=== PATIENT | female | born 1935 | race Caucasian/White ===

== ENCOUNTER 2018-10-21 09:13 | Inpatient (IN) ==
[2018-10-21] MEDS ORDERED: IOPAMIDOL 100 ML BOTTLE IV ONE (09:14)
--- NOTE | 2018-10-21 09:28 | Emergency Department Note ---
Weakness HPI - General Chief complaint: Weakness Stated complaint: weakness Time Seen by Provider: 10/21/18 09:21 Source: EMS Mode of arrival: EMS Limitations: no limitations - History of Present Illness HPI Narrative: [facility] and was at breakfast when the staff noticed that she is been having some increased weakness.. She was able to ambulate there is no localizing signs. Patient herself states that she is just having some increased weakness over the past several days. There is no slurring of speech she is alert and oriented x3. She is here with her daughter at this time. Is able to give us history such as her date who her daughter is her name. A FAST exam is negative there are no localized neurologic findings. No facial droop no slurring of speech. Patient denies any chest pain there is no shortness of breathTemperature is 97.4 the pulse is 84 respirations are 18 blood pressure 147 115 and pulse ox is 97% her Accu-Chek is 240 - Related Data Home Medications Medication Instructions Recorded Confirmed RX: Accu-Chek 1 each FS ACHS 04/24/16 08/18/18 melatonin 3 mg tablet 3 mg PO HS 01/29/17 10/21/18 ondansetron 4 mg disintegrating 4 mg PO Q6H PRN 01/29/17 08/18/18 tablet RX: Sennosides/Docusate Sodium 1 tab PO DAILY 04/13/17 10/21/18 [Senna Plus Tablet] Calcium w/vitamin d 600 mg PO DAILY 01/28/18 10/21/18 Insulin Glargine, Human [Lantus] 5 unit SQ DAILY 10/21/18 10/21/18 Insulin Lispro [HumaLOG] 0 unit SQ BID 10/21/18 10/21/18 Nut.tx.glucose Intolerance,Soy 1 unit PO DAILYP PRN 10/21/18 10/21/18 [Glucerna] RX: Hydrocodone/APAP 7.5/325Mg 1 tab PO Q6HP PRN 10/21/18 10/21/18 [[place] 7.5-325Mg] RX: insulin lispro 100 unit/mL 15 units SUBCUT HS 10/21/18 10/21/18 subcutaneous pen RX: traZODone HCL [Trazodone HCl] 25 mg PO HS 10/21/18 10/21/18 Previous Rx's Medication Instructions Recorded RX: Accu-Chek 1 each FS ACHS strip 06/10/16 Advanced Glucose Meter Test Strips See Dose Instructions .ROUTE 01/13/17 .MEDSUPPLY #100 each NS MDD 4 times daily blood-glucose meter See Dose Instructions .ROUTE 01/13/17 .MEDSUPPLY #1 each NS MDD 4 times daily incontinence pants, reusable See Dose Instructions .ROUTE 01/13/17 .MEDSUPPLY #28 each NS MDD 2 pants daily Sure-Fine Pen [place] 31 gauge x See Dose Instructions .ROUTE 02/16/1710/02" .MEDSUPPLY #100 each NS phenazopyridine 200 mg tablet 200 mg PO TID #9 tab 04/14/17 tamsulosin 0.4 mg capsule 0.4 mg PO HS #90 cap 02/08/18 insulin glargine (U-100) 100 24 unit SUB-Q HS #15 ml 03/24/18 unit/mL (3 mL) subcutaneous pen atorvastatin 20 mg tablet 20 mg PO HS #90 tab 05/03/18 doxycycline hyclate 100 mg tablet 100 mg PO QDAY #90 tab 05/03/18 gabapentin 100 mg capsule 100 mg PO TID #270 cap 05/03/18 polyethylene glycol 3350 17 gram 17 g PO DAILY PRN #30 packet NS 05/03/18 oral powder packet donepezil 5 mg disintegrating 5 mg PO HS #90 tab 05/19/18 tablet oxybutynin chloride ER 5 mg 5 mg PO QDAY #30 tab 08/30/18 tablet,extended release 24 hr fentanyl 25 mcg/hr transdermal 1 patch TRANSDERMA Q72H #10 patch 10/12/18 patch MDD 1 patch every 3 days Allergies Allergy/AdvReac Type Severity Reaction Status Date / Time No Known Drug Allergies Allergy Verified 08/18/18 13:03 Review of Systems All systems ED: reviewed and negative except as stated. Constitutional: Denies: fever, chills Eyes: Denies: eye pain ENT ED: Denies: ear pain Cardiovascular: Denies: chest pain Respiratory: Denies: shortness of breath Gastrointestinal: Denies: abdominal pain Genitourinary: Denies: dysuria, urgency, frequency Musculoskeletal: Denies: back pain, joint swelling Integumentary: Denies: rash Neurological: Reports: weakness. Denies: headache, numbness, paresthesias, confusion Psychiatric: Denies: anxiety, depression Endocrine: Denies: fatigue Hematological/Lymphatic: Denies: easy bleeding Allergic/Immunologic: Denies: facial swelling Past Medical History - Past Medical History [facility] Narrative: All Active Problems (Last Reviewed 08/23/18 @ 10:43 by Gee Werner DO) Abdominal pain (Acute) UTI (urinary tract infection) (Acute) Multiple rib fractures involving four or more ribs (Acute) Chest pain, musculoskeletal (Acute) Compression fracture of thoracic vertebra (Acute) Osteoporosis (Acute) Fever, low grade (Acute) Leukocytosis (leucocytosis) (Acute) Dementia (Acute) Near syncope (Acute) Chronic constipation (Chronic) Incontinence in female (Acute) Compression fracture (Acute) Lumbago (Acute) Hyponatremia (Acute) Back pain (Chronic) Dehydration (Acute) Hyponatremia (Acute) Gastritis (Acute) Deep vein thrombosis (Chronic) Abdominal aortic pulsation (Chronic) Fracture of right patella with routine healing (Chronic) Glaucoma (Chronic) Hypo-osmolality and hyponatremia (Chronic) Acidosis (Chronic) Shortness of breath (Chronic) Urinary tract infection (Chronic) Other disorders of lung (Chronic) Hyperglycemia (Chronic) Metabolic encephalopathy (Chronic) Diabetes mellitus type II, controlled, with no complications (Chronic) Past Surgical History (Last Reviewed 08/23/18 @ 10:43 by Gee Werner DO) No pertinent past surgical history (Acute) Family History (Last Reviewed 08/23/18 @ 10:43 by Gee Werner DO) Other No pertinent family history Medical history: Reports: dementia, DM (Type II, insulin using), glaucoma, hyperlipidemia, hypertension, other (UTI's, NO pyelonephritis. Compression fractures, rib fractures (fall) with some chronic pain/fentanyl patch.). Denies: cancer, COPD, CVA, myocardial infarction, thyroid disease, TIA Psychiatric history: Reports: anxiety. Denies: depression Surgical history ED: Reports: hysterectomy, tonsillectomy - Social History smoking status: Never smoker Alcohol use: Reports: None Drug use: Reports: none Physical Exam Limitations: no limitations General appearance: alert Head: atraumatic, normocephalic Eye: Present: normal appearance, PERRL ENT: normal exam, normal oropharynx, mucous membranes moist Neck: Present: normal inspection, full ROM Chest: Present: normal inspection, symmetric chest wall rise. Absent: tenderness Respiratory: Present: normal lung sounds bilaterally. Absent: respiratory distress, rales/crackles, wheezes Cardiovascular: Present: regular rate, normal rhythm. Absent: bradycardia, tachycardia Abdominal: Present: soft. Absent: distention, tenderness Extremities: Present: normal inspection, full ROM. Absent: tenderness Back: Present: normal inspection, full ROM. Absent: tenderness Patient oriented to: Present: person, place, time Speech: Present: fluid speech Cranial nerves: EOM function (II, III, IV, ): Normal, facial sensation (V): Normal, facial palsy (VII): Normal, gag reflex (IX): Normal, spinal accessory function (XI): Normal, tongue deviation (XII): Normal Motor strength - LUE: 5/5 Motor strength - RUE: 5/5 Motor strength - RLE: 5/5 Upper motor neuron exam: Babinski sign: Absent bilaterally Sensory exam upper extremity: Normal: light touch, pin prick Sensory exam lower extremity: Normal: light touch, pin prick Coma Scale Eye Opening: Spontaneous Coma Scale Motor Response: Obeys Commands Coma Scale Verbal Response: Oriented Coma Scale Total: 15 Psychiatric: Present: normal affect, normal mood Skin: Present: warm, cool Course Vital Signs Temperature 97.4 F 10/21/18 09:14 Pulse Rate 84 10/21/18 09:14 Respiratory Rate 18 10/21/18 09:14 Blood Pressure 147/115 10/21/18 09:14 Pulse Oximetry (%) 97 10/21/18 09:14 Temperature 97.4 F 10/21/18 14:40 Pulse Rate 63 10/21/18 14:40 Respiratory Rate 17 10/21/18 14:40 Blood Pressure 134/62 10/21/18 14:40 Pulse Oximetry (%) 95 10/21/18 14:40 Weakness - MDM Narrative Medical decision making narrative: Chest x-ray reveals infiltrate in the left hilar region. Cultures have been drawn patient started on Rocephin and Zithromax. Pressures initially were 110 systolically when she arrived but started dropping it down to the 70s but was resuscitated with fluid pressures back up to the 100s after fluid boluses. Head CT and CTA of the head and neck were also negative. Dr. Mata contacted and patient to be admitted - Lab Data Result diagrams: 10/21/18 09:34 10/21/18 09:34 Lab Results 10/21/18 10/21/18 10/21/18 Range/Units 09:34 09:34 09:34 WBC 6.5 (4.5-11.0) K/mcL RBC 4.63 (4.00-5.20) M/mcL Hgb 13.7 (12.0-15.0) g/dL Hct 42.6 (36.0-48.0) % POC Hct 43.0 (36.0-48.0) % MCV 92.0 (80.0-100.0) fL MCH 29.7 (26.0-34.0) pg MCHC 32.3 (31.0-36.0) g/dL RDW 12.8 (11.5-14.5) % Plt Count 316 (140-440) K/mcL MPV 8.3 (7.4-10.4) fL Gran % 60.2 (38.0-78.0) % Lymph % (Auto) 26.9 (15.5-49.0) % Hart % (Auto) 10.0 (1.0-12.0) % Eos % (Auto) 1.9 (0.0-7.0) % Baso % (Auto) 1.0 (0.0-2.0) % Gran # 3.9 (1.8-8.0) K/mcL Lymph # (Auto) 1.7 (1.5-4.8) K/mcL Hart # (Auto) 0.7 (0.1-0.9) K/mcL Eos # (Auto) 0.1 (0.0-0.7) K/mcL Baso # (Auto) 0.1 (0.0-0.3) K/mcL POC PT (11.9-14.5) sec POC INR (0.9-1.2) VBG Lactic Acid (0.5-2.0) mmol/L POC Sodium 136 (133-145) mmol/L Sodium 135 (133-145) mmol/L POC Potassium 4.1 (3.3-5.1) mmol/L Potassium 4.2 (3.3-5.1) mmol/L POC Chloride 99 (96-108) mmol/L Chloride 95 L (96-108) mmol/L Carbon Dioxide 26 (22-30) mmol/L POC Total CO2 27 (22-30) mmol/L Anion Gap 14.0 (8-16) POC BUN 13 (8-23) mg/dl BUN 12 (8-23) mg/dl Creatinine 0.7 (0.6-1.1) mg/dl POC Creatinine 0.6 (0.6-1.1) mg/dl GFR Calculation 80 Glucose 234 H (70-105) mg/dL POC Glucose 237 H (70-105) mg/dL Calcium 9.4 (8.6-10.4) mg/dl POC WB Ioniz Calcium 1.14 L (1.16-1.32) mmol/L Total Bilirubin 0.5 (0.0-1.0) mg/dL AST 18 (0-37) U/l ALT 11 (0-40) U/l Alkaline Phosphatase 119 H (39-117) U/L Total Creatine Kinase 70 69 (24-170) IU/L CK-MB (CK-2) 1.7 (0-2.9) ng/ml Myoglobin 26 (25-58) ng/ml Troponin T (0-0.03) ng/ml Total Protein 7.9 (5.9-8.4) gm/dL Albumin 4.1 (3.2-5.2) gm/dL Globulin 3.8 H (2.2-3.7) gm/dL Albumin/Globulin Ratio 1.1 (1.0-2.3) Urine Color Urine Appearance Urine pH (5.0-9.0) Ur Specific [place] (1.000-1.035) Urine Protein (NEG) mg/dL Urine Glucose (UA) (NEG) mg/dL Urine Ketones (NEG) mg/dL Urine Occult Blood (<0.03) mg/dL Urine Nitrate (NEG) Urine Bilirubin (NEG) mg/dL Urine Urobilinogen (NEG) mg/dL Ur Leukocyte Esterase (NEG) /uL Urine RBC (0-1) /hpf Urine WBC (0-4) /hpf Ur Squamous Epith Cells (0-4) /hpf Urine Bacteria (0) /hpf Urine Mucus (0) /hpf Ur Culture Indicated? 10/21/18 10/21/18 10/21/18 Range/Units 09:34 09:34 10:16 WBC (4.5-11.0) K/mcL RBC (4.00-5.20) M/mcL Hgb (12.0-15.0) g/dL Hct (36.0-48.0) % POC Hct (36.0-48.0) % MCV (80.0-100.0) fL MCH (26.0-34.0) pg MCHC (31.0-36.0) g/dL RDW (11.5-14.5) % Plt Count (140-440) K/mcL MPV (7.4-10.4) fL Gran % (38.0-78.0) % Lymph % (Auto) (15.5-49.0) % Hart % (Auto) (1.0-12.0) % Eos % (Auto) (0.0-7.0) % Baso % (Auto) (0.0-2.0) % Gran # (1.8-8.0) K/mcL Lymph # (Auto) (1.5-4.8) K/mcL Hart # (Auto) (0.1-0.9) K/mcL Eos # (Auto) (0.0-0.7) K/mcL Baso # (Auto) (0.0-0.3) K/mcL POC PT 11.5 L (11.9-14.5) sec POC INR 1.0 (0.9-1.2) VBG Lactic Acid 1.2 (0.5-2.0) mmol/L POC Sodium (133-145) mmol/L Sodium (133-145) mmol/L POC Potassium (3.3-5.1) mmol/L Potassium (3.3-5.1) mmol/L POC Chloride (96-108) mmol/L Chloride (96-108) mmol/L Carbon Dioxide (22-30) mmol/L POC Total CO2 (22-30) mmol/L Anion Gap (8-16) POC BUN (8-23) mg/dl BUN (8-23) mg/dl Creatinine (0.6-1.1) mg/dl POC Creatinine (0.6-1.1) mg/dl GFR Calculation Glucose (70-105) mg/dL POC Glucose (70-105) mg/dL Calcium (8.6-10.4) mg/dl POC WB Ioniz Calcium (1.16-1.32) mmol/L Total Bilirubin (0.0-1.0) mg/dL AST (0-37) U/l ALT (0-40) U/l Alkaline Phosphatase (39-117) U/L Total Creatine Kinase (24-170) IU/L CK-MB (CK-2) (0-2.9) ng/ml Myoglobin (25-58) ng/ml Troponin T < 0.01 (0-0.03) ng/ml Total Protein (5.9-8.4) gm/dL Albumin (3.2-5.2) gm/dL Globulin (2.2-3.7) gm/dL Albumin/Globulin Ratio (1.0-2.3) Urine Color Urine Appearance Urine pH (5.0-9.0) Ur Specific [place] (1.000-1.035) Urine Protein (NEG) mg/dL Urine Glucose (UA) (NEG) mg/dL Urine Ketones (NEG) mg/dL Urine Occult Blood (<0.03) mg/dL Urine Nitrate (NEG) Urine Bilirubin (NEG) mg/dL Urine Urobilinogen (NEG) mg/dL Ur Leukocyte Esterase (NEG) /uL Urine RBC (0-1) /hpf Urine WBC (0-4) /hpf Ur Squamous Epith Cells (0-4) /hpf Urine Bacteria (0) /hpf Urine Mucus (0) /hpf Ur Culture Indicated? 10/21/18 Range/Units 10:16 WBC (4.5-11.0) K/mcL RBC (4.00-5.20) M/mcL Hgb (12.0-15.0) g/dL Hct (36.0-48.0) % POC Hct (36.0-48.0) % MCV (80.0-100.0) fL MCH (26.0-34.0) pg MCHC (31.0-36.0) g/dL RDW (11.5-14.5) % Plt Count (140-440) K/mcL MPV (7.4-10.4) fL Gran % (38.0-78.0) % Lymph % (Auto) (15.5-49.0) % Hart % (Auto) (1.0-12.0) % Eos % (Auto) (0.0-7.0) % Baso % (Auto) (0.0-2.0) % Gran # (1.8-8.0) K/mcL Lymph # (Auto) (1.5-4.8) K/mcL Hart # (Auto) (0.1-0.9) K/mcL Eos # (Auto) (0.0-0.7) K/mcL Baso # (Auto) (0.0-0.3) K/mcL POC PT (11.9-14.5) sec POC INR (0.9-1.2) VBG Lactic Acid (0.5-2.0) mmol/L POC Sodium (133-145) mmol/L Sodium (133-145) mmol/L POC Potassium (3.3-5.1) mmol/L Potassium (3.3-5.1) mmol/L POC Chloride (96-108) mmol/L Chloride (96-108) mmol/L Carbon Dioxide (22-30) mmol/L POC Total CO2 (22-30) mmol/L Anion Gap (8-16) POC BUN (8-23) mg/dl BUN (8-23) mg/dl Creatinine (0.6-1.1) mg/dl POC Creatinine (0.6-1.1) mg/dl GFR Calculation Glucose (70-105) mg/dL POC Glucose (70-105) mg/dL Calcium (8.6-10.4) mg/dl POC WB Ioniz Calcium (1.16-1.32) mmol/L Total Bilirubin (0.0-1.0) mg/dL AST (0-37) U/l ALT (0-40) U/l Alkaline Phosphatase (39-117) U/L Total Creatine Kinase (24-170) IU/L CK-MB (CK-2) (0-2.9) ng/ml Myoglobin (25-58) ng/ml Troponin T (0-0.03) ng/ml Total Protein (5.9-8.4) gm/dL Albumin (3.2-5.2) gm/dL Globulin (2.2-3.7) gm/dL Albumin/Globulin Ratio (1.0-2.3) Urine Color Yellow Urine Appearance Clear Urine pH 6.0 (5.0-9.0) Ur Specific [place] 1.013 (1.000-1.035) Urine Protein Neg (NEG) mg/dL Urine Glucose (UA) >=500 A (NEG) mg/dL Urine Ketones Neg (NEG) mg/dL Urine Occult Blood Neg (<0.03) mg/dL Urine Nitrate Neg (NEG) Urine Bilirubin Neg (NEG) mg/dL Urine Urobilinogen Neg (NEG) mg/dL Ur Leukocyte Esterase Neg (NEG) /uL Urine RBC < 1 (0-1) /hpf Urine WBC < 1 (0-4) /hpf Ur Squamous Epith Cells 0 (0-4) /hpf Urine Bacteria 0 (0) /hpf Urine Mucus Few (0) /hpf Ur Culture Indicated? No Disposition Pt seen by [employer]/PA only: No Clinical Impression: Pneumonia Disposition: Xfer As Inpt ([facility]) Condition: Fair
--- NOTE | 2018-10-21 09:54 | XRay Report ---
INDICATION: Weakness TECHNIQUE: AP chest x-ray,portable upright COMPARISON: Previous examinations dated 10/09/2017 and 06/09/2016 FINDINGS:Suboptimal evaluation as this study was performed with portable technique and the patient partially upright. There is a left perihilar infiltrate consistent with pneumonia. Routine PA and lateral chest x-rays would be helpful when clinically appropriate. Right lung remains negative. There is cardiomegaly. Pulmonary vascularity is unremarkable. No pulmonary edema or pulmonary congestion. Incidental note is made of nonacute healed right rib fractures. IMPRESSION: 1. Left perihilar infiltrate consistent with pneumonia 2. Cardiomegaly. No pulmonary edema or pulmonary congestion Interpreted and Authenticated by: Gee Collins 10/21/18
--- NOTE | 2018-10-21 09:58 | Cat Scan Report ---
CLINICAL INFORMATION: Weakness COMPARISON: Previous MRI scan dated 01/07/2016 TECHNIQUE: Axial noncontrast-enhanced images through the brain. Sagittal and coronal reformatted images FINDINGS: No acute intracranial hemorrhage. There is no intra-axial hematoma. No subdural or subarachnoid hemorrhage. No focal intra-axial attenuation abnormality. No localized mass effect. There is cerebral atrophy. There is white matter abnormality consistent with small vessel ischemic change in this 83-year-old patient. No focal abnormality. There is cerebellar atrophy. Brainstem is negative. Basilar cisterns are normal. No hyperdense middle cerebral artery sign. No calvarial fracture. No lytic lesion. Temporal bones are negative. Paranasal sinuses are negative. No significant interval change since previous MRI scan. IMPRESSION: 1. Cerebral atrophy. White matter abnormality consistent with small vessel ischemic change 2. No acute intracranial hemorrhage. No acute abnormality 3. No significant interval change since 01/07/2016 The exam was performed using radiation dose optimization techniques including, but not limited to, automated exposure control, adjustment of the mA and/or kV according to patient size and use of iterative reconstruction technique. Interpreted and Authenticated by: Gee Collins 10/21/18
[2018-10-21 10:52] LABS: Basophils # (Auto) 0.1 K/mcL (0.0-0.3); Eosinophils # (Auto) 0.1 K/mcL (0.0-0.7); Eosinophils % (Auto) 1.9 % (0.0-7.0); Granulocytes % (Auto) 60.2 % (38.0-78.0); Lymphocytes # (Auto) 1.7 K/mcL (1.5-4.8); Lymphocytes % (Auto) 26.9 % (15.5-49.0); Mean Corpuscular HGB Conc 32.3 g/dL (31.0-36.0); Monocytes # (Auto) 0.7 K/mcL (0.1-0.9); Platelet Count 316 K/mcL (140-440); RBC 4.63 M/mcL (4.00-5.20); Red Cell Distribution Width 12.8 % (11.5-14.5)
[2018-10-21 11:04] LABS: Appearance,Urine CLEAR; Bacteria,Urine 0 /hpf (0); Bilirubin,Urine NEG (NEG); Color,Urine YELLOW; Glucose,Urine (UA) >=500 mg/dL (NEG); Leukocyte Esterase,Urine NEG /uL (NEG); Mucus,Urine FEW /hpf (0); Protein,Urine NEG (NEG); Specific Gravity,Urine 1.013 (1.000-1.035); Urine Blood NEG mg/dL (<0.03); Urine RBC < 1 /hpf (0-1); Urine Squamous Epithelial Cell 0 /hpf (0-4); Urine WBC < 1 /hpf (0-4); Urobilinogen,Urine NEG (NEG)
[2018-10-21 11:17] LABS: Creatine Kinase 69 IU/L (24-170)
[2018-10-21 11:23] LABS: ALT/SGPT 11 U/l (0-40); Albumin 4.1 gm/dL (3.2-5.2); Albumin/Globulin Ratio 1.1 (1.0-2.3); Alkaline Phosphatase 119 U/L (39-117); Blood Urea Nitrogen 12 mg/dl (8-23); Creatine Kinase 70 IU/L (24-170); Creatine Kinase MB 1.7 ng/ml (0-2.9); Myoglobin 26 ng/ml (25-58)
--- NOTE | 2018-10-21 11:39 | Cat Scan Report ---
CLINICAL INFORMATION: Weakness TECHNIQUE: 80 mL contrast material injected. Scans performed through the neck and head during arterial phase. Routine sagittal and coronal images. MIP and CPR reformatted images. COMPARISON: Noncontrast brain CT scan dated 10/21/2018 FINDINGS: There is calcification in the thoracic aorta. Ascending thoracic aorta is mildly dilated and measures 4.1 cm in cross-sectional diameter. There is no dissection. There is calcified plaque in the aortic arch. Normal origins of the left subclavian artery, left common carotid artery, innominate artery, right common carotid artery, right subclavian artery. Origins of the right vertebral artery and left vertebral There is calcified plaque in the mid left common carotid artery. There is no noncalcified plaque. There is no stenosis. There is calcified plaque in the proximal left internal carotid artery. There is no soft plaque or ulceration. There is no hemodynamically significant stenosis. There is extensive plaque in the proximal right internal carotid artery. There is no soft plaque or ulceration. There is approximately 70% diameter stenosis in the proximal right internal carotid artery. This is hemodynamically significant. Origins of the vertebral arteries are normal. No stenosis. Cervical portions of the vertebral arteries are negative bilaterally. There is no stenosis or occlusion. There is no dissection. There is calcified plaque in the petrous portion of the right internal carotid artery. There is calcified plaque in the cavernous segments of both internal carotid arteries and supraclinoid segments of both internal carotid arteries. There is no stenosis or occlusion. Intracranial vertebral arteries are normal. Basilar artery is normal. M1 segments of the middle cerebral arteries and A1 segments of the anterior cerebral arteries are negative. There is no stenosis. Superior cerebellar arteries and posterior cerebral arteries are negative. There is no intracranial aneurysm. There is no arteriovenous malformation. There are no occluded branches Superior sagittal sinus is opacified and appears normal. Transverse sinuses and sigmoid sinuses are negative. Straight sinus and vein of Oscar are negative. Lung apices are negative. No pneumothorax. No focal mass IMPRESSION: 1. Calcified plaque in the left common carotid artery and proximal left internal carotid artery. No hemodynamically significant stenosis. No evidence for ulceration. 2. Calcified plaque in the proximal right internal carotid artery. Approximately 70% diameter stenosis. No detectable ulceration 3. No intracranial abnormality. No occluded branches. No intracranial aneurysm or arteriovenous malformation. Interpreted and Authenticated by: Gee Collins 10/21/18
[2018-10-21] MEDS ORDERED: cefTRIAXone 1 GM in DEXTROSE 5% IN WATER 50 ML IV ONE (12:18)
[2018-10-21] MEDS ORDERED: AZITHROMYCIN 500 MG in DEXTROSE 5% IN WATER 250 ML IV ONE (12:20)
[2018-10-21] MEDS ORDERED: 0.9 % SODIUM CHLORIDE 1,000 ML IV ONE ×2 (12:48→13:16)
--- NOTE | 2018-10-21 14:56 | Internal Med History&Physical ---
Medical - H&P: HPI Patient information: Note initiated : 10/21/18 at 2:51 pm Service Date, if different from initiated Date: [] Patient: Giuliana Moreno a 83 y/o F admitted on for Weakness. Chief Complaint: [] History of present illness: Ms. Moreno is a 83 year old F with history of dementia, living in an adult family home [place] home, presents to the hospital today accompanied by her daughter who is also the POA for evaluation of altered mental status weakness and lethargy. The patient is drowsy, has some slurring of speech and most of the history has been obtained by speaking to the daughter. The patient was doing fine until breakfast this morning. After eating breakfast she suddenly slumped in a chair and became drowsy. She was sent here for further evaluation in the hospital she was slurring her words, and was confused. This is not her baseline. The patient was therefore evaluated in the emergency room. According to the ER physician there was no focal signs, the patient had a negative head CT and a head CT done which shows 70% right proximal ICA involvement. Chest x-ray was done which showed left perihilar infiltrate suggestive of pneumonia. Labs reviewed unremarkable, UA is negative. The patient during the ER stay then became hypotensive with a blood pressure as low as 70 systolic. Requiring fluid boluses to bring the blood pressure back up. On my evaluation patient remained drowsy however was able to follow commands and open eyes to verbal stimulus, she was able to follow commands. She had generalized weakness all throughout she did have dry mouth and slurring of words. Her blood pressure has picked up again after 2 L saline boluses She is being admitted to the hospital for further management Patient is being admitted to the ICU, patient is full code, plan reviewed with the daughter ROS unobtainable: due to mental status Medical - H&P: [facility] Medical history: Medical History (Last Reviewed 08/23/18 @ 10:43 by Gee Werner DO) Compression fracture (Acute) Lumbago (Acute) Hyponatremia (Acute) Dehydration with hyponatremia (Resolved) Back pain (Chronic) Dehydration (Acute) Hyponatremia (Acute) Gastritis (Acute) Deep vein thrombosis (Chronic) Abdominal aortic pulsation (Chronic) Fracture of right patella with routine healing (Chronic) Glaucoma (Chronic) Hypo-osmolality and hyponatremia (Chronic) Acidosis (Chronic) Shortness of breath (Chronic) Urinary tract infection (Chronic) Other disorders of lung (Chronic) Hyperglycemia (Chronic) Metabolic encephalopathy (Chronic) Diabetes mellitus type II, controlled, with no complications (Chronic) Surgical history: Past Surgical History (Last Reviewed 08/23/18 @ 10:43 by Gee Werner DO) No pertinent past surgical history (Acute) Family history: reviewed and not pertinent Medical - H&P: Meds Home Medications Medication Instructions Recorded Confirmed Type Accu-Chek 1 each FS ACHS 04/24/16 08/18/18 History Accu-Chek 1 each FS ACHS strip 06/10/16 08/18/18 Rx Advanced Glucose Meter Test Strips See Dose Instructions .ROUTE 01/13/17 08/18/18 Rx .MEDSUPPLY #100 each NS MDD 4 times daily blood-glucose meter See Dose Instructions .ROUTE 01/13/17 08/18/18 Rx .MEDSUPPLY #1 each NS MDD 4 times daily incontinence pants, reusable See Dose Instructions .ROUTE 01/13/17 08/18/18 Rx .MEDSUPPLY #28 each NS MDD 2 pants daily melatonin 3 mg tablet 3 mg PO HS 01/29/17 10/21/18 History ondansetron 4 mg disintegrating 4 mg PO Q6H PRN 01/29/17 08/18/18 History tablet Sure-Fine Pen Kelly 31 gauge x See Dose Instructions .ROUTE 02/16/17 08/18/18 Rx 3/16" .MEDSUPPLY #100 each NS Sennosides/Docusate Sodium [Senna 1 tab PO DAILY 04/13/17 10/21/18 History Plus Tablet] phenazopyridine 200 mg tablet 200 mg PO TID #9 tab 04/14/17 08/18/18 Rx Calcium w/vitamin d 600 mg PO DAILY 01/28/18 10/21/18 History tamsulosin 0.4 mg capsule 0.4 mg PO HS #90 cap 02/08/18 10/21/18 Rx insulin glargine (U-100) 100 24 unit SUB-Q HS #15 ml 03/24/18 08/18/18 Rx unit/mL (3 mL) subcutaneous pen atorvastatin 20 mg tablet 20 mg PO HS #90 tab 05/03/18 10/21/18 Rx doxycycline hyclate 100 mg tablet 100 mg PO QDAY #90 tab 05/03/18 10/21/18 Rx gabapentin 100 mg capsule 100 mg PO TID #270 cap 05/03/18 10/21/18 Rx polyethylene glycol 3350 17 gram 17 g PO DAILY PRN #30 packet NS 05/03/18 10/21/18 Rx oral powder packet donepezil 5 mg disintegrating 5 mg PO HS #90 tab 05/19/18 10/21/18 Rx tablet oxybutynin chloride ER 5 mg 5 mg PO QDAY #30 tab 08/30/18 10/21/18 Rx tablet,extended release 24 hr fentanyl 25 mcg/hr transdermal 1 patch TRANSDERMA Q72H #10 patch 10/12/18 10/21/18 Rx patch MDD 1 patch every 3 days Hydrocodone/APAP 7.5/325Mg [Alexis 1 tab PO Q6HP PRN 10/21/18 10/21/18 History 7.5-325Mg] Insulin Glargine, Human [Lantus] 5 unit SQ DAILY 10/21/18 10/21/18 History Insulin Lispro [HumaLOG] 0 unit SQ BID 10/21/18 10/21/18 History Nut.tx.glucose Intolerance,Soy 1 unit PO DAILYP PRN 10/21/18 10/21/18 History [Glucerna] insulin lispro 100 unit/mL 15 units SUBCUT HS 10/21/18 10/21/18 History subcutaneous pen traZODone HCL [Trazodone HCl] 25 mg PO HS 10/21/18 10/21/18 History Allergies Allergy/AdvReac Type Severity Reaction Status Date / Time No Known Drug Allergies Allergy Verified 08/18/18 13:03 Medical - H&P: Exam - Constitutional Vitals: Temp Pulse Resp BP Pulse Ox 97.4 F 63 17 134/62 95 10/21/18 14:40 10/21/18 14:40 10/21/18 14:40 10/21/18 14:40 10/21/18 14:40 Exam: GENERAL: The patient is a well-developed, well-nourished in no apparent distress. Is alert and oriented x2. VITAL SIGNS: Reviewed and as noted elsewhere. HEENT: Head is normocephalic and atraumatic. Extraocular muscles are intact. Pupils are equal, round, and reactive to light. Nares appeared normal. Mouth appears any without lesions. Mucous membranes are dry NECK: Normal to inspection, Supple, No lymphadenopathy or thyromegaly. LUNGS: Air entry equal on both sides, no wheezing, left mid and lower lung rales, HEART: Regular rate and rhythm normal, S1 and S2 heard, no Gallop, S3 or Rub Noted, No Gross murmur heard. ABDOMEN: Soft, nontender, and nondistended. Positive bowel sounds. No hepatosplenomegaly was noted. EXTREMITIES: No cyanosis, clubbing, rash, lesions or edema. NEUROLOGIC: Cranial nerves II through XII are grossly intact. Motor and Sensory System Grossly Intact PSYCHIATRIC: drowsy SKIN: No ulceration or wounds noted, No jaundice, No rash noted. Medical - H&P: Reslt - Labs CBC & Chem 7: 10/21/18 09:34 10/21/18 09:34 Labs: Short CBC 10/21/18 Range/Units 09:34 WBC 6.5 (4.5-11.0) K/mcL Hgb 13.7 (12.0-15.0) g/dL Hct 42.6 (36.0-48.0) % Plt Count 316 (140-440) K/mcL BMP 10/21/18 09:34 Sodium 135 Potassium 4.2 Chloride 95 L Carbon Dioxide 26 BUN 12 Creatinine 0.7 Glucose 234 H Calcium 9.4 Cardiac Enzymes 10/21/18 10/21/18 10/21/18 Range/Units 09:34 09:34 09:34 Total Creatine Kinase 70 69 (24-170) IU/L CK-MB (CK-2) 1.7 (0-2.9) ng/ml Troponin T < 0.01 (0-0.03) ng/ml Liver Function 10/21/18 Range/Units 09:34 Total Bilirubin 0.5 (0.0-1.0) mg/dL AST 18 (0-37) U/l ALT 11 (0-40) U/l Alkaline Phosphatase 119 H (39-117) U/L Albumin 4.1 (3.2-5.2) gm/dL Urine 10/21/18 Range/Units 10:16 Urine Color Yellow Urine Appearance Clear Urine pH 6.0 (5.0-9.0) Ur Specific Anderson 1.013 (1.000-1.035) Urine Protein Neg (NEG) mg/dL Urine Glucose (UA) >=500 A (NEG) mg/dL Medical - H&P: A/P - Narrative A/P Narrative: A/P Infectious Encephalopathy Pneumonia, Health Care associated Hypotension Diabetes Dementia Hyperlipidemia Osteoporosis Plan Admit to PCU statatus, given low bp labs are surprisingly normal send resp panel for influenzae IV vanco and zosyn for now. Urine strep antigen, urine legionella, mycoplama ab to be sent IV fluids to keep map > 65 Oxygen to keep osat > 65, get abg SSI for glucose control DVT hep Diet regular, ST eval Full code. Social History - Social History marital status: - Tobacco smoking status: Never smoker - Alcohol alcohol intake frequency: does not drink
[2018-10-21] MEDS ORDERED: DEXTROSE 31 GM ORAL.SUSP PO PRN (15:11)
[2018-10-21] MEDS ORDERED: DEXTROSE 50% 50 ML VIAL IV PRN (15:11)
[2018-10-21] MEDS ORDERED: POLYETHYLENE GLYCOL 3350 17 GM PACKET PO PRN (15:11)
[2018-10-21] MEDS ORDERED: ONDANSETRON 4 MG/2 ML VIAL IV PRN (15:11)
[2018-10-21] MEDS ORDERED: ACETAMINOPHEN 325 MG TABLET PO PRN (15:11)
[2018-10-21] MEDS ORDERED: NALOXONE HCL 0.4 MG/ML VIAL IV PRN (15:11)
[2018-10-21] MEDS ORDERED: VANCOMYCIN PER PHARMACY IV SCH (15:11)
[2018-10-21] MEDS ORDERED: MELATONIN 3 MG TABLET PO PRN (15:11)
[2018-10-21] MEDS ORDERED: HYDROCODONE/APAP 7.5/325MG TABLET PO PRN (15:11)
[2018-10-21] MEDS: VANCOMYCIN 1,000 MG in 0.9 % SODIUM CHLORIDE 250 ML IV SCH (15:45)
[2018-10-21] MEDS: GABAPENTIN 100 MG CAPSULE PO SCH ×2 (15:51→21:00)
[2018-10-21] MEDS: PIPERACILLIN SODIUM/TAZOBACTAM 3.375 GM in DEXTROSE 5% IN WATER 50 ML IV SCH (17:00)
[2018-10-21] MEDS: INSULIN LISPRO 1 UNIT/0.01 ML UNIT SQ SCH ×2 (17:16→21:01)
[2018-10-21] MEDS ORDERED: FAMOTIDINE/PF 20 MG/2 ML VIAL IV SCH (21:00)
[2018-10-21] MEDS ORDERED: INSULIN GLARGINE, HUMAN 1 UNIT/0.01 ML SQ SCH (21:00)
[2018-10-21] MEDS ORDERED: ATORVASTATIN 20 MG TABLET PO SCH (21:00)
[2018-10-21] MEDS ORDERED: DONEPEZIL 10 MG TABLET PO SCH (21:00)
[2018-10-21] MEDS ORDERED: TAMSULOSIN 0.4 MG CAPSULE PO SCH (21:00)
[2018-10-21] MEDS: 0.9 % SODIUM CHLORIDE 10 ML SYRINGE IV SCH (21:00)
[2018-10-21] MEDS ORDERED: traZODone HCL 50 MG TABLET PO SCH (21:00)
[2018-10-21] MEDS: HEPARIN 5,000 UNIT/ML VIAL SQ SCH (21:01)
[2018-10-22] MEDS: PIPERACILLIN SODIUM/TAZOBACTAM 3.375 GM in DEXTROSE 5% IN WATER 50 ML IV SCH ×5 (00:46→22:47)
[2018-10-22] MEDS: 0.9 % SODIUM CHLORIDE 10 ML SYRINGE IV SCH ×7 (05:39→22:23)
[2018-10-22 06:30] LABS: ALT/SGPT 8 U/l (0-40); Albumin 3.4 gm/dL (3.2-5.2); Albumin/Globulin Ratio 1.2 (1.0-2.3); Alkaline Phosphatase 88 U/L (39-117); Bilirubin,Direct < 0.2 mg/dL (0.0-0.3); Blood Urea Nitrogen 11 mg/dl (8-23); Gamma Glutamyl Transpeptidase 18 U/L (5-36); Uric Acid 1.5 mg/dL (2.5-8.0)
[2018-10-22 06:31] LABS: Basophils # (Auto) 0 K/mcL (0.0-0.3); Basophils % (Auto) 0.4 % (0.0-2.0); Eosinophils # (Auto) 0 K/mcL (0.0-0.7); Eosinophils % (Auto) 0.2 % (0.0-7.0); Granulocytes % (Auto) 77.8 % (38.0-78.0); Lymphocytes # (Auto) 1.4 K/mcL (1.5-4.8); Lymphocytes % (Auto) 13.1 % (15.5-49.0); Mean Cell Volume 91.9 fL (80.0-100.0); Mean Corpuscular HGB Conc 32.7 g/dL (31.0-36.0); Monocytes # (Auto) 0.9 K/mcL (0.1-0.9); Monocytes % (Auto) 8.5 % (1.0-12.0); Platelet Count 288 K/mcL (140-440); RBC 3.87 M/mcL (4.00-5.20); Red Cell Distribution Width 12.9 % (11.5-14.5)
[2018-10-22] MEDS: INSULIN LISPRO 1 UNIT/0.01 ML UNIT SQ SCH ×4 (07:00→22:03)
[2018-10-22] MEDS: GABAPENTIN 100 MG CAPSULE PO SCH ×3 (08:58→22:12)
[2018-10-22] MEDS: HEPARIN 5,000 UNIT/ML VIAL SQ SCH ×2 (08:58→22:20)
[2018-10-22] MEDS ORDERED: SENNOSIDES/DOCUSATE SODIUM 1 TAB TABLET PO SCH (09:00)
[2018-10-22] MEDS ORDERED: AZITHROMYCIN 250 MG in DEXTROSE 5% IN WATER 250 ML IV SCH (09:00)
[2018-10-22] MEDS ORDERED: CALCIUM W/VIT D3 500 MG TABLET PO SCH (09:00)
[2018-10-22] MEDS ORDERED: AZITHROMYCIN 250 MG TABLET PO SCH (09:00)
[2018-10-22] MEDS ORDERED: OXYBUTYNIN CHLORIDE 5 MG TAB.XL.24H PO SCH (09:00)
[2018-10-22] MEDS ORDERED: INSULIN GLARGINE, HUMAN 1 UNIT/0.01 ML SQ SCH ×3 (09:00→21:00)
[2018-10-22] MEDS: VANCOMYCIN 1,000 MG in 0.9 % SODIUM CHLORIDE 250 ML IV SCH (09:07)
--- NOTE | 2018-10-22 10:13 | Internal Med Progress Note ---
Medical - PN: Subj Patient information: Note initiated : 10/22/18 at 10:11 am Service Date, if different from initiated Date: [] Patient: Giuliana Moreno a 83 y/o F admitted on 10/21/18 for Weakness. Chief Complaint: [] Interval history: History of present illness: Ms. Moreno is a 83 year old F with history of dementia, living in an adult family home [place] home, presents to the hospital today accompanied by her daughter who is also the POA for evaluation of altered mental status weakness and lethargy. The patient is drowsy, has some slurring of speech and most of the history has been obtained by speaking to the daughter. The patient was doing fine until breakfast this morning. After eating breakfast she suddenly slumped in a chair and became drowsy. She was sent here for further evaluation in the hospital she was slurring her words, and was confused. This is not her baseline. The patient was therefore evaluated in the emergency room. According to the ER physician there was no focal signs, the patient had a negative head CT and a head CT done which shows 70% right proximal ICA involvement. Chest x-ray was done which showed left perihilar infiltrate suggestive of pneumonia. Labs reviewed unremarkable, UA is negative. The patient during the ER stay then became hypotensive with a blood pressure as low as 70 systolic. Requiring fluid boluses to bring the blood pressure back up. On my evaluation patient remained drowsy however was able to follow commands and open eyes to verbal stimulus, she was able to follow commands. She had generalized weakness all throughout she did have dry mouth and slurring of words. Her blood pressure has picked up again after 2 L saline boluses She is being admitted to the hospital for further management Patient is being admitted to the ICU, patient is full code, plan reviewed with the daughter 10/22 Patient seen examined, no acute issues has no new complaints sitting in chair comfortable glucose level low this AM, cut back on dose of lantus. tolerating po well now. Pertinent ROS: Denies headache, dizziness Denies chest pain, palpitations Denies cough or shortness of breath Denies abdominal pain, nausea or vomiting. - Constitutional Vitals: Vital Signs Temp Pulse Resp BP Pulse Ox 98.7 F 67 18 115/59 94 10/22/18 07:44 10/22/18 07:44 10/22/18 07:44 10/22/18 07:44 10/22/18 07:44 Period Temp Pulse Resp BP Sys/Desouza Pulse Ox Last 24 Hr 97.4 F-98.7 F 58-95 13-29 71-168/37-92 93-100 Intake and Output 10/21/18 10/22/18 10/22/18 21:59 05:59 13:59 Intake Total 2790 510 530 Output Total 1976 425 0 Balance 813 85 530 Weight 126 lb 3 oz Intake & Output: Intake & Output 10/21/18 10/22/18 10/22/18 21:59 05:59 13:59 Intake Total 2790 510 530 Output Total 1976 425 0 Balance 813 85 530 Weight 126 lb 3 oz Intake: IV 2550 50 50 Sodium Chloride 0.9% 1,000 ml @ 2000 Wide Open IV BOLUS ONE Rx#: [id number] Zithromax 500 mg In Dextrose 5% 250 in Water 250 ml @ 250 mls/hr IV ONCE ONE Rx#:[id number] Zosyn 3.375 gm In Dextrose 5% 50 50 50 in Water 50 ml @ 100 mls/hr IV Q6H [facility] Rx#:[id number] Vancomycin 1,000 mg In Sodium 250 Chloride 0.9% 250 ml @ 250 mls/ hr IV Q24H [facility] Rx#:[id number] Oral 240 460 480 Output: Void Amount 1975 425 0 # of times incontinent of urine 2 Other: Meal Nourishment/Supplement Breakfast Percent of Meal Consumed 100% 50% Feeding Ability Assist with Tray Set Up Assist with Tray Set Up Nourishment/Supplement name applesauce Urine Appearance Clear Clear Urine Color Bright Yellow Bright Yellow Urine Odor Normal Normal Stool Size Smear Moderate Stool Color Brown Brown Stool Consistency Formed Soft Formed Exam: Constitutional; Afebrile, cooperative, alert, not in distress. Respiratory system: Air Entry equal on both sides, No crackles or wheezing, no rhonchi. CVS- Rate rhythm regular, S1,S2 heard, no gallop, no rub. Abdomen- Soft nontender abdomen, no organomegaly, no tenderness, no guarding or rigidity, [employer]- AOOx2, moving all extremities, no gross focal deficit noted. Medical - PN: Obj Da - Labs CBC & Chem 7: 10/22/18 04:00 10/22/18 04:00 Labs: Abnormal Lab Results 10/22/18 10/22/18 10/21/18 04:00 04:00 10:16 RBC 3.87 L Hgb 11.6 L Hct 35.6 L Lymph % (Auto) 13.1 L Lymph # (Auto) 1.4 L POC PT Chloride Glucose 41 L POC Glucose Uric Acid 1.5 L POC WB Ioniz Calcium Alkaline Phosphatase Globulin Urine Glucose (UA) >=500 A 10/21/18 10/21/18 10/21/18 10:16 09:34 09:34 RBC Hgb Hct Lymph % (Auto) Lymph # (Auto) POC PT 11.5 L Chloride 95 L Glucose 234 H POC Glucose 237 H Uric Acid POC WB Ioniz Calcium 1.14 L Alkaline Phosphatase 119 H Globulin 3.8 H Urine Glucose (UA) Meds: Medications Acetaminophen (Tylenol) 650 mg PO Q4-6HP PRN PRN Reason: PAIN/FEVER > 101 Hydrocodone Bitart/Acetaminophen ([place] 7.5/325mg) 1 tab PO Q6HP PRN PRN Reason: Pain Atorvastatin Calcium (Lipitor) 20 mg PO [facility] Last Admin: 10/21/18 21:00 Dose: 20 mg Documented by: Azithromycin (Zithromax) 250 mg PO DAILY [facility] Stop: 10/25/18 09:01 Last Admin: 10/22/18 08:58 Dose: 250 mg Documented by: Calcium/Vitamin D (Calcium W/Vit D3) 500 mg PO DAILY [facility] Last Admin: 10/22/18 08:58 Dose: 500 mg Documented by: Dextrose (Dextrose 50%) 0 ml IV UD PRN PRN Reason: Hypoglycemia Last Admin: 10/22/18 06:43 Dose: 25 ml Documented by: Diagnostic Test (Pha) (Accu-Chek) 1 each FS ACHS [facility] Last Admin: 10/22/18 07:00 Dose: 1 each Documented by: Donepezil HCl (Aricept) 5 mg PO [facility] Last Admin: 10/21/18 21:00 Dose: 5 mg Documented by: Famotidine (Pepcid) 20 mg IV HS [facility] Last Admin: 10/21/18 21:00 Dose: 20 mg Documented by: Gabapentin (Neurontin) 100 mg PO TID [facility] Last Admin: 10/22/18 08:58 Dose: 100 mg Documented by: Glucose (Insta-Glucose) 15 gm PO PRN PRN PRN Reason: Hypoglycemia Heparin Sodium (Porcine) (Heparin) 5,000 unit SQ Q12 [facility] Last Admin: 10/22/18 08:58 Dose: 5,000 unit Documented by: Piperacillin Sod/Tazobactam (Sod 3.375 gm/ Dextrose) 50 mls @ 100 mls/hr IV Q6H [facility]; Protocol Last Infusion: 10/22/18 06:27 Dose: Infused Documented by: Vancomycin HCl 1,000 mg/ (Sodium Chloride) 250 mls @ 250 mls/hr IV Q24H [facility] Last Admin: 10/22/18 09:07 Dose: 250 mls/hr Documented by: Insulin Glargine (Lantus) 15 unit SQ HS [facility] Insulin Human Lispro (Humalog) 0 unit SQ ACHS [facility]; Protocol Last Admin: 10/22/18 07:00 Dose: Not Given Documented by: Melatonin (Melatonin 3mg Tablet) 3 mg PO HS PRN PRN Reason: Insomnia Naloxone HCl (Narcan) 0.1 mg IV Q2MIN PRN PRN Reason: Opiate Reversal Ondansetron HCl (Zofran) 4 mg IV Q4-6HP PRN PRN Reason: Nausea And Vomiting Oxybutynin Chloride (Ditropan Xl) 5 mg PO QDAY [facility] Last Admin: 10/22/18 08:58 Dose: 5 mg Documented by: Polyethylene Glycol (Miralax) 17 gm PO DAILYP PRN PRN Reason: constipation Senna/Docusate Sodium (Senna Plus Tablet) 1 tab PO DAILY [facility] Last Admin: 10/22/18 08:58 Dose: 1 tab Documented by: Sodium Chloride (Saline Flush) 10 ml IV Q8 [facility] Last Admin: 10/22/18 09:08 Dose: 10 ml Documented by: Tamsulosin HCl (Flomax) 0.4 mg PO [facility] Last Admin: 10/21/18 21:00 Dose: 0.4 mg Documented by: Trazodone HCl (Desyrel) 25 mg PO [facility] Last Admin: 10/21/18 21:00 Dose: 25 mg Documented by: Vancomycin HCl (Vancomycin Per Pharmacy) 1 order IV UD [facility]; Protocol Medical - PN: A/P - Time Spent With Patient Total time spent is greater than 50% in coordination of care (as documented) at patient's floor/unit and/or counseling patient: - Narrative A/P Narrative: A/P Infectious Encephalopathy -resolved Pneumonia, Health Care associated -Cultures pending, on vanco and zosyn, doing well, Hypotension -resolved Diabetes, ON insulin Hypoglycemia -cut back dose of lantus , according to home med list she is on 5 units AM and 24 qhs, will d/c AM dose and use 15units qhs, see how she responds Dementia -stable, high risk for delirum Hyperlipidemia -resume home meds Osteoporosis -resume home meds DVT hep Diet regular, ST eval Full code. Xfer to med surg status. Medical - PN: Qual - Stroke Symptom Onset Unknown: No - VTE Deep Vein Thrombosis/Pulmonary Embolism Present on Admission: No
--- NOTE | 2018-10-22 12:49 | Internal Med Progress Note ---
Medical - PN: Subj Patient information: Note initiated : 10/22/18 at 12:45 pm Service Date, if different from initiated Date: [] Patient: Giuliana Moreno a 83 y/o F admitted on 10/21/18 for Weakness. Chief Complaint: [] Interval history: Ms. Moreno is a 83 year old F with history of dementia, living in an adult family home [place] home, presents to the hospital today accompanied by her daughter who is also the POA for evaluation of altered mental status weakness and lethargy. The patient is drowsy, has some slurring of speech and most of the history has been obtained by speaking to the daughter. The patient was doing fine until breakfast this morning. After eating breakfast she suddenly slumped in a chair and became drowsy. She was sent here for further evaluation in the hospital she was slurring her words, and was confused. This is not her baseline. The patient was therefore evaluated in the emergency room. According to the ER physician there was no focal signs, the patient had a negative head CT and a head CT done which shows 70% right proximal ICA involvement. Chest x-ray was done which showed left perihilar infiltrate suggestive of pneumonia. Labs reviewed unremarkable, UA is negative. The patient during the ER stay then became hypotensive with a blood pressure as low as 70 systolic. Requiring fluid boluses to bring the blood pressure back up. On my evaluation patient remained drowsy however was able to follow commands and open eyes to verbal stimulus, she was able to follow commands. She had generalized weakness all throughout she did have dry mouth and slurring of words. Her blood pressure has picked up again after 2 L saline boluses She is being admitted to the hospital for further management Patient is being admitted to the ICU, patient is full code, plan reviewed with the daughter 10/22 Patient seen examined, no acute issues has no new complaints sitting in chair comfortable glucose level low this AM, cut back on dose of lantus. tolerating po well now. 10/23 - Constitutional Vitals: Vital Signs Temp Pulse Resp BP Pulse Ox 99.3 F H 67 20 146/70 93 10/22/18 11:40 10/22/18 07:44 10/22/18 11:40 10/22/18 11:40 10/22/18 11:40 Period Temp Pulse Resp BP Sys/Desouza Pulse Ox Last 24 Hr 97.4 F-99.3 F 58-84 13-29 71-163/37-92 93-100 Intake and Output 10/21/18 10/22/18 10/22/18 21:59 05:59 13:59 Intake Total 2790 510 780 Output Total 1976 425 550 Balance 813 85 230 Weight 57.238 kg 57.238 kg Patient Weight 10/23/18 05:59 Weight 57.238 kg Intake & Output: Intake & Output 10/21/18 10/22/18 10/22/18 21:59 05:59 13:59 Intake Total 2790 510 780 Output Total 1976 425 550 Balance 813 85 230 Weight 57.238 kg 57.238 kg Intake: IV 2550 50 300 Sodium Chloride 0.9% 1,000 ml @ 2000 Wide Open IV BOLUS ONE Rx#: [id number] Zithromax 500 mg In Dextrose 5% 250 in Water 250 ml @ 250 mls/hr IV ONCE ONE Rx#:[id number] Zosyn 3.375 gm In Dextrose 5% 50 50 50 in Water 50 ml @ 100 mls/hr IV Q6H [facility] Rx#:[id number] Vancomycin 1,000 mg In Sodium 250 250 Chloride 0.9% 250 ml @ 250 mls/ hr IV Q24H [facility] Rx#:[id number] Oral 240 460 480 Output: Void Amount 1974 425 550 # of times incontinent of urine 2 Other: Meal Nourishment/Supplement Breakfast Percent of Meal Consumed 100% 50% Feeding Ability Assist with Tray Set Up Assist with Tray Set Up Nourishment/Supplement name applesauce Urine Appearance Clear Clear Clear Urine Color Bright Yellow Bright Yellow Bright Yellow Urine Odor Normal Normal Normal Stool Size Smear Moderate Stool Color Brown Brown Stool Consistency Formed Soft Formed Exam: General: Alert, Awake, No acute Distress Eyes/N/T: EOMI Head/Neck: neck supple, CV: RRR, No murmurs, Pulm: Clear b/l, no wheezing/rhonchi/rales Abd: soft, nontender, +BS x4 Ext: no clubbing/cyanosis/edema Neuro: Alert, no focal deficits, moves all extremities, Skin: warm/dry Medical - PN: Obj Da - Labs CBC & Chem 7: 10/22/18 04:00 10/22/18 04:00 Labs: Abnormal Lab Results 0410/22/18 10/21/18 04:00 04:00 10:16 RBC 3.87 L Hgb 11.6 L Hct 35.6 L Lymph % (Auto) 13.1 L Lymph # (Auto) 1.4 L POC PT Chloride Glucose 41 L POC Glucose Uric Acid 1.5 L POC WB Ioniz Calcium Alkaline Phosphatase Globulin Urine Glucose (UA) >=500 A 10/21/18 10/21/18 10/21/18 10:16 09:34 09:34 RBC Hgb Hct Lymph % (Auto) Lymph # (Auto) POC PT 11.5 L Chloride 95 L Glucose 234 H POC Glucose 237 H Uric Acid POC WB Ioniz Calcium 1.14 L Alkaline Phosphatase 119 H Globulin 3.8 H Urine Glucose (UA) Meds: Medications Acetaminophen (Tylenol) 650 mg PO Q4-6HP PRN PRN Reason: PAIN/FEVER > 101 Hydrocodone Bitart/Acetaminophen ([place] 7.5/325mg) 1 tab PO Q6HP PRN PRN Reason: Pain Atorvastatin Calcium (Lipitor) 20 mg PO [facility] Last Admin: 10/21/18 21:00 Dose: 20 mg Documented by: Azithromycin (Zithromax) 250 mg PO DAILY [facility] Stop: 10/25/18 09:01 Last Admin: 10/22/18 08:58 Dose: 250 mg Documented by: Calcium/Vitamin D (Calcium W/Vit D3) 500 mg PO DAILY [facility] Last Admin: 10/22/18 08:58 Dose: 500 mg Documented by: Dextrose (Dextrose 50%) 0 ml IV UD PRN PRN Reason: Hypoglycemia Last Admin: 10/22/18 06:43 Dose: 25 ml Documented by: Diagnostic Test (Pha) (Accu-Chek) 1 each FS ACHS [facility] Last Admin: 10/22/18 11:35 Dose: 1 each Documented by: Donepezil HCl (Aricept) 5 mg PO [facility] Last Admin: 10/21/18 21:00 Dose: 5 mg Documented by: Famotidine (Pepcid) 20 mg IV [facility] Last Admin: 10/21/18 21:00 Dose: 20 mg Documented by: Gabapentin (Neurontin) 100 mg PO TID [facility] Last Admin: 10/22/18 08:58 Dose: 100 mg Documented by: Glucose (Insta-Glucose) 15 gm PO PRN PRN PRN Reason: Hypoglycemia Heparin Sodium (Porcine) (Heparin) 5,000 unit SQ Q12 [facility] Last Admin: 10/22/18 08:58 Dose: 5,000 unit Documented by: Piperacillin Sod/Tazobactam (Sod 3.375 gm/ Dextrose) 50 mls @ 100 mls/hr IV Q6H [facility]; Protocol Last Admin: 10/22/18 11:37 Dose: 100 mls/hr Documented by: Vancomycin HCl 1,000 mg/ (Sodium Chloride) 250 mls @ 250 mls/hr IV Q24H [facility] Last Infusion: 10/22/18 10:15 Dose: Infused Documented by: Insulin Glargine (Lantus) 15 unit SQ HS [facility] Insulin Human Lispro (Humalog) 0 unit SQ ACHS [facility]; Protocol Last Admin: 10/22/18 11:59 Dose: 2 unit Documented by: Melatonin (Melatonin 3mg Tablet) 3 mg PO HS PRN PRN Reason: Insomnia Naloxone HCl (Narcan) 0.1 mg IV Q2MIN PRN PRN Reason: Opiate Reversal Ondansetron HCl (Zofran) 4 mg IV Q4-6HP PRN PRN Reason: Nausea And Vomiting Oxybutynin Chloride (Ditropan Xl) 5 mg PO QDAY [facility] Last Admin: 10/22/18 08:58 Dose: 5 mg Documented by: Polyethylene Glycol (Miralax) 17 gm PO DAILYP PRN PRN Reason: constipation Senna/Docusate Sodium (Senna Plus Tablet) 1 tab PO DAILY [facility] Last Admin: 10/22/18 08:58 Dose: 1 tab Documented by: Sodium Chloride (Saline Flush) 10 ml IV Q8 [facility] Last Admin: 10/22/18 11:37 Dose: 10 ml Documented by: Tamsulosin HCl (Flomax) 0.4 mg PO [facility] Last Admin: 10/21/18 21:00 Dose: 0.4 mg Documented by: Trazodone HCl (Desyrel) 25 mg PO [facility] Last Admin: 10/21/18 21:00 Dose: 25 mg Documented by: Vancomycin HCl (Vancomycin Per Pharmacy) 1 order IV UD [facility]; Protocol Medical - PN: A/P - Time Spent With Patient Total time spent is greater than 50% in coordination of care (as documented) at patient's floor/unit and/or counseling patient: - Narrative A/P Narrative: A: *Encephalopathy, metabolic: *Pneumonia: *Hypotension: Resolved *Diabetes: On insulin -Hypoglycemic on admit *Dementia: High risk for delirium * * P: -Cultures pending, on vanco and zosyn, -cut back dose of lantus , according to home med list she is on 5 units AM and 24 qhs, will d/c AM dose and use 15units qhs, see how she responds -IS - -PT/OT -ppx: Heparin Full code Medical - PN: Qual - Stroke Symptom Onset Unknown: No - VTE Deep Vein Thrombosis/Pulmonary Embolism Present on Admission: No
[2018-10-22] MEDS ORDERED: NALOXONE HCL 0.4 MG/ML VIAL IV PRN (13:39)
[2018-10-22] MEDS ORDERED: MELATONIN 3 MG TABLET PO PRN (13:39)
[2018-10-22] MEDS ORDERED: HYDROCODONE/APAP 7.5/325MG TABLET PO PRN (13:39)
[2018-10-22] MEDS ORDERED: ACETAMINOPHEN 325 MG TABLET PO PRN (13:39)
[2018-10-22] MEDS ORDERED: ONDANSETRON 4 MG/2 ML VIAL IV PRN (13:39)
[2018-10-22] MEDS ORDERED: VANCOMYCIN PER PHARMACY IV SCH (13:39)
[2018-10-22] MEDS ORDERED: POLYETHYLENE GLYCOL 3350 17 GM PACKET PO PRN (13:39)
[2018-10-22] MEDS ORDERED: DEXTROSE 31 GM ORAL.SUSP PO PRN (13:39)
[2018-10-22] MEDS ORDERED: DEXTROSE 50% 50 ML VIAL IV PRN (13:39)
[2018-10-22] MEDS: DONEPEZIL 10 MG TABLET PO SCH (22:12)
[2018-10-22] MEDS: ATORVASTATIN 20 MG TABLET PO SCH (22:15)
[2018-10-22] MEDS: traZODone HCL 50 MG TABLET PO SCH (22:18)
[2018-10-22] MEDS: TAMSULOSIN 0.4 MG CAPSULE PO SCH (22:20)
[2018-10-22] MEDS: FAMOTIDINE/PF 20 MG/2 ML VIAL IV SCH (22:21)
[2018-10-23] MEDS: 0.9 % SODIUM CHLORIDE 10 ML SYRINGE IV SCH ×3 (06:16→23:17)
[2018-10-23] MEDS: PIPERACILLIN SODIUM/TAZOBACTAM 3.375 GM in DEXTROSE 5% IN WATER 50 ML IV SCH ×4 (06:16→23:17)
[2018-10-23 06:52] LABS: Basophils # (Auto) 0 K/mcL (0.0-0.3); Basophils % (Auto) 0.5 % (0.0-2.0); Eosinophils # (Auto) 0.3 K/mcL (0.0-0.7); Granulocytes % (Auto) 48.1 % (38.0-78.0); Lymphocytes # (Auto) 3.1 K/mcL (1.5-4.8); Lymphocytes % (Auto) 37.1 % (15.5-49.0); Mean Cell Volume 91.9 fL (80.0-100.0); Mean Corpuscular HGB Conc 32.1 g/dL (31.0-36.0); Monocytes # (Auto) 0.9 K/mcL (0.1-0.9); Monocytes % (Auto) 10.3 % (1.0-12.0); Platelet Count 303 K/mcL (140-440); RBC 4.35 M/mcL (4.00-5.20); Red Cell Distribution Width 12.9 % (11.5-14.5)
[2018-10-23 07:03] LABS: ALT/SGPT 12 U/l (0-40); Albumin 3.6 gm/dL (3.2-5.2); Albumin/Globulin Ratio 1.1 (1.0-2.3); Alkaline Phosphatase 101 U/L (39-117); Bilirubin,Direct < 0.2 mg/dL (0.0-0.3); Blood Urea Nitrogen 16 mg/dl (8-23); Gamma Glutamyl Transpeptidase 23 U/L (5-36); Uric Acid 1.7 mg/dL (2.5-8.0)
--- NOTE | 2018-10-23 07:16 | Internal Med Progress Note ---
Medical - PN: Subj Patient information: Note initiated : 10/23/18 at 7:10 am Service Date, if different from initiated Date: [] Patient: Giuliana Moreno a 83 y/o F admitted on 10/21/18 for Weakness. Chief Complaint: [] Interval history: Ms. Moreno is a 83 year old F with history of dementia, living in an adult family home [place] home, presents to the hospital today accompanied by her daughter who is also the POA for evaluation of altered mental status weakness and lethargy. The patient is drowsy, has some slurring of speech and most of the history has been obtained by speaking to the daughter. The patient was doing fine until breakfast this morning. After eating breakfast she suddenly slumped in a chair and became drowsy. She was sent here for further evaluation in the hospital she was slurring her words, and was confused. This is not her baseline. The patient was therefore evaluated in the emergency room. According to the ER physician there was no focal signs, the patient had a negative head CT and a head CT done which shows 70% right proximal ICA involvement. Chest x-ray was done which showed left perihilar infiltrate suggestive of pneumonia. Labs reviewed unremarkable, UA is negative. The patient during the ER stay then became hypotensive with a blood pressure as low as 70 systolic. Requiring fluid boluses to bring the blood pressure back up. On my evaluation patient remained drowsy however was able to follow commands and open eyes to verbal stimulus, she was able to follow commands. She had generalized weakness all throughout she did have dry mouth and slurring of words. Her blood pressure has picked up again after 2 L saline boluses She is being admitted to the hospital for further management Patient is being admitted to the ICU, patient is full code, plan reviewed with the daughter 10/22 Patient seen examined, no acute issues has no new complaints sitting in chair comfortable glucose level low this AM, cut back on dose of lantus. tolerating po well now. 10/23 No overnight events. Doing well. Sitting up in chair eating breakfast. Blood glucose still little low this morning, will decrease Lantus further. Denies coughing or shortness of breath Review of Systems: denies headache/fever/chills/nausea/vomiting/chest or abdominal pain/cough/dyspnea/diarrhea. Otherwise see above. - Constitutional Vitals: Vital Signs Temp Pulse Resp BP Pulse Ox 98.2 F 79 18 122/71 95 10/23/18 03:49 10/23/18 03:49 10/23/18 03:49 10/23/18 03:49 10/23/18 03:49 Period Temp Pulse Resp BP Sys/Desouza Pulse Ox Last 24 Hr 98.2 F-99.3 F 67-88 18-24 115-146/59-87 93-97 Intake and Output 10/22/18 10/23/18 10/23/18 21:59 05:59 13:59 Intake Total 480 500 Output Total 750 450 Balance -270 50 Weight 55.565 kg Intake & Output: Intake & Output 10/22/18 10/23/18 10/23/18 21:59 05:59 13:59 Intake Total 480 500 Output Total 750 450 Balance -270 50 Weight 55.565 kg Intake: IV 100 Zosyn 3.375 gm In Dextrose 5% 100 in Water 50 ml @ 100 mls/hr IV Q6H [facility] Rx#:[id number] Oral 480 400 Output: Void Amount 750 450 Other: Meal Dinner Percent of Meal Consumed 100% Feeding Ability Independent Urine Appearance Clear Clear Urine Color Pale Pale Urine Odor Normal Stool Size Large Stool Color Yellow Green Pale Stool Consistency Soft Formed # Voids 1 # Bowel Movements 1 Exam: General: Alert, Awake, No acute Distress Eyes/N/T: EOMI Head/Neck: neck supple, CV: RRR, No murmurs, Pulm: Clear b/l, no wheezing/rhonchi/rales Abd: soft, nontender, +BS x4 Ext: no clubbing/cyanosis/edema Neuro: Alert, no focal deficits, moves all extremities, Skin: warm/dry Medical - PN: Obj Da - Labs CBC & Chem 7: 10/23/18 04:13 10/23/18 04:13 Labs: Abnormal Lab Results 10/23/18 10/22/18 10/22/18 04:13 04:00 04:00 RBC 3.87 L Hgb 11.6 L Hct 35.6 L Lymph % (Auto) 13.1 L Lymph # (Auto) 1.4 L POC PT Chloride Glucose 63 L 41 L POC Glucose Uric Acid 1.7 L 1.5 L POC WB Ioniz Calcium Alkaline Phosphatase Globulin Urine Glucose (UA) 10/21/18 10/21/18 10/21/18 10:16 10:16 09:34 RBC Hgb Hct Lymph % (Auto) Lymph # (Auto) POC PT 11.5 L Chloride Glucose POC Glucose 237 H Uric Acid POC WB Ioniz Calcium 1.14 L Alkaline Phosphatase Globulin Urine Glucose (UA) >=500 A 10/21/18 09:34 RBC Hgb Hct Lymph % (Auto) Lymph # (Auto) POC PT Chloride 95 L Glucose 234 H POC Glucose Uric Acid POC WB Ioniz Calcium Alkaline Phosphatase 119 H Globulin 3.8 H Urine Glucose (UA) Meds: Medications Acetaminophen (Tylenol) 650 mg PO Q4-6HP PRN PRN Reason: PAIN/FEVER > 101 Hydrocodone Bitart/Acetaminophen ([place] 7.5/325mg) 1 tab PO Q6HP PRN PRN Reason: Pain Atorvastatin Calcium (Lipitor) 20 mg PO [facility] Last Admin: 10/22/18 22:15 Dose: 20 mg Documented by: Azithromycin (Zithromax) 250 mg PO DAILY [facility] Stop: 10/25/18 09:01 Calcium/Vitamin D (Calcium W/Vit D3) 500 mg PO DAILY [facility] Dextrose (Dextrose 50%) 0 ml IV UD PRN PRN Reason: Hypoglycemia Diagnostic Test (Pha) (Accu-Chek) 1 each FS ACHS [facility] Last Admin: 10/22/18 22:02 Dose: 1 each Documented by: Donepezil HCl (Aricept) 5 mg PO [facility] Last Admin: 10/22/18 22:12 Dose: 5 mg Documented by: Famotidine (Pepcid) 20 mg IV HS [facility] Last Admin: 10/22/18 22:21 Dose: 20 mg Documented by: Gabapentin (Neurontin) 100 mg PO TID [facility] Last Admin: 10/22/18 22:12 Dose: 100 mg Documented by: Glucose (Insta-Glucose) 15 gm PO PRN PRN PRN Reason: Hypoglycemia Heparin Sodium (Porcine) (Heparin) 5,000 unit SQ Q12 [facility] Last Admin: 10/22/18 22:20 Dose: 5,000 unit Documented by: Piperacillin Sod/Tazobactam (Sod 3.375 gm/ Dextrose) 50 mls @ 100 mls/hr IV Q6H [facility]; Protocol Last Admin: 10/23/18 06:16 Dose: 100 mls/hr Documented by: Vancomycin HCl 1,000 mg/ (Sodium Chloride) 250 mls @ 250 mls/hr IV Q24H [facility] Insulin Glargine (Lantus) 15 unit SQ [facility] Last Admin: 10/22/18 22:21 Dose: 15 units Documented by: Insulin Human Lispro (Humalog) 0 unit SQ [facility]; Protocol Last Admin: 10/22/18 22:03 Dose: Not Given Documented by: Melatonin (Melatonin 3mg Tablet) 3 mg PO HS PRN PRN Reason: Insomnia Naloxone HCl (Narcan) 0.1 mg IV Q2MIN PRN PRN Reason: Opiate Reversal Ondansetron HCl (Zofran) 4 mg IV Q4-6HP PRN PRN Reason: Nausea And Vomiting Oxybutynin Chloride (Ditropan Xl) 5 mg PO QDAY [facility] Polyethylene Glycol (Miralax) 17 gm PO DAILYP PRN PRN Reason: constipation Senna/Docusate Sodium (Senna Plus Tablet) 1 tab PO DAILY [facility] Sodium Chloride (Saline Flush) 10 ml IV Q8 [facility] Last Admin: 10/23/18 06:16 Dose: 10 ml Documented by: Tamsulosin HCl (Flomax) 0.4 mg PO [facility] Last Admin: 10/22/18 22:20 Dose: 0.4 mg Documented by: Trazodone HCl (Desyrel) 25 mg PO [facility] Last Admin: 10/22/18 22:18 Dose: 25 mg Documented by: Vancomycin HCl (Vancomycin Per Pharmacy) 1 order IV UD [facility]; Protocol Medical - PN: A/P - Time Spent With Patient Total time spent is greater than 50% in coordination of care (as documented) at patient's floor/unit and/or counseling patient: - Narrative A/P Narrative: A: *Encephalopathy, metabolic, decreased LOC: IMproved *Pneumonia: myco/strep neg, mrsa screen neg *Hypotension: Resolved *Diabetes: On insulin, Hypoglycemic on admit - *Dementia: High risk for delirium * P: -Cultures pending, on zosyn, -cut back dose of lantus , according to home med list she is on 5 units AM and 24 qhs, will d/c AM dose and use 15units (decrease again) qhs, see how she responds -IS - -PT/OT -ppx: Heparin Full code Medical - PN: Qual - Stroke Symptom Onset Unknown: No - VTE Deep Vein Thrombosis/Pulmonary Embolism Present on Admission: No
[2018-10-23] MEDS: INSULIN LISPRO 1 UNIT/0.01 ML UNIT SQ SCH ×4 (07:23→20:18)
[2018-10-23] MEDS: CALCIUM W/VIT D3 500 MG TABLET PO SCH (08:24)
[2018-10-23] MEDS: SENNOSIDES/DOCUSATE SODIUM 1 TAB TABLET PO SCH (08:24)
[2018-10-23] MEDS: OXYBUTYNIN CHLORIDE 5 MG TAB.XL.24H PO SCH (08:24)
[2018-10-23] MEDS: GABAPENTIN 100 MG CAPSULE PO SCH ×3 (08:24→20:15)
[2018-10-23] MEDS: HEPARIN 5,000 UNIT/ML VIAL SQ SCH ×2 (08:25→20:16)
[2018-10-23] MEDS: AZITHROMYCIN 250 MG TABLET PO SCH (08:25)
[2018-10-23] MEDS ORDERED: VANCOMYCIN 1,000 MG in 0.9 % SODIUM CHLORIDE 250 ML IV SCH (09:00)
--- NOTE | 2018-10-23 09:29 | Discharge Summary ---
Medical - DS: Prov Patient information: Note initiated : 10/23/18 at 9:24 am Service Date, if different from initiated Date: [] Patient: Giuliana Moreno 83 y/o F admitted on 10/21/18 for Weakness. Chief Complaint: [] Date of admission: 10/21/18 14:51 Discharge date: 10/24/18 Primary care physician: Gee Werner Consults: 10/21/18 Consult to Physician [CONS] Stat Comment: Consulting Provider: Taryn Mata Reason For Exam: Physician to Consult Medical - DS: Meds - Discharge Medications Prescriptions: Insulin Glargine, Human [Lantus] 10 units SQ HS #1 unit Levofloxacin [Levaquin] 750 mg PO DAILY #4 tab Active and Home Medications: Home Medications Accu-Chek 1 each FS ACHS 04/24/16 [History Confirmed 10/21/18 Last Taken 10/21 07:00] Advanced Glucose Meter Test Strips See Dose Instructions .ROUTE .MEDSUPPLY #100 each NS MDD 4 times daily 01/13/17 [Rx Confirmed 08/18/18 Last Taken Unknown] blood-glucose meter See Dose Instructions .ROUTE .MEDSUPPLY #1 each NS MDD 4 times daily 01/13/17 [Rx Confirmed 08/18/18 Last Taken Unknown] incontinence pants, reusable See Dose Instructions .ROUTE .MEDSUPPLY #28 each NS MDD 2 pants daily 01/13/17 [Rx Confirmed 08/18/18 Last Taken Unknown] melatonin 3 mg tablet 3 mg PO HS 01/29/17 [History Confirmed 10/21/18 Last Taken 10/20/18 20:00] Sure-Fine Pen Orange 31 gauge x 3/16" See Dose Instructions .ROUTE .MEDSUPPLY #100 each NS 02/16/17 [Rx Confirmed 08/18/18 Last Taken Unknown] Sennosides/Docusate Sodium [Senna Plus Tablet] 1 tab PO DAILY 04/13/17 [History Confirmed 10/21/18 Last Taken 10/20/18 20:00] Calcium w/vitamin d 600 mg PO DAILY 01/28/18 [History Confirmed 10/21/18 Last Taken 10/21/18 08:00] tamsulosin 0.4 mg capsule 0.4 mg PO HS #90 cap 02/08/18 [Rx Confirmed 10/21/18 Last Taken 10/20/18 20:00] atorvastatin 20 mg tablet 20 mg PO HS #90 tab 05/03/18 [Rx Confirmed 10/21/18 Last Taken 10/20/18 20:00] doxycycline hyclate 100 mg tablet 100 mg PO QDAY #90 tab 05/03/18 [Rx Confirmed 10/21/18 Last Taken 10/21/18 08:00] gabapentin 100 mg capsule 100 mg PO TID #270 cap 05/03/18 [Rx Confirmed 10/21/18 Last Taken 10/21/18 06:00] polyethylene glycol 3350 17 gram oral powder packet 17 g PO DAILY PRN #30 packet NS 05/03/18 [Rx Confirmed 10/21/18 Last Taken 10/21/18 08:00] donepezil 5 mg disintegrating tablet 5 mg PO HS #90 tab 05/19/18 [Rx Confirmed 10/21/18 Last Taken 10/20/18 20:00] oxybutynin chloride ER 5 mg tablet,extended release 24 hr 5 mg PO QDAY #30 tab 08/30/18 [Rx Confirmed 10/21/18 Last Taken 10/21/18 08:00] fentanyl 25 mcg/hr transdermal patch 1 patch TRANSDERMA Q72H #10 patch MDD 1 patch every 3 days 10/12/18 [Rx Confirmed 10/21/18 Last Taken 10/20/18] Hydrocodone/APAP 7.5/325Mg [[place] 7.5-325Mg] 1 tab PO Q6HP PRN 10/21/18 [History Confirmed 10/21/18 Last Taken Unknown] Insulin Glargine, Human [Lantus] 5 unit SQ DAILY 10/21/18 [History Confirmed 10/21/18 Last Taken 10/20/18 08:00] Insulin Lispro [HumaLOG] 0 unit SQ BID 10/21/18 [History Confirmed 10/21/18 Last Taken 10/20/18] Nut.tx.glucose Intolerance,Soy [Glucerna] 1 unit PO DAILYP PRN 10/21/18 [History Confirmed 10/21/18 Last Taken 10/20/18 20:00] traZODone HCL [Trazodone HCl] 25 mg PO HS 10/21/18 [History Confirmed 10/21/18 Last Taken 10/20/18 20:00] Insulin Glargine, Human [Lantus] 15 units SQ HS 10/23/18 [History Confirmed 10/23/18 Last Taken Unknown] Home Medications Accu-Chek 1 each FS ACHS 04/24/16 [History Confirmed 10/21/18 Last Taken 10/21/18 07:00] Advanced Glucose Meter Test Strips See Dose Instructions .ROUTE .MEDSUPPLY #100 each NS MDD 4 times daily 01/13/17 [Rx Confirmed 08/18/18 Last Taken Unknown] blood-glucose meter See Dose Instructions .ROUTE .MEDSUPPLY #1 each NS MDD 4 times daily 01/13/17 [Rx Confirmed 08/18/18 Last Taken Unknown] incontinence pants, reusable See Dose Instructions .ROUTE .MEDSUPPLY #28 each NS MDD 2 pants daily 01/13/17 [Rx Confirmed 08/18/18 Last Taken Unknown] melatonin 3 mg tablet 3 mg PO HS 01/29/17 [History Confirmed 10/21/18 Last Taken 10/20/18 20:00] Sure-Fine Pen Orange 31 gauge x /16" See Dose Instructions .ROUTE .MEDSUPPLY #100 each NS 02/16/17 [Rx Confirmed 08/18/18 Last Taken Unknown] Sennosides/Docusate Sodium [Senna Plus Tablet] 1 tab PO DAILY 04/13/17 [History Confirmed 10/21/18 Last Taken 10/20/18 20:00] Calcium w/vitamin d 600 mg PO DAILY 01/28/18 [History Confirmed 10/21/18 Last Taken 10/21/18 08:00] tamsulosin 0.4 mg capsule 0.4 mg PO HS #90 cap 02/08/18 [Rx Confirmed 10/21/18 Last Taken 10/20/18 20:00] atorvastatin 20 mg tablet 20 mg PO HS #90 tab 05/03/18 [Rx Confirmed 10/21/18 Last Taken 10/20/18 20:00] gabapentin 100 mg capsule 100 mg PO TID #270 cap 05/03/18 [Rx Confirmed 10/21/18 Last Taken 10/21/18 06:00] polyethylene glycol 3350 17 gram oral powder packet 17 g PO DAILY PRN #30 packet NS 05/03/18 [Rx Confirmed 10/21/18 Last Taken 10/21/18 08:00] donepezil 5 mg disintegrating tablet 5 mg PO HS #90 tab 05/19/18 [Rx Confirmed 10/21/18 Last Taken 10/20/18 20:00] oxybutynin chloride ER 5 mg tablet,extended release 24 hr 5 mg PO QDAY #30 tab 08/30/18 [Rx Confirmed 10/21/18 Last Taken 10/21/18 08:00] Hydrocodone/APAP 7.5/325Mg [[place] 7.5-325Mg] 1 tab PO Q6HP PRN 10/21/18 [History Confirmed 10/21/18 Last Taken Unknown] Insulin Lispro [Humalog] 0 unit SQ BID 10/21/18 [History Confirmed 10/21/18 Last Taken 10/20/18] Nut.tx.glucose Intolerance,Soy [Glucerna] 1 unit PO DAILYP PRN 10/21/18 [History Confirmed 10/21/18 Last Taken 10/20/18 20:00] traZODone HCL [Trazodone HCl] 25 mg PO HS 10/21/18 [History Confirmed 10/21/18 Last Taken 10/20/18 20:00] Insulin Glargine, Human [Lantus] 10 units SQ HS #1 unit 10/23/18 [Rx Last Taken Unknown] Levofloxacin [Levaquin] 750 mg PO DAILY #4 tab 10/23/18 [Rx Last Taken Unknown] fentaNYL [Fentanyl] 25 mcg TRANSDERMAL Q72 10/23/18 [History Confirmed 10/23/18 Last Taken Unknown] Medical - DS: Hosp Hospital course: Ms. Moreno is a 83 year old F with history of dementia, living in an adult family home [place] home, presents to the hospital today accompanied by her daughter who is also the POA for evaluation of altered mental status weakness and lethargy. The patient is drowsy, has some slurring of speech and most of the history has been obtained by speaking to the daughter. The patient was doing fine until breakfast this morning. After eating breakfast she suddenly slumped in a chair and became drowsy. She was sent here for further evaluation in the hospital she was slurring her words, and was confused. This is not her baseline. The patient was therefore evaluated in the emergency room. According to the ER physician there was no focal signs, the patient had a negative head CT and a head CT done which shows 70% right proximal ICA involvement. Chest x-ray was done which showed left perihilar infiltrate suggestive of pneumonia. Labs reviewed unremarkable, UA is negative. The patient during the ER stay then became hypotensive with a blood pressure as low as 70 systolic. Requiring fluid boluses to bring the blood pressure back up. On my evaluation patient remained drowsy however was able to follow commands and open eyes to verbal stimulus, she was able to follow commands. She had generalized weakness all throughout she did have dry mouth and slurring of words. Her blood pressure has picked up again after 2 L saline boluses She is being admitted to the hospital for further management Patient is being admitted to the ICU, patient is full code, plan reviewed with the daughter 10/22 Patient seen examined, no acute issues has no new complaints sitting in chair comfortable glucose level low this AM, cut back on dose of lantus. tolerating po well now. 10/23 No overnight events. Doing well. Sitting up in chair eating breakfast. Blood glucose still little low this morning, will decrease Lantus further. Denies coughing or shortness of breath 10/24 Feeling well. Slept well. No overnight events. Ready to go home. Denies cough or shortness of breath. Blood glucose better in the morning after decreasing her Lantus yesterday. Discharge diagnosis: AMS likely related to hypoglycemia, pneumonia, hypertension, diabetes, johnny - Time Spent with Patient Total time spent providing and/or coordinating discharge services: Greater than 30 minutes Medical - DS: Exam - Constitutional Vitals: Vital Signs Temp Pulse Resp BP BP BP Pulse Ox 10/23/18 07:20 97.8 F 71 14 130/65 92 10/23/18 03:49 98.2 F 79 18 122/71 95 10/22/18 23:45 98.2 F 88 24 H 135/75 94 10/22/18 20:50 98.3 F 88 20 145/87 93 10/22/18 11:40 99.3 F H 20 146/70 93 10/22/18 10:05 18 144/62 97 Intake and Output 10/22/18 10/23/18 10/23/18 21:59 05:59 13:59 Intake Total 480 500 480 Output Total 750 450 Balance -270 50 480 Intake: IV 100 Zosyn 3.375 gm In Dextrose 5% 100 in Water 50 ml @ 100 mls/hr IV Q6H [facility] Rx#:[id number] Oral 480 400 480 Output: Void Amount 750 450 Other: Meal Dinner Breakfast Percent of Meal Consumed 100% 90% Feeding Ability Independent Independent Urine Appearance Clear Clear Urine Color Pale Pale Urine Odor Normal Stool Size Large Stool Color Yellow Green Pale Stool Consistency Soft Formed # Voids 1 # Bowel Movements 1 Weight 55.565 kg Medical - DS: Data Labs on day of discharge: Labs from last 24 hours 10/23/18 10/23/18 04:13 04:13 WBC 8.5 RBC 4.35 Hgb 12.9 Hct 40.0 MCV 91.9 MCH 29.5 MCHC 32.1 RDW 12.9 Plt Count 303 MPV 8.5 Gran % 48.1 Lymph % (Auto) 37.1 Ness % (Auto) 10.3 Eos % (Auto) 4.0 Baso % (Auto) 0.5 Gran # 4.1 Lymph # (Auto) 3.1 Ness # (Auto) 0.9 Eos # (Auto) 0.3 Baso # (Auto) 0 Sodium 142 Potassium 4.4 Chloride 103 Carbon Dioxide 27 Anion Gap 12.0 BUN 16 Creatinine 0.9 GFR Calculation 59 Glucose 63 L Uric Acid 1.7 L Calcium 9.1 Phosphorus 3.8 Magnesium 2.1 Total Bilirubin 0.3 Direct Bilirubin < 0.2 GGT 23 AST 21 ALT 12 Alkaline Phosphatase 101 Lactate Dehydrogenase 205 Total Protein 6.9 Albumin 3.6 Globulin 3.3 Albumin/Globulin Ratio 1.1 Triglycerides 70 Preliminary micro results at discharge 10/21/18 12:59 Blood Culture - Preliminary Blood 10/21/18 12:47 Blood Culture - Preliminary Blood Medical - DS: A/P - Patient/Caregiver Discharge Instructions Activity: as per physical therapy Diet: Consistent Carbohydrate Prescriptions: Insulin Glargine, Human [Lantus] 10 units SQ HS #1 unit Levofloxacin [Levaquin] 750 mg PO DAILY #4 tab - Follow up Plan Follow up with: Gee Werner DO [Primary Care Provider] - Disposition: Xfer Other Prognosis: Fair Rehab Potential: Fair Overall status at discharge: patient is back to baseline Medical - DS: Qual - VTE Deep Vein Thrombosis/Pulmonary Embolism Present on Admission: No
[2018-10-23] MEDS ORDERED: fentaNYL 12 MCG PATCH TOPICAL SCH (11:45)
[2018-10-23] MEDS: TAMSULOSIN 0.4 MG CAPSULE PO SCH (20:15)
[2018-10-23] MEDS: ATORVASTATIN 20 MG TABLET PO SCH (20:15)
[2018-10-23] MEDS: DONEPEZIL 10 MG TABLET PO SCH (20:16)
[2018-10-23] MEDS: FAMOTIDINE/PF 20 MG/2 ML VIAL IV SCH (20:17)
[2018-10-23] MEDS: traZODone HCL 50 MG TABLET PO SCH (20:19)
[2018-10-23] MEDS ORDERED: INSULIN GLARGINE, HUMAN 1 UNIT/0.01 ML SQ SCH (21:00)
[2018-10-24] MEDS: PIPERACILLIN SODIUM/TAZOBACTAM 3.375 GM in DEXTROSE 5% IN WATER 50 ML IV SCH ×2 (05:53→11:50)
[2018-10-24] MEDS: 0.9 % SODIUM CHLORIDE 10 ML SYRINGE IV SCH ×2 (05:53→14:26)
--- NOTE | 2018-10-24 06:56 | Internal Med Progress Note ---
Medical - PN: Subj Patient information: Note initiated : 10/24/18 at 6:53 am Service Date, if different from initiated Date: [] Patient: Giuliana Moreno a 83 y/o F admitted on 10/21/18 for Weakness. Chief Complaint: [] Interval history: Ms. Moreno is a 83 year old F with history of dementia, living in an adult family home [place] [facility], presents to the hospital today accompanied by her daughter who is also the POA for evaluation of altered mental status weakness and lethargy. The patient is drowsy, has some slurring of speech and most of the history has been obtained by speaking to the daughter. The patient was doing fine until breakfast this morning. After eating breakfast she suddenly slumped in a chair and became drowsy. She was sent here for further evaluation in the hospital she was slurring her words, and was confused. This is not her baseline. The patient was therefore evaluated in the emergency room. According to the ER physician there was no focal signs, the patient had a negative head CT and a head CT done which shows 70% right proximal ICA involvement. Chest x-ray was done which showed left perihilar infiltrate suggestive of pneumonia. Labs reviewed unremarkable, UA is negative. The patient during the ER stay then became hypotensive with a blood pressure as low as 70 systolic. Requiring fluid boluses to bring the blood pressure back up. On my evaluation patient remained drowsy however was able to follow commands and open eyes to verbal stimulus, she was able to follow commands. She had generalized weakness all throughout she did have dry mouth and slurring of words. Her blood pressure has picked up again after 2 L saline boluses She is being admitted to the hospital for further management Patient is being admitted to the ICU, patient is full code, plan reviewed with the daughter 10/22 Patient seen examined, no acute issues has no new complaints sitting in chair comfortable glucose level low this AM, cut back on dose of lantus. tolerating po well now. 10/23 No overnight events. Doing well. Sitting up in chair eating breakfast. Blood glucose still little low this morning, will decrease Lantus further. Denies coughing or shortness of breath 10/24 Feeling well. Slept well. No overnight events. Ready to go home. Denies cough or shortness of breath. Blood glucose better in the morning after decreasing her Lantus yesterday. Review of Systems: denies headache/fever/chills/nausea/vomiting/chest or abdominal pain/cough/dyspnea/diarrhea. Otherwise see above. - Constitutional Vitals: Vital Signs Temp Pulse Resp BP Pulse Ox 98.2 F 94 H 20 110/61 96 10/24/18 04:05 10/24/18 04:05 10/24/18 04:05 10/24/18 04:05 10/24/18 04:05 Period Temp Pulse Resp BP Sys/Desouza Pulse Ox Last 24 Hr 97.6 F-98.6 F 71-97 14-22 107-131/61-77 92-96 Intake and Output 10/23/18 10/24/18 10/24/18 21:59 05:59 13:59 Intake Total 1230 175 50 Output Total 600 250 Balance 630 -75 50 Weight 55.792 kg Intake & Output: Intake & Output 10/23/18 10/24/18 10/24/18 21:59 05:59 13:59 Intake Total 1230 175 50 Output Total 600 250 Balance 630 -75 50 Weight 55.792 kg Intake: IV 50 50 50 Zosyn 3.375 gm In Dextrose 5% 50 50 50 in Water 50 ml @ 100 mls/hr IV Q6H [facility] Rx#:[id number] Oral 1180 125 Output: Void Amount 600 250 Other: Meal 1/2 sandwhich & 2% milk Percent of Meal Consumed 100% Feeding Ability Independent Urine Appearance Clear Clear Urine Color Bright Yellow Bright Yellow Urine Odor Strong Stool Size Small Large Stool Color Brown Brown Stool Consistency Soft Loose # Voids 1 # Bowel Movements 1 # of times incontinent of 1 Bowels Exam: General: Alert, Awake, No acute Distress Eyes/N/T: EOMI Head/Neck: neck supple, CV: RRR, No murmurs, Pulm: Clear b/l, no wheezing/rhonchi/rales Abd: soft, nontender, +BS x4 Ext: no clubbing/cyanosis/edema Neuro: Alert, no focal deficits, moves all extremities, Skin: warm/dry Medical - PN: Obj Da - Labs CBC & Chem 7: 10/23/18 04:13 10/23/18 04:13 Labs: Abnormal Lab Results 10/23/18 10/22/18 10/22/18 04:13 04:00 04:00 RBC 3.87 L Hgb 11.6 L Hct 35.6 L Lymph % (Auto) 13.1 L Lymph # (Auto) 1.4 L POC PT Chloride Glucose 63 L 41 L POC Glucose Uric Acid 1.7 L 1.5 L POC WB Ioniz Calcium Alkaline Phosphatase Globulin Urine Glucose (UA) 10/21/18 10/21/18 10/21/18 10:16 10:16 09:34 RBC Hgb Hct Lymph % (Auto) Lymph # (Auto) POC PT 11.5 L Chloride Glucose POC Glucose 237 H Uric Acid POC WB Ioniz Calcium 1.14 L Alkaline Phosphatase Globulin Urine Glucose (UA) >=500 A 10/21/18 09:34 RBC Hgb Hct Lymph % (Auto) Lymph # (Auto) POC PT Chloride 95 L Glucose 234 H POC Glucose Uric Acid POC WB Ioniz Calcium Alkaline Phosphatase 119 H Globulin 3.8 H Urine Glucose (UA) Meds: Medications Acetaminophen (Tylenol) 650 mg PO Q4-6HP PRN PRN Reason: PAIN/FEVER > 101 Hydrocodone Bitart/Acetaminophen ([place] 7.5/325mg) 1 tab PO Q6HP PRN PRN Reason: Pain Atorvastatin Calcium (Lipitor) 20 mg PO [facility] Last Admin: 10/23/18 20:15 Dose: 20 mg Documented by: Azithromycin (Zithromax) 250 mg PO DAILY [facility] Stop: 10/25/18 09:01 Last Admin: 10/23/18 08:25 Dose: 250 mg Documented by: Calcium/Vitamin D (Calcium W/Vit D3) 500 mg PO DAILY [facility] Last Admin: 10/23/18 08:24 Dose: 500 mg Documented by: Dextrose (Dextrose 50%) 0 ml IV UD PRN PRN Reason: Hypoglycemia Diagnostic Test (Pha) (Accu-Chek) 1 each FS ACHS [facility] Last Admin: 10/24/18 04:35 Dose: 1 each Documented by: Donepezil HCl (Aricept) 5 mg PO [facility] Last Admin: 10/23/18 20:16 Dose: 5 mg Documented by: Famotidine (Pepcid) 20 mg IV HS [facility] Last Admin: 10/23/18 20:17 Dose: 20 mg Documented by: Fentanyl (Duragesic) 12 mcg TOPICAL Q72H [facility] Last Admin: 10/23/18 12:01 Dose: 12 mcg Documented by: Gabapentin (Neurontin) 100 mg PO TID [facility] Last Admin: 10/23/18 20:15 Dose: 100 mg Documented by: Glucose (Insta-Glucose) 15 gm PO PRN PRN PRN Reason: Hypoglycemia Heparin Sodium (Porcine) (Heparin) 5,000 unit SQ Q12 [facility] Last Admin: 10/23/18 20:16 Dose: 5,000 unit Documented by: Piperacillin Sod/Tazobactam (Sod 3.375 gm/ Dextrose) 50 mls @ 100 mls/hr IV Q6H [facility]; Protocol Last Infusion: 10/24/18 06:30 Dose: Infused Documented by: Insulin Glargine (Lantus) 10 unit SQ HS [facility] Last Admin: 10/23/18 20:17 Dose: 10 units Documented by: Insulin Human Lispro (Humalog) 0 unit SQ ACHS [facility]; Protocol Last Admin: 10/23/18 20:18 Dose: Not Given Documented by: Melatonin (Melatonin 3mg Tablet) 3 mg PO HS PRN PRN Reason: Insomnia Naloxone HCl (Narcan) 0.1 mg IV Q2MIN PRN PRN Reason: Opiate Reversal Ondansetron HCl (Zofran) 4 mg IV Q4-6HP PRN PRN Reason: Nausea And Vomiting Oxybutynin Chloride (Ditropan Xl) 5 mg PO QDAY [facility] Last Admin: 10/23/18 08:24 Dose: 5 mg Documented by: Polyethylene Glycol (Miralax) 17 gm PO DAILYP PRN PRN Reason: constipation Senna/Docusate Sodium (Senna Plus Tablet) 1 tab PO DAILY [facility] Last Admin: 10/23/18 08:24 Dose: 1 tab Documented by: Sodium Chloride (Saline Flush) 10 ml IV Q8 [facility] Last Admin: 10/24/18 05:53 Dose: 10 ml Documented by: Tamsulosin HCl (Flomax) 0.4 mg PO [facility] Last Admin: 10/23/18 20:15 Dose: 0.4 mg Documented by: Trazodone HCl (Desyrel) 25 mg PO [facility] Last Admin: 10/23/18 20:19 Dose: 25 mg Documented by: Medical - PN: A/P - Time Spent With Patient Total time spent is greater than 50% in coordination of care (as documented) at patient's floor/unit and/or counseling patient: - Narrative A/P Narrative: A: *Encephalopathy, metabolic, decreased LOC: resolved *Pneumonia: myco/strep neg, mrsa screen neg -BC neg *Hypotension: Resolved *Diabetes: On insulin, Hypoglycemic on admit - *Dementia: High risk for delirium * P: -on zosyn, -according to home med list she is on 5 units AM and 24 qhs, d/c'd AM dose and use 10units qhs -IS - -PT/OT -ppx: Heparin Full code Medical - PN: Qual - Stroke Symptom Onset Unknown: No - VTE Deep Vein Thrombosis/Pulmonary Embolism Present on Admission: No
[2018-10-24] MEDS: INSULIN LISPRO 1 UNIT/0.01 ML UNIT SQ SCH ×2 (08:02→11:49)
[2018-10-24] MEDS: HEPARIN 5,000 UNIT/ML VIAL SQ SCH (08:48)
[2018-10-24] MEDS: SENNOSIDES/DOCUSATE SODIUM 1 TAB TABLET PO SCH (08:49)
[2018-10-24] MEDS: GABAPENTIN 100 MG CAPSULE PO SCH ×2 (08:49→14:26)
[2018-10-24] MEDS: CALCIUM W/VIT D3 500 MG TABLET PO SCH (08:49)
[2018-10-24] MEDS: OXYBUTYNIN CHLORIDE 5 MG TAB.XL.24H PO SCH (08:49)
[2018-10-24] MEDS: AZITHROMYCIN 250 MG TABLET PO SCH (08:49)
[2018-10-24] MEDS ORDERED: PNEUMOCOCCAL 23-VAL P-SAC VAC 0.5 ML SYRINGE IM ONE (11:00)
[2018-10-27 08:38] LABS: Legionella pneumophilia Ag, Ur NOT DETECTED
== END 2018-10-24 15:02 | disposition other institution (70) | DRG 637 ==
LOC: ED 09:13 → ICU 14:45 → MEDSUR 10-22 15:18
PROVIDERS: ADMIT Internal Medicine; ATTEND Internal Medicine

== ENCOUNTER 2021-01-03 18:13 | Inpatient (IN) ==
[2021-01-03] MEDS ORDERED: IOPAMIDOL 100 ML BOTTLE IV ONE (18:14)
[2021-01-03] MEDS ORDERED: HYDROmorphone 0.5 MG/0.5 ML SYRINGE IV PRN (18:42)
[2021-01-03 20:39] LABS: POC Creatinine 0.6 mg/dL (0.6-1.2)
[2021-01-03 20:45] LABS: Basophils # (Auto) 0.08 K/mcL (0.00-0.20); Basophils % (Auto) 1.3 % (0.0-2.0); Eosinophils # (Auto) 0.15 K/mcL (0.00-0.70); Eosinophils % (Auto) 2.4 % (0.0-7.0); Hematocrit 36.8 % (36.0-48.0); Hemoglobin 12.1 g/dL (12.0-15.0); Lymphocytes # (Auto) 2.94 K/mcL (1.50-4.80); Lymphocytes % (Auto) 46.6 % (15.0-49.0); Mean Cell Volume 93.6 fL (80.0-100.0); Mean Corpuscular HGB Conc 32.9 g/dL (31.0-36.0); Mean Platelet Volume 10.8 fL (7.4-10.4); Monocytes # (Auto) 0.67 K/mcL (0.10-0.90); Monocytes % (Auto) 10.6 % (1.0-12.0); Neutrophils % (Auto) 39.1 % (38.0-78.0); Platelet Count 233 K/mcL (140-440); RBC 3.93 M/mcL (4.00-5.20); Red Cell Distribution Width 11.9 % (11.5-14.5); WBC 6.3 K/mcL (4.5-11.0)
[2021-01-03 20:54] LABS: ALT/SGPT 28 U/L (<40); AST/SGOT 28 U/L (<32); Albumin 3.5 gm/dL (3.2-5.2); Albumin/Globulin Ratio 1.2 (1.0-2.3); Alkaline Phosphatase 108 U/L (39-117); Bilirubin,Total 0.2 mg/dL (0.1-1.0); Blood Urea Nitrogen 11 mg/dL (8-23); Calcium 9.1 mg/dL (8.6-10.4); Carbon Dioxide 28 mmol/L (22-30); Chloride 98 mmol/L (96-108); Glomerular Filtration Rate 78; Glucose 373 mg/dL (70-105)
[2021-01-03 21:10] LABS: Prothrombin Time 13.4 sec (11.9-14.5)
[2021-01-03 21:22] LABS: Appearance,Urine CLOUDY (Clear); Bilirubin,Urine NEG (Negative); Color,Urine YELLOW; Glucose,Urine (UA) >=500 mg/dL (Negative); Ketones,Urine NEG (Negative); Leukocyte Esterase,Urine NEG /ug (Negative); Nitrate,Urine NEG (Negative); Protein,Urine NEG (Negative); Specific Gravity,Urine 1.013 (1.000-1.035); Urine Amorphous Crystals FEW /hpf; Urine Blood NEG (Negative); Urine RBC 0 /hpf (0-3); Urine Squamous Epithelial Cell < 1 /hpf (0-4); Urine WBC 0 /hpf (0-4); Urobilinogen,Urine NEG
[2021-01-03] MEDS ORDERED: LACTATED RINGERS 1,000 ML IV ONE (21:58)
--- NOTE | 2021-01-03 22:31 | Emergency Department Note ---
HPI General Chief complaint: Fall Stated complaint: Fall Time Seen by Provider: 01/03/21 18:49 Source: RN notes reviewed Mode of arrival: EMS Limitations: altered mental status History of Present Illness HPI Narrative: Narrative:Patient [facility] the ED [facility] following a mechanical trip and fall when she was trying to ambulate back to her bedroom from the bathroom. She fell onto her left side and is complained of left hip left shoulder pain. No head injury, no LOC, does have some advanced dementia at baseline and is currently at her neurologic baseline per her home health care provider at bedside. Patient does not take any blood thinners. No head pain no neck pain. Denies any thoracic/chest pains, no shortness of breath, abdominal pain or pain in her right side extremities. Denies any numbness tingling. Related Data Home Medications Medication Instructions Recorded Confirmed Accu-Chek 1 each FS ACHS 04/24/16 01/03/21 melatonin 3 mg tablet 3 mg PO HS 01/29/17 01/03/21 Calcium w/vitamin d 600 mg PO DAILY 01/28/18 01/03/21 atorvastatin 20 mg PO DAILY 01/03/21 01/03/21 sennosides-docusate sodium [Senna 1 cap PO QHS 01/03/21 01/03/21 Plus] Previous Rx's Medication Instructions Recorded Advanced Gluc Meter Test Strip #100 each NS 01/13/17 blood-glucose meter #1 each NS 01/13/17 incontinence pants, reusable #28 each NS 01/13/17 Sure-Fine Pen [place] 31 gauge x #100 each NS 11/15/1810/02" donepezil 5 mg tablet 5 mg PO QDAY #90 tab 09/12/19 pen needle, diabetic 31 gauge x #100 each 11/29/1910/02" insulin glargine 100 unit/mL (3 See Rx Instructions SUB-Q QDAY #15 02/13/20 mL) subcutaneous pen ml polyethylene glycol 3350 17 gram 17 g PO DAILY PRN #30 packet NS 06/25/20 oral powder packet trazodone 50 mg tablet 25 mg PO HS #90 tab 07/02/20 semaglutide 0.5 mg SUB-Q QWEEK #1.5 ml 07/30/20 oxybutynin chloride 5 mg 5 mg PO QDAY #90 tab 08/28/20 tablet,extended release 24 hr tamsulosin 0.4 mg capsule 0.4 mg PO HS #90 cap 08/28/20 gabapentin 100 mg capsule 100 mg PO TID #270 cap 12/10/20 fentanyl 25 mcg/hr transdermal 25 mcg TRANSDERMAL Q72 #10 each 12/31/20 patch hydrocodone 7.5 mg-acetaminophen 1 tab PO Q6HP PRN #10 tab 12/31/20 325 mg tablet Allergies Allergy/AdvReac Type Severity Reaction Status Date / Time No Known Drug Allergies Allergy Verified 11/28/20 13:21 Review of Systems ROS ROS Narrative: Narrative:At least 10 systems reviewed and otherwise acutely negative except as in the HPI PFSH Narrative Patient History Narrative: Narrative: Medical/Surgical/Family History All Active Problems (Updated 01/03/21 @ 22:51 by Fuad Sylvester DO) Fall (Acute) Closed fracture of left hip (Acute) Closed left humeral fracture (Acute) Abdominal pain (Acute) UTI (urinary tract infection) (Acute) Multiple rib fractures involving four or more ribs (Acute) Chest pain, musculoskeletal (Acute) Compression fracture of thoracic vertebra (Acute) Osteoporosis (Acute) Fever, low grade (Acute) Leukocytosis (leucocytosis) (Acute) Dementia (Acute) Pneumonia (Acute) HLD (hyperlipidemia) (Chronic) Diabetic peripheral neuropathy (Chronic) Near syncope (Acute) Chronic constipation (Chronic) Incontinence in female (Acute) Compression fracture (Acute) Lumbago (Acute) Hyponatremia (Acute) Back pain (Chronic) Dehydration (Acute) Hyponatremia (Acute) Gastritis (Acute) Deep vein thrombosis (Chronic) Abdominal aortic pulsation (Chronic) Fracture of right patella with routine healing (Chronic) Glaucoma (Chronic) Hypo-osmolality and hyponatremia (Chronic) Acidosis (Chronic) Shortness of breath (Chronic) Urinary tract infection (Chronic) Other disorders of lung (Chronic) Hyperglycemia (Chronic) Metabolic encephalopathy (Chronic) Diabetes mellitus type II, controlled, with no complications (Chronic) Medical History (Updated 01/03/21 @ 22:51 by Fuad Sylvester DO) Abdominal aortic pulsation Acidosis Back pain Compression fracture Deep vein thrombosis Dehydration Dehydration with hyponatremia Diabetes mellitus type II, controlled, with no complications Fracture of right patella with routine healing Gastritis Glaucoma Hyperglycemia Hypo-osmolality and hyponatremia Hyponatremia Hyponatremia Lumbago Metabolic encephalopathy Other disorders of lung Shortness of breath Urinary tract infection Surgical History No pertinent past surgical history Family History Other No pertinent family history Social History Smoking Status: Never smoker Alcohol Intake Frequency: does not drink Exam Narrative Narrative: Narrative: Constitutional: normally developed, no acute distress . Head: Normocephalic, atraumatic, Eyes: No Icterus, ENT: Moist mucus membranes, Neck: Supple,No midline spinal tenderness Cardiac: Normal heart sounds, palpable radial pulses, Pulmonary: Normal respiratory effort. Breath sounds clear, no wheeze, rhonchi, rales, Gastrointestinal: Abdomen soft, non-distended, non-tender,Pelvis stable Musculoskeletal: No gross deformities, well perfused. Left upper extremity shows some swelling and obvious deformity towards her proximal humerus but distally is neurovascularly intact. Left lower extremity appears shortened, but otherwise lower extremity is also neurovascularly intact to light touch. No pain or tenderness at the knee. Right upper extremity unremarkable no midline spinal tenderness Skin: warm, dry Neuro: Alert and orientedx1-2. General Limitations: altered mental status Course Vital Signs Vital signs: Vital Signs Pulse Rate 65 01/03/21 18:15 Respiratory Rate 20 01/03/21 18:15 Blood Pressure 160/92 01/03/21 18:15 Pulse Oximetry (%) 96 01/03/21 18:15 Temperature 36.8 C 01/04/21 01:10 Pulse Rate 104 H 01/04/21 01:10 Respiratory Rate 20 01/04/21 01:10 Blood Pressure 133/79 01/04/21 01:10 Pulse Oximetry (%) 92 01/04/21 01:10 [facility] Narrative Medical decision making narrative: Narrative:. Patient presents following a mechanical trip and fall with left upper extremity and left lower extremity pain and deformity suspicious for fracture. Work-up is initiated including CT and x- ray imaging. Basic laboratory studies. no reported syncopal episode. Patient was given analgesia did have some slight transient hypotension following her analgesia, I did give her a fluid bolus and her blood pressure resolved CBC is unremarkable hemoglobin stable no leukocytosis electrolytes show a known hyperglycemia, patient is diabetic, blood sugar 373 with a normal anion gap normal bicarb. She was given IV fluid X-rays per my interpretation show no obvious traumatic injury on chest x-ray, does appear not significantly changed from prior chest x-ray. Shoulder does appear to show a proximal humerus fracture and hip x-ray does appear to show a proximal femur fracture CTs Show Preliminary CT read shows no acute intracranial abnormality, CT C-spine shows no acute cervical spine abnormality, CT chest abdomen pelvis shows no traumatic intrathoracic intra-abdominal or intrapelvic abnormality, does show a intertrochanteric fracture of left femur, acute fracture of left proximal humerus, multiple compression fractures of thoracolumbar spine likely old Patient is placed in left upper extremity sling 2230: DR Vail consulted; Will take to the OR tomorrow, request n.p.o. starting at 6 AM. hospitalist for admission Have spoken with Dr. Alvarez who accepts admission Will obtain PT/INR and EKG for preoperative studies Patient admitted at this time pain improved, vital stable Lab Data Result diagrams: 01/03/21 19:57 01/03/21 20:21 Labs: Lab Results 01/03/21 01/03/21 01/03/21 Range/Units 19:57 19:58 20:15 WBC 6.3 (4.5-11.0) K/mcL RBC 3.93 L (4.00-5.20) M/mcL Hgb 12.1 (12.0-15.0) g/dL Hct 36.8 (36.0-48.0) % MCV 93.6 (80.0-100.0) fL MCH 30.8 (26.0-34.0) pg MCHC 32.9 (31.0-36.0) g/dL RDW 11.9 (11.5-14.5) % Plt Count 233 (140-440) K/mcL MPV 10.8 H (7.4-10.4) fL Neut % (Auto) 39.1 (38.0-78.0) % Lymph % (Auto) 46.6 (15.0-49.0) % [place] % (Auto) 10.6 (1.0-12.0) % Eos % (Auto) 2.4 (0.0-7.0) % Baso % (Auto) 1.3 (0.0-2.0) % Lymph # (Auto) 2.94 (1.50-4.80) K/mcL [place] # (Auto) 0.67 (0.10-0.90) K/mcL Eos # (Auto) 0.15 (0.00-0.70) K/mcL Baso # (Auto) 0.08 (0.00-0.20) K/mcL Absolute Neutrophils 2.47 (1.80-8.00) K/mcL PT 13.4 (11.9-14.5) sec INR 1.0 (0.9-1.1) Sodium (133-145) mmol/L Potassium (3.3-5.1) mmol/L Chloride (96-108) mmol/L Carbon Dioxide (22-30) mmol/L Anion Gap (8.0-16.0) BUN (8-23) mg/dL Creatinine (0.6-1.1) mg/dL POC Creatinine (0.6-1.2) mg/dL GFR Calculation Glucose (70-105) mg/dL Calcium (8.6-10.4) mg/dL Total Bilirubin (0.1-1.0) mg/dL AST (<32) U/L ALT (<40) U/L Alkaline Phosphatase (39-117) U/L Total Protein (5.9-8.4) gm/dL Albumin (3.2-5.2) gm/dL Globulin (2.2-3.7) gm/dL Albumin/Globulin Ratio (1.0-2.3) Urine Color Yellow Urine Appearance Cloudy A (Clear) Urine pH 7.0 (5.0-9.0) Ur Specific [place] 1.013 (1.000-1.035) Urine Protein Neg (Negative) mg/dL Urine Glucose (UA) >=500 A (Negative) mg/dL Urine Ketones Neg (Negative) mg/dL Urine Occult Blood Neg (Negative) mg/dL Urine Nitrate Neg (Negative) Urine Bilirubin Neg (Negative) mg/dL Urine Urobilinogen Neg mg/dL Ur Leukocyte Esterase Neg (Negative) /ug Urine RBC 0 (0-3) /hpf Urine WBC 0 (0-4) /hpf Ur Squamous Epith Cells < 1 (0-4) /hpf Amorphous Crystals Few A (None) /hpf Urine Bacteria None (0) /hpf 01/03/21 01/04/21 Range/Units 20:21 00:50 WBC (4.5-11.0) K/mcL RBC (4.00-5.20) M/mcL Hgb (12.0-15.0) g/dL Hct (36.0-48.0) % MCV (80.0-100.0) fL MCH (26.0-34.0) pg MCHC (31.0-36.0) g/dL RDW (11.5-14.5) % Plt Count (140-440) K/mcL MPV (7.4-10.4) fL Neut % (Auto) (38.0-78.0) % Lymph % (Auto) (15.0-49.0) % [place] % (Auto) (1.0-12.0) % Eos % (Auto) (0.0-7.0) % Baso % (Auto) (0.0-2.0) % Lymph # (Auto) (1.50-4.80) K/mcL [place] # (Auto) (0.10-0.90) K/mcL Eos # (Auto) (0.00-0.70) K/mcL Baso # (Auto) (0.00-0.20) K/mcL Absolute Neutrophils (1.80-8.00) K/mcL PT 14.6 H (11.9-14.5) sec INR 1.1 (0.9-1.1) Sodium 133 (133-145) mmol/L Potassium 4.3 (3.3-5.1) mmol/L Chloride 98 (96-108) mmol/L Carbon Dioxide 28 (22-30) mmol/L Anion Gap 7.0 L (8.0-16.0) BUN 11 (8-23) mg/dL Creatinine 0.7 (0.6-1.1) mg/dL POC Creatinine 0.6 (0.6-1.2) mg/dL GFR Calculation 78 Glucose 373 H (70-105) mg/dL Calcium 9.1 (8.6-10.4) mg/dL Total Bilirubin 0.2 (0.1-1.0) mg/dL AST 28 (<32) U/L ALT 28 (<40) U/L Alkaline Phosphatase 108 (39-117) U/L Total Protein 6.5 (5.9-8.4) gm/dL Albumin 3.5 (3.2-5.2) gm/dL Globulin 3.0 (2.2-3.7) gm/dL Albumin/Globulin Ratio 1.2 (1.0-2.3) Urine Color Urine Appearance (Clear) Urine pH (5.0-9.0) Ur Specific [place] (1.000-1.035) Urine Protein (Negative) mg/dL Urine Glucose (UA) (Negative) mg/dL Urine Ketones (Negative) mg/dL Urine Occult Blood (Negative) mg/dL Urine Nitrate (Negative) Urine Bilirubin (Negative) mg/dL Urine Urobilinogen mg/dL Ur Leukocyte Esterase (Negative) /ug Urine RBC (0-3) /hpf Urine WBC (0-4) /hpf Ur Squamous Epith Cells (0-4) /hpf Amorphous Crystals (None) /hpf Urine Bacteria (0) /hpf ED POC Tests ED POC Tests: MARCELINA - SARS Antigen Negative EKG Data EKG #1: EKG attestation: Yes I reviewed and interpreted this EKG. EKG results narrative: Twelve-lead EKG shows sinus rhythm heart rate 99 CO, QRS, QTc within normal, no acute ischemia noted, generalized T wave flattening across all leads nonspecific Discharge Plan Patient/Caregiver Discharge Instructions Pt seen by [employer] [facility]/PA only: No Clinical Impression: Fall Qualifiers: Encounter type: initial encounter Qualified Code(s): W19.XXXA - Unspecified fall, initial encounter Closed fracture of left hip Qualifiers: Encounter type: initial encounter Qualified Code(s): S72.002A - Fracture of unspecified part of neck of left femur, initial encounter for closed fracture Closed left humeral fracture Qualifiers: Encounter type: initial encounter Humerus Location: proximal Fracture morphology: unspecified fracture morphology Qualified Code(s): S42.202A - Unspecified fracture of upper end of left humerus, initial encounter for closed fracture Patient Disposition: Xfer As Inpt ([facility]) Condition: Fair Discharge Date/Time: 01/04/21 01:26 Discharge Comment: to room 114 [facility].
--- NOTE | 2021-01-03 23:06 | Internal Med History&Physical ---
HPI History of Present Illness Patient information: Note initiated : 01/03/21 at 10:59 pm Service Date, if different from initiated Date: [] Patient: Giuliana Moreno 85 y/o F admitted on for Fall. Chief Complaint: [] History of present illness: Ms. Moreno is a 85 year old female with advanced dementia, diabetes mellitus, chronic pain admitted for a hip fracture and humerus fracture resulting from [facility]. The patient was taken to the [facility] emergency department where she had a comprehensive trauma work-up including hip x-ray, shoulder x-ray, chest x-ray, cervical CT, chest abdomen pelvis CT head head noncontrast CT. The work-up showed acute fractures of the left humerus and left femur. The patient was admitted for surgical management of the acute fractures. Review of systems Constitutional: no fever, fatigue, or weight loss Eyes: no vision changes or pain Cardiovascular: no chest pain, no palpitations Respiratory: no cough or dyspnea Gastrointestinal: no abdominal pain, no nausea, vomiting, or diarrhea Genitourinary: no dysuria or difficulty voiding Musculoskeletal: left shoulder pain, left hip pain Integumentary: no skin lesion or wound Neurological: no focal weakness or numbness Psychiatric: no anxiety or depression Physical exam Head: Atraumatic, normal inspection. Eyes: normal appearance, no scleral icterus. Neck: full ROM Respiratory: no respiratory distress. Cardiovascular: normal rate and rhythm, S1, S2. GI/Abdominal: soft, nontender, no guarding. Extremities: markedly swollen left shoulder, tenderness at left hip Neurological: CN II-XII intact, intact motor, intact sensation. Psychiatric: normal mood, impaired cognition Skin: warm, normal color PFSH PFSH All Active Problems (Updated 01/03/21 @ 22:51 by Fuad Sylvester DO) Fall (Acute) Closed fracture of left hip (Acute) Closed left humeral fracture (Acute) Abdominal pain (Acute) UTI (urinary tract infection) (Acute) Multiple rib fractures involving four or more ribs (Acute) Chest pain, musculoskeletal (Acute) Compression fracture of thoracic vertebra (Acute) Osteoporosis (Acute) Fever, low grade (Acute) Leukocytosis (leucocytosis) (Acute) Dementia (Acute) Pneumonia (Acute) HLD (hyperlipidemia) (Chronic) Diabetic peripheral neuropathy (Chronic) Near syncope (Acute) Chronic constipation (Chronic) Incontinence in female (Acute) Compression fracture (Acute) Lumbago (Acute) Hyponatremia (Acute) Back pain (Chronic) Dehydration (Acute) Hyponatremia (Acute) Gastritis (Acute) Deep vein thrombosis (Chronic) Abdominal aortic pulsation (Chronic) Fracture of right patella with routine healing (Chronic) Glaucoma (Chronic) Hypo-osmolality and hyponatremia (Chronic) Acidosis (Chronic) Shortness of breath (Chronic) Urinary tract infection (Chronic) Other disorders of lung (Chronic) Hyperglycemia (Chronic) Metabolic encephalopathy (Chronic) Diabetes mellitus type II, controlled, with no complications (Chronic) Medical History (Updated 01/03/21 @ 22:51 by Fuad Sylvester DO) Abdominal aortic pulsation Acidosis Back pain Compression fracture Deep vein thrombosis Dehydration Dehydration with hyponatremia Diabetes mellitus type II, controlled, with no complications Fracture of right patella with routine healing Gastritis Glaucoma Hyperglycemia Hypo-osmolality and hyponatremia Hyponatremia Hyponatremia Lumbago Metabolic encephalopathy Other disorders of lung Shortness of breath Urinary tract infection Surgical History No pertinent past surgical history Family History Other No pertinent family history Social History marital status: alcohol intake frequency: does not drink MEDS/ALLERGIES Home Medications and Allergies Home Medications Medication Instructions Recorded Confirmed Type Accu-Chek 1 each FS ACHS 04/24/16 01/04/21 History Advanced Gluc Meter Test Strip #100 each NS 01/13/17 01/04/21 Rx blood-glucose meter #1 each NS 01/13/17 01/04/21 Rx incontinence pants, reusable #28 each NS 01/13/17 01/04/21 Rx melatonin 3 mg tablet 3 mg PO HS 01/29/17 01/04/21 History Calcium w/vitamin d 600 mg PO DAILY 01/28/18 01/04/21 History Sure-Fine Pen [place] 31 gauge x #100 each NS 11/15/18 01/04/21 Rx 3/16" donepezil 5 mg tablet 5 mg PO QDAY #90 tab 09/12/19 01/04/21 Rx pen needle, diabetic 31 gauge x #100 each 11/29/19 01/04/21 Rx 3/16" insulin glargine 100 unit/mL (3 See Rx Instructions SUB-Q QDAY #15 02/13/20 01/04/21 Rx mL) subcutaneous pen ml polyethylene glycol 3350 17 gram 17 g PO DAILY PRN #30 packet NS 06/25/20 01/04/21 Rx oral powder packet trazodone 50 mg tablet 25 mg PO HS #90 tab 07/02/20 01/04/21 Rx semaglutide 0.5 mg SUB-Q QWEEK #1.5 ml 07/30/20 01/04/21 Rx oxybutynin chloride 5 mg 5 mg PO QDAY #90 tab 08/28/20 01/04/21 Rx tablet,extended release 24 hr tamsulosin 0.4 mg capsule 0.4 mg PO HS #90 cap 08/28/20 01/04/21 Rx gabapentin 100 mg capsule 100 mg PO TID #270 cap 12/10/20 01/04/21 Rx fentanyl 25 mcg/hr transdermal 25 mcg TRANSDERMAL Q72 #10 each 12/31/20 01/04/21 Rx patch hydrocodone 7.5 mg-acetaminophen 1 tab PO Q6HP PRN #10 tab 12/31/20 01/04/21 Rx 325 mg tablet atorvastatin 20 mg PO DAILY 01/03/21 01/04/21 History sennosides-docusate sodium [Senna 1 cap PO QHS 01/03/21 01/04/21 History Plus] Allergies Allergy/AdvReac Type Severity Reaction Status Date / Time No Known Drug Allergies Allergy Verified 01/04/21 10:39 EXAM Constitutional Vitals: Pulse Resp BP Pulse Ox 93 H 20 98/51 93 01/03/21 22:24 01/03/21 18:15 01/03/21 22:16 01/03/21 22:24 DATA Data Completed and Pending Labs: Labs from last 24 hours 01/03/21 01/03/21 01/03/21 20:21 20:15 19:58 WBC RBC Hgb Hct MCV MCH MCHC RDW Plt Count MPV Neut % (Auto) Lymph % (Auto) [place] % (Auto) Eos % (Auto) Baso % (Auto) Lymph # (Auto) [place] # (Auto) Eos # (Auto) Baso # (Auto) Absolute Neutrophils PT 13.4 INR 1.0 Sodium 133 Potassium 4.3 Chloride 98 Carbon Dioxide 28 Anion Gap 7.0 L BUN 11 Creatinine 0.7 POC Creatinine 0.6 GFR Calculation 78 Glucose 373 H Calcium 9.1 Total Bilirubin 0.2 AST 28 ALT 28 Alkaline Phosphatase 108 Total Protein 6.5 Albumin 3.5 Globulin 3.0 Albumin/Globulin Ratio 1.2 Urine Color Yellow Urine Appearance Cloudy A Urine pH 7.0 Ur Specific [place] 1.013 Urine Protein Neg Urine Glucose (UA) >=500 A Urine Ketones Neg Urine Occult Blood Neg Urine Nitrate Neg Urine Bilirubin Neg Urine Urobilinogen Neg Ur Leukocyte Esterase Neg Urine RBC 0 Urine WBC 0 Ur Squamous Epith Cells < 1 Amorphous Crystals Few A Urine Bacteria None 01/03/21 19:57 WBC 6.3 RBC 3.93 L Hgb 12.1 Hct 36.8 MCV 93.6 MCH 30.8 MCHC 32.9 RDW 11.9 Plt Count 233 MPV 10.8 H Neut % (Auto) 39.1 Lymph % (Auto) 46.6 [place] % (Auto) 10.6 Eos % (Auto) 2.4 Baso % (Auto) 1.3 Lymph # (Auto) 2.94 [place] # (Auto) 0.67 Eos # (Auto) 0.15 Baso # (Auto) 0.08 Absolute Neutrophils 2.47 PT INR Sodium Potassium Chloride Carbon Dioxide Anion Gap BUN Creatinine POC Creatinine GFR Calculation Glucose Calcium Total Bilirubin AST ALT Alkaline Phosphatase Total Protein Albumin Globulin Albumin/Globulin Ratio Urine Color Urine Appearance Urine pH Ur Specific [place] Urine Protein Urine Glucose (UA) Urine Ketones Urine Occult Blood Urine Nitrate Urine Bilirubin Urine Urobilinogen Ur Leukocyte Esterase Urine RBC Urine WBC Ur Squamous Epith Cells Amorphous Crystals Urine Bacteria A/P Narrative A/P Narrative: Assessment: 85 year old female with advanced dementia, diabetes mellitus, chronic pain admitted for a hip fracture and humerus fracture resulting from [facility]. #Acute left hip fracture #Acute left humerus fracture #Diabetes mellitus type II #Dementia #Chronic pain on opioids Plan -Admit to medical/surgery floor. -IV fluid, NPO for hip surgery tomorrow. -Analgesics-continue home fentanyl patch, prn [place], add IV dilaudid prn. -Lantus and SSI. -Morning labs. -DVT ppx: SCD for now, per surgery post op. -Code status: -Disposition: probably SNF Time Spent With Patient Time: Total time spent is greater than 50% in coordination of care (as documented) at patient's floor/unit and/or counseling patient:
[2021-01-04] MEDS ORDERED: ACETAMINOPHEN 325 MG TABLET PO PRN ×2 (01:26→18:06)
[2021-01-04] MEDS ORDERED: ONDANSETRON 4 MG/2 ML VIAL IV PRN ×2 (01:26→17:58)
[2021-01-04] MEDS ORDERED: DEXTROSE 31 GM ORAL.SUSP PO PRN (01:26)
[2021-01-04] MEDS ORDERED: POLYETHYLENE GLYCOL 3350 17 GM PACKET PO PRN ×2 (01:26→18:06)
[2021-01-04] MEDS ORDERED: HYDROcodone/APAP 5/325MG TABLET PO PRN (01:26)
[2021-01-04] MEDS: 0.9 % SODIUM CHLORIDE 1,000 ML IV SCH ×3 (01:27→22:35)
[2021-01-04 01:42] LABS: INR 1.1 (0.9-1.1); Prothrombin Time 14.6 sec (11.9-14.5)
[2021-01-04] MEDS ORDERED: HYDROcodone/APAP 5/325MG TABLET PO ONE (02:09)
[2021-01-04] MEDS: 0.9 % SODIUM CHLORIDE 10 ML SYRINGE IV SCH ×3 (05:00→22:35)
[2021-01-04] MEDS: HYDROmorphone 0.5 MG/0.5 ML SYRINGE IV PRN ×3 (05:00→14:20)
[2021-01-04] MEDS ORDERED: HYDROmorphone 0.5 MG/0.5 ML SYRINGE ONE (05:01)
[2021-01-04 07:31] LABS: Hematocrit 29.5 % (36.0-48.0); Hemoglobin 9.3 g/dL (12.0-15.0); Mean Cell Volume 93.7 fL (80.0-100.0); Mean Corpuscular HGB Conc 31.5 g/dL (31.0-36.0); Mean Platelet Volume 10.5 fL (7.4-10.4); Platelet Count 192 K/mcL (140-440); RBC 3.15 M/mcL (4.00-5.20); Red Cell Distribution Width 11.9 % (11.5-14.5); WBC 13.1 K/mcL (4.5-11.0)
[2021-01-04 08:04] LABS: ALT/SGPT 23 U/L (<40); AST/SGOT 22 U/L (<32); Albumin 3.3 gm/dL (3.2-5.2); Albumin/Globulin Ratio 1.3 (1.0-2.3); Alkaline Phosphatase 83 U/L (39-117); Bilirubin,Direct < 0.2 mg/dL (0-0.3); Bilirubin,Total 0.4 mg/dL (0.1-1.0); Blood Urea Nitrogen 13 mg/dL (8-23); Calcium 8.6 mg/dL (8.6-10.4); Carbon Dioxide 24 mmol/L (22-30); Chloride 100 mmol/L (96-108); Globulin 2.6 gm/dL (2.2-3.7); Glomerular Filtration Rate 82; Glucose 349 mg/dL (70-105); Lactate Dehydrogenase 244 U/L (135-225); Phosphorous 3.3 mg/dL (2.5-4.5); Triglycerides 44 mg/dL (<150); Uric Acid 1.9 mg/dL (2.5-8.0)
--- NOTE | 2021-01-04 08:04 | XRay Report ---
HISTORY: Fell with left hip injury FINDINGS: There is an acute transverse fractures at the base of the neck, where it joins with the trochanters. There is varus angulation. The hip joint space is normal in width and there is normal alignment, with no arthritis. The pelvic bones are osteoporotic. The right hip is normal. Large amount of vascular calcification is present in the pelvis and both groin. IMPRESSION: Acute left femoral neck fracture Interpreted and Authenticated by: David Garcia 01/04/21
--- NOTE | 2021-01-04 08:07 | XRay Report ---
HISTORY: Fell with left shoulder injury FINDINGS: There is an acute obliquely oriented fracture through the humeral head and neck. There is impaction along the medial side. The head remains aligned with the glenoid. There is underlying osteoporosis and arthritis. Old healed fractures are seen posterolaterally in the left sixth and seventh ribs. IMPRESSION: Fracture proximal left humerus Interpreted and Authenticated by: David Garcia 01/04/21
--- NOTE | 2021-01-04 08:10 | XRay Report ---
HISTORY: Fell with chest injury FINDINGS: Prominent increased interstitial lung markings are present bilaterally. There is no lobar consolidation. No pneumothorax or pleural effusion are present. The heart is mildly enlarged. There are couple old healed bilateral rib fractures. Aorta is mildly tortuous and there is a moderate amount of calcified plaque in the arch. Comparison with the prior exam from 10/21/18 shows the interstitial lung disease is chronic but appears worse in the right lower lobe on today's study. IMPRESSION: Nonspecific interstitial lung disease bilaterally Interpreted and Authenticated by: David Garcia 01/04/21
--- NOTE | 2021-01-04 08:15 | Cat Scan Report ---
History: Fell with head injury TECHNIQUE: The brain was imaged without contrast in axial plane at 2.5 mm intervals. Sagittal and coronal reformats were created. The radiation exposure was limited using dose reduction technology. FINDINGS: There is a small scalp hematoma adjacent to the left parietal bone. No skull fracture is present. There is no intracranial hemorrhage or cerebral edema. No abnormal extra-axial fluid collection is present. Along the posterior inferior medial border of the left cerebellar hemisphere there is an old infarct with encephalomalacia which measures 1.4 x 2.3 cm. There is a smaller linear infarct in the right globus pallidus which is also old. No new infarct is seen. There is moderate generalized atrophy. Diffuse white matter disease is present with confluent areas of abnormal decreased attenuation throughout the frontal and parietal lobes. Comparison with the prior head CT done on 10/21/18 shows the cerebellar infarct was not present at that time. The infarct in right basal ganglia is chronic and the atrophy and white matter degeneration are stable. 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
[2021-01-04 08:18] LABS: Lymphocytes % 7 % (15-49); Monocytes % (Manual) 5 % (1-12); Platelet Estimate NORMAL (Normal); RBC Morphology NORMAL (Normal); Segmented Neutrophils % 88 % (38-78)
--- NOTE | 2021-01-04 08:22 | Cat Scan Report ---
History: Fell with neck injury TECHNIQUE: The neck was imaged without contrast in axial plane at 2.5 mm intervals from the skull base through the thoracic inlet. Sagittal and coronal reformats are created. Radiation exposure was limited using dose reduction technology. FINDINGS: There is no fracture. Cervico-occipital junction is normal. There is moderate arthritis spur formation at the articulation odontoid and anterior ring of C1. There is generalized osteoporosis throughout the spine. No paraspinal hematoma is present. There is a dextroscoliotic curvature in the thoracic spine and compensatory levoscoliosis in the cervical spine. Moderate disc space narrowing is present at C5-6 and C6-7 with mild disc space narrowing at C2-3. There is 2 mm retrolisthesis of C3 posterior to C4 and 2 mm spondylolisthesis at C5-6. There is also spurring of the uncinate processes at several levels. Moderate stenosis of the right-sided neural foramen is present at C5-6. Mild central canal stenosis is seen at C4-5. There is a large amount of calcified plaque in the carotid bifurcations bilaterally. IMPRESSION: No fracture Degenerative disc disease and arthritis at multiple levels Interpreted and Authenticated by: Dvaid Garcia 01/04/21
--- NOTE | 2021-01-04 08:36 | Cat Scan Report ---
History: Fell with multiple injuries TECHNIQUE: The patient was imaged following injection of intravenous nonionic contrast scanning from the thoracic inlet through the symphysis pubis. Sagittal and coronal reformats were created. The radiation exposure was limited using dose reduction technology. FINDINGS: CHEST: There is mild dependent atelectasis in both lung bases. Subtle groundglass alveolar opacities are present beneath the pleural surface in the lingula and right middle lobe. There is no pulmonary contusion. No pneumothorax or pleural effusion are present. There few small calcified granulomata in both lung bases. The heart size is normal. Severe atherosclerotic disease is seen in the coronary arteries. There is moderate atherosclerosis in the aorta and subclavian arteries. Aorta is normal in caliber. There is a large retrocardiac hiatus hernia. Comminuted fracture is seen involving the humeral head and neck. There is moderate displacement of bone. The head remains aligned with the glenoid. The scapula is intact. Acromioclavicular joint is normal. There is arthritis in the right shoulder. No rib fracture is present. Abdomen and pelvis: The liver and spleen are normal in size and homogeneous. The gallbladder and bile ducts are normal. The pancreas and adrenals are normal. The kidneys are normal. There are atherosclerotic plaques in the renal arteries in the hilar region bilaterally which mimic small stones. No lacerated abdominal organ is present. There is no free fluid or air within the abdomen or pelvis. There is fecal impaction with the greatest involvement in the rectum. Small intestine is nondilated. There is severe atherosclerosis along the wall of normal caliber abdominal aorta and iliac arteries. There is an acute comminuted fracture of the left femoral neck and the adjacent to the greater trochanter. The hip joint space itself is normal. The right hip is normal. There is no pelvic fracture. The patient has numerous compression fractures in the thoracic and lumbar spine with associated dextroscoliotic curvature in the lower thoracic spine. The most severe compression fracture is at L2. There are also moderately severe compression fractures at T10, T11 and T12 with moderate compression fractures at T5, T6 and T8, with a mild fracture at L4. There is no surrounding edema. These appear to be old. I Have no prior study for comparison. IMPRESSION: Acute fractures of the left humerus and left femur No lacerated organs or hemorrhage within the chest abdomen or pelvis. Numerous compression fractures in the spine which appear old. These appear related to underlying severe osteoporosis Mild atelectasis in both lung bases Severe atherosclerosis Interpreted and Authenticated by: David Garcia 01/04/21
[2021-01-04] MEDS: INSULIN GLARGINE, HUMAN 1 UNIT/0.01 ML SQ SCH ×2 (08:41→22:34)
[2021-01-04] MEDS: INSULIN LISPRO 1 UNIT/0.01 ML UNIT SQ SCH ×4 (08:41→22:35)
[2021-01-04] MEDS: GABAPENTIN 100 MG CAPSULE PO SCH ×3 (08:43→22:33)
[2021-01-04] MEDS: ATORVASTATIN 20 MG TABLET PO SCH (08:43)
[2021-01-04] MEDS: DONEPEZIL 10 MG TABLET PO SCH (08:43)
[2021-01-04] MEDS: fentaNYL 25 MCG PATCH TOPICAL SCH (10:19)
--- NOTE | 2021-01-04 12:27 | Internal Med Progress Note ---
SUBJECTIVE Subjective Patient information: Note initiated : 01/04/21 at 12:23 pm Service Date, if different from initiated Date: [] Patient: Giuliana Moreno 85 y/o F admitted on 01/04/21 for Fall. Chief Complaint: [] Interval history: Ms. Moreno is a 85 year old female with advanced dementia, diabetes mellitus, chronic pain admitted for a hip fracture and humerus fracture resulting [facility]. The pa tient was taken to the [facility] emergency department where she had a comprehensive trauma work-up including hip x-ray, shoulder x-ray, chest x-ray, cervical CT, chest abdomen pelvis CT head head noncontrast CT. The work-up showed acute fractures of the left humerus and left femur. The patient was admitted for surgical management of the acute fractures. 01/04 Stable, morning labs show leukocytosis likely stress related, glucose running a bit high. Plan is for hip surgery today. Physical exam Head: Atraumatic, normal inspection. Eyes: normal appearance, no scleral icterus. Neck: full ROM Respiratory: no respiratory distress. Cardiovascular: normal rate and rhythm, S1, S2. GI/Abdominal: soft, nontender, no guarding. Extremities: markedly swollen left shoulder, mild tenderness at left hip Neurological: CN II-XII intact, intact motor, intact sensation. Psychiatric: normal mood, impaired cognition Skin: warm, normal color Constitutional Vitals: Vital Signs Temp Pulse Resp BP Pulse Ox 98.3 F 67 16 114/70 97 01/04/21 11:39 01/04/21 11:39 01/04/21 11:39 01/04/21 11:39 01/04/21 11:39 Period Temp Pulse Resp BP Sys/Desouza Pulse Ox Last 24 Hr 98.1 F-98.3 F 65-104 16-20 79-160/43-107 91-98 Intake and Output 01/03/21 01/04/21 01/04/21 21:59 05:59 13:59 Intake Total 1050 Output Total 2275 Balance -1225 Weight 65.771 kg 50.031 kg Intake & Output: Intake & Output 01/03/21 01/04/21 01/04/21 21:59 05:59 13:59 Intake Total 1050 Output Total 2275 Balance -1225 Weight 65.771 kg 50.031 kg Intake: IV 1000 Lactated Ringers 1,000 ml @ 1000 Wide Open IV BOLUS ONE Rx#: [id number] Oral 50 Output: Urine Catheter Amount 2275 Other: Urine Appearance Clear Uretheral (Camp[place]) Clear Clear Clear Urine Color Pale Uretheral ([place]) Straw Pale Bright Yellow OBJ DATA Labs CBC & Chem 7: 01/04/21 06:20 01/04/21 06:20 Labs: Abnormal Lab Results 01/04/21 01/04/21 01/04/21 06:20 06:20 00:50 WBC 13.1 H RBC 3.15 L Hgb 9.3 L Hct 29.5 L MPV 10.5 H Seg Neutrophils % 88 H Lymphocytes % 7 L PT 14.6 H Anion Gap Glucose 349 H Uric Acid 1.9 L Lactate Dehydrogenase 244 H Urine Appearance Urine Glucose (UA) Amorphous Crystals 01/03/21 01/03/21 01/03/21 20:21 20:15 19:57 WBC RBC 3.93 L Hgb Hct MPV 10.8 H Seg Neutrophils % Lymphocytes % PT Anion Gap 7.0 L Glucose 373 H Uric Acid Lactate Dehydrogenase Urine Appearance Cloudy A Urine Glucose (UA) >=500 A Amorphous Crystals Few A Meds: Medications Acetaminophen (Acetaminophen 325 Mg Tablet) 650 mg PO Q6HP PRN; Protocol PRN Reason: Per Pain Protocol/Fever > 101 Hydrocodone Bitart/Acetaminophen (Hydrocodone/Apap 5/325mg Tablet) 1 tab PO Q4HP PRN; Protocol PRN Reason: Per Pain Protocol Last Admin: 01/04/21 02:07 Dose: 1 tab Documented by: Atorvastatin Calcium (Atorvastatin 20 Mg Tablet) 20 mg PO DAILY [facility] Last Admin: 01/04/21 08:43 Dose: Not Given Documented by: Dextrose (Dextrose 50% 50 Ml Vial) 0 ml IV UD PRN PRN Reason: Hypoglycemia Diagnostic Test (Pha) (Accu-Chek 1 Each Strip) 1 each FS ACHS [facility] Last Admin: 01/04/21 07:05 Dose: 1 each Documented by: Donepezil HCl (Donepezil 10 Mg Tablet) 5 mg PO DAILY [facility] Last Admin: 01/04/21 08:43 Dose: Not Given Documented by: Fentanyl (Fentanyl 25 Mcg Patch) 25 mcg TOPICAL Q72H [facility] Last Admin: 01/04/21 10:19 Dose: 25 mcg Documented by: Gabapentin (Gabapentin 100 Mg Capsule) 100 mg PO TID [facility] Last Admin: 01/04/21 08:43 Dose: Not Given Documented by: Glucose (Dextrose 31 Gm Oral.Susp) 15 gm PO PRN PRN PRN Reason: Hypoglycemia Hydromorphone HCl (Hydromorphone 0.5 Mg/0.5 Ml Syringe) 0.5 mg IV Q2HP PRN; Protocol PRN Reason: Per Pain Protocol Last Admin: 01/04/21 08:44 Dose: 0.5 mg Documented by: Sodium Chloride (Sodium Chloride 0.9%) 1,000 mls @ 75 mls/hr IV .[id number] [facility] Last Admin: 01/04/21 01:27 Dose: 75 mls/hr Documented by: Insulin Glargine (Insulin Glargine, Human 1 Unit/0.01 Ml) 8 unit SQ BID [facility] Last Admin: 01/04/21 08:41 Dose: 8 units Documented by: Insulin Human Lispro (Insulin Lispro 1 Unit/0.01 Ml Unit) 0 unit SQ ACHS [facility]; Protocol Last Admin: 01/04/21 08:41 Dose: 12 units Documented by: Melatonin (Melatonin 3 Mg Tablet) 3 mg PO HS [facility] Ondansetron HCl (Ondansetron 4 Mg/2 Ml Vial) 4 mg IV Q6HP PRN PRN Reason: Nausea And Vomiting Polyethylene Glycol (Polyethylene Glycol 3350 17 Gm Packet) 17 gm PO DAILYP PRN PRN Reason: constipation Senna/Docusate Sodium (Sennosides/Docusate Sodium 1 Tab Tablet) 1 tab PO HS [facility] Sodium Chloride (0.9 % Sodium Chloride 10 Ml Syringe) 10 ml IV Q8 [facility] Last Admin: 01/04/21 05:00 Dose: Not Given Documented by: Trazodone HCl (Trazodone Hcl 50 Mg Tablet) 25 mg PO HS [facility] A/P Narrative A/P Narrative: Assessment: 85 year old female with advanced dementia, diabetes mellitus, chronic pain admitted for a hip fracture and humerus fracture resulting from a [facility]. #Acute left hip fracture #Acute left humerus fracture #Diabetes mellitus type II-poorly controlled #Leukocytosis likely stress induced #Dementia #Chronic pain on opioids Plan -Plan is for surgery today. -Analgesics-continue home fentanyl patch, prn Holland, add IV dilaudid prn. -Lantus and SSI, start prandial insulin after surgery. -Trend labs. -DVT ppx: SCD for now, per surgery post op. -Code status: Mod DNR -Disposition: probably SNF Time Spent With Patient Time: Total time spent is greater than 50% in coordination of care (as documented) at patient's floor/unit and/or counseling patient: QUALITY VTE Deep Vein Thrombosis/Pulmonary Embolism Present on Admission: No
[2021-01-04 14:46] LABS: Hemoglobin A1C 8.8 % Hgb (4.0-6.0)
--- NOTE | 2021-01-04 15:48 | History and Physical Report ---
DATE OF ADMISSION: 01/04/2021 CHIEF COMPLAINT: Left hip and left shoulder pain. HISTORY OF PRESENT ILLNESS: Ms. Moreno is a 85-year-old female with advanced dementia, diabetes, and chronic pain. She had a ground level fall at the home where she resides. She was taken to the emergency department and was found to have a left hip and left proximal humerus fracture. She was admitted by the hospitalist service for further management. PAST MEDICAL HISTORY: Abdominal aortic pulsation, acidosis, back pain, compression fracture, DVT, dehydration, dehydration with hyponatremia, diabetes type 2, patellar fracture, gastritis, glaucoma, hyperglycemia, hypernatremia, metabolic encephalopathy, shortness of breath, urinary tract infection. PAST SURGICAL HISTORY: None noted. MEDICATIONS: Please see intake list for complete medications. ALLERGIES: No known drug allergies. FAMILY HISTORY: Negative. SOCIAL HISTORY: She resides at a care center. Denies tobacco, alcohol or IV drug use. REVIEW OF SYSTEMS: No recent chest pain, fever, chills, nausea, vomiting, diarrhea or constipation. PHYSICAL EXAMINATION: GENERAL: Resting on the hospital bed, alert and oriented x 2. HEART: Regular rate and rhythm without murmur or gallop. CHEST: Clear to auscultation in lung henson bilaterally. ABDOMEN: Soft, nontender, nondistended. EXTREMITIES: Left hip demonstrates tenderness to palpation and tenderness to any attempts at motion. She is able to flex and extend the ankle and toes. Sensation intact to light touch grossly throughout the extremities, 2+ DP and PT and radial pulse with capillary refill less than 2 seconds. Left shoulder is in a sling, swollen, some mild bruising. There is pain with any attempts at range of motion. RADIOGRAPHS: 1. Two views of the left shoulder demonstrate a comminuted, but nondisplaced proximal humerus fracture. 2. Three views of the left hip demonstrate a basicervical/intertrochanteric fracture of the left hip with varus angulation. ASSESSMENT: 1. Left hip basicervical/intertrochanteric fracture. 2. Left shoulder comminuted, but minimally displaced proximal humerus fracture. 3. Type 2 diabetes. 4. Dementia. 5. Chronic pain, on opioids. PLAN: She is getting medically cleared at this point and I feel that surgery is reasonable. For the left shoulder, we are going to try nonoperative treatment. I think it will heal and she will go on to do fine. We will watch it closely. I placed her into a DonJoy pillow sling for extra protection. We will follow up in about 2 weeks and re-x-ray to make sure it is not displacing. The left hip will be best with surgical intervention. I spoke with her daughter at length. We talked about hemiarthroplasty versus a nailing. I think there is possibly some extension into the trochanteric region, so we will plan for a cephalomedullary nail of the left hip. The risks and benefits were discussed with the patient in detail including, but not limited to, the risks of anesthesia, problems with the heart or lungs related to anesthesia, infection, compromise or injury to the nerves and blood vessels, deep venous thrombosis, pulmonary embolism, pneumonia, continued pain after surgery, worsening pain or symptoms after surgery, swelling, loss of motion, need for repeat surgery, hardware failure, re-tear or failure of repair site, malunion, nonunion, and hardware pain requiring future removal. We will get this done as soon as possible. SANGITA:william Job ID: [id number] Doc ID: [id number] Leesa Vail MD
[2021-01-04] MEDS ORDERED: ceFAZolin 2 GM in DEXTROSE 5% IN WATER 50 ML IV SCH (16:15)
[2021-01-04] MEDS ORDERED: DEXAMETHASONE 10 MG/ML VIAL ONE (17:20)
[2021-01-04] MEDS ORDERED: PROPOFOL 200 MG/20 ML VIAL IV ONE (17:20)
[2021-01-04] MEDS ORDERED: ONDANSETRON 4 MG/2 ML VIAL ONE (17:20)
[2021-01-04] MEDS ORDERED: MAGNESIUM SULFATE 2 GM/50 ML BAG IV ONE (17:20)
[2021-01-04] MEDS ORDERED: LIDOCAINE HCL/PF 100 MG/5 ML SYRINGE IV ONE (17:20)
[2021-01-04] MEDS ORDERED: PHENYLEPHRINE 10 MG/ML VIAL ONE (17:20)
[2021-01-04] MEDS ORDERED: KETAMINE 50 MG/ML ML ONE (17:20)
[2021-01-04] MEDS ORDERED: fentaNYL 100 MCG/2 ML VIAL IV PRN (17:58)
[2021-01-04] MEDS ORDERED: LACTATED RINGERS 250 ML IV PRN (17:58)
[2021-01-04] MEDS ORDERED: MEPERIDINE 25 MG/ML VIAL IV PRN (17:58)
[2021-01-04] MEDS ORDERED: PROMETHAZINE 25 MG/ML VIAL IV PRN (17:58)
[2021-01-04] MEDS ORDERED: diphenhydrAMINE 50 MG/ML VIAL IV PRN (17:58)
[2021-01-04] MEDS ORDERED: ACETAMINOPHEN 1,000 MG/100 ML BAG IV ONE ×2 (17:58→18:21)
[2021-01-04] MEDS ORDERED: NALOXONE HCL 0.4 MG/ML VIAL IV PRN (17:58)
[2021-01-04] MEDS ORDERED: IPRATROPIUM/ALBUTEROL 3 ML AMPUL.NEB NEB PRN (17:58)
[2021-01-04] MEDS ORDERED: LACTATED RINGERS 1,000 ML IV SCH (18:00)
--- NOTE | 2021-01-04 18:04 | General Surgery Procedure Note ---
Date of procedure: Note initiated : 01/04/21 at 6:03 pm Service Date, if different from initiated Date: [] Pre-op diagnosis: left hip basicervical / intertrochanteric fracture Post-op diagnosis: same Procedure: left hip cephalomedullary nailing Anesthesia: LAKESHIA Surgeon: Gee Vail Thread Dresser: Yeison Rubin Estimated blood loss: 100 Pathology: none sent Condition: stable Disposition: PACU
--- NOTE | 2021-01-04 18:05 | Discharge Plan ---
DC Instructions-General Patient Instructions Dressing Care: May shower in 2 days Discharge Plan Patient/Caregiver Discharge Instructions Activity: ambulate only with your walker and as instructed Diet: Regular Diet Prescriptions: No Action (DME) blood sugar diagnostic [Advanced Gluc Meter Test Strip] strip See Dose Instructions .ROUTE .MEDSUPPLY MDD 4 times daily Qty: 100 RF: 4 (DME) blood-glucose meter misc See Dose Instructions .ROUTE .MEDSUPPLY MDD 4 times daily Qty: 1 RF: 0 (DME) incontinence pants, reusable misc See Dose Instructions .ROUTE .MEDSUPPLY MDD 2 pants daily Qty: 28 RF: 6 (DME) pen needle, diabetic [Sure-Fine Pen Whitney] 31 gauge x 3/16" needle See Dose Instructions .ROUTE .MEDSUPPLY Qty: 100 RF: 7 donepezil 5 mg tablet 5 mg PO QDAY Qty: 90 RF: 3 (DME) pen needle, diabetic [TRUEplus Pen Needle] 31 gauge x 3/16" needle See Rx Instructions .ROUTE .MEDSUPPLY Qty: 100 RF: 6 Lantus Solostar U-100 Insulin 100 unit/mL (3 mL) insulin pen See Rx Instructions SUB-Q QDAY Qty: 15 RF: 3 polyethylene glycol 3350 17 gram powder in packet 17 g PO DAILY PRN (Reason: constipation) Qty: 30 RF: 4 trazodone 50 mg tablet 25 mg PO HS Qty: 90 RF: 1 semaglutide 0.25 mg or 0.5 mg(2 mg/1.5 mL) pen injector 0.5 mg SUB-Q QWEEK Qty: 1.5 RF: 3 oxybutynin chloride 5 mg tablet extended release 24hr 5 mg PO QDAY Qty: 90 RF: 1 tamsulosin 0.4 mg capsule 0.4 mg PO HS Qty: 90 RF: 1 gabapentin 100 mg capsule 100 mg PO TID Qty: 270 RF: 1 hydrocodone-acetaminophen 7.5-325 mg tablet 1 tab PO Q6HP PRN (Reason: Pain) Qty: 10 RF: 0 fentanyl 25 mcg/hr patch 72 hour 25 mcg Transdermal Q72 Qty: 10 RF: 0 Calcium w/vitamin d tablet 600 mg PO DAILY RF: 0 melatonin 3 mg tablet 3 mg PO HS RF: 0 Accu-Chek 1 EACH strip 1 each FS ACHS RF: 0 atorvastatin 20 mg tablet 20 mg PO DAILY RF: 0 Senna Plus 8.6-50 mg Capsule 1 cap PO QHS RF: 0 Follow Up Plan Follow up with: Gee Vail MD [Physician] - Gee Werner DO [Primary Care Provider] - Patient Disposition: Xfer SNF Prognosis: Fair Rehab Potential: Fair I certify that the patient requires SNF services: Yes Overall status at discharge: patient is progressing back to baseline Discharge Orders: Discharge Order (Routine); Ordered 01/06/21 Ordered By: Gee Vail
[2021-01-04] MEDS ORDERED: FLEETS ADULT ENEMA PR PRN (18:06)
[2021-01-04] MEDS ORDERED: MAGNESIUM HYDROXIDE 30 ML ORAL.SUSP PO PRN (18:06)
[2021-01-04] MEDS ORDERED: TRANEXAMIC ACID 1,000 MG/10 ML VIAL IV ONE ×2 (18:06→18:31)
[2021-01-04] MEDS ORDERED: BENZOCAINE/MENTHOL 1 LOZENGE PO PRN (18:06)
[2021-01-04] MEDS ORDERED: morphine 4 MG/ML VIAL IV PRN (18:06)
[2021-01-04] MEDS ORDERED: BISACODYL 10 MG SUPP.RECT PR PRN (18:06)
[2021-01-04] MEDS ORDERED: ONDANSETRON 4 MG ODT TABLET SL PRN (18:06)
--- NOTE | 2021-01-04 18:38 | XRay Report ---
HISTORY: FINDINGS: IMPRESSION: 0.7 minutes of fluoroscopy time was used. Interpreted and Authenticated by: David Garcia 01/04/21
[2021-01-04] MEDS ORDERED: ENOXAPARIN 30 MG/0.3 ML SYRINGE SQ SCH (21:00)
[2021-01-04] MEDS: traZODone HCL 50 MG TABLET PO SCH (22:32)
[2021-01-04] MEDS: SENNOSIDES 1 TABLET PO SCH (22:33)
[2021-01-04] MEDS: DOCUSATE SODIUM 100 MG CAPSULE PO SCH (22:33)
[2021-01-04] MEDS: SENNOSIDES/DOCUSATE SODIUM 1 TAB TABLET PO SCH (22:33)
[2021-01-04] MEDS: MELATONIN 3 MG TABLET PO SCH (22:33)
[2021-01-05] MEDS: ceFAZolin 1 GM VIAL IV SCH ×2 (00:36→09:01)
[2021-01-05] MEDS: 0.9 % SODIUM CHLORIDE 1,000 ML IV SCH ×4 (04:31→22:15)
[2021-01-05] MEDS: 0.9 % SODIUM CHLORIDE 10 ML SYRINGE IV SCH ×3 (06:03→22:15)
[2021-01-05] MEDS: HYDROcodone/APAP 5/325MG TABLET PO PRN ×4 (06:06→23:29)
[2021-01-05 06:45] LABS: Hematocrit 20.6 % (36.0-48.0); Hemoglobin 6.8 g/dL (12.0-15.0)
[2021-01-05] MEDS ORDERED: 0.9 % SODIUM CHLORIDE 250 ML IV SCH (07:30)
[2021-01-05] MEDS: INSULIN LISPRO 1 UNIT/0.01 ML UNIT SQ SCH ×4 (07:33→22:26)
[2021-01-05] MEDS: INSULIN GLARGINE, HUMAN 1 UNIT/0.01 ML SQ SCH ×2 (09:01→22:27)
[2021-01-05] MEDS: DOCUSATE SODIUM 100 MG CAPSULE PO SCH ×2 (09:01→22:26)
[2021-01-05] MEDS: DONEPEZIL 10 MG TABLET PO SCH (09:01)
[2021-01-05] MEDS: ATORVASTATIN 20 MG TABLET PO SCH (09:02)
[2021-01-05] MEDS: GABAPENTIN 100 MG CAPSULE PO SCH ×3 (09:02→22:26)
--- NOTE | 2021-01-05 10:23 | Orthopedic Progress Note ---
SUBJECTIVE Subjective Patient information: Note initiated : 01/05/21 at 10:22 am Service Date, if different from initiated Date: [] Patient: Giuliana Moreno 85 y/o F admitted on 01/04/21 for Fall. Chief Complaint: No c/o. Pt is confused forgetful Constitutional Vitals: Vital Signs Temp Pulse Resp BP Pulse Ox 99.3 F H 76 14 114/60 91 01/05/21 07:09 01/05/21 07:09 01/05/21 07:09 01/05/21 07:09 01/05/21 07:09 Period Temp Pulse Resp BP Sys/Desouza Pulse Ox Last 24 Hr 96.9 F-99.5 F 67-96 14-31 93-158/47-87 91-100 Intake and Output 01/04/21 01/05/21 01/05/21 21:59 05:59 13:59 Intake Total 2350 906 Output Total 525 375 Balance 1825 531 Weight 108 lb Intake & Output: Intake & Output 01/04/21 01/05/21 01/05/21 21:59 05:59 13:59 Intake Total 2350 906 Output Total 525 375 Balance 1825 531 Weight 108 lb Intake: IV 1050 656 Sodium Chloride 0.9% 1,000 ml @ 1000 572 75 mls/hr IV .[id number] [facility] Rx#: [id number] Lactated Ringers 1,000 ml @ 20 84 mls/hr IV .Q24H [facility] Rx#: [id number] Ancef 2 gm In Dextrose 5% in 50 Water 50 ml @ 100 mls/hr IV PREOP [facility] Rx#:[id number] Oral 250 IV - Manual Only 1300 Output: Urine Catheter Amount 425 375 Estimated Blood Loss 100 Other: Meal Breakfast Percent of Meal Consumed Refused Feeding Ability Independent Urine Appearance Clear Uretheral ([place]) Clear Urine Color Bright Yellow Uretheral ([place]) Dark Yellow bandages c/d/i nvi-distal OBJ DATA Labs CBC & Chem 7: 01/05/21 05:25 01/04/21 06:20 Labs: Abnormal Lab Results 01/05/21 01/04/21 01/04/21 05:25 06:20 06:20 WBC RBC Hgb 6.8 L* Hct 20.6 L* MPV Seg Neutrophils % Lymphocytes % PT Anion Gap Glucose 349 H Hemoglobin A1c 8.8 H Uric Acid 1.9 L Lactate Dehydrogenase 244 H Urine Appearance Urine Glucose (UA) Amorphous Crystals 01/04/21 01/04/21 01/03/21 06:20 00:50 20:21 WBC 13.1 H RBC 3.15 L Hgb 9.3 L Hct 29.5 L MPV 10.5 H Seg Neutrophils % 88 H Lymphocytes % 7 L PT 14.6 H Anion Gap 7.0 L Glucose 373 H Hemoglobin A1c Uric Acid Lactate Dehydrogenase Urine Appearance Urine Glucose (UA) Amorphous Crystals 01/03/21 01/03/21 20:15 19:57 WBC RBC 3.93 L Hgb Hct MPV 10.8 H Seg Neutrophils % Lymphocytes % PT Anion Gap Glucose Hemoglobin A1c Uric Acid Lactate Dehydrogenase Urine Appearance Cloudy A Urine Glucose (UA) >=500 A Amorphous Crystals Few A Meds: Medications Acetaminophen (Acetaminophen 325 Mg Tablet) 650 mg PO Q6HP PRN; Protocol PRN Reason: Per Pain Protocol/Fever > 101 Hydrocodone Bitart/Acetaminophen (Hydrocodone/Apap 5/325mg Tablet) 0 tab PO Q4HP PRN; Protocol PRN Reason: Per Pain Protocol Last Admin: 01/05/21 06:06 Dose: 1 tab Documented by: Atorvastatin Calcium (Atorvastatin 20 Mg Tablet) 20 mg PO DAILY [facility] Last Admin: 01/05/21 09:02 Dose: 20 mg Documented by: Bisacodyl (Bisacodyl 10 Mg Supp.Rect) 10 mg NE Q2-3DAYS PRN PRN Reason: Constipation Dextrose (Dextrose 50% 50 Ml Vial) 0 ml IV UD PRN PRN Reason: Hypoglycemia Diagnostic Test (Pha) (Accu-Chek 1 Each Strip) 1 each FS ACHS [facility] Last Admin: 01/05/21 07:32 Dose: 1 each Documented by: Docusate Sodium (Docusate Sodium 100 Mg Capsule) 100 mg PO BID [facility] Last Admin: 01/05/21 09:01 Dose: 100 mg Documented by: Donepezil HCl (Donepezil 10 Mg Tablet) 5 mg PO DAILY [facility] Last Admin: 01/05/21 09:01 Dose: 5 mg Documented by: Fentanyl (Fentanyl 25 Mcg Patch) 25 mcg TOPICAL Q72H [facility] Last Admin: 01/04/21 10:19 Dose: 25 mcg Documented by: Gabapentin (Gabapentin 100 Mg Capsule) 100 mg PO TID [facility] Last Admin: 01/05/21 09:02 Dose: 100 mg Documented by: Glucose (Dextrose 31 Gm Oral.Susp) 15 gm PO PRN PRN PRN Reason: Hypoglycemia Hydromorphone HCl (Hydromorphone 0.5 Mg/0.5 Ml Syringe) 0.5 mg IV Q2HP PRN; Protocol PRN Reason: Per Pain Protocol Last Admin: 01/04/21 14:20 Dose: 0.5 mg Documented by: Sodium Chloride (Sodium Chloride 0.9%) 1,000 mls @ 75 mls/hr IV .[id number] [facility] Last Admin: 01/05/21 04:31 Dose: Not Given Documented by: Sodium Chloride (Sodium Chloride 0.9%) 250 mls @ 20 mls/hr IV .[id number] [facility] Stop: 01/05/21 19:59 Last Admin: 01/05/21 07:43 Dose: Not Given Documented by: Insulin Glargine (Insulin Glargine, Human 1 Unit/0.01 Ml) 8 unit SQ BID [facility] Last Admin: 01/05/21 09:01 Dose: 8 units Documented by: Insulin Human Lispro (Insulin Lispro 1 Unit/0.01 Ml Unit) [facility]; Protocol Last Admin: 01/05/21 07:33 Dose: 8 units Documented by: Magnesium Hydroxide (Magnesium Hydroxide 30 Ml Oral.Susp) 30 ml PO BIDP PRN PRN Reason: Constipation Melatonin (Melatonin 3 Mg Tablet) 3 mg PO [facility] Last Admin: 01/04/21 22:33 Dose: 3 mg Documented by: Morphine Sulfate (Morphine 4 Mg/Ml Vial) 0 mg IV Q1HP PRN; Protocol PRN Reason: Per Pain Protocol Ondansetron HCl (Ondansetron 4 Mg/2 Ml Vial) 4 mg IV Q6HP PRN PRN Reason: Nausea And Vomiting Ondansetron HCl (Ondansetron 4 Mg Odt Tablet) 4 mg SL Q4HP PRN; Protocol PRN Reason: Nausea And Vomiting Polyethylene Glycol (Polyethylene Glycol 3350 17 Gm Packet) 17 gm PO DAILYP PRN PRN Reason: Constipation Senna (Sennosides 1 Tablet) 2 tab PO [facility] Last Admin: 01/04/21 22:33 Dose: 2 tab Documented by: Senna/Docusate Sodium (Sennosides/Docusate Sodium 1 Tab Tablet) 1 tab PO [facility] Last Admin: 01/04/21 22:33 Dose: 1 tab Documented by: Sodium Biphosphate/Sodium Phosphate (Fleets Adult Enema) 1 dose NE Q3-4DAYS PRN PRN Reason: Constipation Sodium Chloride (0.9 % Sodium Chloride 10 Ml Syringe) 10 ml IV Q8 [facility] Last Admin: 01/05/21 06:03 Dose: Not Given Documented by: Throat Lozenges (Benzocaine/Menthol 1 Lozenge) 1 lozenge PO PRN PRN PRN Reason: Sore Throat Trazodone HCl (Trazodone Hcl 50 Mg Tablet) 25 mg PO [facility] Last Admin: 01/04/21 22:32 Dose: 25 mg Documented by: A/P Assessment and plan (1) Closed fracture of left hip: Status: Acute Comment: Pt doing well, but has not memory of surgery. recommended d/c of anticoagulation for 48-72hrs post-op to control bleeding. Qualifiers: Encounter type: initial encounter Qualified Code(s): S72.002A - Fracture of unspecified part of neck of left femur, initial encounter for closed fracture Time Spent With Patient Time: Total time spent is greater than 50% in coordination of care (as documented) at patient's floor/unit and/or counseling patient:
--- NOTE | 2021-01-05 11:01 | EKG ---
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 Measurements Intervals [place] Rate: 99 P: 53 NV: 187 QRS: 9 QRSD: 72 T: 34 QT: 384 QTc: 493 Interpretive Statements Sinus rhythm Low voltage, precordial leads Borderline prolonged QT interval NO PRIOR TRACING FOR COMPARISON Electronically Signed On 01-05-2021 11:01:29 PDT by Zachery Arriaza M.D. /store/M0/[id number]
--- NOTE | 2021-01-05 11:04 | Internal Med Progress Note ---
SUBJECTIVE Subjective Patient information: Note initiated : 01/05/21 at 11:02 am Service Date, if different from initiated Date: [] Patient: Giuliana Moreno 85 y/o F admitted on 01/04/21 for Fall. Chief Complaint: [] Interval history: Ms. Moreno is a 85 year old female with advanced dementia, diabetes mellitus, chronic pain admitted for a hip fracture and humerus fracture resulting from a ground level fall at the long term where she resides. The pa tient was taken to the [facility] emergency department where she had a comprehensive trauma work-up including hip x-ray, shoulder x-ray, chest x-ray, cervical CT, chest abdomen pelvis CT head head noncontrast CT. The work-up showed acute fractures of the left humerus and left femur. The patient was admitted for surgical management of the acute fractures. 01/04 Stable, morning labs show leukocytosis likely stress related, glucose running a bit high. Plan is for hip surgery today. 01/05 Surgery with left hip cephalomedular nail was uneventful was uneventful yesterday. Required a unit RBC today for hemoglobin, holding lovenox, will recheck hemoglobin later today. Hematoma over left humerus fracture possible cause of the anemia as there was not much blood loss during surgery and hip looks good. CM working on placement options, possibly to long term but will require significant assistance therefore maybe SNF. Physical exam Head: Atraumatic, normal inspection. Eyes: normal appearance, no scleral icterus. Neck: full ROM Respiratory: no respiratory distress. Cardiovascular: normal rate and rhythm, S1, S2. GI/Abdominal: soft, nontender, no guarding. Extremities: markedly swollen left shoulder, mild tenderness at left hip, surgical incision covered with clean bandage, cold compress Neurological: CN II-XII intact, intact motor, intact sensation. Psychiatric: normal mood, impaired cognition Skin: hematoma over left shoulder extending into left chest Constitutional Vitals: Vital Signs Temp Pulse Resp BP Pulse Ox 98.5 F 70 16 107/54 98 01/05/21 07:25 01/05/21 07:25 01/05/21 07:25 01/05/21 07:25 01/05/21 07:25 Period Temp Pulse Resp BP Sys/Desouza Pulse Ox Last 24 Hr 96.9 F-99.5 F 67-96 14-31 93-158/47-87 91-100 Intake and Output 01/04/21 01/05/21 01/05/21 21:59 05:59 13:59 Intake Total 2350 906 Output Total 525 375 Balance 1825 531 Weight 48.988 kg Intake & Output: Intake & Output 01/04/21 01/05/21 01/05/21 21:59 05:59 13:59 Intake Total 2350 906 Output Total 525 375 Balance 1825 531 Weight 48.988 kg Intake: IV 1050 656 Sodium Chloride 0.9% 1,000 ml @ 1000 572 75 mls/hr IV .[id number] [facility] Rx#: [id number] Lactated Ringers 1,000 ml @ 20 84 mls/hr IV .Q24H [facility] Rx#: [id number] Ancef 2 gm In Dextrose 5% in 50 Water 50 ml @ 100 mls/hr IV PREOP [facility] Rx#:[id number] Oral 250 IV - Manual Only 1300 Output: Urine Catheter Amount 425 375 Estimated Blood Loss 100 Other: Meal Breakfast Percent of Meal Consumed Refused Feeding Ability Independent Urine Appearance Clear Uretheral (Campoevrde) Clear Urine Color Bright Yellow Uretheral ([place]) Dark Yellow OBJ DATA Labs CBC & Chem 7: 01/05/21 05:25 01/04/21 06:20 Labs: Abnormal Lab Results 01/05/21 01/04/21 01/04/21 05:25 06:20 06:20 WBC RBC Hgb 6.8 L* Hct 20.6 L* MPV Seg Neutrophils % Lymphocytes % PT Anion Gap Glucose 349 H Hemoglobin A1c 8.8 H Uric Acid 1.9 L Lactate Dehydrogenase 244 H Urine Appearance Urine Glucose (UA) Amorphous Crystals 01/04/21 01/04/21 01/03/21 06:20 00:50 20:21 WBC 13.1 H RBC 3.15 L Hgb 9.3 L Hct 29.5 L MPV 10.5 H Seg Neutrophils % 88 H Lymphocytes % 7 L PT 14.6 H Anion Gap 7.0 L Glucose 373 H Hemoglobin A1c Uric Acid Lactate Dehydrogenase Urine Appearance Urine Glucose (UA) Amorphous Crystals 01/03/21 01/03/21 20:15 19:57 WBC RBC 3.93 L Hgb Hct MPV 10.8 H Seg Neutrophils % Lymphocytes % PT Anion Gap Glucose Hemoglobin A1c Uric Acid Lactate Dehydrogenase Urine Appearance Cloudy A Urine Glucose (UA) >=500 A Amorphous Crystals Few A Meds: Medications Acetaminophen (Acetaminophen 325 Mg Tablet) 650 mg PO Q6HP PRN; Protocol PRN Reason: Per Pain Protocol/Fever > 101 Hydrocodone Bitart/Acetaminophen (Hydrocodone/Apap 5/325mg Tablet) 0 tab PO Q4HP PRN; Protocol PRN Reason: Per Pain Protocol Last Admin: 01/05/21 06:06 Dose: 1 tab Documented by: Atorvastatin Calcium (Atorvastatin 20 Mg Tablet) 20 mg PO DAILY [facility] Last Admin: 01/05/21 09:02 Dose: 20 mg Documented by: Bisacodyl (Bisacodyl 10 Mg Supp.Rect) 10 mg VA Q2-3DAYS PRN PRN Reason: Constipation Dextrose (Dextrose 50% 50 Ml Vial) 0 ml IV UD PRN PRN Reason: Hypoglycemia Diagnostic Test (Pha) (Accu-Chek 1 Each Strip) 1 each FS ACHS [facility] Last Admin: 01/05/21 07:32 Dose: 1 each Documented by: Docusate Sodium (Docusate Sodium 100 Mg Capsule) 100 mg PO BID [facility] Last Admin: 01/05/21 09:01 Dose: 100 mg Documented by: Donepezil HCl (Donepezil 10 Mg Tablet) 5 mg PO DAILY [facility] Last Admin: 01/05/21 09:01 Dose: 5 mg Documented by: Fentanyl (Fentanyl 25 Mcg Patch) 25 mcg TOPICAL Q72H [facility] Last Admin: 01/04/21 10:19 Dose: 25 mcg Documented by: Gabapentin (Gabapentin 100 Mg Capsule) 100 mg PO TID [facility] Last Admin: 01/05/21 09:02 Dose: 100 mg Documented by: Glucose (Dextrose 31 Gm Oral.Susp) 15 gm PO PRN PRN PRN Reason: Hypoglycemia Hydromorphone HCl (Hydromorphone 0.5 Mg/0.5 Ml Syringe) 0.5 mg IV Q2HP PRN; Protocol PRN Reason: Per Pain Protocol Last Admin: 01/04/21 14:20 Dose: 0.5 mg Documented by: Sodium Chloride (Sodium Chloride 0.9%) 1,000 mls @ 75 mls/hr IV .[id number] [facility] Last Admin: 01/05/21 04:31 Dose: Not Given Documented by: Sodium Chloride (Sodium Chloride 0.9%) 250 mls @ 20 mls/hr IV .[id number] [facility] Stop: 01/05/21 19:59 Last Admin: 01/05/21 07:43 Dose: Not Given Documented by: Insulin Glargine (Insulin Glargine, Human 1 Unit/0.01 Ml) 8 unit SQ BID [facility] Last Admin: 01/05/21 09:01 Dose: 8 units Documented by: Insulin Human Lispro (Insulin Lispro 1 Unit/0.01 Ml Unit) 0 unit SQ [facility]; Protocol Last Admin: 01/05/21 07:33 Dose: 8 units Documented by: Magnesium Hydroxide (Magnesium Hydroxide 30 Ml Oral.Susp) 30 ml PO BIDP PRN PRN Reason: Constipation Melatonin (Melatonin 3 Mg Tablet) 3 mg PO [facility] Last Admin: 01/04/21 22:33 Dose: 3 mg Documented by: Morphine Sulfate (Morphine 4 Mg/Ml Vial) 0 mg IV Q1HP PRN; Protocol PRN Reason: Per Pain Protocol Ondansetron HCl (Ondansetron 4 Mg/2 Ml Vial) 4 mg IV Q6HP PRN PRN Reason: Nausea And Vomiting Ondansetron HCl (Ondansetron 4 Mg Odt Tablet) 4 mg SL Q4HP PRN; Protocol PRN Reason: Nausea And Vomiting Polyethylene Glycol (Polyethylene Glycol 3350 17 Gm Packet) 17 gm PO DAILYP PRN PRN Reason: Constipation Senna (Sennosides 1 Tablet) 2 tab PO [facility] Last Admin: 01/04/21 22:33 Dose: 2 tab Documented by: Senna/Docusate Sodium (Sennosides/Docusate Sodium 1 Tab Tablet) 1 tab PO [facility] Last Admin: 01/04/21 22:33 Dose: 1 tab Documented by: Sodium Biphosphate/Sodium Phosphate (Fleets Adult Enema) 1 dose VA Q3-4DAYS PRN PRN Reason: Constipation Sodium Chloride (0.9 % Sodium Chloride 10 Ml Syringe) 10 ml IV Q8 [facility] Last Admin: 01/05/21 06:03 Dose: Not Given Documented by: Throat Lozenges (Benzocaine/Menthol 1 Lozenge) 1 lozenge PO PRN PRN PRN Reason: Sore Throat Trazodone HCl (Trazodone Hcl 50 Mg Tablet) 25 mg PO [facility] Last Admin: 01/04/21 22:32 Dose: 25 mg Documented by: A/P Narrative A/P Narrative: Assessment: 85 year old female with advanced dementia, diabetes mellitus, chronic pain admitted for a hip fracture and humerus fracture resulting from a ground level fall at the long term where she resides. #Acute left hip fracture s/p cephalomedullary nail 01/04 #Acute on chronic anemia, likely blood loss #Acute left humerus fracture. #Likely left shoulder hematoma #Diabetes mellitus type II #Leukocytosis likely stress induced #Dementia #Chronic pain on opioids Plan -Analgesics-continue home fentanyl patch, prn Perry, IV dilaudid prn. -Lantus and SSI, follow POCT. -Trend hemoglobin. -DVT ppx: SCD for now, holding lovenox due to anemia. -Code status: Mod DNR -Disposition: SNF vs back to long term Time Spent With Patient Time: Total time spent is greater than 50% in coordination of care (as documented) at patient's floor/unit and/or counseling patient: QUALITY VTE Deep Vein Thrombosis/Pulmonary Embolism Present on Admission: No
[2021-01-05] MEDS: HYDROmorphone 0.5 MG/0.5 ML SYRINGE IV PRN ×2 (17:07→21:29)
[2021-01-05] MEDS: SENNOSIDES 1 TABLET PO SCH (22:26)
[2021-01-05] MEDS: MELATONIN 3 MG TABLET PO SCH (22:26)
[2021-01-05] MEDS: SENNOSIDES/DOCUSATE SODIUM 1 TAB TABLET PO SCH (22:26)
[2021-01-05] MEDS: traZODone HCL 50 MG TABLET PO SCH (22:26)
[2021-01-06] MEDS: HYDROmorphone 0.5 MG/0.5 ML SYRINGE IV PRN ×2 (01:20→14:50)
[2021-01-06] MEDS: HYDROcodone/APAP 5/325MG TABLET PO PRN (03:59)
[2021-01-06] MEDS: 0.9 % SODIUM CHLORIDE 10 ML SYRINGE IV SCH ×3 (05:34→21:06)
[2021-01-06] MEDS: 0.9 % SODIUM CHLORIDE 1,000 ML IV SCH (06:25)
[2021-01-06 06:39] LABS: Hemoglobin 7.5 g/dL (12.0-15.0)
[2021-01-06] MEDS: DEXTROSE 50% 50 ML VIAL IV PRN (07:37)
[2021-01-06] MEDS: INSULIN LISPRO 1 UNIT/0.01 ML UNIT SQ SCH ×4 (07:37→21:20)
[2021-01-06] MEDS: DOCUSATE SODIUM 100 MG CAPSULE PO SCH ×2 (08:17→21:20)
[2021-01-06] MEDS: ATORVASTATIN 20 MG TABLET PO SCH (08:17)
[2021-01-06] MEDS: GABAPENTIN 100 MG CAPSULE PO SCH ×3 (08:17→21:21)
[2021-01-06] MEDS: DONEPEZIL 10 MG TABLET PO SCH (08:17)
--- NOTE | 2021-01-06 13:00 | Internal Med Progress Note ---
SUBJECTIVE Subjective Patient information: Note initiated : 01/06/21 at 12:56 pm Service Date, if different from initiated Date: [] Patient: Giuliana Moreno 85 y/o F admitted on 01/04/21 for Fall. Chief Complaint: [] Interval history: Ms. Moreno is a 85 year old female with advanced dementia, diabetes mellitus, chronic pain admitted for a hip fracture and humerus fracture resulting from [facility]. The pa tient was taken to the [facility] emergency department where she had a comprehensive trauma work-up including hip x-ray, shoulder x-ray, chest x-ray, cervical CT, chest abdomen pelvis CT head head noncontrast CT. The work-up showed acute fractures of the left humerus and left femur. The patient was admitted for surgical management of the acute fractures. 01/04 Stable, morning labs show leukocytosis likely stress related, glucose running a bit high. Plan is for hip surgery today. 01/05 Surgery with left hip cephalomedullary nail went well yesterday. Required a unit RBC today for hemoglobin today, holding lovenox, will recheck hemoglobin later today. Hematoma over left humerus fracture possible cause of the anemia as there was not much blood loss during surgery and hip looks good. CM working on placement options, possibly to prison but will require significant assistance therefore maybe SNF. 01/06 Complaining of left shoulder pain, tried to pull out malik catheter-removed but will likely have to replace because of incontinence. Confused but does not appear dilerious, probably at baseline cognitive impairment but does not understand left shoulder fracture and keeps trying to move it which causes severe pain. Hemoglobin trended down but stable on recheck. Left shoulder edema appears about the same as yesterday. Continue to hold lovenox. Decreased Lantus to 10 units HS. Physical exam Head: Atraumatic, normal inspection. Eyes: normal appearance, no scleral icterus. Neck: full ROM Respiratory: no respiratory distress. Cardiovascular: normal rate and rhythm, S1, S2. GI/Abdominal: soft, nontender, no guarding. Extremities: markedly swollen left shoulder, mild tenderness at left hip, surgical incision covered with clean bandage, cold compress Neurological: CN II-XII intact, intact motor, intact sensation. Psychiatric: normal mood, impaired cognition Skin: hematoma over left shoulder extending into left chest Constitutional Vitals: Vital Signs Temp Pulse Resp BP Pulse Ox 98.2 F 73 22 124/55 92 01/06/21 12:00 01/06/21 12:00 01/06/21 12:00 01/06/21 12:00 01/06/21 12:00 Period Temp Pulse Resp BP Sys/Desouza Pulse Ox Last 24 Hr 97.7 F-99.3 F 63-79 16-22 113-138/45-67 90-94 Intake and Output 01/05/21 01/06/21 01/06/21 21:59 05:59 13:59 Intake Total 100 1514 1100 Output Total 350 400 Balance -250 1114 1100 Weight 51.256 kg Intake & Output: Intake & Output 01/05/21 01/06/21 01/06/21 21:59 05:59 13:59 Intake Total 100 1514 1100 Output Total 350 400 Balance -250 1114 1100 Weight 51.256 kg Intake: Nourishment/Supplement quantity 240 (ml) IV 970 [id number] [id number] Sodium Chloride 0.9% 1,000 ml @ 674 1000 75 mls/hr IV .[id number] [facility] Rx#: [id number] Oral 600 100 Output: Urine Catheter Amount 350 400 Other: Meal Nourishment/Supplement Lunch Percent of Meal Consumed 50% Feeding Ability Total Assistance Urine Appearance Clear Clear Uretheral (Malik) Clear Urine Color Dark Yellow Dark Yellow Uretheral (Malik) Dark Yellow OBJ DATA Labs CBC & Chem 7: 01/06/21 12:00 01/04/21 06:20 Labs: Abnormal Lab Results 01/06/21 01/06/21 01/05/21 12:00 05:46 20:10 WBC RBC Hgb 7.8 L 7.5 L 8.8 L Hct 23.0 L MPV Seg Neutrophils % Lymphocytes % PT Anion Gap Glucose Hemoglobin A1c Uric Acid Lactate Dehydrogenase Urine Appearance Urine Glucose (UA) Amorphous Crystals 01/05/21 01/05/21 01/04/21 15:00 05:25 06:20 WBC RBC Hgb 9.1 L 6.8 L* Hct 20.6 L* MPV Seg Neutrophils % Lymphocytes % PT Anion Gap Glucose Hemoglobin A1c 8.8 H Uric Acid Lactate Dehydrogenase Urine Appearance Urine Glucose (UA) Amorphous Crystals 01/04/21 01/04/21 01/04/21 06:20 06:20 00:50 WBC 13.1 H RBC 3.15 L Hgb 9.3 L Hct 29.5 L MPV 10.5 H Seg Neutrophils % 88 H Lymphocytes % 7 L PT 14.6 H Anion Gap Glucose 349 H Hemoglobin A1c Uric Acid 1.9 L Lactate Dehydrogenase 244 H Urine Appearance Urine Glucose (UA) Amorphous Crystals 01/03/21 01/03/21 01/03/21 20:21 20:15 19:57 WBC RBC 3.93 L Hgb Hct MPV 10.8 H Seg Neutrophils % Lymphocytes % PT Anion Gap 7.0 L Glucose 373 H Hemoglobin A1c Uric Acid Lactate Dehydrogenase Urine Appearance Cloudy A Urine Glucose (UA) >=500 A Amorphous Crystals Few A Meds: Medications Acetaminophen (Acetaminophen 325 Mg Tablet) 650 mg PO Q6HP PRN; Protocol PRN Reason: Per Pain Protocol/Fever > 101 Hydrocodone Bitart/Acetaminophen (Hydrocodone/Apap 5/325mg Tablet) 0 tab PO Q4HP PRN; Protocol PRN Reason: Per Pain Protocol Last Admin: 01/06/21 03:59 Dose: 2 tab Documented by: Atorvastatin Calcium (Atorvastatin 20 Mg Tablet) 20 mg PO DAILY [facility] Last Admin: 01/06/21 08:17 Dose: 20 mg Documented by: Bisacodyl (Bisacodyl 10 Mg Supp.Rect) 10 mg DE Q2-3DAYS PRN PRN Reason: Constipation Dextrose (Dextrose 50% 50 Ml Vial) 0 ml IV UD PRN PRN Reason: Hypoglycemia Last Admin: 01/06/21 07:37 Dose: 25 ml Documented by: Diagnostic Test (Pha) (Accu-Chek 1 Each Strip) 1 each FS ACHS [facility] Last Admin: 01/06/21 12:15 Dose: 1 each Documented by: Docusate Sodium (Docusate Sodium 100 Mg Capsule) 100 mg PO BID [facility] Last Admin: 01/06/21 08:17 Dose: 100 mg Documented by: Donepezil HCl (Donepezil 10 Mg Tablet) 5 mg PO DAILY [facility] Last Admin: 01/06/21 08:17 Dose: 5 mg Documented by: Fentanyl (Fentanyl 25 Mcg Patch) 25 mcg TOPICAL Q72H [facility] Last Admin: 01/04/21 10:19 Dose: 25 mcg Documented by: Gabapentin (Gabapentin 100 Mg Capsule) 100 mg PO TID [facility] Last Admin: 01/06/21 08:17 Dose: 100 mg Documented by: Glucose (Dextrose 31 Gm Oral.Susp) 15 gm PO PRN PRN PRN Reason: Hypoglycemia Hydromorphone HCl (Hydromorphone 0.5 Mg/0.5 Ml Syringe) 0.5 mg IV Q2HP PRN; Protocol PRN Reason: Per Pain Protocol Last Admin: 01/06/21 01:20 Dose: 0.5 mg Documented by: Insulin Glargine (Insulin Glargine, Human 1 Unit/0.01 Ml) 10 unit SQ [facility] Insulin Human Lispro (Insulin Lispro 1 Unit/0.01 Ml Unit) 0 unit SQ [facility]; Protocol Last Admin: 01/06/21 12:15 Dose: 4 units Documented by: Magnesium Hydroxide (Magnesium Hydroxide 30 Ml Oral.Susp) 30 ml PO BIDP PRN PRN Reason: Constipation Melatonin (Melatonin 3 Mg Tablet) 3 mg PO [facility] Last Admin: 01/05/21 22:26 Dose: 3 mg Documented by: Morphine Sulfate (Morphine 4 Mg/Ml Vial) 0 mg IV Q1HP PRN; Protocol PRN Reason: Per Pain Protocol Ondansetron HCl (Ondansetron 4 Mg/2 Ml Vial) 4 mg IV Q6HP PRN PRN Reason: Nausea And Vomiting Ondansetron HCl (Ondansetron 4 Mg Odt Tablet) 4 mg SL Q4HP PRN; Protocol PRN Reason: Nausea And Vomiting Polyethylene Glycol (Polyethylene Glycol 3350 17 Gm Packet) 17 gm PO DAILYP PRN PRN Reason: Constipation Senna (Sennosides 1 Tablet) 2 tab PO [facility] Last Admin: 01/05/21 22:26 Dose: 2 tab Documented by: Senna/Docusate Sodium (Sennosides/Docusate Sodium 1 Tab Tablet) 1 tab PO [facility] Last Admin: 01/05/21 22:26 Dose: 1 tab Documented by: Sodium Biphosphate/Sodium Phosphate (Fleets Adult Enema) 1 dose [place] Q3-4DAYS PRN PRN Reason: Constipation Sodium Chloride (0.9 % Sodium Chloride 10 Ml Syringe) 10 ml IV Q8 [facility] Last Admin: 01/06/21 05:34 Dose: Not Given Documented by: Throat Lozenges (Benzocaine/Menthol 1 Lozenge) 1 lozenge PO PRN PRN PRN Reason: Sore Throat Trazodone HCl (Trazodone Hcl 50 Mg Tablet) 25 mg PO HS [facility] Last Admin: 01/05/21 22:26 Dose: 25 mg Documented by: A/P Narrative A/P Narrative: Assessment: 85 year old female with advanced dementia, diabetes mellitus, chronic pain admitted for a hip fracture and humerus fracture resulting from a ground level fall at the prison where she [facility]. #Acute left hip fracture s/p cephalomedullary nail 01/04 #Acute on chronic anemia, likely blood loss #Acute left humerus fracture. #Likely left shoulder hematoma #Diabetes mellitus type II #Leukocytosis likely stress induced #Dementia #Chronic pain on opioids Plan -Analgesics-Tylenol, oxycodone prn, Dilaudid IV prn, home fentanyl patch. -Bowel regimen. -Lantus and SSI. -Trend hemoglobin, transfuse RBC for hgb < 7. -Home gabapentin, Aricept. -Delirium mitigation strategies, unfortunately will need higher dose of opioids for acute pain given chronic opioid use. -Left arm in sling. -PT -DVT ppx: SCD for now, holding lovenox due to anemia. -Code status: Mod DNR -Disposition: SNF vs back to prison Time Spent With Patient Time: Total time spent is greater than 50% in coordination of care (as documen jasson) at patient's floor/unit and/or counseling patient: QUALITY VTE Deep Vein Thrombosis/Pulmonary Embolism Present on Admission: No
[2021-01-06] MEDS ORDERED: MELATONIN 3 MG TABLET PO SCH (13:15)
--- NOTE | 2021-01-06 13:43 | Orthopedic Progress Note ---
SUBJECTIVE Subjective Patient information: Note initiated : 01/06/21 at 1:41 pm Service Date, if different from initiated Date: [] Patient: Giuliana Moreno 85 y/o F admitted on 01/04/21 for Fall. Chief Complaint: Pt confused due to history of dementia, but appears in moderate pain. Constitutional Vitals: Vital Signs Temp Pulse Resp BP Pulse Ox 98.2 F 73 22 124/55 92 01/06/21 12:00 01/06/21 12:00 01/06/21 12:00 01/06/21 12:00 01/06/21 12:00 Period Temp Pulse Resp BP Sys/Desouza Pulse Ox Last 24 Hr 97.7 F-99.3 F 63-79 16-22 113-138/45-67 90-94 Intake and Output 01/05/21 01/06/21 01/06/21 21:59 05:59 13:59 Intake Total 100 1514 1125 Output Total 350 400 Balance -250 1114 1125 Weight 113 lb Intake & Output: Intake & Output 01/05/21 01/06/21 01/06/21 21:59 05:59 13:59 Intake Total 100 1514 1125 Output Total 350 400 Balance -250 1114 1125 Weight 113 lb Intake: Nourishment/Supplement quantity 240 (ml) IV 594 782 1703 Sodium Chloride 0.9% 1,000 ml @ 674 1000 75 mls/hr IV .[id number] [facility] Rx#: [id number] Oral 600 125 Output: Urine Catheter Amount 350 400 Other: Meal Nourishment/Supplement Lunch Percent of Meal Consumed 25% Feeding Ability Total Assistance Urine Appearance Clear Clear Uretheral ([place]) Clear Urine Color Dark Yellow Dark Yellow Uretheral ([place]) Dark Yellow bandages c/d/i nvi-distal Moderate swelling L upper extremity. sling in tact. OBJ DATA Labs CBC & Chem 7: 01/06/21 12:00 01/04/21 06:20 Labs: Abnormal Lab Results 01/06/21 01/06/21 01/05/21 12:00 05:46 20:10 WBC RBC Hgb 7.8 L 7.5 L 8.8 L Hct 23.0 L MPV Seg Neutrophils % Lymphocytes % PT Anion Gap Glucose Hemoglobin A1c Uric Acid Lactate Dehydrogenase Urine Appearance Urine Glucose (UA) Amorphous Crystals 01/05/21 01/05/21 01/04/21 15:00 05:25 06:20 WBC RBC Hgb 9.1 L 6.8 L* Hct 20.6 L* MPV Seg Neutrophils % Lymphocytes % PT Anion Gap Glucose Hemoglobin A1c 8.8 H Uric Acid Lactate Dehydrogenase Urine Appearance Urine Glucose (UA) Amorphous Crystals 01/04/21 01/04/21 01/04/21 06:20 06:20 00:50 WBC 13.1 H RBC 3.15 L Hgb 9.3 L Hct 29.5 L MPV 10.5 H Seg Neutrophils % 88 H Lymphocytes % 7 L PT 14.6 H Anion Gap Glucose 349 H Hemoglobin A1c Uric Acid 1.9 L Lactate Dehydrogenase 244 H Urine Appearance Urine Glucose (UA) Amorphous Crystals 01/03/21 01/03/21 01/03/21 20:21 20:15 19:57 WBC RBC 3.93 L Hgb Hct MPV 10.8 H Seg Neutrophils % Lymphocytes % PT Anion Gap 7.0 L Glucose 373 H Hemoglobin A1c Uric Acid Lactate Dehydrogenase Urine Appearance Cloudy A Urine Glucose (UA) >=500 A Amorphous Crystals Few A Meds: Medications Acetaminophen (Acetaminophen 500 Mg Tablet) 1,000 mg PO TID [facility]; Protocol Atorvastatin Calcium (Atorvastatin 20 Mg Tablet) 20 mg PO DAILY [facility] Last Admin: 01/06/21 08:17 Dose: 20 mg Documented by: Bisacodyl (Bisacodyl 10 Mg Supp.Rect) 10 mg NC Q2-3DAYS PRN PRN Reason: Constipation Dextrose (Dextrose 50% 50 Ml Vial) 0 ml IV UD PRN PRN Reason: Hypoglycemia Last Admin: 01/06/21 07:37 Dose: 25 ml Documented by: Diagnostic Test (Pha) (Accu-Chek 1 Each Strip) 1 each FS ACHS [facility] Last Admin: 01/06/21 12:15 Dose: 1 each Documented by: Docusate Sodium (Docusate Sodium 100 Mg Capsule) 100 mg PO BID [facility] Last Admin: 01/06/21 08:17 Dose: 100 mg Documented by: Donepezil HCl (Donepezil 10 Mg Tablet) 5 mg PO DAILY [facility] Last Admin: 01/06/21 08:17 Dose: 5 mg Documented by: Fentanyl (Fentanyl 25 Mcg Patch) 25 mcg TOPICAL Q72H [facility] Last Admin: 01/04/21 10:19 Dose: 25 mcg Documented by: Gabapentin (Gabapentin 100 Mg Capsule) 100 mg PO TID [facility] Last Admin: 01/06/21 08:17 Dose: 100 mg Documented by: Glucose (Dextrose 31 Gm Oral.Susp) 15 gm PO PRN PRN PRN Reason: Hypoglycemia Hydromorphone HCl (Hydromorphone 0.5 Mg/0.5 Ml Syringe) 0.5 mg IV Q2HP PRN; Protocol PRN Reason: Per Pain Protocol Insulin Glargine (Insulin Glargine, Human 1 Unit/0.01 Ml) [address] [facility] Insulin Human Lispro (Insulin Lispro 1 Unit/0.01 Ml Unit) 0 unit SQ [facility]; Protocol Last Admin: 01/06/21 12:15 Dose: 4 units Documented by: Magnesium Hydroxide (Magnesium Hydroxide 30 Ml Oral.Susp) 30 ml PO BIDP PRN PRN Reason: Constipation Melatonin (Melatonin 3 Mg Tablet) [address] [facility] Last Admin: 01/05/21 22:26 Dose: 3 mg Documented by: Melatonin (Melatonin 3 Mg Tablet) 9 mg PO [facility] Ondansetron HCl (Ondansetron 4 Mg/2 Ml Vial) 4 mg IV Q6HP PRN PRN Reason: Nausea And Vomiting Ondansetron HCl (Ondansetron 4 Mg Odt Tablet) 4 mg SL Q4HP PRN; Protocol PRN Reason: Nausea And Vomiting Oxycodone HCl (Oxycodone Hcl 5 Mg Tablet) 5 mg PO Q4HP PRN; Protocol PRN Reason: Per Pain Protocol Polyethylene Glycol (Polyethylene Glycol 3350 17 Gm Packet) 17 gm PO DAILYP PRN PRN Reason: Constipation Senna (Sennosides 1 Tablet) [address] [facility] Last Admin: 01/05/21 22:26 Dose: 2 tab Documented by: Senna/Docusate Sodium (Sennosides/Docusate Sodium 1 Tab Tablet) [address] [facility] Last Admin: 01/05/21 22:26 Dose: 1 tab Documented by: Sodium Biphosphate/Sodium Phosphate (Fleets Adult Enema) 1 dose NC Q3-4DAYS PRN PRN Reason: Constipation Sodium Chloride (0.9 % Sodium Chloride 10 Ml Syringe) 10 ml IV Q8 [facility] Last Admin: 01/06/21 05:34 Dose: Not Given Documented by: Throat Lozenges (Benzocaine/Menthol 1 Lozenge) 1 lozenge PO PRN PRN PRN Reason: Sore Throat A/P Assessment and plan (1) Closed fracture of left hip: Status: Acute Comment: Pt doing well, but has not memory of surgery. recommended d/c of anticoagulation for 48-72hrs post-op to control bleeding. Qualifiers: Encounter type: initial encounter Qualified Code(s): S72.002A - Fracture of unspecified part of neck of left femur, initial encounter for closed fracture (2) Closed left humeral fracture: Status: Acute Comment: Moderate swelling/pain. Sling intact. Qualifiers: Encounter type: initial encounter Fracture morphology: unspecified fracture morphology Humerus Location: proximal Qualified Code(s): S42.202A - Unspecified fracture of upper end of left humerus, initial encounter for closed fracture Time Spent With Patient Time: Total time spent is greater than 50% in coordination of care (as documented) at patient's floor/unit and/or counseling patient:
[2021-01-06] MEDS: ACETAMINOPHEN 500 MG TABLET PO SCH ×2 (14:49→21:21)
[2021-01-06] MEDS: oxyCODONE HCL 5 MG TABLET PO PRN ×2 (18:55→23:58)
--- NOTE | 2021-01-06 19:53 | Ultrasound Report ---
History: Left shoulder pain and edema, humerus fracture FINDINGS: There is a large hemarthrosis in the left shoulder joint, possibly extending into the subdeltoid bursa. Doppler shows no abnormal increased blood flow in or adjacent to the fluid collection. Recent chest CT demonstrated a comminuted fracture of the humeral head. The fracture cannot be identified by ultrasound. The fluid collection measures approximately 1.8 x 3.8 x 4.5 cm. IMPRESSION: Large hemarthrosis in the lower left shoulder Interpreted and Authenticated by: David Garcia 01/06/21
[2021-01-06] MEDS: SENNOSIDES 1 TABLET PO SCH (21:06)
[2021-01-06] MEDS: MELATONIN 3 MG TABLET PO SCH (21:21)
[2021-01-06] MEDS: SENNOSIDES/DOCUSATE SODIUM 1 TAB TABLET PO SCH (21:21)
[2021-01-06] MEDS: INSULIN GLARGINE, HUMAN 1 UNIT/0.01 ML SQ SCH (21:21)
[2021-01-07] MEDS: HYDROmorphone 0.5 MG/0.5 ML SYRINGE IV PRN ×4 (02:27→19:08)
[2021-01-07] MEDS: 0.9 % SODIUM CHLORIDE 10 ML SYRINGE IV SCH ×3 (05:25→21:06)
[2021-01-07] MEDS: oxyCODONE HCL 5 MG TABLET PO PRN ×4 (05:25→21:00)
[2021-01-07 06:42] LABS: Basophils # (Auto) 0.04 K/mcL (0.00-0.20); Basophils % (Auto) 0.3 % (0.0-2.0); Eosinophils # (Auto) 0.17 K/mcL (0.00-0.70); Eosinophils % (Auto) 1.4 % (0.0-7.0); Hematocrit 24.1 % (36.0-48.0); Hemoglobin 8.1 g/dL (12.0-15.0); Lymphocytes # (Auto) 3.01 K/mcL (1.50-4.80); Lymphocytes % (Auto) 24.5 % (15.0-49.0); Mean Cell Volume 89.9 fL (80.0-100.0); Mean Corpuscular HGB Conc 33.6 g/dL (31.0-36.0); Mean Platelet Volume 10.7 fL (7.4-10.4); Monocytes # (Auto) 1.09 K/mcL (0.10-0.90); Monocytes % (Auto) 8.9 % (1.0-12.0); Neutrophils % (Auto) 64.9 % (38.0-78.0); Platelet Count 162 K/mcL (140-440); RBC 2.68 M/mcL (4.00-5.20); Red Cell Distribution Width 13.1 % (11.5-14.5); WBC 12.3 K/mcL (4.5-11.0)
[2021-01-07 07:13] LABS: ALT/SGPT 21 U/L (<40); AST/SGOT 38 U/L (<32); Albumin 2.9 gm/dL (3.2-5.2); Albumin/Globulin Ratio 1.1 (1.0-2.3); Alkaline Phosphatase 76 U/L (39-117); Bilirubin,Total 0.7 mg/dL (0.1-1.0); Blood Urea Nitrogen 11 mg/dL (8-23); Calcium 7.9 mg/dL (8.6-10.4); Carbon Dioxide 26 mmol/L (22-30); Chloride 99 mmol/L (96-108); Globulin 2.6 gm/dL (2.2-3.7); Glomerular Filtration Rate 87; Glucose 189 mg/dL (70-105)
[2021-01-07] MEDS: ATORVASTATIN 20 MG TABLET PO SCH (08:09)
[2021-01-07] MEDS: INSULIN LISPRO 1 UNIT/0.01 ML UNIT SQ SCH ×4 (08:09→21:06)
[2021-01-07] MEDS: GABAPENTIN 100 MG CAPSULE PO SCH ×3 (08:09→21:05)
[2021-01-07] MEDS: DOCUSATE SODIUM 100 MG CAPSULE PO SCH ×2 (08:09→21:04)
[2021-01-07] MEDS: ACETAMINOPHEN 500 MG TABLET PO SCH ×3 (08:10→21:05)
[2021-01-07] MEDS: DONEPEZIL 10 MG TABLET PO SCH (08:12)
--- NOTE | 2021-01-07 08:33 | Operative Note ---
DATE OF OPERATION: 01/04/2021 PREOPERATIVE DIAGNOSIS: Intertrochanteric fracture, left hip. POSTOPERATIVE DIAGNOSIS: Intertrochanteric fracture, left hip. PROCEDURE PERFORMED: Left hip cephalomedullary nailing. SURGEON: Parker Vail M.D. COMPUTER ANIMATOR SURGEON: Itz Rubin PA-C. This providers expertise and technical skill were required throughout the case. The PA assisted with preoperative coordination, intraoperative retraction, wound closure, and dressing and splint application, as well as postoperative documentation and care coordination. ANESTHESIA: Spinal with LMA assist. ESTIMATED BLOOD LOSS: 100 mL. IMPLANTS: 1. Synthes TFNA nail 11 x 125 degree 170 mm sterile. 2. Helical blade 80 mm length and then 5.0 mm locking screw, 36 mm length. COMPLICATIONS: None noted. SPECIMENS REMOVED: None DRAINS: None. INDICATIONS: The patient fell and was unable to ambulate. Radiographs have confirmed a displaced intertrochanteric fracture of the proximal femur. The patient was admitted to the hospital and underwent medical clearance. After a long discussion about treatment options, the patient elected to proceed with cephalomedullary nailing. The risks and benefits were discussed with the patient in detail including, but not limited to, the risks of anesthesia, problems with the heart or lungs related to anesthesia, infection, compromise or injury to the nerves and blood vessels, deep venous thrombosis, pulmonary embolism, pneumonia, continued pain after surgery, worsening pain or symptoms after surgery, swelling, loss of motion, malunion, non-union, leg length discrepancy, and need for repeat surgery. DESCRIPTION OF PROCEDURE: The patient was seen in pre-anesthesia waiting room where all questions were answered and the correct side and site were identified and marked. The patient was then brought to the operating room and administered the anesthetic, tranexamic acid, and given pre-operative antibiotics. A time-out was then called. The patient was placed on the fracture table with all prominences well padded. The leg was brought into traction, adduction, and slight internal rotation. We used c-arm with orthogonal views to confirm anatomic reduction of the fracture. The extremity was prepped and draped in the usual sterile fashion. C-arm was again used to confirm landmarks. A percutaneous incision was created about 4 centimeters proximal to the greater trochanter. A guide pin was placed into the femoral canal under fluoroscopy after we found the appropriate starting position along the medial boarder of the trochanter and just anterior to the center position laterally. We placed a protector sleeve proximally and over-reamed with the 17 mm proximal reamer. Next, we changed out the guide pin for a ball-tipped guide mohan and placed it into the femoral canal. Position was confirmed with the c-arm. The 170 mm Synthes TFNA nail was then placed with appropriate depth and version using the percutaneous targeting guide. The lateral helical blade sleeve was placed in the targeting guide and a second small percutaneous incision was made to allow the sleeve access to the lateral cortex of the femur. We drilled the guide pin into the center center position of the femoral head confirmed with fluoroscopy. We measured and drilled over the guide pin. The helical blade was then inserted and we compressed the fracture. The targeting sleeve was again used to place a percutaneous 5.0 mm screw distally in the static hole. It was drilled, measured, and placed using c-arm guidance. Traction was removed on the hip. The targeting device was then removed and final radiographs were taken confirming reduction of the fracture and adequate placement of all hardware. We thoroughly irrigated the three percutaneous incisions and closed the deep fascia with #0 Vicryl. We closed the subcutaneous tissue and skin in layers out to fredis in the skin. A sterile pressure dressing was applied. All needle and sponge counts were correct. The patient was transferred to the recovery room in stable condition. SANGITA:nadia Job ID: [id number] Doc ID: [id number] Leesa Vail MD
[2021-01-07] MEDS: fentaNYL 25 MCG PATCH TOPICAL SCH (10:04)
[2021-01-07] MEDS: METHOCARBAMOL 500 MG TABLET PO PRN (16:30)
[2021-01-07] MEDS: KETOROLAC 15 MG/ML VIAL IV PRN (19:26)
--- NOTE | 2021-01-07 19:48 | Internal Med Progress Note ---
SUBJECTIVE Subjective Patient information: Note initiated : 01/07/21 at 7:42 pm Service Date, if different from initiated Date: [] Patient: Giuliana Moreno 85 y/o F admitted on 01/04/21 for Fall. Chief Complaint: [] Interval history: Ms. Moreno is a 85 year old female with advanced dementia, diabetes mellitus, chronic pain admitted for a hip fracture and humerus fracture resulting from a ground level fall at the [facility] where she resides. The patient was taken to the [facility] emergency department where she had a comprehensive trauma work-up including hip x-ray, shoulder x-ray, chest x-ray, cervical CT, chest abdomen pelvis CT head head noncontrast CT. The work-up showed acute fractures of the left humerus and left femur. The patient was admitted for surgical management of the acute fractures. 01/04 Stable, morning labs show leukocytosis likely stress related, glucose running a bit high. Plan is for hip surgery today. 01/05 Surgery with left hip cephalomedullary nail went well yesterday. Required a unit RBC today for hemoglobin today, holding lovenox, will recheck hemoglobin later today. Hematoma over left humerus fracture possible cause of the anemia as there was not much blood loss during surgery and hip looks good. CM working on placement options, possibly to [facility] but will require significant assistance therefore maybe SNF. 01/06 Complaining of left shoulder pain, tried to pull out malik catheter-removed but will likely have to replace because of incontinence. Confused but does not appear dilerious, probably at baseline cognitive impairment but does not understand left shoulder fracture and keeps trying to move it which causes severe pain. Hemoglobin trended down but stable on recheck. Left shoulder edema appears about the same as yesterday. Continue to hold lovenox. Decreased Lantus to 10 units HS. 01/07 Left shoulder ultrasound showed hemarthrosis, discussed with orthopedic surgery- no intervention necessary. 01/08 Trial of Robaxin for back muscle spasms, increased oxycodone prn will try to wean of IV dilaudid. Resume lovenox for DVT ppx. Physical exam Head: Atraumatic, normal inspection. Eyes: normal appearance, no scleral icterus. Neck: full ROM Respiratory: no respiratory distress. Cardiovascular: normal rate and rhythm, S1, S2. GI/Abdominal: soft, nontender, no guarding. Extremities: markedly swollen left shoulder, mild tenderness at left hip, surgical incision covered with clean bandage, cold compress Neurological: CN II-XII intact, intact motor, intact sensation. Psychiatric: normal mood, impaired cognition Skin: hematoma over left shoulder extending into left chest Constitutional Vitals: Vital Signs Temp Pulse Resp BP Pulse Ox 98.3 F 87 20 110/62 96 01/07/21 16:00 01/07/21 16:00 01/07/21 16:00 01/07/21 16:00 01/07/21 16:00 Period Temp Pulse Resp BP Sys/Desouza Pulse Ox Last 24 Hr 97.9 F-98.3 F 64-93 16-20 108-132/56-65 93-96 Intake and Output 01/07/21 01/07/21 01/07/21 05:59 13:59 21:59 Intake Total 510 480 250 Output Total 1150 900 Balance -640 480 -650 Intake & Output: Intake & Output 01/07/21 01/07/21 01/07/21 05:59 13:59 21:59 Intake Total 510 480 250 Output Total 1150 900 Balance -640 480 -650 Intake: Nourishment/Supplement quantity 240 240 (ml) Oral 270 240 250 Output: Urine Catheter Amount 1150 900 Other: Meal Breakfast Dinner Percent of Meal Consumed 25% 50% Nourishment/Supplement name ensure Urine Appearance Clear Urine Color Bright Yellow Urine Odor Normal Stool Size Moderate Moderate Stool Color Brown Brown Stool Consistency Soft Soft # of times incontinent of 1 Bowels OBJ DATA Labs CBC & Chem 7: 01/07/21 05:27 01/07/21 05:27 Labs: Abnormal Lab Results 01/07/21 01/07/21 01/06/21 05:27 05:27 17:55 WBC 12.3 H RBC 2.68 L Hgb 8.1 L 8.8 L Hct 24.1 L MPV 10.7 H [place] # (Auto) 1.09 H Creatinine 0.5 L Glucose 189 H Calcium 7.9 L AST 38 H Total Protein 5.5 L Albumin 2.9 L 01/06/21 01/06/21 01/05/21 12:00 05:46 20:10 WBC RBC Hgb 7.8 L 7.5 L 8.8 L Hct 23.0 L MPV [place] # (Auto) Creatinine Glucose Calcium AST Total Protein Albumin 06/19/21 06/19/21 15:00 05:25 WBC RBC Hgb 9.1 L 6.8 L* Hct 20.6 L* MPV [place] # (Auto) Creatinine Glucose Calcium AST Total Protein Albumin Meds: Medications Acetaminophen (Acetaminophen 500 Mg Tablet) 1,000 mg PO TID [facility]; Protocol Last Admin: 01/07/21 16:07 Dose: 1,000 mg Documented by: Atorvastatin Calcium (Atorvastatin 20 Mg Tablet) 20 mg PO DAILY [facility] Last Admin: 01/07/21 08:09 Dose: 20 mg Documented by: Bisacodyl (Bisacodyl 10 Mg Supp.Rect) 10 mg ID Q2-3DAYS PRN PRN Reason: Constipation Dextrose (Dextrose 50% 50 Ml Vial) 0 ml IV UD PRN PRN Reason: Hypoglycemia Last Admin: 01/06/21 07:37 Dose: 25 ml Documented by: Diagnostic Test (Pha) (Accu-Chek 1 Each Strip) 1 each FS ACHS [facility] Last Admin: 01/07/21 17:08 Dose: 1 each Documented by: Docusate Sodium (Docusate Sodium 100 Mg Capsule) 100 mg PO BID [facility] Last Admin: 01/07/21 08:09 Dose: 100 mg Documented by: Donepezil HCl (Donepezil 10 Mg Tablet) 5 mg PO DAILY [facility] Last Admin: 01/07/21 08:12 Dose: 5 mg Documented by: Enoxaparin Sodium (Enoxaparin 30 Mg/0.3 Ml Syringe) 40 mg SQ DAILY [facility] Fentanyl (Fentanyl 25 Mcg Patch) 25 mcg TOPICAL Q72H [facility] Last Admin: 01/07/21 10:04 Dose: 25 mcg Documented by: Gabapentin (Gabapentin 100 Mg Capsule) 100 mg PO TID [facility] Last Admin: 01/07/21 16:07 Dose: 100 mg Documented by: Glucose (Dextrose 31 Gm Oral.Susp) 15 gm PO PRN PRN PRN Reason: Hypoglycemia Hydromorphone HCl (Hydromorphone 0.5 Mg/0.5 Ml Syringe) 0.5 mg IV Q2HP PRN; Protocol PRN Reason: Per Pain Protocol Last Admin: 01/07/21 19:08 Dose: 0.5 mg Documented by: Insulin Glargine (Insulin Glargine, Human 1 Unit/0.01 Ml) 10 unit SQ HS [facility] Last Admin: 01/06/21 21:21 Dose: 10 unit Documented by: Insulin Human Lispro (Insulin Lispro 1 Unit/0.01 Ml Unit) 0 unit SQ [facility]; Protocol Last Admin: 01/07/21 17:09 Dose: Not Given Documented by: Ketorolac Tromethamine (Ketorolac 15 Mg/Ml Vial) 15 mg IV Q6HP PRN PRN Reason: Per Pain Protocol Stop: 01/09/21 13:24 Last Admin: 01/07/21 19:26 Dose: 15 mg Documented by: Lidocaine (Lidocaine Patch) 1 patch TOPICAL [facility] Magnesium Hydroxide (Magnesium Hydroxide 30 Ml Oral.Susp) 30 ml PO BIDP PRN PRN Reason: Constipation Melatonin (Melatonin 3 Mg Tablet) 9 mg PO [facility] Methocarbamol (Methocarbamol 500 Mg Tablet) 500 mg PO QIDP PRN PRN Reason: Muscle Spasm Last Admin: 01/07/21 16:30 Dose: 500 mg Documented by: Ondansetron HCl (Ondansetron 4 Mg/2 Ml Vial) 4 mg IV Q6HP PRN PRN Reason: Nausea And Vomiting Ondansetron HCl (Ondansetron 4 Mg Odt Tablet) 4 mg SL Q4HP PRN; Protocol PRN Reason: Nausea And Vomiting Oxycodone HCl (Oxycodone Hcl 5 Mg Tablet) 10 mg PO Q4HP PRN; Protocol PRN Reason: Per Pain Protocol Last Admin: 01/07/21 16:30 Dose: 10 mg Documented by: Polyethylene Glycol (Polyethylene Glycol 3350 17 Gm Packet) 17 gm PO DAILYP PRN PRN Reason: Constipation Senna (Sennosides 1 Tablet) 2 tab PO [facility] Last Admin: 01/06/21 21:06 Dose: Not Given Documented by: Senna/Docusate Sodium (Sennosides/Docusate Sodium 1 Tab Tablet) 1 tab PO [facility] Last Admin: 01/06/21 21:21 Dose: 1 tab Documented by: Sodium Biphosphate/Sodium Phosphate (Fleets Adult Enema) 1 dose ID Q3-4DAYS PRN PRN Reason: Constipation Sodium Chloride (0.9 % Sodium Chloride 10 Ml Syringe) 10 ml IV Q8 [facility] Last Admin: 01/07/21 14:14 Dose: 10 ml Documented by: Throat Lozenges (Benzocaine/Menthol 1 Lozenge) 1 lozenge PO PRN PRN PRN Reason: Sore Throat A/P Narrative A/P Narrative: Assessment: 85 year old female with advanced dementia, diabetes mellitus, chronic pain admitted for a hip fracture and humerus fracture resulting from a ground level fall at the [facility] where she resides. The hip fracture was repaired on 01/04/21 with a cephalomedullary nail. #Acute left hip fracture s/p cephalomedullary nail 01/04/21 #Acute on chronic anemia d/t blood loss #Acute left humerus fracture. #Left shoulder hemarthrosis #Diabetes mellitus type II #Leukocytosis likely stress induced #Dementia #Chronic pain on opioids Plan -Analgesics-Tylenol, oxycodone prn, Dilaudid IV prn, home fentanyl patch. -Bowel regimen. -Lantus and SSI. -Follow hemoglobin, transfuse RBC for hgb < 7. -Home gabapentin, Aricept. -Robaxin prn. -Delirium mitigation strategies, unfortunately will need higher dose of opioids for acute pain given chronic opioid use. -Left arm in sling. -PT -DVT ppx: Lovenox SQ -Code status: Mod DNR -Disposition: Probably back to [facility]. Time Spent With Patient Time: Total time spent is greater than 50% in coordination of care (as documented) at patient's floor/unit and/or counseling patient: QUALITY VTE Deep Vein Thrombosis/Pulmonary Embolism Present on Admission: No
[2021-01-07] MEDS: LIDOCAINE PATCH TOPICAL SCH (21:04)
[2021-01-07] MEDS: SENNOSIDES/DOCUSATE SODIUM 1 TAB TABLET PO SCH (21:05)
[2021-01-07] MEDS: SENNOSIDES 1 TABLET PO SCH (21:05)
[2021-01-07] MEDS: INSULIN GLARGINE, HUMAN 1 UNIT/0.01 ML SQ SCH (21:07)
[2021-01-08] MEDS: HYDROmorphone 0.5 MG/0.5 ML SYRINGE IV PRN (00:34)
[2021-01-08] MEDS: oxyCODONE HCL 5 MG TABLET PO PRN ×3 (05:53→19:30)
[2021-01-08] MEDS: METHOCARBAMOL 500 MG TABLET PO PRN ×2 (05:53→19:30)
[2021-01-08] MEDS: 0.9 % SODIUM CHLORIDE 10 ML SYRINGE IV SCH ×3 (06:02→20:25)
[2021-01-08] MEDS: KETOROLAC 15 MG/ML VIAL IV PRN (06:52)
[2021-01-08] MEDS: INSULIN LISPRO 1 UNIT/0.01 ML UNIT SQ SCH ×4 (07:07→22:02)
[2021-01-08 07:41] LABS: Basophils # (Auto) 0.05 K/mcL (0.00-0.20); Basophils % (Auto) 0.5 % (0.0-2.0); Eosinophils # (Auto) 0.34 K/mcL (0.00-0.70); Eosinophils % (Auto) 3.4 % (0.0-7.0); Hemoglobin 7.5 g/dL (12.0-15.0); Lymphocytes # (Auto) 1.86 K/mcL (1.50-4.80); Lymphocytes % (Auto) 18.9 % (15.0-49.0); Mean Cell Volume 93.5 fL (80.0-100.0); Mean Corpuscular HGB Conc 32.6 g/dL (31.0-36.0); Mean Platelet Volume 10.2 fL (7.4-10.4); Monocytes # (Auto) 0.93 K/mcL (0.10-0.90); Monocytes % (Auto) 9.4 % (1.0-12.0); Neutrophils % (Auto) 67.8 % (38.0-78.0); Platelet Count 181 K/mcL (140-440); RBC 2.46 M/mcL (4.00-5.20); WBC 9.9 K/mcL (4.5-11.0)
[2021-01-08] MEDS ORDERED: IBUPROFEN 600 MG TABLET PO PRN (08:19)
[2021-01-08 09:00] LABS: ALT/SGPT 19 U/L (<40); AST/SGOT 34 U/L (<32); Albumin 2.5 gm/dL (3.2-5.2); Alkaline Phosphatase 75 U/L (39-117); Bilirubin,Direct 0.3 mg/dL (<0.3); Bilirubin,Total 1.2 mg/dL (0.1-1.0); Blood Urea Nitrogen 12 mg/dL (8-23); Calcium 7.9 mg/dL (8.6-10.4); Carbon Dioxide 24 mmol/L (22-30); Chloride 98 mmol/L (96-108); Globulin 2.6 gm/dL (2.2-3.7); Glomerular Filtration Rate 87; Glucose 148 mg/dL (70-105); Lactate Dehydrogenase 295 U/L (135-225); Phosphorous 2.1 mg/dL (2.5-4.5); Triglycerides 72 mg/dL (<150); Uric Acid 1.3 mg/dL (2.5-8.0)
[2021-01-08] MEDS ORDERED: ENOXAPARIN 30 MG/0.3 ML SYRINGE SQ SCH (09:00)
[2021-01-08] MEDS: DONEPEZIL 10 MG TABLET PO SCH (10:15)
[2021-01-08] MEDS: ACETAMINOPHEN 500 MG TABLET PO SCH ×3 (10:15→20:23)
[2021-01-08] MEDS: ATORVASTATIN 20 MG TABLET PO SCH (10:16)
[2021-01-08] MEDS: GABAPENTIN 100 MG CAPSULE PO SCH ×3 (10:16→20:24)
--- NOTE | 2021-01-08 11:20 | Internal Med Progress Note ---
SUBJECTIVE Subjective Patient information: Note initiated : 01/08/21 at 11:16 am Service Date, if different from initiated Date: [] Patient: Giuliana Moreno a 85 y/o F admitted on 01/04/21 for Fall. Chief Complaint: [] Interval history: Ms. Moreno is a 85 year old female with advanced dementia, diabetes mellitus, chronic pain admitted for a hip fracture and humerus fracture resulting from a ground level fall at the [facility] where she resides. The patient was taken to the [facility] emergency department where she had a comprehensive trauma work-up including hip x-ray, shoulder x-ray, chest x-ray, cervical CT, chest abdomen pelvis CT head head noncontrast CT. The work-up showed acute fractures of the left humerus and left femur. The patient was admitted for surgical management of the acute fractures. 01/04 Stable, morning labs show leukocytosis likely stress related, glucose running a bit high. Plan is for hip surgery today. 01/05 Surgery with left hip cephalomedullary nail went well yesterday. Required a unit RBC today for hemoglobin today, holding lovenox, will recheck hemoglobin later today. Hematoma over left humerus fracture possible cause of the anemia as there was not much blood loss during surgery and hip looks good. CM working on placement options, possibly to [facility] but will require significant assistance therefore maybe SNF. 01/06 Complaining of left shoulder pain, tried to pull out malik catheter-removed but will likely have to replace because of incontinence. Confused but does not appear dilerious, probably at baseline cognitive impairment but does not understand left shoulder fracture and keeps trying to move it which causes severe pain. Hemoglobin trended down but stable on recheck. Left shoulder edema appears about the same as yesterday. Continue to hold lovenox. Decreased Lantus to 10 units HS. 01/07 Left shoulder ultrasound showed hemarthrosis, discussed with orthopedic surgery- no intervention necessary. 01/08 Trial of Robaxin for back muscle spasms, increased oxycodone prn will try to wean of IV dilaudid. Resume lovenox for DVT ppx. 01/09 Remove malik and start purewick, hemoglobin trending lower-recheck later today, goals of care with family at bedside requested for today. Physical exam Head: Atraumatic, normal inspection. Eyes: normal appearance, no scleral icterus. Neck: full ROM Respiratory: no respiratory distress. Cardiovascular: normal rate and rhythm, S1, S2. GI/Abdominal: soft, nontender, no guarding. Extremities: markedly swollen left shoulder, mild tenderness at left hip, william gical incision covered with clean bandage, cold compress Neurological: CN II-XII intact, intact motor, intact sensation. Psychiatric: normal mood, impaired cognition Skin: hematoma over left shoulder extending into left chest Constitutional Vitals: Vital Signs Temp Pulse Resp BP Pulse Ox 98.7 F 88 18 116/61 96 01/08/21 08:00 01/08/21 08:00 01/08/21 08:00 01/08/21 08:00 01/08/21 08:00 Period Temp Pulse Resp BP Sys/Desouza Pulse Ox Last 24 Hr 97.9 F-98.7 F 64-88 16-24 108-128/56-65 95-97 Intake and Output 01/07/21 01/08/21 01/08/21 21:59 05:59 13:59 Intake Total 250 150 Output Total 900 350 Balance -650 -200 Weight 50.439 kg Intake & Output: Intake & Output 01/07/21 01/08/21 01/08/21 21:59 05:59 13:59 Intake Total 250 150 Output Total 900 350 Balance -650 -200 Weight 50.439 kg Intake: Oral 250 150 Output: Urine Catheter Amount 900 350 Other: Meal Dinner Percent of Meal Consumed 50% Urine Appearance Clear Clear Uretheral (Malik) Clear Urine Color Bright Yellow Bright Yellow Uretheral (Malik) Bright Yellow Urine Odor Normal Uretheral (Malik) Normal Stool Size Moderate Stool Color Brown Stool Consistency Soft OBJ DATA Labs CBC & Chem 7: 01/08/21 07:11 01/08/21 07:11 Labs: Abnormal Lab Results 01/08/21 01/08/21 01/07/21 07:11 07:11 05:27 WBC RBC 2.46 L Hgb 7.5 L Hct 23.0 L MPV [place] # (Auto) 0.93 H Sodium 132 L Creatinine 0.5 L 0.5 L Glucose 148 H 189 H Uric Acid 1.3 L Calcium 7.9 L 7.9 L Phosphorus 2.1 L Total Bilirubin 1.2 H Direct Bilirubin 0.3 H AST 34 H 38 H Lactate Dehydrogenase 295 H Total Protein 5.1 L 5.5 L Albumin 2.5 L 2.9 L 01/07/21 01/06/21 01/06/21 05:27 17:55 12:00 WBC 12.3 H RBC 2.68 L Hgb 8.1 L 8.8 L 7.8 L Hct 24.1 L MPV 10.7 H [place] # (Auto) 1.09 H Sodium Creatinine Glucose Uric Acid Calcium Phosphorus Total Bilirubin Direct Bilirubin AST Lactate Dehydrogenase Total Protein Albumin 01/06/21 01/05/21 01/05/21 05:46 20:10 15:00 WBC RBC Hgb 7.5 L 8.8 L 9.1 L Hct 23.0 L MPV [place] # (Auto) Sodium Creatinine Glucose Uric Acid Calcium Phosphorus Total Bilirubin Direct Bilirubin AST Lactate Dehydrogenase Total Protein Albumin Meds: Medications Acetaminophen (Acetaminophen 500 Mg Tablet) 1,000 mg PO TID [facility]; Protocol Last Admin: 01/08/21 10:15 Dose: 1,000 mg Documented by: Atorvastatin Calcium (Atorvastatin 20 Mg Tablet) 20 mg PO DAILY [facility] Last Admin: 01/08/21 10:16 Dose: 20 mg Documented by: Bisacodyl (Bisacodyl 10 Mg Supp.Rect) 10 mg OR Q2-3DAYS PRN PRN Reason: Constipation Dextrose (Dextrose 50% 50 Ml Vial) 0 ml IV UD PRN PRN Reason: Hypoglycemia Last Admin: 01/06/21 07:37 Dose: 25 ml Documented by: Diagnostic Test (Pha) (Accu-Chek 1 Each Strip) 1 each FS ACHS [facility] Last Admin: 01/08/21 06:45 Dose: 1 each Documented by: Donepezil HCl (Donepezil 10 Mg Tablet) 5 mg PO DAILY [facility] Last Admin: 01/08/21 10:15 Dose: 5 mg Documented by: Enoxaparin Sodium (Enoxaparin 40 Mg/0.4 Ml Syringe) 40 mg SQ DAILY [facility] Fentanyl (Fentanyl 25 Mcg Patch) 25 mcg TOPICAL Q72H [facility] Last Admin: 01/07/21 10:04 Dose: 25 mcg Documented by: Gabapentin (Gabapentin 100 Mg Capsule) 100 mg PO TID [facility] Last Admin: 01/08/21 10:16 Dose: 100 mg Documented by: Glucose (Dextrose 31 Gm Oral.Susp) 15 gm PO PRN PRN PRN Reason: Hypoglycemia Ibuprofen (Ibuprofen 600 Mg Tablet) 600 mg PO QIDP PRN; Protocol PRN Reason: PAIN/FEVER > 101 Insulin Glargine (Insulin Glargine, Human 1 Unit/0.01 Ml) 10 unit SQ [facility] Last Admin: 01/07/21 21:07 Dose: 10 unit Documented by: Insulin Human Lispro (Insulin Lispro 1 Unit/0.01 Ml Unit) 0 unit SQ [facility]; P rotocol Last Admin: 01/08/21 07:07 Dose: 2 units Documented by: Lidocaine (Lidocaine Patch) 1 patch TOPICAL [facility] Last Admin: 01/07/21 21:04 Dose: 1 patch Documented by: Magnesium Hydroxide (Magnesium Hydroxide 30 Ml Oral.Susp) 30 ml PO BIDP PRN PRN Reason: Constipation Melatonin (Melatonin 3 Mg Tablet) 9 mg PO [facility] Methocarbamol (Methocarbamol 500 Mg Tablet) 500 mg PO QIDP PRN PRN Reason: Muscle Spasm Last Admin: 01/08/21 05:53 Dose: 500 mg Documented by: Ondansetron HCl (Ondansetron 4 Mg/2 Ml Vial) 4 mg IV Q6HP PRN PRN Reason: Nausea And Vomiting Ondansetron HCl (Ondansetron 4 Mg Odt Tablet) 4 mg SL Q4HP PRN; Protocol PRN Reason: Nausea And Vomiting Oxycodone HCl (Oxycodone Hcl 5 Mg Tablet) 10 mg PO Q4HP PRN; Protocol PRN Reason: Per Pain Protocol Last Admin: 01/08/21 10:16 Dose: 10 mg Documented by: Polyethylene Glycol (Polyethylene Glycol 3350 17 Gm Packet) 17 gm PO DAILYP PRN PRN Reason: Constipation Senna (Sennosides 1 Tablet) 2 tab PO [facility] Last Admin: 01/07/21 21:05 Dose: Not Given Documented by: Sodium Biphosphate/Sodium Phosphate (Fleets Adult Enema) 1 dose OR Q3-4DAYS PRN PRN Reason: Constipation Sodium Chloride (0.9 % Sodium Chloride 10 Ml Syringe) 10 ml IV Q8 [facility] Last Admin: 01/08/21 06:02 Dose: 10 ml Documented by: Throat Lozenges (Benzocaine/Menthol 1 Lozenge) 1 lozenge PO PRN PRN PRN Reason: Sore Throat A/P Narrative A/P Narrative: Assessment: 85 year old female with advanced dementia, diabetes mellitus, chronic pain admitted for a hip fracture and humerus fracture resulting from a ground level fall at the [facility] where she resides. The hip fracture was repaired on 01/04/21 with a cephalomedullary nail. #Acute left hip fracture s/p cephalomedullary nail 01/04/21 #Acute on chronic anemia d/t blood loss #Acute left humerus fracture. #Left shoulder hemarthrosis #Diabetes mellitus type II #Dementia #Chronic pain on opioids Plan -Analgesics-Tylenol, oxycodone prn, Ibuprofen prn, home fentanyl patch. -Bowel regimen. -Lantus and SSI. -Follow hemoglobin, transfuse RBC for hgb < 7. -Home gabapentin, Aricept. -Robaxin prn for muscle spasms. -Delirium mitigation strategies, unfortunately will need higher dose of opioids for acute pain given chronic opioid use. -Left arm in sling when patient adherent. -Physical therapy -Remove malik catheter, start purewick. -DVT ppx: Lovenox SQ -Code status: Mod DNR -Disposition: Probably back to [facility], otherwise SNF.. Time Spent With Patient Time: Total time spent is greater than 50% in coordination of care (as documented) at patient's floor/unit and/or counseling patient: QUALITY VTE Deep Vein Thrombosis/Pulmonary Embolism Present on Admission: No
[2021-01-08] MEDS ORDERED: fentaNYL 50 MCG PATCH TOPICAL SCH (17:00)
[2021-01-08] MEDS: LIDOCAINE PATCH TOPICAL SCH (20:23)
[2021-01-08] MEDS: ENOXAPARIN 40 MG/0.4 ML SYRINGE SQ SCH (20:24)
[2021-01-08] MEDS: SENNOSIDES 1 TABLET PO SCH (20:24)
[2021-01-08] MEDS: INSULIN GLARGINE, HUMAN 1 UNIT/0.01 ML SQ SCH (22:02)
[2021-01-09] MEDS: oxyCODONE HCL 5 MG TABLET PO PRN ×2 (02:19→09:20)
[2021-01-09] MEDS: METHOCARBAMOL 500 MG TABLET PO PRN ×2 (02:19→14:27)
[2021-01-09] MEDS: 0.9 % SODIUM CHLORIDE 10 ML SYRINGE IV SCH ×2 (04:55→14:27)
[2021-01-09] MEDS: DEXTROSE 50% 50 ML VIAL IV PRN (07:07)
[2021-01-09 07:08] LABS: Basophils # (Auto) 0.07 K/mcL (0.00-0.20); Basophils % (Auto) 0.7 % (0.0-2.0); Eosinophils # (Auto) 0.31 K/mcL (0.00-0.70); Eosinophils % (Auto) 3.1 % (0.0-7.0); Hematocrit 23.8 % (36.0-48.0); Hemoglobin 7.7 g/dL (12.0-15.0); Lymphocytes # (Auto) 2.45 K/mcL (1.50-4.80); Lymphocytes % (Auto) 24.2 % (15.0-49.0); Mean Corpuscular HGB Conc 32.4 g/dL (31.0-36.0); Monocytes # (Auto) 1.19 K/mcL (0.10-0.90); Monocytes % (Auto) 11.7 % (1.0-12.0); Neutrophils % (Auto) 60.3 % (38.0-78.0); Platelet Count 264 K/mcL (140-440); RBC 2.56 M/mcL (4.00-5.20); Red Cell Distribution Width 13.2 % (11.5-14.5); WBC 10.1 K/mcL (4.5-11.0)
[2021-01-09 07:44] LABS: ALT/SGPT 31 U/L (<40); AST/SGOT 51 U/L (<32); Albumin 3.1 gm/dL (3.2-5.2); Albumin/Globulin Ratio 1.2 (1.0-2.3); Alkaline Phosphatase 87 U/L (39-117); Bilirubin,Total 1.6 mg/dL (0.1-1.0); Blood Urea Nitrogen 15 mg/dL (8-23); Calcium 8.1 mg/dL (8.6-10.4); Carbon Dioxide 27 mmol/L (22-30); Chloride 100 mmol/L (96-108); Globulin 2.6 gm/dL (2.2-3.7); Glomerular Filtration Rate 87; Glucose 59 mg/dL (70-105)
[2021-01-09] MEDS: INSULIN LISPRO 1 UNIT/0.01 ML UNIT SQ SCH ×2 (08:31→11:57)
[2021-01-09] MEDS: GABAPENTIN 100 MG CAPSULE PO SCH ×2 (09:18→14:27)
[2021-01-09] MEDS: DONEPEZIL 10 MG TABLET PO SCH (09:18)
[2021-01-09] MEDS: ACETAMINOPHEN 500 MG TABLET PO SCH ×2 (09:20→14:28)
[2021-01-09] MEDS: ATORVASTATIN 20 MG TABLET PO SCH (09:21)
[2021-01-09] MEDS ORDERED: 0.9 % SODIUM CHLORIDE 500 ML IV ONE (10:06)
--- NOTE | 2021-01-09 10:16 | Discharge Summary ---
Discharge Provider Provider Patient information: Note initiated : 01/09/21 at 10:13 am Service Date, if different from initiated Date: [] Patient: Giuliana Moreno 85 y/o F admitted on 01/04/21 for Fall. Chief Complaint: [] Date of admission: 01/04/21 01:03 Discharge date: 01/09/21 Primary care physician: Gee Werner DO Consults: 01/03/21 Consult to Physician [CONS] Stat Comment: Consulting Provider: Mazin Alvarez Reason For Exam: Physician to Consult Consult to Physician [CONS] Stat Comment: Consulting Provider: Gee Vail Reason For Exam: Physician to Consult 01/04/21 01:26 Consult to Physician [CONS] Stat Comment: Consulting Provider: Gee Vail Reason For Exam: Physician to Consult Discharge Meds Discharge Medications Home Medications Accu-Chek 1 each FS ACHS 04/24/16 [History Confirmed 01/04/21 Last Taken 10/21/18 07:00] Advanced Gluc Meter Test Strip #100 each NS 01/13/17 [Rx Confirmed 01/04/21 Last Taken Unknown] blood-glucose meter #1 each NS 01/13/17 [Rx Confirmed 01/04/21 Last Taken Unknown] incontinence pants, reusable #28 each NS 01/13/17 [Rx Confirmed 01/04/21 Last Taken Unknown] melatonin 3 mg tablet 3 mg PO HS 01/29/17 [History Confirmed 01/04/21 Last Taken 01/02/21 20:00] Calcium w/vitamin d 600 mg PO DAILY 01/28/18 [History Confirmed 01/04/21 Last Taken 01/03/21 08:00] Sure-Fine Pen [place] 31 gauge x 316" #100 each NS 11/15/18 [Rx Confirmed 01/04/21 Last Taken Unknown] donepezil 5 mg tablet 5 mg PO QDAY #90 tab 09/12/19 [Rx Confirmed 01/04/21 Last Taken 01/02/21 20:00] pen needle, diabetic 31 gauge x 316" #100 each 11/29/19 [Rx Confirmed 01/04/21 Last Taken Unknown] insulin glargine 100 unit/mL (3 mL) subcutaneous pen See Rx Instructions SUB-Q QDAY #15 ml 02/13/20 [Rx Confirmed 01/04/21 Last Taken 01/03/21 08:00] polyethylene glycol 3350 17 gram oral powder packet 17 g PO DAILY PRN #30 packet NS 06/25/20 [Rx Confirmed 01/04/21 Last Taken 01/03/21 08:00] semaglutide 0.5 mg SUB-Q QWEEK #1.5 ml 07/30/20 [Rx Confirmed 01/04/21 Last Taken 12/26/20 12:00] oxybutynin chloride 5 mg tablet,extended release 24 hr 5 mg PO QDAY #90 tab 08/28/20 [Rx Confirmed 01/04/21 Last Taken 01/03/21 08:00] gabapentin 100 mg capsule 100 mg PO TID #270 cap 12/10/20 [Rx Confirmed 01/04/21 Last Taken 01/03/21 14:00] Senna Plus 1 cap PO QHS 01/03/21 [History Confirmed 01/04/21 Last Taken 01/02/21 20:00] atorvastatin 20 mg PO DAILY 01/03/21 [History Confirmed 01/04/21 Last Taken 01/02/21 20:00] enoxaparin [Lovenox] 40 mg SQ DAILY #21 syringe 01/04/21 [Rx Last Taken Unknown] hydrocodone-acetaminophen 1 tab PO Q4H PRN #60 tab 01/04/21 [Rx Last Taken Unknown] acetaminophen [Tylenol Arthritis Pain] 650 mg PO Q8H PRN #30 tab 01/09/21 [Rx Last Taken Unknown] fentaNYL [Duragesic] 50 mcg TOPICAL Q72H #5 patch 01/09/21 [Rx Last Taken Unknown] ibuprofen 600 mg PO QIDP PRN #30 tab 01/09/21 [Rx Last Taken Unknown] lidocaine 1 patch TOPICAL HS #15 ea 01/09/21 [Rx Last Taken Unknown] melatonin 9 mg PO HSP #90 tab 01/09/21 [Rx Last Taken Unknown] methocarbamol 500 mg PO QIDP PRN #30 tab 01/09/21 [Rx Last Taken Unknown] COURSE Hospital Course Hospital course: Ms. Moreno is a 85 year old female with advanced dementia, diabetes mellitus, chronic pain admitted for a hip fracture and humerus fracture resulting from a ground level fall at the [facility]. The p rojasient was taken to the [facility] emergency department where she had a comprehensive trauma work-up including hip x-ray, shoulder x-ray, chest x-ray, cervical CT, chest abdomen pelvis CT head head noncontrast CT. The work-up showed acute fractures of the left humerus and left femur. The patient was admitted for surgical management of the acute fractures. 01/04 Stable, morning labs show leukocytosis likely stress related, glucose running a bit high. Plan is for hip surgery today. 01/05 Surgery with left hip cephalomedullary nail went well yesterday. Required a unit RBC today for hemoglobin today, holding lovenox, will recheck hemoglobin later today. Hematoma over left humerus fracture possible cause of the anemia as there was not much blood loss during surgery and hip looks good. CM working on placement options, possibly to long-term but will require significant assistance therefore maybe SNF. 01/06 Complaining of left shoulder pain, tried to pull out malik catheter-removed but will likely have to replace because of incontinence. Confused but does not appear dilerious, probably at baseline cognitive impairment but does not understand left shoulder fracture and keeps trying to move it which causes severe pain. Hemoglobin trended down but stable on recheck. Left shoulder edema appears about the same as yesterday. Continue to hold lovenox. Decreased Lantus to 10 units HS. 01/07 Left shoulder ultrasound showed hemarthrosis, discussed with orthopedic surgery- no intervention necessary. 01/08 Trial of Robaxin for back muscle spasms, increased oxycodone prn will try to wean of IV dilaudid. Resume lovenox for DVT ppx. Remove malik and start purewick, hemoglobin trending lower-recheck later today, goals of care with daughter-decided to increase fentanyl patch to 50 mcg Q72 hrs for improved pain control. Working towards discharge to long-term. 01/09 Discharged back to long-term with PT and OT, on higher dose of fentanyl patch 50 mcg Q72 hrs (previously 25 mcg), tylenol, Ibuprofen, [place]. Orthopedic surgery chose lovenox SQ for DVT prophylaxis for recent hip surgery. Physical exam Head: Atraumatic, normal inspection. Eyes: normal appearance, no scleral icterus. Neck: full ROM Respiratory: no respiratory distress. Cardiovascular: normal rate and rhythm, S1, S2. GI/Abdominal: soft, nontender, no guarding. Extremities: markedly swollen left shoulder, mild tenderness at left hip, surgical incision covered with clean bandage, cold compress Neurological: CN II-XII intact, intact motor, intact sensation. Psychiatric: impaired memory Skin: hematoma over left shoulder extending into left chest Discharge diagnosis: Left intertrochanteric femur fracture Secondary discharge diagnosis: Left humerus fracture Acute blood loss anemia Reason for admission: Left intertrochanteric femur fracture Time Spent with Patient Time attestation: Total time spent providing and/or coordinating discharge services: EXAM Constitutional Vitals: Temp Pulse Resp BP Pulse Ox 98.5 F 83 20 103/50 90 01/09/21 08:00 01/09/21 08:00 01/09/21 08:00 01/09/21 08:00 01/09/21 08:00 Discharge Data Data Completed and Pending Labs on day of discharge: Labs from last 24 hours 01/09/21 01/09/21 01/08/21 06:00 05:58 12:10 WBC 10.1 RBC 2.56 L Hgb 7.7 L 7.7 L Hct 23.8 L MCV 93.0 MCH 30.1 MCHC 32.4 RDW 13.2 Plt Count 264 MPV 10.0 Neut % (Auto) 60.3 Lymph % (Auto) 24.2 [place] % (Auto) 11.7 Eos % (Auto) 3.1 Baso % (Auto) 0.7 Lymph # (Auto) 2.45 [place] # (Auto) 1.19 H Eos # (Auto) 0.31 Baso # (Auto) 0.07 Absolute Neutrophils 6.12 Sodium 136 Potassium 3.4 Chloride 100 Carbon Dioxide 27 Anion Gap 9.0 BUN 15 Creatinine 0.5 L GFR Calculation 87 Glucose 59 L Calcium 8.1 L Total Bilirubin 1.6 H AST 51 H ALT 31 Alkaline Phosphatase 87 Total Protein 5.7 L Albumin 3.1 L Globulin 2.6 Albumin/Globulin Ratio 1.2 Discharge Plan Patient/Caregiver Discharge Instructions Activity: ambulate only with your walker and as instructed Diet: Regular Diet Prescriptions: New hydrocodone-acetaminophen 5-325 mg Tablet 1 tab PO Q4H PRN (Reason: pain) Qty: 60 RF: 0 enoxaparin [Lovenox] 40 MG/0.4 ML syringe 40 mg SQ DAILY Qty: 21 RF: 0 Fentanyl [Duragesic] 50 mcg topical Q72H Qty: 5 RF: 0 ibuprofen 600 mg Tablet 600 mg PO QIDP PRN (Reason: Pain/Fever > 101) Qty: 30 RF: 0 lidocaine 5 % Adhesive Patch,Medicated 1 patch topical HS Qty: 15 RF: 1 melatonin 3 mg Tablet 9 mg PO HSP Qty: 90 RF: 0 methocarbamol 500 mg Tablet 500 mg PO QIDP PRN (Reason: Muscle Spasm) Qty: 30 RF: 0 acetaminophen [Tylenol Arthritis Pain] 650 mg tablet extended release 650 mg PO Q8H PRN (Reason: pain, mild) Qty: 30 RF: 0 Continued (DME) blood sugar diagnostic [Advanced Gluc Meter Test Strip] strip See Dose Instructions .ROUTE .MEDSUPPLY MDD 4 times daily Qty: 100 RF: 4 (DME) blood-glucose meter misc See Dose Instructions .ROUTE .MEDSUPPLY MDD 4 times daily Qty: 1 RF: 0 (DME) incontinence pants, reusable misc See Dose Instructions .ROUTE .MEDSUPPLY MDD 2 pants daily Qty: 28 RF: 6 (DME) pen needle, diabetic [Sure-Fine Pen [place]] 31 gauge x 3/16" needle See Dose Instructions .ROUTE .MEDSUPPLY Qty: 100 RF: 7 donepezil 5 mg tablet 5 mg PO QDAY Qty: 90 RF: 3 (DME) pen needle, diabetic [TRUEplus Pen Needle] 31 gauge x 3/16" needle See Rx Instructions .ROUTE .MEDSUPPLY Qty: 100 RF: 6 Lantus Solostar U-100 Insulin 100 unit/mL (3 mL) insulin pen See Rx Instructions SUB-Q QDAY Qty: 15 RF: 3 polyethylene glycol 3350 17 gram powder in packet 17 g PO DAILY PRN (Reason: constipation) Qty: 30 RF: 4 semaglutide 0.25 mg or 0.5 mg(2 mg/1.5 mL) pen injector 0.5 mg SUB-Q QWEEK Qty: 1.5 RF: 3 oxybutynin chloride 5 mg tablet extended release 24hr 5 mg PO QDAY Qty: 90 RF: 1 gabapentin 100 mg capsule 100 mg PO TID Qty: 270 RF: 1 Calcium w/vitamin d tablet 600 mg PO DAILY RF: 0 melatonin 3 mg tablet 3 mg PO HS RF: 0 Accu-Chek 1 EACH strip 1 each FS ACHS RF: 0 atorvastatin 20 mg tablet 20 mg PO DAILY RF: 0 Senna Plus 8.6-50 mg Capsule 1 cap PO QHS RF: 0 Discontinued trazodone 50 mg tablet 25 mg PO HS Qty: 90 RF: 1 tamsulosin 0.4 mg capsule 0.4 mg PO HS Qty: 90 RF: 1 hydrocodone-acetaminophen 7.5-325 mg tablet 1 tab PO Q6HP PRN (Reason: Pain) Qty: 10 RF: 0 fentanyl 25 mcg/hr patch 72 hour 25 mcg Transdermal Q72 Qty: 10 RF: 0 Other Ambulatory Orders: OT Discharge Order (Routine) Location: None Selected Ordered By: Gee Vail Physical Therapy DC - General (Routine) Location: None Selected Ordered By: Gee Vail Follow Up Plan Follow up with: Gee Vail MD [Physician] - Gee Werner DO [Primary Care Provider] - Patient Disposition: Xfer SNF Prognosis: Fair Rehab Potential: Fair I certify that the patient requires SNF services: Yes Overall status at discharge: patient is progressing back to baseline Discharge Orders: Discharge Order (Routine); Ordered 01/06/21 Ordered By: Gee Vail QUALITY VTE Deep Vein Thrombosis/Pulmonary Embolism Present on Admission: No
[2021-01-09] MEDS: ENOXAPARIN 40 MG/0.4 ML SYRINGE SQ SCH (11:56)
== END 2021-01-09 13:40 | DRG 481 ==
LOC: ED 18:13 → MEDSUR 01-04 01:03
PROVIDERS: ADMIT Internal Medicine; ATTEND Internal Medicine

== ENCOUNTER 2021-07-04 10:56 | Inpatient (IN) ==
--- NOTE | 2021-07-04 11:40 | Emergency Department Note ---
HPI General Chief complaint: Urogenital-Female Stated complaint: UTI/dehydration Time Seen by Provider: 07/04/21 11:39 Source: patient, family and old records reviewed Mode of arrival: wheelchair Limitations: altered mental status History of Present Illness HPI Narrative: 86-year-old female with history of advanced dementia, frequent falls with femur fracture, diabetes, chronic UTI, history of DVT and PE, and anemia presenting with weakness and decreased appetite. Patient resides at a nursing facility and was noted to be more somnolent than usual and reportedly tested positive for UTI a few days ago but has not been receiving antibiotics. She has an indwelling Campoverde catheter in place. Daughter also notes she had a ground-level fall out of her wheelchair a few days ago and hit the front of her head. She is not on anticoagulation. No report of fever, cough, shortness of breath, vomiting, or blood in the stool. 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 Patient is A&O x1 at baseline. She is DNR/DNI with comfort focused treatment only. Related Data Home Medications Medication Instructions Recorded Confirmed melatonin 3 mg tablet 3 mg PO HS 01/29/17 07/04/21 Calcium w/vitamin d 600 mg PO DAILY 01/28/18 07/04/21 sennosides 8.6 mg-docusate sodium 1 cap PO QHS 01/03/21 07/04/21 50 mg capsule (Senna Plus) furosemide 20 mg tablet 20 mg PO QDAY 02/27/21 07/04/21 bisacodyl 10 mg rectal suppository [address] QDAY PRN 05/30/21 07/04/21 (Dulcolax (bisacodyl)) insulin glargine 100 unit/mL (3 See Rx Instructions SUB-Q QDAY ml 05/30/21 07/04/21 mL) subcutaneous pen (Lantus Solostar U-100 Insulin) propranolol 10 mg tablet 10 mg PO QDAY PRN tab 05/30/21 07/04/21 risperidone 0.5 mg tablet 0.5 mg PO BID 05/30/21 07/04/21 Previous Rx's Medication Instructions Recorded Advanced Gluc Meter Test Strip #100 each NS 01/13/17 (blood sugar diagnostic) blood-glucose meter #1 each NS 01/13/17 incontinence pants, reusable #28 each NS 01/13/17 Sure-Fine Pen [place] 31 gauge x #100 each NS 11/15/1810/02" (pen needle, diabetic) pen needle, diabetic 31 gauge x #100 each 11/29/1910/02" (TRUEplus Pen Needle) polyethylene glycol 3350 17 gram 17 g PO DAILY PRN #30 packet NS 06/25/20 oral powder packet gabapentin 100 mg capsule 100 mg PO TID #270 cap 12/10/20 hydrocodone 5 mg-acetaminophen 325 1 tab PO Q4H PRN #60 tab 01/04/21 mg tablet acetaminophen 650 mg 650 mg PO Q8H PRN #30 tab 01/09/21 tablet,extended release (Tylenol Arthritis Pain) ibuprofen 600 mg tablet 600 mg PO QIDP PRN #30 tab 01/09/21 lidocaine 5 % topical patch 1 patch TOPICAL HS #15 ea 01/09/21 methocarbamol 500 mg tablet 500 mg PO QIDP PRN #30 tab 01/09/21 tamsulosin 0.4 mg capsule 0.4 mg PO QHS #30 cap 05/30/21 Allergies Allergy/AdvReac Type Severity Reaction Status Date / Time No Known Drug Allergies Allergy Verified 05/30/21 09:41 Review of Systems ROS ROS Narrative: Narrative: Limitations: ROS unobtainable due to patients medical condition Constitutional: Denies fever Cardiovascular: Denies chest pain Respiratory: Denies shortness of breath or cough Gastrointestinal: Denies abdominal pain or vomiting Genitourinary: Denies hematuria Musculoskeletal: Denies back pain Integumentary: Denies rash Neurological: Denies headache Endocrine: Reports fatigue PFSH Narrative Patient History Narrative: Narrative: Medical/Surgical/Family History All Active Problems (Updated 07/04/21 @ 15:19 by Matt Morton MD) Diabetes mellitus type II, controlled, with no complications (Chronic) Metabolic encephalopathy (Chronic) Hyperglycemia (Chronic) Other disorders of lung (Chronic) Urinary tract infection (Chronic) Shortness of breath (Chronic) Acidosis (Chronic) Hypo-osmolality and hyponatremia (Chronic) Glaucoma (Chronic) Fracture of right patella with routine healing (Chronic) Abdominal aortic pulsation (Chronic) Deep vein thrombosis (Chronic) Compression fracture (Acute) Lumbago (Acute) Hyponatremia (Acute) Back pain (Chronic) Dehydration (Acute) Hyponatremia (Acute) Gastritis (Acute) Incontinence in female (Acute) Abdominal pain (Acute) UTI (urinary tract infection) (Acute) Multiple rib fractures involving four or more ribs (Acute) Chest pain, musculoskeletal (Acute) Compression fracture of thoracic vertebra (Acute) Osteoporosis (Acute) Chronic constipation (Chronic) Near syncope (Acute) Fever, low grade (Acute) Leukocytosis (leucocytosis) (Acute) Dementia (Acute) Pneumonia (Acute) Diabetic peripheral neuropathy (Chronic) HLD (hyperlipidemia) (Chronic) Fall (Acute) Closed fracture of left hip (Acute) Closed left humeral fracture (Acute) Fall (Acute) Leaking PEG tube (Acute) Dislodged gastrostomy tube (Acute) Urinary retention with incomplete bladder emptying (Acute) Hypernatremia (Acute) UTI (urinary tract infection) (Acute) Medical History Abdominal aortic pulsation Acidosis Back pain Compression fracture Deep vein thrombosis Dehydration Dehydration with hyponatremia Diabetes mellitus type II, controlled, with no complications Fracture of right patella with routine healing Gastritis Glaucoma Hyperglycemia Hypo-osmolality and hyponatremia Hyponatremia Hyponatremia Lumbago Metabolic encephalopathy Other disorders of lung Shortness of breath Urinary tract infection Surgical History History of hip surgery No pertinent past surgical history Family History Other No pertinent family history Social History Smoking Status: Never smoker Alcohol Intake Frequency: does not drink Exam Narrative Narrative: Narrative: General Limitations: altered mental status General appearance: Present other (Sleepy but arousable to voice; able to answer most questions and follow commands) Head Head: Present normocephalic and other (Superficial laceration to the forehead covered with Steri-Strips.) Eye Eye: Present normal appearance, PERRL and EOMI; Absent scleral icterus or conjunctival injection ENT ENT: Present mucous membranes dry Neck Neck: Present normal inspection and trachea midline Chest Chest: Present symmetric chest wall rise Respiratory Respiratory: Present normal lung sounds bilaterally; Absent respiratory distress, wheezes, stridor or accessory muscle use Cardiovascular Cardiovascular: Present normal rhythm and tachycardia; Absent systolic murmur or diastolic murmur Adbominal Abdominal: Present soft; Absent distention, tenderness, guarding, rebound or rigidity External: Present other (Campoverde catheter in place draining dark yellow urine) Extremities Extremities: Present normal inspection; Absent pretibial edema Back Back: Absent spinous process tenderness Neurological Neurological: Present other (Sleepy but arousable, moves all extremities, no focal deficits noted) Expanded Neurological Patient oriented to: Present person; Absent place or time Speech: Absent dysarthria Motor strength - LUE: 4/5 Motor strength - RUE: 4/5 Motor strength - LLE: 4/5 Motor strength - RLE: 4/5 UPPER MOTOR NEURON EXAM: bj neglect: Normal SENSORY EXAM UPPER EXTREMITY: Normal: light touch SENSORY EXAM LOWER EXTREMITY: Normal: light touch Coma Scale Eye Opening: To Voice Coma Scale Motor Response: Obeys Commands Coma Scale Verbal Response: Confused Coma Scale Total: 13 Psychiatric Psychiatric: Present normal affect and normal mood Skin Skin: Present warm (WNL) and dry Course Consultations Consultation #1: Dr. Juarez, hospitalist Time: 15:16 Vital Signs Vital signs: Vital Signs Temperature 99.3 F H 07/04/21 10:57 Pulse Rate 130 H 07/04/21 10:57 Respiratory Rate 15 07/04/21 10:57 Blood Pressure 96/60 07/04/21 10:57 Pulse Oximetry (%) 95 07/04/21 10:57 Temperature 99.3 F H 07/04/21 10:57 Pulse Rate 120 H 07/04/21 14:15 Respiratory Rate 15 07/04/21 10:57 Blood Pressure 109/74 07/04/21 14:15 Pulse Oximetry (%) 98 07/04/21 14:15 [facility] MDM Narrative Medical decision making narrative: 86-year-old female presenting with somnolence and UTI. Vital signs notable for tachycardia however blood pressure is normal. No focal neurologic deficits noted on exam. Will obtain labs, UA, and CT brain given her recent head injury. Normal saline bolus given. Labs notable for hyponatremia to 155 and leukocytosis to 18.2. CT brain shows chronic changes but no signs of acute intracranial hemorrhage. UA is consistent with UTI. 1 g IV Rocephin ordered. Discussed with admitting physician Dr. Juarez. Will also obtain lactate and blood cultures. Lab Data Lab results reviewed: Yes I reviewed the patient's lab results. Result diagrams: 07/04/21 12:08 07/04/21 12:08 Labs: Lab Results 07/04/21 07/04/21 07/04/21 Range/Units 12:08 12:08 12:12 WBC 18.2 H (4.5-11.0) K/mcL RBC 4.40 (3.59-5.38) M/mcL Hgb 13.4 (11.2-15.7) g/dL Hct 44.0 (34.1-44.9) % MCV 100.0 (80.0-100.0) fL MCH 30.5 (26.0-34.0) pg MCHC 30.5 L (31.0-36.0) g/dL RDW 13.6 (11.5-14.5) % Plt Count 313 (140-440) K/mcL MPV 10.5 H (7.4-10.4) fL Neut % (Auto) 83.9 H (38.0-78.0) % Lymph % (Auto) 7.8 L (15.5-49.0) % Nance % (Auto) 7.9 (1.0-12.0) % Eos % (Auto) 0.2 (0.0-7.0) % Baso % (Auto) 0.2 (0.0-2.0) % Lymph # (Auto) 1.42 L (1.50-4.80) K/mcL Nance # (Auto) 1.44 H (0.10-0.90) K/mcL Eos # (Auto) 0.03 (0.00-0.70) K/mcL Baso # (Auto) 0.04 (0.00-0.30) K/mcL Absolute Neutrophils 15.31 H (1.80-8.00) K/mcL Sodium 155 H (133-145) mmol/L Potassium 4.1 (3.3-5.1) mmol/L Chloride 114 H (96-108) mmol/L Carbon Dioxide 25 (22-30) mmol/L Anion Gap 16.0 (8.0-16.0) BUN 72 H (8-23) mg/dL Creatinine 1.2 H (0.6-1.1) mg/dL GFR Calculation 41 Glucose 218 H (70-105) mg/dL Calcium 8.7 (8.6-10.4) mg/dL Total Bilirubin 0.7 (0.1-1.0) mg/dL AST 30 (<32) U/L ALT 12 (<40) U/L Alkaline Phosphatase 130 H (39-117) U/L Total Protein 7.4 (5.9-8.4) gm/dL Albumin 2.9 L (3.2-5.2) gm/dL Globulin 4.5 H (2.2-3.7) gm/dL Albumin/Globulin Ratio 0.6 L (1.0-2.3) Urine Color Yellow Urine Appearance Turbid A (Clear) Urine pH 7.0 (5.0-9.0) Ur Specific [place] 1.018 (1.000-1.035) Urine Protein 100 A (Negative) mg/dL Urine Glucose (UA) Negative (Negative) mg/dL Urine Ketones 20 A (Negative) mg/dL Urine Occult Blood 0.20 (Negative) mg/dL Urine Nitrate Negative (Negative) Urine Bilirubin Negative (Negative) mg/dL Urine Urobilinogen Negative mg/dL Ur Leukocyte Esterase 500 A (Negative) /uL Urine RBC > 182 H (0-1) /hpf Urine WBC > 182 H (0-4) /hpf Ur Squamous Epith Cells 0 (0-4) /hpf Ur Transition Epith Cell 4 H (0-2) /hpf Urine Bacteria Mod A (0) /hpf Hyaline Casts 72 H (0-2) /lph Urine Mucus Many A (None) /hpf Ur Culture Indicated? yes ED POC Tests ED POC Tests: MARCELINA - SARS Antigen Negative Radiology Data Radiology results reviewed: Yes I reviewed the patient's radiology results. Radiology results narrative: Ordering Physician:Matt Morton M.D. Date of Service:07/04/21 Procedure(s):CT head/brain wo [facility] CLINICAL INFORMATION: Trauma-fall COMPARISON: 01/03/2021 TECHNIQUE: 2.5 mm helical slices were obtained in the skull base to vertex. Following reconstruction, axial reformatted images were reviewed at bone and parenchymal windows. The exam was performed using radiation dose optimization techniques including, but not limited to, automated exposure control, adjustment of the mA and/or kV according to patient size and use of iterative reconstruction technique. FINDINGS: The ventricles, sulci, fissures, and cisterns are symmetrically enlarged compatible with mild age-related atrophy. No extra-axial fluid collections are identified. Mild patchy chronic ischemic changes, in the deep cerebral white matter, are expected for age. Small old lacunar infarct in the right lentiform nucleus again seen. 15 mm remote lacunar infarct in the inferior left cerebellar vermis seen-as before. There is no hemorrhage, mass effect, or edema. Bone windows show no osseous abnormality. IMPRESSION: Mild atrophy and chronic ischemic changes in the deep cerebral white matter-expected for age. 15 mm remote lacunar infarct inferior left cerebellar vermis-stable. Old Lacunar infarct right lentiform nucleus stable No intracerebral hemorrhage or other acute posttraumatic change. Interpreted and Authenticated by: Gee Palma 07/04/21 Discharge Plan Patient/Caregiver Discharge Instructions Pt seen by DATA ANALYTICS CHIEF SCIENTIST/PA only: No Clinical Impression: Hypernatremia, UTI (urinary tract infection) Patient Disposition: Xfer As Inpt ([facility]) Condition: Fair Follow up with: Gee Werner DO [Primary Care Provider] - Prescriptions: No Action (DME) blood sugar diagnostic [Advanced Gluc Meter Test Strip] strip See Dose Instructions .ROUTE .MEDSUPPLY MDD 4 times daily Qty: 100 4RF Dose Instruction: As directed Rx Instructions: Check Blood sugars 4 times daily (DME) blood-glucose meter misc See Dose Instructions .ROUTE .MEDSUPPLY MDD 4 times daily Qty: 1 0RF Dose Instruction: As directed Rx Instructions: Use with test strips, test 4 times daily (DME) incontinence pants, reusable misc See Dose Instructions .ROUTE .MEDSUPPLY MDD 2 pants daily Qty: 28 6RF Dose Instruction: As directed Rx Instructions: As directed (DME) pen needle, diabetic [Sure-Fine Pen [place]] 31 gauge x 3/16" needle See Dose Instructions .ROUTE .MEDSUPPLY Qty: 100 7RF Dose Instruction: As directed Rx Instructions: Use up to 4 times daily (DME) pen needle, diabetic [TRUEplus Pen Needle] 31 gauge x 3/16" needle See Rx Instructions .ROUTE .MEDSUPPLY Qty: 100 6RF Rx Instructions: test blood glucose up to 4 times daily polyethylene glycol 3350 17 gram powder in packet 17 g PO DAILY PRN (Reason: constipation) Qty: 30 4RF gabapentin 100 mg capsule 100 mg PO TID Qty: 270 1RF Calcium w/vitamin d tablet 600 mg PO DAILY 0RF Label Comments: 600mg/800iu PO melatonin 3 mg tablet 3 mg PO HS 0RF Senna Plus 8.6-50 mg Capsule 1 cap PO QHS 0RF hydrocodone-acetaminophen 5-325 mg Tablet 1 tab PO Q4H PRN (Reason: pain) Qty: 60 0RF ibuprofen 600 mg Tablet 600 mg PO QIDP PRN (Reason: Pain/Fever > 101) Qty: 30 0RF lidocaine 5 % Adhesive Patch,Medicated 1 patch topical HS Qty: 15 1RF methocarbamol 500 mg Tablet 500 mg PO QIDP PRN (Reason: Muscle Spasm) Qty: 30 0RF acetaminophen [Tylenol Arthritis Pain] 650 mg tablet extended release 650 mg PO Q8H PRN (Reason: pain, mild) Qty: 30 0RF furosemide 20 mg tablet 20 mg PO QDAY 0RF risperidone 0.5 mg tablet 0.5 mg PO BID 0RF Lantus Solostar U-100 Insulin 100 unit/mL (3 mL) insulin pen See Rx Instructions SUB-Q QDAY 0RF Dose Instruction: 5u in AM, 10u in PM SUB-Q QDAY; Rx Instructions: 10 units at 0800 and 10 units at 2000. propranolol 10 mg tablet 10 mg PO QDAY PRN (Reason: Tachyarrhythmias) 0RF bisacodyl [Dulcolax (bisacodyl)] 10 mg suppository [address] QDAY PRN (Reason: Constipation) 0RF tamsulosin 0.4 mg capsule 0.4 mg PO QHS Qty: 30 11RF
[2021-07-04] MEDS ORDERED: 0.9 % SODIUM CHLORIDE 1,000 ML IV ONE (11:52)
--- NOTE | 2021-07-04 12:42 | Cat Scan Report ---
CLINICAL INFORMATION: Trauma-fall COMPARISON: 01/03/2021 TECHNIQUE: 2.5 mm helical slices were obtained in the skull base to vertex. Following reconstruction, axial reformatted images were reviewed at bone and parenchymal windows. The exam was performed using radiation dose optimization techniques including, but not limited to, automated exposure control, adjustment of the mA and/or kV according to patient size and use of iterative reconstruction technique. FINDINGS: The ventricles, sulci, fissures, and cisterns are symmetrically enlarged compatible with mild age-related atrophy. No extra-axial fluid collections are identified. Mild patchy chronic ischemic changes, in the deep cerebral white matter, are expected for age. Small old lacunar infarct in the right lentiform nucleus again seen. 15 mm remote lacunar infarct in the inferior left cerebellar vermis seen-as before. There is no hemorrhage, mass effect, or edema. Bone windows show no osseous abnormality. IMPRESSION: Mild atrophy and chronic ischemic changes in the deep cerebral white matter-expected for age. 15 mm remote lacunar infarct inferior left cerebellar vermis-stable. Old Lacunar infarct right lentiform nucleus stable No intracerebral hemorrhage or other acute posttraumatic change. Interpreted and Authenticated by: Gee Palma 07/04/21
[2021-07-04 13:07] LABS: Basophils # (Auto) 0.04 K/mcL (0.00-0.30); Basophils % (Auto) 0.2 % (0.0-2.0); Eosinophils # (Auto) 0.03 K/mcL (0.00-0.70); Eosinophils % (Auto) 0.2 % (0.0-7.0); Hemoglobin 13.4 g/dL (11.2-15.7); Lymphocytes # (Auto) 1.42 K/mcL (1.50-4.80); Lymphocytes % (Auto) 7.8 % (15.5-49.0); Mean Corpuscular HGB Conc 30.5 g/dL (31.0-36.0); Mean Platelet Volume 10.5 fL (7.4-10.4); Monocytes # (Auto) 1.44 K/mcL (0.10-0.90); Monocytes % (Auto) 7.9 % (1.0-12.0); Neutrophils % (Auto) 83.9 % (38.0-78.0); Platelet Count 313 K/mcL (140-440); Red Cell Distribution Width 13.6 % (11.5-14.5); WBC 18.2 K/mcL (4.5-11.0)
[2021-07-04 13:13] LABS: Appearance,Urine TURBID (Clear); Bacteria,Urine MOD /hpf (0); Bilirubin,Urine Negative (Negative); Color,Urine YELLOW; Culture Indicated,Urine yes; Glucose,Urine (UA) Negative (Negative); Ketones,Urine 20 mg/dL (Negative); Leukocyte Esterase,Urine 500 /uL (Negative); Mucus,Urine MANY /hpf; Nitrate,Urine Negative (Negative); Protein,Urine 100 mg/dL (Negative); Specific Gravity,Urine 1.018 (1.000-1.035); Urine Hyaline Cast 72 /lph (0-2); Urine RBC > 182 /hpf (0-1); Urine Squamous Epithelial Cell 0 /hpf (0-4); Urine Transitional Epi Cells 4 /hpf (0-2); Urine WBC > 182 /hpf (0-4); Urobilinogen,Urine Negative
[2021-07-04 13:26] LABS: ALT/SGPT 12 U/L (<40); AST/SGOT 30 U/L (<32); Albumin 2.9 gm/dL (3.2-5.2); Albumin/Globulin Ratio 0.6 (1.0-2.3); Alkaline Phosphatase 130 U/L (39-117); Bilirubin,Total 0.7 mg/dL (0.1-1.0); Blood Urea Nitrogen 72 mg/dL (8-23); Calcium 8.7 mg/dL (8.6-10.4); Carbon Dioxide 25 mmol/L (22-30); Chloride 114 mmol/L (96-108); Globulin 4.5 gm/dL (2.2-3.7); Glomerular Filtration Rate 41; Glucose 218 mg/dL (70-105)
[2021-07-04] MEDS ORDERED: cefTRIAXone 1 GM VIAL IV ONE (13:32)
[2021-07-04] MEDS ORDERED: BISACODYL 10 MG SUPP.RECT PR PRN (15:07)
[2021-07-04] MEDS ORDERED: POLYETHYLENE GLYCOL 3350 17 GM PACKET PO PRN (15:07)
[2021-07-04] MEDS ORDERED: HYDROcodone/APAP (PP) 5/325MG TABLET (#4) PO PRN (15:07)
[2021-07-04] MEDS ORDERED: METHOCARBAMOL 500 MG TABLET PO PRN (15:07)
[2021-07-04] MEDS ORDERED: METOPROLOL TARTRATE 5 MG/5 ML VIAL IV PRN (15:40)
--- NOTE | 2021-07-04 15:40 | Internal Med History&Physical ---
HPI History of Present Illness Patient information: Note initiated : 07/04/21 at 3:30 pm Service Date, if different from initiated Date: [] Patient: Giuliana Moreno a 86 y/o F admitted on for UTI/dehydration. Chief Complaint: [altered mental status] Chief complaint: altered mental status History of present illness: Ms. Moreno is a 86 year old F history of dementia, T2DM, recurrently UTI, frequent falls, shelter resident, p/w 3 day history of increasing lethargy and altered mental status, according to SNF staffs. Last prior similar episode was 4 months ago. Vital signs at ED presentation significant tachycardia with HR in the 120s bpm, with rest of the vital signs within normal limits. Labs significant for leukocytosis with WBC 18.2, serum sodium 155, BUN 72, serum Cr level 1.2 UA suggestive of presence of UTI. CT head w/o no signs of acute ischemia. Review of Systems ROS unobtainable: due to mental status PFSH PFSH All Active Problems (Updated 07/04/21 @ 15:40 by Lucho Juarez MD) Clinical sepsis (Acute) Delirium (Acute) Stage 1 acute kidney injury (Acute) Diabetes mellitus type II, controlled, with no complications (Chronic) Metabolic encephalopathy (Chronic) Hyperglycemia (Chronic) Other disorders of lung (Chronic) Urinary tract infection (Chronic) Shortness of breath (Chronic) Acidosis (Chronic) Hypo-osmolality and hyponatremia (Chronic) Glaucoma (Chronic) Fracture of right patella with routine healing (Chronic) Abdominal aortic pulsation (Chronic) Deep vein thrombosis (Chronic) Compression fracture (Acute) Lumbago (Acute) Hyponatremia (Acute) Back pain (Chronic) Dehydration (Acute) Hyponatremia (Acute) Gastritis (Acute) Incontinence in female (Acute) Abdominal pain (Acute) UTI (urinary tract infection) (Acute) Multiple rib fractures involving four or more ribs (Acute) Chest pain, musculoskeletal (Acute) Compression fracture of thoracic vertebra (Acute) Osteoporosis (Acute) Chronic constipation (Chronic) Near syncope (Acute) Fever, low grade (Acute) Leukocytosis (leucocytosis) (Acute) Dementia (Acute) Pneumonia (Acute) Diabetic peripheral neuropathy (Chronic) HLD (hyperlipidemia) (Chronic) Fall (Acute) Closed fracture of left hip (Acute) Closed left humeral fracture (Acute) Fall (Acute) Leaking PEG tube (Acute) Dislodged gastrostomy tube (Acute) Urinary retention with incomplete bladder emptying (Acute) Hypernatremia (Acute) UTI (urinary tract infection) (Acute) Medical History Abdominal aortic pulsation Acidosis Back pain Compression fracture Deep vein thrombosis Dehydration Dehydration with hyponatremia Diabetes mellitus type II, controlled, with no complications Fracture of right patella with routine healing Gastritis Glaucoma Hyperglycemia Hypo-osmolality and hyponatremia Hyponatremia Hyponatremia Lumbago Metabolic encephalopathy Other disorders of lung Shortness of breath Urinary tract infection Surgical History History of hip surgery No pertinent past surgical history Family History Other No pertinent family history Social History (Updated 02/27/21 @ 08:26 by Dolly Pinto CMA) marital status: smoking status: Never smoker alcohol intake frequency: does not drink MEDS/ALLERGIES Home Medications and Allergies Home Medications Medication Instructions Recorded Confirmed Type Advanced Gluc Meter Test Strip #100 each NS 01/13/17 07/04/21 Rx (blood sugar diagnostic) blood-glucose meter #1 each NS 01/13/17 07/04/21 Rx incontinence pants, reusable #28 each NS 01/13/17 07/04/21 Rx melatonin 3 mg tablet 3 mg PO HS 01/29/17 07/04/21 History Calcium w/vitamin d 600 mg PO DAILY 01/28/18 07/04/21 History Sure-Fine Pen [place] 31 gauge x #100 each NS 11/15/18 07/04/21 Rx 3/16" (pen needle, diabetic) pen needle, diabetic 31 gauge x #100 each 11/29/19 07/04/21 Rx 3/16" (TRUEplus Pen Needle) polyethylene glycol 3350 17 gram 17 g PO DAILY PRN #30 packet NS 06/25/20 07/04/21 Rx oral powder packet gabapentin 100 mg capsule 100 mg PO TID #270 cap 12/10/20 07/04/21 Rx sennosides 8.6 mg-docusate sodium 1 cap PO QHS 01/03/21 07/04/21 History 50 mg capsule (Senna Plus) hydrocodone 5 mg-acetaminophen 325 1 tab PO Q4H PRN #60 tab 01/04/21 07/04/21 Rx mg tablet acetaminophen 650 mg 650 mg PO Q8H PRN #30 tab 01/09/21 07/04/21 Rx tablet,extended release (Tylenol Arthritis Pain) ibuprofen 600 mg tablet 600 mg PO QIDP PRN #30 tab 01/09/21 07/04/21 Rx lidocaine 5 % topical patch 1 patch TOPICAL HS #15 ea 01/09/21 07/04/21 Rx methocarbamol 500 mg tablet 500 mg PO QIDP PRN #30 tab 01/09/21 07/04/21 Rx furosemide 20 mg tablet 20 mg PO QDAY 02/27/21 07/04/21 History bisacodyl 10 mg rectal suppository 10 mg OK QDAY PRN 05/30/21 07/04/21 History (Dulcolax (bisacodyl)) insulin glargine 100 unit/mL (3 See Rx Instructions SUB-Q QDAY ml 05/30/21 07/04/21 History mL) subcutaneous pen (Lantus Solostar U-100 Insulin) propranolol 10 mg tablet 10 mg PO QDAY PRN tab 05/30/21 07/04/21 History risperidone 0.5 mg tablet 0.5 mg PO BID 05/30/21 07/04/21 History tamsulosin 0.4 mg capsule 0.4 mg PO QHS #30 cap 05/30/21 07/04/21 Rx Allergies Allergy/AdvReac Type Severity Reaction Status Date / Time No Known Drug Allergies Allergy Verified 05/30/21 09:41 EXAM Constitutional Vitals: Temp Pulse Resp BP Pulse Ox 37.4 C H 120 H 15 109/74 98 07/04/21 10:57 07/04/21 14:15 07/04/21 10:57 07/04/21 14:15 07/04/21 14:15 General appearance: no acute distress and thin Exam: lethargic Head Head exam: Absent atraumatic, normal inspection or normocephalic Additional comments: laceration of her left forehead Eye Eye exam: Present EOMI and PERRL ENT ENT exam: Present mucous membranes moist, normal exam and normal external ear exam Neck Neck exam: Present normal inspection; Absent lymphadenopathy, tenderness or thyromegaly Respiratory Respiratory exam: Absent accessory muscle use, respiratory distress or wheezes Cardiovascular Cardiovascular exam: Present normal rate and rhythm; Absent JVD GI/Abdominal GI/Abdominal exam: Present normal bowel sounds and soft; Absent organomegaly or tenderness Additional comments: [place] catheter in place Extremities Exam Extremities exam: Present full ROM, normal capillary refill and normal inspection; Absent tenderness Neurological Exam Neurological exam: Present altered and CN II-XII intact; Absent alert, motor sensory deficit or oriented X3 Psychiatric Psychiatric exam: Present normal affect and normal mood; Absent anxious or depressed Skin Skin exam: Present dry and intact DATA Data Completed and Pending Labs: Labs from last 24 hours 07/04/21 07/04/21 07/04/21 12:12 12:08 12:08 WBC 18.2 H RBC 4.40 Hgb 13.4 Hct 44.0 MCV 100.0 MCH 30.5 MCHC 30.5 L RDW 13.6 Plt Count 313 MPV 10.5 H Neut % (Auto) 83.9 H Lymph % (Auto) 7.8 L [place] % (Auto) 7.9 Eos % (Auto) 0.2 Baso % (Auto) 0.2 Lymph # (Auto) 1.42 L [place] # (Auto) 1.44 H Eos # (Auto) 0.03 Baso # (Auto) 0.04 Absolute Neutrophils 15.31 H Sodium 155 H Potassium 4.1 Chloride 114 H Carbon Dioxide 25 Anion Gap 16.0 BUN 72 H Creatinine 1.2 H GFR Calculation 41 Glucose 218 H Calcium 8.7 Total Bilirubin 0.7 AST 30 ALT 12 Alkaline Phosphatase 130 H Total Protein 7.4 Albumin 2.9 L Globulin 4.5 H Albumin/Globulin Ratio 0.6 L Urine Color Yellow Urine Appearance Turbid A Urine pH 7.0 Ur Specific [place] 1.018 Urine Protein 100 A Urine Glucose (UA) Negative Urine Ketones 20 A Urine Occult Blood 0.20 Urine Nitrate Negative Urine Bilirubin Negative Urine Urobilinogen Negative Ur Leukocyte Esterase 500 A Urine RBC > 182 H Urine WBC > 182 H Ur Squamous Epith Cells 0 Ur Transition Epith Cell 4 H Urine Bacteria Mod A Hyaline Casts 72 H Urine Mucus Many A Ur Culture Indicated? yes A/P Assessment and plan (1) Diabetes mellitus type II, controlled, with no complications: Status: Chronic Qualifiers: Diabetes mellitus mcfp insulin use: with mcfp use Qualified Code(s): E11.9 - Type 2 diabetes mellitus without complications (2) Dehydration: Status: Acute (3) Stage 1 acute kidney injury: Status: Acute (4) Hypernatremia: Status: Acute (5) UTI (urinary tract infection): Status: Acute (6) Dementia: Status: Acute Qualifiers: Dementia behavioral disturbance: without behavioral disturbance Dementia type: unspecified type Qualified Code(s): F03.90 - Unspecified dementia without behavioral disturbance (7) Delirium: Status: Acute (8) Clinical sepsis: Status: Acute Narrative A/P Narrative: Assessment and Plans: 1. UTI with associated sepsis and delirium: Admit to inpatient med surg telemetry s/p 1L NS bolus given in the, followed by D5@70cc/hr Lactic acid Procalcitonin Blood culture X2 Urine culture cbc w/ auto diff in the morning to trend WBC Rocephin Tylenol PRN fever 2. Hypernatremia with unknown chronicity: s/p 1L NS bolus given in the, followed by D5@70cc/hr BMP q6hr to trend serum sodium level; goal of correction is 8-10 unit/24 hour to avoid overly rapid correction with associated neurological consequences such as central pontine myelinolysis 3. T2DM: HgA1c Lantus 10unit BID Moderate scale correctional scale insulin AC HS Accu Chek AC HS Hypoglycemia Diabetic diet 4. Stage 1 acute kidney injury with dehydration: Associated with UTI most likely Avoid nephrotoxic agents s/p 1L NS bolus given in the, followed by D5@70cc/hr CMP in the morning to trend kidney functions 5. Dementia: Riseridone GI ppx: not currently indicated DVT ppx: Heparin Code status: DNI DNR Prognosis: guarded Disposition: inpatient med surg telemetry Time Spent With Patient Time: Total time spent is greater than 50% in coordination of care (as documented) at patient's floor/unit and/or counseling patient: Total time spent with greater than 50% in coordination of care (as documented) at patient's floor/unit and/or counseling patient:: Greater than 35 minutes
[2021-07-04] MEDS ORDERED: HYDROcodone/APAP 5/325MG TABLET PO PRN (20:06)
[2021-07-04] MEDS ORDERED: ACETAMINOPHEN 325 MG TABLET PO PRN ×2 (20:08→20:16)
[2021-07-04] MEDS ORDERED: ONDANSETRON 4 MG/2 ML VIAL IV PRN (20:16)
[2021-07-04] MEDS ORDERED: IBUPROFEN 200 MG TABLET PO PRN (20:16)
[2021-07-04] MEDS ORDERED: IPRATROPIUM/ALBUTEROL 3 ML AMPUL.NEB NEB PRN (20:16)
[2021-07-04] MEDS ORDERED: DEXTROSE 50% 50 ML VIAL IV PRN (20:16)
[2021-07-04] MEDS ORDERED: cefTRIAXone 1 GM in DEXTROSE 5% IN WATER 50 ML IV SCH (20:16)
[2021-07-04] MEDS ORDERED: DEXTROSE 31 GM ORAL.SUSP PO PRN (20:16)
[2021-07-04] MEDS: DEXTROSE 5% IN WATER 1,000 ML IV SCH (20:27)
[2021-07-04] MEDS: HEPARIN 5,000 UNIT/ML VIAL SQ SCH (20:43)
[2021-07-04] MEDS: INSULIN GLARGINE, HUMAN 1 UNIT/0.01 ML SQ SCH (20:43)
[2021-07-04] MEDS: INSULIN LISPRO 1 UNIT/0.01 ML UNIT SQ SCH ×2 (20:43→22:42)
[2021-07-04] MEDS ORDERED: INSULIN LISPRO 1 UNIT/0.01 ML UNIT SQ SCH (21:00)
[2021-07-04 22:00] LABS: Blood Urea Nitrogen 70 mg/dL (8-23); Calcium 9.5 mg/dL (8.6-10.4); Carbon Dioxide 26 mmol/L (22-30); Chloride 115 mmol/L (96-108); Glomerular Filtration Rate 45; Glucose 233 mg/dL (70-105)
[2021-07-04 22:33] LABS: Estimated Average Glucose(eAG) 174 mg/dL; Hemoglobin A1C 7.7 % Hgb (4.0-6.0)
[2021-07-04] MEDS: 0.9 % SODIUM CHLORIDE 10 ML SYRINGE IV SCH (22:43)
[2021-07-04] MEDS: LIDOCAINE PATCH TOPICAL SCH (23:00)
[2021-07-05] MEDS: TAMSULOSIN 0.4 MG CAPSULE PO SCH ×2 (03:17→21:57)
[2021-07-05] MEDS: MELATONIN 3 MG TABLET PO SCH ×2 (03:17→21:57)
[2021-07-05] MEDS: SENNOSIDES 1 TABLET PO SCH ×2 (03:18→21:58)
[2021-07-05] MEDS: GABAPENTIN 100 MG CAPSULE PO SCH ×4 (03:18→21:56)
[2021-07-05] MEDS: SENNOSIDES/DOCUSATE SODIUM 1 TAB TABLET PO SCH ×2 (03:18→21:58)
[2021-07-05] MEDS: risperiDONE 0.25 MG TABLET PO SCH ×3 (03:18→21:56)
[2021-07-05] MEDS: 0.9 % SODIUM CHLORIDE 10 ML SYRINGE IV SCH ×3 (05:51→21:58)
[2021-07-05] MEDS: INSULIN GLARGINE, HUMAN 1 UNIT/0.01 ML SQ SCH ×2 (07:39→21:56)
[2021-07-05] MEDS: INSULIN LISPRO 1 UNIT/0.01 ML UNIT SQ SCH ×4 (07:40→21:58)
[2021-07-05] MEDS: DOCUSATE SODIUM 100 MG CAPSULE PO SCH ×2 (07:59→08:11)
[2021-07-05] MEDS: CALCIUM W/VIT D3 500 MG TABLET PO SCH (07:59)
[2021-07-05] MEDS: HEPARIN 5,000 UNIT/ML VIAL SQ SCH ×2 (08:00→21:57)
[2021-07-05] MEDS: cefTRIAXone 1 GM VIAL IV SCH (08:00)
[2021-07-05 09:41] LABS: Phosphorous 2.9 mg/dL (2.5-4.5)
[2021-07-05 09:42] LABS: Basophils # (Auto) 0.04 K/mcL (0.00-0.30); Basophils % (Auto) 0.2 % (0.0-2.0); Eosinophils # (Auto) 0.04 K/mcL (0.00-0.70); Eosinophils % (Auto) 0.2 % (0.0-7.0); Hematocrit 45.1 % (34.1-44.9); Hemoglobin 13.6 g/dL (11.2-15.7); Lymphocytes # (Auto) 1.86 K/mcL (1.50-4.80); Lymphocytes % (Auto) 9.9 % (15.5-49.0); Mean Cell Volume 100.4 fL (80.0-100.0); Mean Corpuscular HGB Conc 30.2 g/dL (31.0-36.0); Mean Platelet Volume 10.6 fL (7.4-10.4); Monocytes # (Auto) 1.02 K/mcL (0.10-0.90); Monocytes % (Auto) 5.4 % (1.0-12.0); Neutrophils % (Auto) 84.3 % (38.0-78.0); Platelet Count 285 K/mcL (140-440); RBC 4.49 M/mcL (3.59-5.38); Red Cell Distribution Width 13.2 % (11.5-14.5); WBC 18.8 K/mcL (4.5-11.0)
[2021-07-05 09:57] LABS: ALT/SGPT 11 U/L (<40); AST/SGOT 22 U/L (<32); Albumin/Globulin Ratio 0.8 (1.0-2.3); Alkaline Phosphatase 135 U/L (39-117); Bilirubin,Total 0.5 mg/dL (0.1-1.0); Blood Urea Nitrogen 62 mg/dL (8-23); Calcium 9.1 mg/dL (8.6-10.4); Carbon Dioxide 23 mmol/L (22-30); Chloride 117 mmol/L (96-108); Glomerular Filtration Rate 57; Glucose 303 mg/dL (70-105)
[2021-07-05] MEDS: DEXTROSE 5% IN WATER 1,000 ML IV SCH (10:54)
[2021-07-05] MEDS: MUPIROCIN OINT 2% 22GM NARES SCH ×2 (10:55→21:57)
[2021-07-05] MEDS ORDERED: POTASSIUM CHLORIDE 20 MEQ in DEXTROSE 5% IN WATER 250 ML IV ONE (13:24)
--- NOTE | 2021-07-05 13:29 | Internal Med Progress Note ---
SUBJECTIVE Subjective Patient information: Note initiated : 07/05/21 at 1:24 pm Service Date, if different from initiated Date: [] Patient: Giuliana Moreno a 86 y/o F admitted on 07/04/21 for UTI/dehydration. Chief Complaint: [UTI] Principal diagnosis: UTI Interval history: Ms. Moreno is a 86 year old F history of dementia, T2DM, recurrently UTI, frequent falls, retirement resident, p/w 3 day history of increasing lethargy and altered mental status, according to SNF staffs. Last prior similar episode was 4 months ago. Vital signs at ED presentation significant tachycardia with HR in the 120s bpm, with rest of the vital signs within normal limits. Labs significant for leukocytosis with WBC 18.2, serum sodium 155, BUN 72, serum Cr level 1.2 UA suggestive of presence of UTI. CT head w/o no signs of acute ischemia. 07/05: Afebrile overnight. Blood and urine cultures no growth to date. Serum sodium level 157. Still on D5W@70cc/hr as well as Rocephin. Lethargic and currently sleeping. Constitutional Vitals: Vital Signs Temp Pulse Resp BP Pulse Ox 36.4 C 108 H 19 111/68 93 07/05/21 11:40 07/05/21 11:40 07/05/21 11:40 07/05/21 11:40 07/05/21 11:40 Period Temp Pulse Resp BP Sys/Desouza Pulse Ox Last 24 Hr 36.1 C-37.2 C 91-126 15-20 88-138/55-89 92-98 Intake and Output 07/04/21 07/05/21 07/05/21 21:59 05:59 13:59 Intake Total 1000 Output Total 600 Balance -600 1000 Weight 36.798 kg Intake & Output: Intake & Output 07/04/21 07/05/21 07/05/21 21:59 05:59 13:59 Intake Total 1000 Output Total 600 Balance -600 1000 Weight 36.798 kg Intake: IV 1000 Dextrose 5% in Water 1,000 ml @ 1000 70 mls/hr IV .[id number] [facility] Rx#: [id number] Output: Urine Catheter Amount 600 Other: Urine Appearance Cloudy Cloudy Sediment Uretheral ([place]) Cloudy Urine Color Tea Colored Tea Colored Uretheral ([place]) Tea Colored Urine Odor Strong Strong Uretheral ([place]) Strong Exam: Sleeping Head Head exam: Present atraumatic and normal inspection Eye Eye exam: Present normal appearance ENT ENT exam: Present mucous membranes moist, normal exam and normal external ear exam Neck Neck exam: Present normal inspection Respiratory Respiratory exam: Present normal respiratory exam Cardiovascular Cardiovascular exam: Present normal rate and rhythm GI/Abdominal GI/Abdominal exam: Present normal bowel sounds Additional comments: [place] catheter in place Back Exam Back exam: Present normal inspection Neurological Exam Neurological exam: Present alert and oriented X3 Skin Skin exam: Present intact and warm OBJ DATA Labs CBC & Chem 7: 07/05/21 09:12 07/05/21 07:15 Labs: Abnormal Lab Results 07/05/21 07/05/21 07/04/21 09:12 07:15 20:55 WBC 18.8 H Hct 45.1 H MCV 100.4 H MCHC 30.2 L MPV 10.6 H Neut % (Auto) 84.3 H Lymph % (Auto) 9.9 L Lymph # (Auto) [place] # (Auto) 1.02 H Absolute Neutrophils 15.82 H VBG Lactic Acid Sodium 157 H Chloride 117 H Anion Gap 17.0 H BUN 62 H Creatinine Glucose 303 H Hemoglobin A1c Alkaline Phosphatase 135 H Albumin 3.0 L Globulin 4.0 H Albumin/Globulin Ratio 0.8 L Procalcitonin 0.21 H Urine Appearance Urine Protein Urine Ketones Ur Leukocyte Esterase Urine RBC Urine WBC Ur Transition Epith Cell Urine Bacteria Hyaline Casts Urine Mucus 07/04/21 07/04/21 07/04/21 20:55 15:29 12:12 WBC Hct MCV MCHC MPV Neut % (Auto) Lymph % (Auto) Lymph # (Auto) [place] # (Auto) Absolute Neutrophils VBG Lactic Acid 2.2 H Sodium 155 H Chloride 115 H Anion Gap BUN 70 H Creatinine Glucose 233 H Hemoglobin A1c 7.7 H Alkaline Phosphatase Albumin Globulin Albumin/Globulin Ratio Procalcitonin Urine Appearance Turbid A Urine Protein 100 A Urine Ketones 20 A Ur Leukocyte Esterase 500 A Urine RBC > 182 H Urine WBC > 182 H Ur Transition Epith Cell 4 H Urine Bacteria Mod A Hyaline Casts 72 H Urine Mucus Many A 07/04/21 07/04/21 12:08 12:08 WBC 18.2 H Hct MCV MCHC 30.5 L MPV 10.5 H Neut % (Auto) 83.9 H Lymph % (Auto) 7.8 L Lymph # (Auto) 1.42 L [place] # (Auto) 1.44 H Absolute Neutrophils 15.31 H VBG Lactic Acid Sodium 155 H Chloride 114 H Anion Gap BUN 72 H Creatinine 1.2 H Glucose 218 H Hemoglobin A1c Alkaline Phosphatase 130 H Albumin 2.9 L Globulin 4.5 H Albumin/Globulin Ratio 0.6 L Procalcitonin Urine Appearance Urine Protein Urine Ketones Ur Leukocyte Esterase Urine RBC Urine WBC Ur Transition Epith Cell Urine Bacteria Hyaline Casts Urine Mucus Meds: Medications Acetaminophen (Acetaminophen 325 Mg Tablet) 650 mg PO Q8HP PRN PRN Reason: PAIN/FEVER > 101 Hydrocodone Bitart/Acetaminophen (Hydrocodone/Apap 5/325mg Tablet) 1 tab PO Q4HP PRN; Protocol PRN Reason: Per Pain Protocol Albuterol/Ipratropium (Ipratropium/Albuterol 3 Ml Ampul.Neb) 3 ml NEB Q4HRT PRN PRN Reason: Wheezing Bisacodyl (Bisacodyl 10 Mg Supp.Rect) 10 mg ID DAILYP PRN PRN Reason: Constipation Calcium/Vitamin D (Calcium W/Vit D3 500 Mg Tablet) 500 mg PO DAILY [facility] Last Admin: 07/05/21 07:59 Dose: 500 mg Documented by: Ceftriaxone Sodium (Ceftriaxone 1 Gm Vial) 1 gm IV DAILY [facility] Last Admin: 07/05/21 08:00 Dose: 1 gm Documented by: Dextrose (Dextrose 50% 50 Ml Vial) 0 ml IV UD PRN PRN Reason: Hypoglycemia Diagnostic Test (Pha) (Accu-Chek 1 Each Strip) 1 each FS ACHS [facility] Last Admin: 07/05/21 11:33 Dose: 1 each Documented by: Docusate Sodium (Docusate Sodium 100 Mg Capsule) 100 mg PO DAILY [facility] Last Admin: 07/05/21 08:11 Dose: Not Given Documented by: Gabapentin (Gabapentin 100 Mg Capsule) 100 mg PO TID [facility] Last Admin: 07/05/21 07:59 Dose: 100 mg Documented by: Glucose (Dextrose 31 Gm Oral.Susp) 15 gm PO PRN PRN PRN Reason: Hypoglycemia Heparin Sodium (Porcine) (Heparin 5,000 Unit/Ml Vial) 5,000 unit SQ Q12 [facility] Last Admin: 07/05/21 08:00 Dose: 5,000 unit Documented by: Dextrose (Dextrose 5% In Water) 1,000 mls @ 70 mls/hr IV .[id number] [facility] Last Admin: 07/05/21 10:54 Dose: 70 mls/hr Documented by: Ibuprofen (Ibuprofen 200 Mg Tablet) 200 mg PO QIDP PRN; Protocol PRN Reason: Pain/Fever > 101 Insulin Glargine (Insulin Glargine, Human 1 Unit/0.01 Ml) 10 unit SQ BID@0800,2000 [facility] Last Admin: 07/05/21 07:39 Dose: 10 unit Documented by: Insulin Human Lispro (Insulin Lispro 1 Unit/0.01 Ml Unit) 0 unit SQ [facility]; Protocol Last Admin: 07/05/21 11:33 Dose: 4 unit Documented by: Lidocaine (Lidocaine Patch) 1 patch TOPICAL [facility] Last Admin: 07/04/21 23:00 Dose: 1 patch Documented by: Melatonin (Melatonin 3 Mg Tablet) 3 mg PO [facility] Last Admin: 07/05/21 03:17 Dose: Not Given Documented by: Methocarbamol (Methocarbamol 500 Mg Tablet) 500 mg PO QIDP PRN PRN Reason: Muscle Spasm Mupirocin (Mupirocin Oint 2% 22gm) 1 dose NARES BID [facility] Last Admin: 07/05/21 10:55 Dose: 1 dose Documented by: Ondansetron HCl (Ondansetron 4 Mg/2 Ml Vial) 4 mg IV Q6HP PRN PRN Reason: Nausea And Vomiting Polyethylene Glycol (Polyethylene Glycol 3350 17 Gm Packet) 17 gm PO DAILYP PRN PRN Reason: constipation Risperidone (Risperidone 0.25 Mg Tablet) 0.5 mg PO BID [facility] Last Admin: 07/05/21 08:00 Dose: 0.5 mg Documented by: Senna (Sennosides 1 Tablet) 1 tab PO [facility] Last Admin: 07/05/21 03:18 Dose: Not Given Documented by: Senna/Docusate Sodium (Sennosides/Docusate Sodium 1 Tab Tablet) [facility] Last Admin: 07/05/21 03:18 Dose: Not Given Documented by: Sodium Chloride (0.9 % Sodium Chloride 10 Ml Syringe) 10 ml IV Q8 [facility] Last Admin: 07/05/21 12:41 Dose: Not Given Documented by: Tamsulosin HCl (Tamsulosin 0.4 Mg Capsule) 0.4 mg PO QHS [facility] Last Admin: 07/05/21 03:17 Dose: Not Given Documented by: A/P Assessment and plan (1) Diabetes mellitus type II, controlled, with no complications: Status: Chronic Qualifiers: Diabetes mellitus usp insulin use: with intermediate frame tender use Qualified Code(s): E11.9 - Type 2 diabetes mellitus without complications (2) Dehydration: Status: Acute (3) Stage 1 acute kidney injury: Status: Acute (4) Hypernatremia: Status: Acute (5) UTI (urinary tract infection): Status: Acute (6) Dementia: Status: Acute Qualifiers: Dementia behavioral disturbance: without behavioral disturbance Dementia type: unspecified type Qualified Code(s): F03.90 - Unspecified dementia without behavioral disturbance (7) Delirium: Status: Acute (8) Clinical sepsis: Status: Acute Narrative A/P Narrative: Assessment and Plans: 1. UTI with associated sepsis and delirium: Stays in inpatient med surg telemetry s/p 1L NS bolus given in the, followed by D5@70cc/hr Serial lactic acid, 2.2, --> Procalcitonin 0.21 Blood culture X2, no growth to date Urine culture , no growth to date cbc w/ auto diff in the morning to trend WBC Rocephin Tylenol PRN fever 2. Hypernatremia with unknown chronicity: s/p 1L NS bolus given in the, followed by D5@70cc/hr BMP q6hr to trend serum sodium level; goal of correction is 8-10 unit/24 hour to avoid overly rapid correction with associated neurological consequences such as central pontine myelinolysis 3. T2DM: HgA1c Lantus 10unit BID Moderate scale correctional scale insulin AC HS Accu Chek AC HS Hypoglycemia Diabetic diet 4. Stage 1 acute kidney injury with dehydration: Associated with UTI most likely Avoid nephrotoxic agents s/p 1L NS bolus given in the, followed by D5@70cc/hr CMP in the morning to trend kidney functions 5. Dementia: Riseridone GI ppx: Protonix DVT ppx: Heparin Code status: No chest compression Prognosis: guarded Disposition: inpatient med surg telemetry Time Spent With Patient Time: Total time spent is greater than 50% in coordination of care (as documented) at patient's floor/unit and/or counseling patient: Total time spent with greater than 50% in coordination of care (as documented) at patient's floor/unit and/or counseling patient:: Greater than 35 minutes
[2021-07-05 14:55] LABS: Blood Urea Nitrogen 56 mg/dL (8-23); Calcium 9.2 mg/dL (8.6-10.4); Carbon Dioxide 27 mmol/L (22-30); Chloride 115 mmol/L (96-108); Glomerular Filtration Rate 66; Glucose 130 mg/dL (70-105)
[2021-07-05] MEDS ORDERED: MUPIROCIN OINT 2% 22GM NARES SCH (21:00)
[2021-07-05 21:04] LABS: Blood Urea Nitrogen 47 mg/dL (8-23); Carbon Dioxide 26 mmol/L (22-30); Chloride 113 mmol/L (96-108); Glomerular Filtration Rate 78; Glucose 107 mg/dL (70-105)
[2021-07-05] MEDS: PANTOPRAZOLE 40 MG TABLET PO SCH (21:56)
[2021-07-05] MEDS: LIDOCAINE PATCH TOPICAL SCH (21:57)
[2021-07-06] MEDS: DEXTROSE 5% IN WATER 1,000 ML IV SCH (01:16)
[2021-07-06 05:04] LABS: Basophils # (Auto) 0.05 K/mcL (0.00-0.30); Basophils % (Auto) 0.3 % (0.0-2.0); Eosinophils % (Auto) 1.5 % (0.0-7.0); Hematocrit 41.5 % (34.1-44.9); Hemoglobin 12.3 g/dL (11.2-15.7); Lymphocytes # (Auto) 2.96 K/mcL (1.50-4.80); Lymphocytes % (Auto) 14.9 % (15.5-49.0); Mean Cell Volume 99.3 fL (80.0-100.0); Mean Corpuscular HGB Conc 29.6 g/dL (31.0-36.0); Mean Platelet Volume 11.4 fL (7.4-10.4); Monocytes # (Auto) 1.36 K/mcL (0.10-0.90); Monocytes % (Auto) 6.8 % (1.0-12.0); Neutrophils % (Auto) 76.5 % (38.0-78.0); Platelet Count 221 K/mcL (140-440); RBC 4.18 M/mcL (3.59-5.38); Red Cell Distribution Width 13.2 % (11.5-14.5); WBC 19.9 K/mcL (4.5-11.0)
[2021-07-06] MEDS: 0.9 % SODIUM CHLORIDE 10 ML SYRINGE IV SCH ×3 (05:08→21:29)
[2021-07-06 05:22] LABS: ALT/SGPT 11 U/L (<40); AST/SGOT 18 U/L (<32); Albumin 2.5 gm/dL (3.2-5.2); Albumin/Globulin Ratio 0.6 (1.0-2.3); Alkaline Phosphatase 110 U/L (39-117); Bilirubin,Total 0.4 mg/dL (0.1-1.0); Blood Urea Nitrogen 39 mg/dL (8-23); Calcium 8.5 mg/dL (8.6-10.4); Carbon Dioxide 31 mmol/L (22-30); Chloride 112 mmol/L (96-108); Globulin 3.9 gm/dL (2.2-3.7); Glomerular Filtration Rate 78; Glucose 81 mg/dL (70-105)
[2021-07-06 05:23] LABS: Phosphorous 2.3 mg/dL (2.5-4.5)
[2021-07-06] MEDS: INSULIN LISPRO 1 UNIT/0.01 ML UNIT SQ SCH ×4 (07:02→21:30)
[2021-07-06] MEDS: INSULIN GLARGINE, HUMAN 1 UNIT/0.01 ML SQ SCH ×2 (08:34→21:28)
[2021-07-06] MEDS: cefTRIAXone 1 GM VIAL IV SCH (08:35)
[2021-07-06] MEDS: risperiDONE 0.25 MG TABLET PO SCH ×2 (08:35→21:32)
[2021-07-06] MEDS: HEPARIN 5,000 UNIT/ML VIAL SQ SCH ×2 (08:35→21:32)
[2021-07-06] MEDS: CALCIUM W/VIT D3 500 MG TABLET PO SCH (08:35)
[2021-07-06] MEDS: DOCUSATE SODIUM 100 MG CAPSULE PO SCH (08:36)
[2021-07-06] MEDS: MUPIROCIN OINT 2% 22GM NARES SCH ×2 (08:36→21:31)
[2021-07-06] MEDS: GABAPENTIN 100 MG CAPSULE PO SCH ×3 (08:36→21:32)
--- NOTE | 2021-07-06 10:16 | Internal Med Progress Note ---
SUBJECTIVE Subjective Patient information: Note initiated : 07/06/21 at 10:12 am Service Date, if different from initiated Date: [] Patient: Giuliana Moreno a 86 y/o F admitted on 07/04/21 for UTI/dehydration. Chief Complaint: [] Principal diagnosis: UTI Interval history: Ms. Moreno is a 86 year old F history of dementia, T2DM, recurrently UTI, frequent falls, [facility] resident, p/w 3 day history of increasing lethargy and altered mental status, according to SNF staffs. Last prior similar episode was 4 months ago. Vital signs at ED presentation significant tachycardia with HR in the 120s bpm, with rest of the vital signs within normal limits. Labs significant for leukocytosis with WBC 18.2, serum sodium 155, BUN 72, serum Cr level 1.2 UA suggestive of presence of UTI. CT head w/o no signs of acute ischemia. 07/05: Afebrile overnight. Blood and urine cultures no growth to date. Serum sodium level 157. Still on D5W@70cc/hr as well as Rocephin. Lethargic and currently sleeping. 07/06: Afebrile overnight. WBC 18.8-->19.9. Urine culture: E coli and Aerococcus urinae; blood culture no growth to date. Serum sodium level 150. Still on D5W@70cc/hr. Will switch from Rocephin to Zosyn. Denies any pain or discomfort. Denies any fever, chills, or sweating. Constitutional Vitals: Vital Signs Temp Pulse Resp BP Pulse Ox 36.2 C 108 H 18 90/59 94 07/06/21 07:18 07/06/21 07:18 07/06/21 07:18 07/06/21 07:18 07/06/21 07:18 Period Temp Pulse Resp BP Sys/Desouza Pulse Ox Last 24 Hr 36.1 C-36.5 C 74-111 18-20 81-111/52-68 93-98 Intake and Output 07/05/21 07/06/21 07/06/21 21:59 05:59 13:59 Intake Total 260 1120 Output Total 150 125 Balance 110 1120 -125 Weight 40.46 kg Intake & Output: Intake & Output 07/05/21 07/06/21 07/06/21 21:59 05:59 13:59 Intake Total 260 1120 Output Total 150 125 Balance 110 1120 -125 Weight 40.46 kg Intake: IV 260 1000 Dextrose 5% in Water 1,000 ml @ 1000 70 mls/hr IV .[id number] [facility] Rx#: [id number] Potassium Chloride 20 Meq In 260 Dextrose 5% in Water 250 ml @ 130 mls/hr IV ONCE ONE Rx#: [id number] Oral 120 Output: Urine Catheter Amount 150 125 Other: Urine Appearance Cloudy Cloudy Sediment Sediment Uretheral ([place]) Cloudy Sediment Urine Color Tea Colored Tea Colored Dark Yellow Uretheral ([place]) Tea Colored Urine Odor Strong Strong Uretheral ([place]) Strong Stool Size Small Stool Color Brown Stool Consistency Loose # of times incontinent of 1 Bowels Exam: Sleeping Head Head exam: Present atraumatic and normal inspection; Absent normocephalic Additional comments: left forehead laceration Eye Eye exam: Present normal appearance ENT ENT exam: Present mucous membranes moist, normal exam and normal external ear exam Neck Neck exam: Present normal inspection Respiratory Respiratory exam: Present normal respiratory exam Cardiovascular Cardiovascular exam: Present normal rate and rhythm GI/Abdominal GI/Abdominal exam: Present normal bowel sounds Additional comments: [place] catheter in place Back Exam Back exam: Present normal inspection Neurological Exam Neurological exam: Present alert; Absent oriented X3 Additional comments: oriented X2 to person and place only Skin Skin exam: Present intact and warm OBJ DATA Labs CBC & Chem 7: 07/06/21 03:37 07/06/21 03:37 Labs: Abnormal Lab Results 07/06/21 07/06/21 07/05/21 03:37 03:37 20:07 WBC 19.9 H Hct MCV MCHC 29.6 L MPV 11.4 H Neut % (Auto) Lymph % (Auto) 14.9 L Lymph # (Auto) [place] # (Auto) 1.36 H Absolute Neutrophils 15.22 H VBG Lactic Acid Sodium 150 H 148 H Potassium Chloride 112 H 113 H Carbon Dioxide 31 H Anion Gap 7.0 L BUN 39 H 47 H Creatinine Glucose 107 H Hemoglobin A1c Calcium 8.5 L Phosphorus 2.3 L Alkaline Phosphatase Albumin 2.5 L Globulin 3.9 H Albumin/Globulin Ratio 0.6 L Procalcitonin Urine Appearance Urine Protein Urine Ketones Ur Leukocyte Esterase Urine RBC Urine WBC Ur Transition Epith Cell Urine Bacteria Hyaline Casts Urine Mucus 07/05/21 07/05/21 07/05/21 13:50 13:49 09:12 WBC 18.8 H Hct 45.1 H MCV 100.4 H MCHC 30.2 L MPV 10.6 H Neut % (Auto) 84.3 H Lymph % (Auto) 9.9 L Lymph # (Auto) [place] # (Auto) 1.02 H Absolute Neutrophils 15.82 H VBG Lactic Acid 2.7 H Sodium 152 H Potassium 3.2 L Chloride 115 H Carbon Dioxide Anion Gap BUN 56 H Creatinine Glucose 130 H Hemoglobin A1c Calcium Phosphorus Alkaline Phosphatase Albumin Globulin Albumin/Globulin Ratio Procalcitonin Urine Appearance Urine Protein Urine Ketones Ur Leukocyte Esterase Urine RBC Urine WBC Ur Transition Epith Cell Urine Bacteria Hyaline Casts Urine Mucus 07/05/21 07/04/21 07/04/21 07:15 20:55 20:55 WBC Hct MCV MCHC MPV Neut % (Auto) Lymph % (Auto) Lymph # (Auto) [place] # (Auto) Absolute Neutrophils VBG Lactic Acid Sodium 157 H 155 H Potassium Chloride 117 H 115 H Carbon Dioxide Anion Gap 17.0 H BUN 62 H 70 H Creatinine Glucose 303 H 233 H Hemoglobin A1c 7.7 H Calcium Phosphorus Alkaline Phosphatase 135 H Albumin 3.0 L Globulin 4.0 H Albumin/Globulin Ratio 0.8 L Procalcitonin 0.21 H Urine Appearance Urine Protein Urine Ketones Ur Leukocyte Esterase Urine RBC Urine WBC Ur Transition Epith Cell Urine Bacteria Hyaline Casts Urine Mucus 07/04/21 07/04/21 07/04/21 15:29 12:12 12:08 WBC Hct MCV MCHC MPV Neut % (Auto) Lymph % (Auto) Lymph # (Auto) [place] # (Auto) Absolute Neutrophils VBG Lactic Acid 2.2 H Sodium 155 H Potassium Chloride 114 H Carbon Dioxide Anion Gap BUN 72 H Creatinine 1.2 H Glucose 218 H Hemoglobin A1c Calcium Phosphorus Alkaline Phosphatase 130 H Albumin 2.9 L Globulin 4.5 H Albumin/Globulin Ratio 0.6 L Procalcitonin Urine Appearance Turbid A Urine Protein 100 A Urine Ketones 20 A Ur Leukocyte Esterase 500 A Urine RBC > 182 H Urine WBC > 182 H Ur Transition Epith Cell 4 H Urine Bacteria Mod A Hyaline Casts 72 H Urine Mucus Many A 07/04/21 12:08 WBC 18.2 H Hct MCV MCHC 30.5 L MPV 10.5 H Neut % (Auto) 83.9 H Lymph % (Auto) 7.8 L Lymph # (Auto) 1.42 L [place] # (Auto) 1.44 H Absolute Neutrophils 15.31 H VBG Lactic Acid Sodium Potassium Chloride Carbon Dioxide Anion Gap BUN Creatinine Glucose Hemoglobin A1c Calcium Phosphorus Alkaline Phosphatase Albumin Globulin Albumin/Globulin Ratio Procalcitonin Urine Appearance Urine Protein Urine Ketones Ur Leukocyte Esterase Urine RBC Urine WBC Ur Transition Epith Cell Urine Bacteria Hyaline Casts Urine Mucus Meds: Medications Acetaminophen (Acetaminophen 325 Mg Tablet) 650 mg PO Q8HP PRN PRN Reason: PAIN/FEVER > 101 Hydrocodone Bitart/Acetaminophen (Hydrocodone/Apap 5/325mg Tablet) 1 tab PO Q4HP PRN; Protocol PRN Reason: Per Pain Protocol Albuterol/Ipratropium (Ipratropium/Albuterol 3 Ml Ampul.Neb) 3 ml NEB Q4HRT PRN PRN Reason: Wheezing Bisacodyl (Bisacodyl 10 Mg Supp.Rect) 10 mg [place] DAILYP PRN PRN Reason: Constipation Calcium/Vitamin D (Calcium W/Vit D3 500 Mg Tablet) 500 mg PO DAILY [facility] Last Admin: 07/06/21 08:35 Dose: 500 mg Documented by: Dextrose (Dextrose 50% 50 Ml Vial) 0 ml IV UD PRN PRN Reason: Hypoglycemia Diagnostic Test (Pha) (Accu-Chek 1 Each Strip) 1 each FS ACHS [facility] Last Admin: 07/06/21 07:02 Dose: 1 each Documented by: Docusate Sodium (Docusate Sodium 100 Mg Capsule) 100 mg PO DAILY [facility] Last Admin: 07/06/21 08:36 Dose: Not Given Documented by: Gabapentin (Gabapentin 100 Mg Capsule) 100 mg PO TID [facility] Last Admin: 07/06/21 08:36 Dose: 100 mg Documented by: Glucose (Dextrose 31 Gm Oral.Susp) 15 gm PO PRN PRN PRN Reason: Hypoglycemia Heparin Sodium (Porcine) (Heparin 5,000 Unit/Ml Vial) 5,000 unit SQ Q12 [facility] Last Admin: 07/06/21 08:35 Dose: 5,000 unit Documented by: Dextrose (Dextrose 5% In Water) 1,000 mls @ 70 mls/hr IV .[id number] [facility] Last Admin: 07/06/21 01:16 Dose: 70 mls/hr Documented by: Piperacillin Sod/Tazobactam (Sod 3.375 gm/ Dextrose) 50 mls @ 100 mls/hr IV Q8H [facility]; Protocol Ibuprofen (Ibuprofen 200 Mg Tablet) 200 mg PO QIDP PRN; Protocol PRN Reason: Pain/Fever > 101 Insulin Glargine (Insulin Glargine, Human 1 Unit/0.01 Ml) 10 unit SQ BID@0800,2000 [facility] Last Admin: 07/06/21 08:34 Dose: 10 unit Documented by: Insulin Human Lispro (Insulin Lispro 1 Unit/0.01 Ml Unit) 0 unit SQ ACHS [facility]; Protocol Last Admin: 07/06/21 07:02 Dose: Not Given Documented by: Lidocaine (Lidocaine Patch) 1 patch TOPICAL [facility] Last Admin: 07/05/21 21:57 Dose: 1 patch Documented by: Melatonin (Melatonin 3 Mg Tablet) 3 mg PO [facility] Last Admin: 07/05/21 21:57 Dose: Not Given Documented by: Methocarbamol (Methocarbamol 500 Mg Tablet) 500 mg PO QIDP PRN PRN Reason: Muscle Spasm Mupirocin (Mupirocin Oint 2% 22gm) 1 dose NARES BID [facility] Last Admin: 07/06/21 08:36 Dose: 1 dose Documented by: Ondansetron HCl (Ondansetron 4 Mg/2 Ml Vial) 4 mg IV Q6HP PRN PRN Reason: Nausea And Vomiting Pantoprazole Sodium (Pantoprazole 40 Mg Tablet) 40 mg PO [facility] Last Admin: 07/05/21 21:56 Dose: 40 mg Documented by: Polyethylene Glycol (Polyethylene Glycol 3350 17 Gm Packet) 17 gm PO DAILYP PRN PRN Reason: constipation Risperidone (Risperidone 0.25 Mg Tablet) 0.5 mg PO BID [facility] Last Admin: 07/06/21 08:35 Dose: 0.5 mg Documented by: Senna (Sennosides 1 Tablet) 1 tab PO [facility] Last Admin: 07/05/21 21:58 Dose: Not Given Documented by: Senna/Docusate Sodium (Sennosides/Docusate Sodium 1 Tab Tablet) 1 tab PO QHS [facility] Last Admin: 07/05/21 21:58 Dose: Not Given Documented by: Sodium Chloride (0.9 % Sodium Chloride 10 Ml Syringe) 10 ml IV Q8 [facility] Last Admin: 07/06/21 05:08 Dose: Not Given Documented by: Tamsulosin HCl (Tamsulosin 0.4 Mg Capsule) 0.4 mg PO QHS [facility] Last Admin: 07/05/21 21:57 Dose: 0.4 mg Documented by: A/P Assessment and plan (1) Diabetes mellitus type II, controlled, with no complications: Status: Chronic 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 UTI with associated sepsis and delirium: Stays in inpatient med surg telemetry s/p 1L NS bolus given in the, followed by D5@70cc/hr Serial lactic acid, 2.2, -->2.7 Procalcitonin 0.21 Blood culture X2, no growth to date Urine culture , E coli and Aerococcus urinae cbc w/ auto diff in the morning to trend WBC Switch from Rocephin to Zosyn Tylenol PRN fever 2. Hypernatremia with unknown chronicity: s/p 1L NS bolus given in the, followed by D5@70cc/hr BMP q6hr to trend serum sodium level; goal of correction is 8-10 unit/24 hour to avoid overly rapid correction with associated neurological consequences such as central pontine myelinolysis 3. T2DM: HgA1c Lantus 10unit BID Moderate scale correctional scale insulin AC HS Accu Chek AC HS Hypoglycemia Diabetic diet 4. Stage 1 acute kidney injury with dehydration: Associated with UTI most likely Avoid nephrotoxic agents s/p 1L NS bolus given in the, followed by D5@70cc/hr CMP in the morning to trend kidney functions 5. Dementia: Risperidone GI ppx: Protonix DVT ppx: Heparin Code status: No chest compression Prognosis: guarded Disposition: inpatient med surg telemetry Time Spent With Patient Time: Total time spent is greater than 50% in coordination of care (as documented) at patient's floor/unit and/or counseling patient: Total time spent with greater than 50% in coordination of care (as documented) at patient's floor/unit and/or counseling patient:: Greater than 35 minutes
[2021-07-06] MEDS: PIPERACILLIN SODIUM/TAZOBACTAM 3.375 GM in DEXTROSE 5% IN WATER 50 ML IV SCH ×3 (10:49→21:29)
[2021-07-06 11:44] LABS: Blood Urea Nitrogen 35 mg/dL (8-23); Calcium 8.9 mg/dL (8.6-10.4); Carbon Dioxide 24 mmol/L (22-30); Chloride 109 mmol/L (96-108); Glomerular Filtration Rate 78; Glucose 122 mg/dL (70-105)
--- NOTE | 2021-07-06 13:08 | Internal Med Progress Note ---
SUBJECTIVE Subjective Patient information: Note initiated : 07/06/21 at 1:00 pm Service Date, if different from initiated Date: [] Patient: Giuliana Moreno a 86 y/o F admitted on 07/04/21 for UTI/dehydration. Chief Complaint: [] Principal diagnosis: UTI Interval history: Ms. Moreno is a 86 year old F history of dementia, T2DM, recurrently UTI, frequent falls, residential resident, p/w 3 day history of increasing lethargy and a ltered mental status, according to SNF staffs. Last prior similar episode was 4 months ago. Vital signs at ED presentation significant tachycardia with HR in the 120s bpm, with rest of the vital signs within normal limits. Labs significant for leukocytosis with WBC 18.2, serum sodium 155, BUN 72, serum Cr level 1.2 UA suggestive of presence of UTI. CT head w/o no signs of acute ischemia. 07/05: Afebrile overnight. Blood and urine cultures no growth to date. Serum sodium level 157. Still on D5W@70cc/hr as well as Rocephin. Lethargic and currently sleeping. 07/06: Afebrile overnight. WBC 18.8-->19.9. Urine culture: E coli and Aerococcus urinae; blood culture no growth to date. Serum sodium level 150. Still on D5W@70cc/hr. Will switch from Rocephin to Zosyn. Denies any pain or discomfort. Denies any fever, chills, or sweating. Constitutional Vitals: Vital Signs Temp Pulse Resp BP Pulse Ox 97.3 F 84 12 83/57 93 07/06/21 12:00 07/06/21 12:00 07/06/21 12:00 07/06/21 12:00 07/06/21 12:00 Period Temp Pulse Resp BP Sys/Desouza Pulse Ox Last 24 Hr 97 F-97.7 F 74-111 12-20 81-101/52-61 93-98 Intake and Output 07/05/21 07/06/21 07/06/21 21:59 05:59 13:59 Intake Total 260 1120 410 Output Total 150 125 Balance 110 1120 285 Weight 40.46 kg 40.46 kg Patient Weight 07/07/21 05:59 Weight 40.46 kg Intake & Output: Intake & Output 07/05/21 07/06/21 07/06/21 21:59 05:59 13:59 Intake Total 260 1120 410 Output Total 150 125 Balance 110 1120 285 Weight 40.46 kg 40.46 kg Intake: IV 260 1000 50 Dextrose 5% in Water 1,000 ml @ 1000 70 mls/hr IV .[id number] [facility] Rx#: [id number] Zosyn 3.375 gm In Dextrose 5% 50 in Water 50 ml @ 100 mls/hr IV Q8H [facility] Rx#:[id number] Potassium Chloride 20 Meq In 260 Dextrose 5% in Water 250 ml @ 130 mls/hr IV ONCE ONE Rx#: [id number] Oral 120 360 Output: Urine Catheter Amount 150 125 Other: Meal Lunch Percent of Meal Consumed boost Urine Appearance Cloudy Cloudy Sediment Sediment Uretheral ([place]) Cloudy Sediment Urine Color Tea Colored Tea Colored Dark Yellow Uretheral ([place]) Tea Colored Urine Odor Strong Strong Uretheral ([place]) Strong Stool Size Small Stool Color Brown Stool Consistency Loose # of times incontinent of 1 Bowels Exam: General: Alert, Awake, No acute Distress Eyes/N/T: EOMI, Head/Neck: neck supple, CV: RRR, No murmurs, Pulm: Clear b/l, no wheezing/rhonchi/rales Abd: soft, nontender, +BS x4, [place] catheter in place Ext: no clubbing/cyanosis/edema Neuro: Alert, no focal deficits, moves all extremities, Skin: warm/dry OBJ DATA Labs CBC & Chem 7: 07/06/21 03:37 07/06/21 10:30 Labs: Abnormal Lab Results 07/06/21 07/06/21 07/06/21 10:30 03:37 03:37 WBC 19.9 H Hct MCV MCHC 29.6 L MPV 11.4 H Neut % (Auto) Lymph % (Auto) 14.9 L Lymph # (Auto) [place] # (Auto) 1.36 H Absolute Neutrophils 15.22 H VBG Lactic Acid Sodium 150 H Potassium Chloride 109 H 112 H Carbon Dioxide 31 H Anion Gap 7.0 L BUN 35 H 39 H Creatinine Glucose 122 H Hemoglobin A1c Calcium 8.5 L Phosphorus 2.3 L Alkaline Phosphatase Albumin 2.5 L Globulin 3.9 H Albumin/Globulin Ratio 0.6 L Procalcitonin Urine Appearance Urine Protein Urine Ketones Ur Leukocyte Esterase Urine RBC Urine WBC Ur Transition Epith Cell Urine Bacteria Hyaline Casts Urine Mucus 07/05/21 07/05/21 07/05/21 20:07 13:50 13:49 WBC Hct MCV MCHC MPV Neut % (Auto) Lymph % (Auto) Lymph # (Auto) [place] # (Auto) Absolute Neutrophils VBG Lactic Acid 2.7 H Sodium 148 H 152 H Potassium 3.2 L Chloride 113 H 115 H Carbon Dioxide Anion Gap BUN 47 H 56 H Creatinine Glucose 107 H 130 H Hemoglobin A1c Calcium Phosphorus Alkaline Phosphatase Albumin Globulin Albumin/Globulin Ratio Procalcitonin Urine Appearance Urine Protein Urine Ketones Ur Leukocyte Esterase Urine RBC Urine WBC Ur Transition Epith Cell Urine Bacteria Hyaline Casts Urine Mucus 07/05/21 07/05/21 07/04/21 09:12 07:15 20:55 WBC 18.8 H Hct 45.1 H MCV 100.4 H MCHC 30.2 L MPV 10.6 H Neut % (Auto) 84.3 H Lymph % (Auto) 9.9 L Lymph # (Auto) [place] # (Auto) 1.02 H Absolute Neutrophils 15.82 H VBG Lactic Acid Sodium 157 H Potassium Chloride 117 H Carbon Dioxide Anion Gap 17.0 H BUN 62 H Creatinine Glucose 303 H Hemoglobin A1c Calcium Phosphorus Alkaline Phosphatase 135 H Albumin 3.0 L Globulin 4.0 H Albumin/Globulin Ratio 0.8 L Procalcitonin 0.21 H Urine Appearance Urine Protein Urine Ketones Ur Leukocyte Esterase Urine RBC Urine WBC Ur Transition Epith Cell Urine Bacteria Hyaline Casts Urine Mucus 07/04/21 07/04/21 07/04/21 20:55 15:29 12:12 WBC Hct MCV MCHC MPV Neut % (Auto) Lymph % (Auto) Lymph # (Auto) [place] # (Auto) Absolute Neutrophils VBG Lactic Acid 2.2 H Sodium 155 H Potassium Chloride 115 H Carbon Dioxide Anion Gap BUN 70 H Creatinine Glucose 233 H Hemoglobin A1c 7.7 H Calcium Phosphorus Alkaline Phosphatase Albumin Globulin Albumin/Globulin Ratio Procalcitonin Urine Appearance Turbid A Urine Protein 100 A Urine Ketones 20 A Ur Leukocyte Esterase 500 A Urine RBC > 182 H Urine WBC > 182 H Ur Transition Epith Cell 4 H Urine Bacteria Mod A Hyaline Casts 72 H Urine Mucus Many A 07/04/21 07/04/21 12:08 12:08 WBC 18.2 H Hct MCV MCHC 30.5 L MPV 10.5 H Neut % (Auto) 83.9 H Lymph % (Auto) 7.8 L Lymph # (Auto) 1.42 L [place] # (Auto) 1.44 H Absolute Neutrophils 15.31 H VBG Lactic Acid Sodium 155 H Potassium Chloride 114 H Carbon Dioxide Anion Gap BUN 72 H Creatinine 1.2 H Glucose 218 H Hemoglobin A1c Calcium Phosphorus Alkaline Phosphatase 130 H Albumin 2.9 L Globulin 4.5 H Albumin/Globulin Ratio 0.6 L Procalcitonin Urine Appearance Urine Protein Urine Ketones Ur Leukocyte Esterase Urine RBC Urine WBC Ur Transition Epith Cell Urine Bacteria Hyaline Casts Urine Mucus Meds: Medications Acetaminophen (Acetaminophen 325 Mg Tablet) 650 mg PO Q8HP PRN PRN Reason: PAIN/FEVER > 101 Hydrocodone Bitart/Acetaminophen (Hydrocodone/Apap 5/325mg Tablet) 1 tab PO Q4HP PRN; Protocol PRN Reason: Per Pain Protocol Albuterol/Ipratropium (Ipratropium/Albuterol 3 Ml Ampul.Neb) 3 ml NEB Q4HRT PRN PRN Reason: Wheezing Bisacodyl (Bisacodyl 10 Mg Supp.Rect) 10 mg [place] DAILYP PRN PRN Reason: Constipation Calcium/Vitamin D (Calcium W/Vit D3 500 Mg Tablet) 500 mg PO DAILY [facility] Last Admin: 07/06/21 08:35 Dose: 500 mg Documented by: Dextrose (Dextrose 50% 50 Ml Vial) 0 ml IV UD PRN PRN Reason: Hypoglycemia Diagnostic Test (Pha) (Accu-Chek 1 Each Strip) 1 each FS ACHS [facility] Last Admin: 07/06/21 11:10 Dose: 1 each Documented by: Docusate Sodium (Docusate Sodium 100 Mg Capsule) 100 mg PO DAILY [facility] Last Admin: 07/06/21 08:36 Dose: Not Given Documented by: Gabapentin (Gabapentin 100 Mg Capsule) 100 mg PO TID [facility] Last Admin: 07/06/21 08:36 Dose: 100 mg Documented by: Glucose (Dextrose 31 Gm Oral.Susp) 15 gm PO PRN PRN PRN Reason: Hypoglycemia Heparin Sodium (Porcine) (Heparin 5,000 Unit/Ml Vial) 5,000 unit SQ Q12 [facility] Last Admin: 07/06/21 08:35 Dose: 5,000 unit Documented by: Dextrose (Dextrose 5% In Water) 1,000 mls @ 70 mls/hr IV .[id number] [facility] Last Admin: 07/06/21 01:16 Dose: 70 mls/hr Documented by: Piperacillin Sod/Tazobactam (Sod 3.375 gm/ Dextrose) 50 mls @ 100 mls/hr IV Q8H [facility]; Protocol Last Infusion: 07/06/21 11:18 Dose: Infused Documented by: Ibuprofen (Ibuprofen 200 Mg Tablet) 200 mg PO QIDP PRN; Protocol PRN Reason: Pain/Fever > 101 Insulin Glargine (Insulin Glargine, Human 1 Unit/0.01 Ml) 10 unit SQ BID@,1999 [facility] Last Admin: 07/06/21 08:34 Dose: 10 unit Documented by: Insulin Human Lispro (Insulin Lispro 1 Unit/0.01 Ml Unit) 0 unit SQ [facility]; Protocol Last Admin: 07/06/21 11:10 Dose: Not Given Documented by: Lidocaine (Lidocaine Patch) 1 patch TOPICAL [facility] Last Admin: 07/05/21 21:57 Dose: 1 patch Documented by: Melatonin (Melatonin 3 Mg Tablet) 3 mg PO [facility] Last Admin: 07/05/21 21:57 Dose: Not Given Documented by: Methocarbamol (Methocarbamol 500 Mg Tablet) 500 mg PO QIDP PRN PRN Reason: Muscle Spasm Mupirocin (Mupirocin Oint 2% 22gm) 1 dose NARES BID [facility] Last Admin: 07/06/21 08:36 Dose: 1 dose Documented by: Ondansetron HCl (Ondansetron 4 Mg/2 Ml Vial) 4 mg IV Q6HP PRN PRN Reason: Nausea And Vomiting Pantoprazole Sodium (Pantoprazole 40 Mg Tablet) 40 mg PO [facility] Last Admin: 07/05/21 21:56 Dose: 40 mg Documented by: Polyethylene Glycol (Polyethylene Glycol 3350 17 Gm Packet) 17 gm PO DAILYP PRN PRN Reason: constipation Risperidone (Risperidone 0.25 Mg Tablet) 0.5 mg PO BID [facility] Last Admin: 07/06/21 08:35 Dose: 0.5 mg Documented by: Senna (Sennosides 1 Tablet) 1 tab PO [facility] Last Admin: 07/05/21 21:58 Dose: Not Given Documented by: Senna/Docusate Sodium (Sennosides/Docusate Sodium 1 Tab Tablet) 1 tab PO QHS [facility] Last Admin: 07/05/21 21:58 Dose: Not Given Documented by: Sodium Chloride (0.9 % Sodium Chloride 10 Ml Syringe) 10 ml IV Q8 [facility] Last Admin: 07/06/21 05:08 Dose: Not Given Documented by: Tamsulosin HCl (Tamsulosin 0.4 Mg Capsule) 0.4 mg PO QHS [facility] Last Admin: 07/05/21 21:57 Dose: 0.4 mg Documented by: A/P Narrative A/P Narrative: A: *UTI(E coli and Aerococcus urinae) w/Sepsis & Delirium: -Blood culture X2, no growth to date *Hypernatremia with unknown chronicity: -improving *T2DM: -A1c 7.7 *MICHAEL: resolved *Dementia: Risperidone P: -Switched from Rocephin to Zosyn given elevating WBC -d5w to 1/2NS -lantus 10 bid and SSI -pt/ot -ppx: Heparin / ppi Code status: No chest compression Time Spent With Patient Time: Total time spent is greater than 50% in coordination of care (as documented) at patient's floor/unit and/or counseling patient:
[2021-07-06] MEDS ORDERED: CHLORHEXIDINE GLUCONATE 473 ML BOTTLE TOPICAL SCH (13:15)
[2021-07-06] MEDS: 0.45 % SODIUM CHLORIDE 1,000 ML IV SCH (14:39)
[2021-07-06 15:40] LABS: Band Neutrophils % 4 % (0-10); Eosinophils % (Manual) 3 % (0-7); Lymphocytes % 11 % (15-49); Monocytes % (Manual) 5 % (1-12); Platelet Estimate NORMAL (Normal); RBC Morphology NORMAL (Normal); Segmented Neutrophils % 77 % (38-78)
[2021-07-06 15:55] LABS: Blood Urea Nitrogen 31 mg/dL (8-23); Calcium 8.3 mg/dL (8.6-10.4); Carbon Dioxide 23 mmol/L (22-30); Chloride 108 mmol/L (96-108); Glomerular Filtration Rate 82; Glucose 178 mg/dL (70-105)
[2021-07-06] MEDS: LIDOCAINE PATCH TOPICAL SCH (21:30)
[2021-07-06] MEDS: PANTOPRAZOLE 40 MG TABLET PO SCH (21:32)
[2021-07-06] MEDS: MELATONIN 3 MG TABLET PO SCH (21:32)
[2021-07-06] MEDS: TAMSULOSIN 0.4 MG CAPSULE PO SCH (21:32)
[2021-07-06] MEDS: SENNOSIDES/DOCUSATE SODIUM 1 TAB TABLET PO SCH (21:33)
[2021-07-06] MEDS: SENNOSIDES 1 TABLET PO SCH (21:33)
[2021-07-06 23:27] LABS: Blood Urea Nitrogen 27 mg/dL (8-23); Calcium 8.2 mg/dL (8.6-10.4); Carbon Dioxide 25 mmol/L (22-30); Chloride 106 mmol/L (96-108); Glomerular Filtration Rate 82; Glucose 193 mg/dL (70-105)
[2021-07-07] MEDS: 0.9 % SODIUM CHLORIDE 10 ML SYRINGE IV SCH ×4 (06:02→22:03)
[2021-07-07] MEDS: PIPERACILLIN SODIUM/TAZOBACTAM 3.375 GM in DEXTROSE 5% IN WATER 50 ML IV SCH ×3 (06:02→22:13)
[2021-07-07 07:08] LABS: Hemoglobin 10.1 g/dL (11.2-15.7); Mean Corpuscular HGB Conc 29.7 g/dL (31.0-36.0); Mean Platelet Volume 10.8 fL (7.4-10.4); Platelet Count 234 K/mcL (140-440); WBC 23.7 K/mcL (4.5-11.0)
[2021-07-07] MEDS: INSULIN LISPRO 1 UNIT/0.01 ML UNIT SQ SCH ×4 (07:43→21:58)
[2021-07-07] MEDS: INSULIN GLARGINE, HUMAN 1 UNIT/0.01 ML SQ SCH (07:43)
--- NOTE | 2021-07-07 07:57 | Internal Med Progress Note ---
SUBJECTIVE Subjective Patient information: Note initiated : 07/07/21 at 7:47 am Service Date, if different from initiated Date: [] Patient: Giuliana Moreno a 86 y/o F admitted on 07/04/21 for UTI/dehydration. Chief Complaint: [] Principal diagnosis: UTI Interval history: Ms. Moreno is a 86 year old F history of dementia, T2DM, recurrently UTI, frequent falls, long-term resident, p/w 3 day history of increasing lethargy and a ltered mental status, according to SNF staffs. Last prior similar episode was 4 months ago. Vital signs at ED presentation significant tachycardia with HR in the 120s bpm, with rest of the vital signs within normal limits. Labs significant for leukocytosis with WBC 18.2, serum sodium 155, BUN 72, serum Cr level 1.2 UA suggestive of presence of UTI. CT head w/o no signs of acute ischemia. 07/05: Afebrile overnight. Blood and urine cultures no growth to date. Serum sodium level 157. Still on D5W@70cc/hr as well as Rocephin. Lethargic and currently sleeping. 07/06: Afebrile overnight. WBC 18.8-->19.9. Urine culture: E coli and Aerococcus urinae; blood culture no growth to date. Serum sodium level 150. Still on D5W@70cc/hr. Will switch from Rocephin to Zosyn. Denies any pain or discomfort. Denies any fever, chills, or sweating. 07/07 Patient states she slept well. No new complaints. Her white blood cell count is increasing however up to 23.7 today. Hypoglycemic this morning. Cut basal insulin in half to 5 twice daily, hold this morning. CT chest abdomen pelvis rule out other source of infection, pending procalcitonin. Review of Systems: denies headache/fever/chills/nausea/vomiting/chest or abdominal pain/cough/dyspnea/diarrhea. Otherwise see above. Constitutional Vitals: Vital Signs Temp Pulse Resp BP Pulse Ox 97.2 F 99 H 16 110/67 96 07/07/21 06:56 07/07/21 06:56 07/07/21 06:56 07/07/21 06:56 07/07/21 06:56 Period Temp Pulse Resp BP Sys/Desouza Pulse Ox Last 24 Hr 97.2 F-98.6 F 80-109 12- 80-110/47-67 92-96 Intake and Output 07/06/21 07/07/21 07/07/21 21:59 05:59 13:59 Intake Total 950 50 50 Output Total 350 500 Balance 600 -450 50 Weight 40.778 kg Intake & Output: Intake & Output 07/06/21 07/07/21 07/07/21 21:59 05:59 13:59 Intake Total 950 50 50 Output Total 350 500 Balance 600 -450 50 Weight 40.778 kg Intake: IV 950 50 50 Dextrose 5% in Water 1,000 ml @ 900 70 mls/hr IV .[id number] [facility] Rx#: [id number] Zosyn 3.375 gm In Dextrose 5% 50 50 50 in Water 50 ml @ 100 mls/hr IV Q8H [facility] Rx#:[id number] Output: Urine Catheter Amount 350 500 Other: Urine Appearance Clear Uretheral ([place]) Cloudy Sediment Urine Color Dark Yellow Dark Yellow Uretheral ([place]) Dark Yellow Urine Odor Strong Uretheral ([place]) Strong Exam: General: Alert, Awake, No acute Distress Eyes/N/T: EOMI, Head/Neck: neck supple, CV: RRR, No murmurs, Pulm: Clear b/l, no wheezing/rhonchi/rales Abd: soft, nontender, +BS x4, [place] catheter in place Ext: no clubbing/cyanosis/edema Neuro: Alert, no focal deficits, moves all extremities, Skin: warm/dry OBJ DATA Labs CBC & Chem 7: 07/07/21 06:00 07/07/21 06:00 Labs: Abnormal Lab Results 07/07/21 07/06/21 07/06/21 06:00 20:45 14:10 WBC 23.7 H RBC 3.40 L Hgb 10.1 L Hct 34.0 L MCV MCHC 29.7 L MPV 10.8 H Neut % (Auto) Lymph % (Auto) Lymph # (Auto) Williamson # (Auto) Lymphocytes % Absolute Neutrophils VBG Lactic Acid Sodium Potassium Chloride Carbon Dioxide Anion Gap BUN 27 H 31 H Creatinine Glucose 193 H 178 H Hemoglobin A1c Calcium 8.2 L 8.3 L Phosphorus Alkaline Phosphatase Albumin Globulin Albumin/Globulin Ratio Procalcitonin Urine Appearance Urine Protein Urine Ketones Ur Leukocyte Esterase Urine RBC Urine WBC Ur Transition Epith Cell Urine Bacteria Hyaline Casts Urine Mucus 07/06/21 07/06/21 07/06/21 13:29 10:30 10:30 WBC RBC Hgb Hct MCV MCHC MPV Neut % (Auto) Lymph % (Auto) Lymph # (Auto) Williamson # (Auto) Lymphocytes % 11 L Absolute Neutrophils VBG Lactic Acid Sodium Potassium Chloride 109 H Carbon Dioxide Anion Gap BUN 35 H Creatinine Glucose 122 H Hemoglobin A1c Calcium Phosphorus Alkaline Phosphatase Albumin Globulin Albumin/Globulin Ratio Procalcitonin 0.14 H Urine Appearance Urine Protein Urine Ketones Ur Leukocyte Esterase Urine RBC Urine WBC Ur Transition Epith Cell Urine Bacteria Hyaline Casts Urine Mucus 07/06/21 07/06/21 07/05/21 03:37 03:37 20:07 WBC 19.9 H RBC Hgb Hct MCV MCHC 29.6 L MPV 11.4 H Neut % (Auto) Lymph % (Auto) 14.9 L Lymph # (Auto) Williamson # (Auto) 1.36 H Lymphocytes % Absolute Neutrophils 15.22 H VBG Lactic Acid Sodium 150 H 148 H Potassium Chloride 112 H 113 H Carbon Dioxide 31 H Anion Gap 7.0 L BUN 39 H 47 H Creatinine Glucose 107 H Hemoglobin A1c Calcium 8.5 L Phosphorus 2.3 L Alkaline Phosphatase Albumin 2.5 L Globulin 3.9 H Albumin/Globulin Ratio 0.6 L Procalcitonin Urine Appearance Urine Protein Urine Ketones Ur Leukocyte Esterase Urine RBC Urine WBC Ur Transition Epith Cell Urine Bacteria Hyaline Casts Urine Mucus 07/05/21 07/05/21 07/05/21 13:50 13:49 09:12 WBC 18.8 H RBC Hgb Hct 45.1 H MCV 100.4 H MCHC 30.2 L MPV 10.6 H Neut % (Auto) 84.3 H Lymph % (Auto) 9.9 L Lymph # (Auto) Williamson # (Auto) 1.02 H Lymphocytes % Absolute Neutrophils 15.82 H VBG Lactic Acid 2.7 H Sodium 152 H Potassium 3.2 L Chloride 115 H Carbon Dioxide Anion Gap BUN 56 H Creatinine Glucose 130 H Hemoglobin A1c Calcium Phosphorus Alkaline Phosphatase Albumin Globulin Albumin/Globulin Ratio Procalcitonin Urine Appearance Urine Protein Urine Ketones Ur Leukocyte Esterase Urine RBC Urine WBC Ur Transition Epith Cell Urine Bacteria Hyaline Casts Urine Mucus 07/05/21 07/04/21 07/04/21 07:15 20:55 20:55 WBC RBC Hgb Hct MCV MCHC MPV Neut % (Auto) Lymph % (Auto) Lymph # (Auto) Williamson # (Auto) Lymphocytes % Absolute Neutrophils VBG Lactic Acid Sodium 157 H 155 H Potassium Chloride 117 H 115 H Carbon Dioxide Anion Gap 17.0 H BUN 62 H 70 H Creatinine Glucose 303 H 233 H Hemoglobin A1c 7.7 H Calcium Phosphorus Alkaline Phosphatase 135 H Albumin 3.0 L Globulin 4.0 H Albumin/Globulin Ratio 0.8 L Procalcitonin 0.21 H Urine Appearance Urine Protein Urine Ketones Ur Leukocyte Esterase Urine RBC Urine WBC Ur Transition Epith Cell Urine Bacteria Hyaline Casts Urine Mucus 07/04/21 07/04/21 07/04/21 15:29 12:12 12:08 WBC RBC Hgb Hct MCV MCHC MPV Neut % (Auto) Lymph % (Auto) Lymph # (Auto) Williamson # (Auto) Lymphocytes % Absolute Neutrophils VBG Lactic Acid 2.2 H Sodium 155 H Potassium Chloride 114 H Carbon Dioxide Anion Gap BUN 72 H Creatinine 1.2 H Glucose 218 H Hemoglobin A1c Calcium Phosphorus Alkaline Phosphatase 130 H Albumin 2.9 L Globulin 4.5 H Albumin/Globulin Ratio 0.6 L Procalcitonin Urine Appearance Turbid A Urine Protein 100 A Urine Ketones 20 A Ur Leukocyte Esterase 500 A Urine RBC > 182 H Urine WBC > 182 H Ur Transition Epith Cell 4 H Urine Bacteria Mod A Hyaline Casts 72 H Urine Mucus Many A 07/04/21 12:08 WBC 18.2 H RBC Hgb Hct MCV MCHC 30.5 L MPV 10.5 H Neut % (Auto) 83.9 H Lymph % (Auto) 7.8 L Lymph # (Auto) 1.42 L Williamson # (Auto) 1.44 H Lymphocytes % Absolute Neutrophils 15.31 H VBG Lactic Acid Sodium Potassium Chloride Carbon Dioxide Anion Gap BUN Creatinine Glucose Hemoglobin A1c Calcium Phosphorus Alkaline Phosphatase Albumin Globulin Albumin/Globulin Ratio Procalcitonin Urine Appearance Urine Protein Urine Ketones Ur Leukocyte Esterase Urine RBC Urine WBC Ur Transition Epith Cell Urine Bacteria Hyaline Casts Urine Mucus Meds: Medications Acetaminophen (Acetaminophen 325 Mg Tablet) 650 mg PO Q8HP PRN PRN Reason: PAIN/FEVER > 101 Hydrocodone Bitart/Acetaminophen (Hydrocodone/Apap 5/325mg Tablet) 1 tab PO Q4HP PRN; Protocol PRN Reason: Per Pain Protocol Albuterol/Ipratropium (Ipratropium/Albuterol 3 Ml Ampul.Neb) 3 ml NEB Q4HRT PRN PRN Reason: Wheezing Bisacodyl (Bisacodyl 10 Mg Supp.Rect) 10 mg [place] DAILYP PRN PRN Reason: Constipation Calcium/Vitamin D (Calcium W/Vit D3 500 Mg Tablet) 500 mg PO DAILY [facility] Last Admin: 07/06/21 08:35 Dose: 500 mg Documented by: Chlorhexidine Gluconate (Chlorhexidine Gluconate 473 Ml Bottle) 60 ml TOPICAL UD [facility] Dextrose (Dextrose 50% 50 Ml Vial) 0 ml IV UD PRN PRN Reason: Hypoglycemia Diagnostic Test (Pha) (Accu-Chek 1 Each Strip) 1 each FS ACHS [facility] Last Admin: 07/07/21 07:41 Dose: 1 each Documented by: Docusate Sodium (Docusate Sodium 100 Mg Capsule) 100 mg PO DAILY [facility] Last Admin: 07/06/21 08:36 Dose: Not Given Documented by: Gabapentin (Gabapentin 100 Mg Capsule) 100 mg PO TID [facility] Last Admin: 07/06/21 21:32 Dose: 100 mg Documented by: Glucose (Dextrose 31 Gm Oral.Susp) 15 gm PO PRN PRN PRN Reason: Hypoglycemia Heparin Sodium (Porcine) (Heparin 5,000 Unit/Ml Vial) 5,000 unit SQ Q12 [facility] Last Admin: 07/06/21 21:32 Dose: 5,000 unit Documented by: Piperacillin Sod/Tazobactam (Sod 3.375 gm/ Dextrose) 50 mls @ 100 mls/hr IV Q8H [facility]; Protocol Last Infusion: 07/07/21 06:33 Dose: Infused Documented by: Sodium Chloride (Sodium Chloride 0.45%) 1,000 mls @ 50 mls/hr IV .Q20H [facility] Last Admin: 07/06/21 14:39 Dose: 50 mls/hr Documented by: Ibuprofen (Ibuprofen 200 Mg Tablet) 200 mg PO QIDP PRN; Protocol PRN Reason: Pain/Fever > 101 Insulin Glargine (Insulin Glargine, Human 1 Unit/0.01 Ml) 10 unit SQ BID@0800,2000 [facility] Last Admin: 07/07/21 07:43 Dose: Not Given Documented by: Insulin Human Lispro (Insulin Lispro 1 Unit/0.01 Ml Unit) 0 unit SQ ACHS [facility]; Protocol Last Admin: 07/07/21 07:43 Dose: Not Given Documented by: Lidocaine (Lidocaine Patch) 1 patch TOPICAL [facility] Last Admin: 07/06/21 21:30 Dose: 1 patch Documented by: Melatonin (Melatonin 3 Mg Tablet) 3 mg PO [facility] Last Admin: 07/06/21 21:32 Dose: 3 mg Documented by: Methocarbamol (Methocarbamol 500 Mg Tablet) 500 mg PO QIDP PRN PRN Reason: Muscle Spasm Mupirocin (Mupirocin Oint 2% 22gm) 1 dose NARES BID [facility] Last Admin: 07/06/21 21:31 Dose: 1 dose Documented by: Ondansetron HCl (Ondansetron 4 Mg/2 Ml Vial) 4 mg IV Q6HP PRN PRN Reason: Nausea And Vomiting Pantoprazole Sodium (Pantoprazole 40 Mg Tablet) 40 mg PO [facility] Last Admin: 07/06/21 21:32 Dose: 40 mg Documented by: Polyethylene Glycol (Polyethylene Glycol 3350 17 Gm Packet) 17 gm PO DAILYP PRN PRN Reason: constipation Risperidone (Risperidone 0.25 Mg Tablet) 0.5 mg PO BID [facility] Last Admin: 07/06/21 21:32 Dose: 0.5 mg Documented by: Senna (Sennosides 1 Tablet) 1 tab PO [facility] Last Admin: 07/06/21 21:33 Dose: Not Given Documented by: Senna/Docusate Sodium (Sennosides/Docusate Sodium 1 Tab Tablet) 1 tab PO [facility] Last Admin: 07/06/21 21:33 Dose: Not Given Documented by: Sodium Chloride (0.9 % Sodium Chloride 10 Ml Syringe) 10 ml IV Q8 [facility] Last Admin: 07/07/21 06:02 Dose: Not Given Documented by: Tamsulosin HCl (Tamsulosin 0.4 Mg Capsule) 0.4 mg PO QHS [facility] Last Admin: 07/06/21 21:32 Dose: 0.4 mg Documented by: A/P Narrative A/P Narrative: A: *UTI(E coli and Aerococcus urinae) w/Sepsis & Delirium: -Blood culture X2, no growth to date *SIRS: -leukocytosis worsening (23<<<18), no bandemia, afebrile, BC neg, pct low *Hypernatremia with unknown chronicity: -improved *T2DM: hypoglycemia this morning -A1c 7.7 *MICHAEL: resolved *Dementia, likely vascular: Risperidone *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
[2021-07-07 07:58] LABS: ALT/SGPT 11 U/L (<40); AST/SGOT 16 U/L (<32); Albumin 2.2 gm/dL (3.2-5.2); Albumin/Globulin Ratio 0.6 (1.0-2.3); Alkaline Phosphatase 111 U/L (39-117); Bilirubin,Direct < 0.2 mg/dL (0-0.3); Bilirubin,Total 0.4 mg/dL (0.1-1.0); Blood Urea Nitrogen 22 mg/dL (8-23); Calcium 8.3 mg/dL (8.6-10.4); Carbon Dioxide 25 mmol/L (22-30); Chloride 110 mmol/L (96-108); Globulin 3.7 gm/dL (2.2-3.7); Glomerular Filtration Rate 82; Glucose 36 mg/dL (70-105); Lactate Dehydrogenase 170 U/L (135-225); Phosphorous 3.5 mg/dL (2.5-4.5); Triglycerides 64 mg/dL (<150); Uric Acid 3.3 mg/dL (2.5-8.0)
[2021-07-07] MEDS ORDERED: INSULIN GLARGINE, HUMAN 1 UNIT/0.01 ML SQ SCH (08:00)
[2021-07-07 08:21] LABS: Band Neutrophils % 3 % (0-10); Hypochromasia 1+ (None Seen); Lymphocytes % 9 % (15-49); Metamyelocytes % 1 %; Monocytes % (Manual) 5 % (1-12); Myelocytes % 1 %; Platelet Estimate NORMAL (Normal); RBC Morphology ABNORMAL (Normal); Segmented Neutrophils % 81 % (38-78)
[2021-07-07] MEDS: HEPARIN 5,000 UNIT/ML VIAL SQ SCH ×2 (09:05→21:59)
[2021-07-07] MEDS: DOCUSATE SODIUM 100 MG CAPSULE PO SCH ×2 (09:05→09:18)
[2021-07-07] MEDS: CALCIUM W/VIT D3 500 MG TABLET PO SCH (09:05)
[2021-07-07] MEDS: GABAPENTIN 100 MG CAPSULE PO SCH ×3 (09:05→22:00)
[2021-07-07] MEDS: risperiDONE 0.25 MG TABLET PO SCH ×2 (09:06→22:01)
[2021-07-07] MEDS: MUPIROCIN OINT 2% 22GM NARES SCH ×2 (09:06→22:02)
[2021-07-07] MEDS: 0.45 % SODIUM CHLORIDE 1,000 ML IV SCH (11:08)
[2021-07-07] MEDS ORDERED: LACTATED RINGERS 500 ML IV SCH (11:30)
[2021-07-07] MEDS: PANTOPRAZOLE 40 MG TABLET PO SCH (22:00)
[2021-07-07] MEDS: TAMSULOSIN 0.4 MG CAPSULE PO SCH (22:00)
[2021-07-07] MEDS: MELATONIN 3 MG TABLET PO SCH (22:00)
[2021-07-07] MEDS: LIDOCAINE PATCH TOPICAL SCH (22:01)
[2021-07-07] MEDS: SENNOSIDES 1 TABLET PO SCH (22:01)
[2021-07-07] MEDS: SENNOSIDES/DOCUSATE SODIUM 1 TAB TABLET PO SCH (22:01)
[2021-07-08] MEDS: PIPERACILLIN SODIUM/TAZOBACTAM 3.375 GM in DEXTROSE 5% IN WATER 50 ML IV SCH ×3 (05:52→22:42)
[2021-07-08] MEDS: 0.9 % SODIUM CHLORIDE 10 ML SYRINGE IV SCH ×5 (05:53→22:30)
[2021-07-08 06:37] LABS: Basophils # (Auto) 0.04 K/mcL (0.00-0.30); Basophils % (Auto) 0.2 % (0.0-2.0); Eosinophils # (Auto) 0.18 K/mcL (0.00-0.70); Eosinophils % (Auto) 0.9 % (0.0-7.0); Hematocrit 33.1 % (34.1-44.9); Hemoglobin 10.3 g/dL (11.2-15.7); Lymphocytes # (Auto) 2.06 K/mcL (1.50-4.80); Lymphocytes % (Auto) 9.8 % (15.5-49.0); Mean Cell Volume 95.9 fL (80.0-100.0); Mean Corpuscular HGB Conc 31.1 g/dL (31.0-36.0); Mean Platelet Volume 11.3 fL (7.4-10.4); Monocytes % (Auto) 6.2 % (1.0-12.0); Neutrophils % (Auto) 82.9 % (38.0-78.0); Platelet Count 208 K/mcL (140-440); RBC 3.45 M/mcL (3.59-5.38); Red Cell Distribution Width 12.7 % (11.5-14.5); WBC 20.9 K/mcL (4.5-11.0)
[2021-07-08 07:07] LABS: Blood Urea Nitrogen 14 mg/dL (8-23); Carbon Dioxide 25 mmol/L (22-30); Chloride 104 mmol/L (96-108); Glomerular Filtration Rate 87; Glucose 147 mg/dL (70-105)
--- NOTE | 2021-07-08 07:31 | Internal Med Progress Note ---
SUBJECTIVE Subjective Patient information: Note initiated : 07/08/21 at 7:24 am Service Date, if different from initiated Date: [] Patient: Giuliana Moreno a 86 y/o F admitted on 07/04/21 for UTI/dehydration. Chief Complaint: [] Principal diagnosis: UTI Interval history: Ms. Moreno is a 86 year old F history of dementia, T2DM, recurrently UTI, frequent falls, half-way resident, p/w 3 day history of increasing lethargy and a ltered mental status, according to SNF staffs. Last prior similar episode was 4 months ago. Vital signs at ED presentation significant tachycardia with HR in the 120s bpm, with rest of the vital signs within normal limits. Labs significant for leukocytosis with WBC 18.2, serum sodium 155, BUN 72, serum Cr level 1.2 UA suggestive of presence of UTI. CT head w/o no signs of acute ischemia. 07/05: Afebrile overnight. Blood and urine cultures no growth to date. Serum sodium level 157. Still on D5W@70cc/hr as well as Rocephin. Lethargic and currently sleeping. 07/06: Afebrile overnight. WBC 18.8-->19.9. Urine culture: E coli and Aerococcus urinae; blood culture no growth to date. Serum sodium level 150. Still on D5W@70cc/hr. Will switch from Rocephin to Zosyn. Denies any pain or discomfort. Denies any fever, chills, or sweating. 07/07 Patient states she slept well. No new complaints. Her white blood cell count is increasing however up to 23.7 today. Hypoglycemic this morning. Cut basal insulin in half to 5 twice daily, hold this morning. CT chest abdomen pelvis rule out other source of infection, pending procalcitonin. 07/08 Patient seems to be feeling well. No overnight event or new complaints. Blood glucose better with decreased Lantus. Pending CT chest abdomen pelvis rule out other source of infection. Leukocytosis mildly improved from yesterday. Peripheral smear unrevealing. Lactic acidosis now resolved. Review of Systems: denies headache/fever/chills/nausea/vomiting/chest or abdominal pain/cough/dyspnea/diarrhea. Otherwise see above. Constitutional Vitals: Vital Signs Temp Pulse Resp BP Pulse Ox 97.8 F 104 H 19 92/57 94 07/08/21 06:54 07/08/21 06:54 07/08/21 06:54 07/08/21 06:54 07/08/21 06:54 Period Temp Pulse Resp BP Sys/Desouza Pulse Ox Last 24 Hr 97.8 F-99.1 F 76-107 16-20 92-143/57-86 94-97 Intake and Output 07/07/21 07/08/21 07/08/21 21:59 05:59 13:59 Intake Total 1030 200 50 Output Total 350 150 Balance 680 50 50 Weight 45.824 kg Intake & Output: Intake & Output 07/07/21 07/08/21 07/08/21 21:59 05:59 13:59 Intake Total 1030 200 50 Output Total 350 150 Balance 680 50 50 Weight 45.824 kg Intake: IV 550 50 50 Lactated Ringers 500 ml @ 250 500 mls/hr IV .Q2H [facility] Rx#: [id number] Zosyn 3.375 gm In Dextrose 5% 50 50 50 in Water 50 ml @ 100 mls/hr IV Q8H [facility] Rx#:[id number] Oral 480 150 Output: Urine Catheter Amount 350 150 Other: Meal Lunch Percent of Meal Consumed 50% Feeding Ability Total Assistance Urine Appearance Cloudy Urine Color Dark Yellow Dark Yellow Urine Odor Strong Strong Stool Size Small Stool Color Brown Stool Consistency Soft Exam: General: Alert, Awake, No acute Distress Eyes/N/T: EOMI, Head/Neck: neck supple, CV: RRR, No murmurs, Pulm: Clear b/l, no wheezing/rhonchi/rales Abd: soft, nontender, +BS x4, [place] catheter in place Ext: no clubbing/cyanosis/edema Neuro: Alert, no focal deficits, moves all extremities, Skin: warm/dry OBJ DATA Labs CBC & Chem 7: 07/08/21 05:41 07/08/21 05:40 Labs: Abnormal Lab Results 07/08/21 07/08/21 07/07/21 05:41 05:40 09:45 WBC 20.9 H RBC 3.45 L Hgb 10.3 L Hct 33.1 L MCV MCHC MPV 11.3 H Neut % (Auto) 82.9 H Lymph % (Auto) 9.8 L [place] # (Auto) 1.30 H Seg Neutrophils % Lymphocytes % Absolute Neutrophils 17.35 H RBC Morphology Hypochromasia VBG Lactic Acid 3.0 H Sodium Potassium Chloride Carbon Dioxide Anion Gap BUN Creatinine 0.5 L Glucose 147 H Calcium 8.0 L Phosphorus Alkaline Phosphatase C-Reactive Protein Albumin Globulin Albumin/Globulin Ratio Procalcitonin 07/07/21 07/07/21 07/07/21 06:00 06:00 06:00 WBC 23.7 H RBC 3.40 L Hgb 10.1 L Hct 34.0 L MCV MCHC 29.7 L MPV 10.8 H Neut % (Auto) Lymph % (Auto) [place] # (Auto) Seg Neutrophils % 81 H Lymphocytes % 9 L Absolute Neutrophils RBC Morphology Abnormal A Hypochromasia 1+ A VBG Lactic Acid Sodium Potassium Chloride Carbon Dioxide Anion Gap BUN Creatinine Glucose Calcium Phosphorus Alkaline Phosphatase C-Reactive Protein 9.00 H Albumin Globulin Albumin/Globulin Ratio Procalcitonin 0.10 H 07/07/21 07/06/21 07/06/21 06:00 20:45 14:10 WBC RBC Hgb Hct MCV MCHC MPV Neut % (Auto) Lymph % (Auto) [place] # (Auto) Seg Neutrophils % Lymphocytes % Absolute Neutrophils RBC Morphology Hypochromasia VBG Lactic Acid Sodium Potassium Chloride 110 H Carbon Dioxide Anion Gap BUN 27 H 31 H Creatinine Glucose 36 L* 193 H 178 H Calcium 8.3 L 8.2 L 8.3 L Phosphorus Alkaline Phosphatase C-Reactive Protein Albumin 2.2 L Globulin Albumin/Globulin Ratio 0.6 L Procalcitonin 07/06/21 07/06/21 07/06/21 13:29 10:30 10:30 WBC RBC Hgb Hct MCV MCHC MPV Neut % (Auto) Lymph % (Auto) [place] # (Auto) Seg Neutrophils % Lymphocytes % 11 L Absolute Neutrophils RBC Morphology Hypochromasia VBG Lactic Acid Sodium Potassium Chloride 109 H Carbon Dioxide Anion Gap BUN 35 H Creatinine Glucose 122 H Calcium Phosphorus Alkaline Phosphatase C-Reactive Protein Albumin Globulin Albumin/Globulin Ratio Procalcitonin 0.14 H 07/06/21 07/06/21 07/05/21 03:37 03:37 20:07 WBC 19.9 H RBC Hgb Hct MCV MCHC 29.6 L MPV 11.4 H Neut % (Auto) Lymph % (Auto) 14.9 L [place] # (Auto) 1.36 H Seg Neutrophils % Lymphocytes % Absolute Neutrophils 15.22 H RBC Morphology Hypochromasia VBG Lactic Acid Sodium 150 H 148 H Potassium Chloride 112 H 113 H Carbon Dioxide 31 H Anion Gap 7.0 L BUN 39 H 47 H Creatinine Glucose 107 H Calcium 8.5 L Phosphorus 2.3 L Alkaline Phosphatase C-Reactive Protein Albumin 2.5 L Globulin 3.9 H Albumin/Globulin Ratio 0.6 L Procalcitonin 07/05/21 07/05/21 07/05/21 13:50 13:49 09:12 WBC 18.8 H RBC Hgb Hct 45.1 H MCV 100.4 H MCHC 30.2 L MPV 10.6 H Neut % (Auto) 84.3 H Lymph % (Auto) 9.9 L [place] # (Auto) 1.02 H Seg Neutrophils % Lymphocytes % Absolute Neutrophils 15.82 H RBC Morphology Hypochromasia VBG Lactic Acid 2.7 H Sodium 152 H Potassium 3.2 L Chloride 115 H Carbon Dioxide Anion Gap BUN 56 H Creatinine Glucose 130 H Calcium Phosphorus Alkaline Phosphatase C-Reactive Protein Albumin Globulin Albumin/Globulin Ratio Procalcitonin 07/05/21 07:15 WBC RBC Hgb Hct MCV MCHC MPV Neut % (Auto) Lymph % (Auto) [place] # (Auto) Seg Neutrophils % Lymphocytes % Absolute Neutrophils RBC Morphology Hypochromasia VBG Lactic Acid Sodium 157 H Potassium Chloride 117 H Carbon Dioxide Anion Gap 17.0 H BUN 62 H Creatinine Glucose 303 H Calcium Phosphorus Alkaline Phosphatase 135 H C-Reactive Protein Albumin 3.0 L Globulin 4.0 H Albumin/Globulin Ratio 0.8 L Procalcitonin Meds: Medications Acetaminophen (Acetaminophen 325 Mg Tablet) 650 mg PO Q8HP PRN PRN Reason: PAIN/FEVER > 101 Hydrocodone Bitart/Acetaminophen (Hydrocodone/Apap 5/325mg Tablet) 1 tab PO Q4HP PRN; Protocol PRN Reason: Per Pain Protocol Albuterol/Ipratropium (Ipratropium/Albuterol 3 Ml Ampul.Neb) 3 ml NEB Q4HRT PRN PRN Reason: Wheezing Bisacodyl (Bisacodyl 10 Mg Supp.Rect) 10 mg [place] DAILYP PRN PRN Reason: Constipation Calcium/Vitamin D (Calcium W/Vit D3 500 Mg Tablet) 500 mg PO DAILY [facility] Last Admin: 07/07/21 09:05 Dose: 500 mg Documented by: Chlorhexidine Gluconate (Chlorhexidine Gluconate 473 Ml Bottle) 60 ml TOPICAL UD [facility] Dextrose (Dextrose 50% 50 Ml Vial) 0 ml IV UD PRN PRN Reason: Hypoglycemia Diagnostic Test (Pha) (Accu-Chek 1 Each Strip) 1 each FS ACHS [facility] Last Admin: 07/07/21 21:59 Dose: 1 each Documented by: Docusate Sodium (Docusate Sodium 100 Mg Capsule) 100 mg PO DAILY [facility] Last Admin: 07/07/21 09:18 Dose: Not Given Documented by: Gabapentin (Gabapentin 100 Mg Capsule) 100 mg PO TID [facility] Last Admin: 07/07/21 22:00 Dose: 100 mg Documented by: Glucose (Dextrose 31 Gm Oral.Susp) 15 gm PO PRN PRN PRN Reason: Hypoglycemia Heparin Sodium (Porcine) (Heparin 5,000 Unit/Ml Vial) 5,000 unit SQ Q12 [facility] Last Admin: 07/07/21 21:59 Dose: 5,000 unit Documented by: Heparin Sodium (Porcine) (Heparin Flush 10 Units/Ml 5 Ml Syringe) 2 ml IV Q12 [facility] Last Admin: 07/07/21 22:02 Dose: Not Given Documented by: Piperacillin Sod/Tazobactam (Sod 3.375 gm/ Dextrose) 50 mls @ 100 mls/hr IV Q8H [facility]; Protocol Last Infusion: 07/08/21 06:28 Dose: Infused Documented by: Sodium Chloride (Sodium Chloride 0.45%) 1,000 mls @ 50 mls/hr IV .Q20H [facility] Last Admin: 07/07/21 11:08 Dose: 50 mls/hr Documented by: Ibuprofen (Ibuprofen 200 Mg Tablet) 200 mg PO QIDP PRN; Protocol PRN Reason: Pain/Fever > 101 Insulin Human Lispro (Insulin Lispro 1 Unit/0.01 Ml Unit) 0 unit SQ ACHS [facility]; Protocol Last Admin: 07/07/21 21:58 Dose: 4 unit Documented by: Lidocaine (Lidocaine Patch) 1 patch TOPICAL HS [facility] Last Admin: 07/07/21 22:01 Dose: 1 patch Documented by: Melatonin (Melatonin 3 Mg Tablet) 3 mg PO HS [facility] Last Admin: 07/07/21 22:00 Dose: 3 mg Documented by: Methocarbamol (Methocarbamol 500 Mg Tablet) 500 mg PO QIDP PRN PRN Reason: Muscle Spasm Mupirocin (Mupirocin Oint 2% 22gm) 1 dose NARES BID [facility] Last Admin: 07/07/21 22:02 Dose: 1 dose Documented by: Ondansetron HCl (Ondansetron 4 Mg/2 Ml Vial) 4 mg IV Q6HP PRN PRN Reason: Nausea And Vomiting Pantoprazole Sodium (Pantoprazole 40 Mg Tablet) 40 mg PO [facility] Last Admin: 07/07/21 22:00 Dose: 40 mg Documented by: Polyethylene Glycol (Polyethylene Glycol 3350 17 Gm Packet) 17 gm PO DAILYP PRN PRN Reason: constipation Risperidone (Risperidone 0.25 Mg Tablet) 0.5 mg PO BID [facility] Last Admin: 07/07/21 22:01 Dose: 0.5 mg Documented by: Senna (Sennosides 1 Tablet) 1 tab PO [facility] Last Admin: 07/07/21 22:01 Dose: Not Given Documented by: Senna/Docusate Sodium (Sennosides/Docusate Sodium 1 Tab Tablet) 1 tab PO QHS [facility] Last Admin: 07/07/21 22:01 Dose: Not Given Documented by: Sodium Chloride (0.9 % Sodium Chloride 10 Ml Syringe) 10 ml IV Q8 [facility] Last Admin: 07/08/21 05:53 Dose: Not Given Documented by: Sodium Chloride (0.9 % Sodium Chloride 10 Ml Syringe) 10 ml IV Q12 [facility] Last Admin: 07/07/21 22:02 Dose: Not Given Documented by: Tamsulosin HCl (Tamsulosin 0.4 Mg Capsule) 0.4 mg PO QHS [facility] Last Admin: 07/07/21 22:00 Dose: 0.4 mg Documented by: A/P Narrative A/P Narrative: A: *UTI(E coli & Aerococcus urinae) w/Sepsis & Delirium: -Blood culture X2, no growth to date *SIRS: -leukocytosis worsened but better today (20<23<<<18), no bandemia, afebrile, BC neg, pct low -peripheral smear unrevealing -lactic acidosis now resolved *Hypernatremia with unknown chronicity: -resolved *T2DM: episodes of hypoglycemia on the lantus 10 bid -A1c 7.7 *MICHAEL: resolved *Dementia, likely vascular: Risperidone *old cva found on CT brain P: -Switched from Rocephin to Zosyn (07/06) given elevating WBC -mrsa screen positive, bacitracin to nares -ct chest/abd/pelvis r/o other source of infection -1/2NS -restart lantus at 5 daily and titrate back up as needed, cont SSI -pt/ot -ppx: Heparin / ppi Code status: No chest compression Time Spent With Patient Time: Total time spent is greater than 50% in coordination of care (as documented) at patient's floor/unit and/or counseling patient:
[2021-07-08] MEDS: risperiDONE 0.25 MG TABLET PO SCH ×2 (08:44→22:27)
[2021-07-08] MEDS: MUPIROCIN OINT 2% 22GM NARES SCH ×2 (08:44→22:26)
[2021-07-08] MEDS: DOCUSATE SODIUM 100 MG CAPSULE PO SCH ×2 (08:44→22:29)
[2021-07-08] MEDS: GABAPENTIN 100 MG CAPSULE PO SCH ×4 (08:44→22:27)
[2021-07-08] MEDS: CALCIUM W/VIT D3 500 MG TABLET PO SCH ×2 (08:44→10:32)
[2021-07-08] MEDS: HEPARIN 5,000 UNIT/ML VIAL SQ SCH ×2 (08:45→22:28)
[2021-07-08] MEDS ORDERED: INSULIN GLARGINE, HUMAN 1 UNIT/0.01 ML SQ SCH (09:00)
[2021-07-08] MEDS ORDERED: IOPAMIDOL 100 ML BOTTLE IV ONE (09:26)
--- NOTE | 2021-07-08 09:43 | Cat Scan Report ---
History: Infection, dehydration TECHNIQUE: Following injection of intravenous nonionic contrast the patient was scanned during the venous phase from the thoracic inlet through the symphysis pubis. Sagittal and coronal images of the chest abdomen and pelvis were obtained along with axial MIPS images of the chest. The radiation exposure was limited using dose reduction technology. FINDINGS: LUNGS: Patient has mild pulmonary fibrosis with a reticular pattern predominantly in a subpleural distribution in both lungs. There are several small calcified granulomata in both lungs. The largest is in the left apex. It is partially calcified and measures 4 x 6 mm. No consolidating infiltrate is present. There is no suspicious mass. No pleural effusion or adenopathy are present. The heart is normal in size and contour. Severe atherosclerotic coronary artery disease is present. Aorta is normal in caliber and has moderate atherosclerosis. Abdomen and pelvis: There is a large retrocardiac hiatus hernia. The stomach contains a moderate amount of fluid but is not overly distended. Small intestine is normal. Patient has fecal impaction in the distal large bowel. The rectum is abnormally distended with fecal material and measures 8.8 x 9.6 cm in transverse dimension. There is no evidence of diverticulosis or inflammation of the bowel wall. No gross tumor is seen in or adjacent to the bowel. The liver and spleen are normal in size and homogeneous. Gallbladder is severely contracted but no calcified stones are present. The wall does not appear abnormally thickened or inflamed. The bile ducts are nondilated. The pancreas is normal without evidence of mass or inflammation. The adrenals and kidneys are normal. Severe atherosclerotic disease is present in the aorta. There are also plaques in the origins of the superior mesenteric and both renal arteries. No mass, ascites or adenopathy are seen within the abdomen or pelvis. There is a moderate amount of urine within the bladder in spite of the presence of an indwelling Campoverde catheter. There is also some gas within the lumen of the bladder due to the Campoverde. Is a Camp[place]de clamped or obstructed? Patient has a scoliotic curvature in the thoracic and lumbar spine due to multiple old compression fractures. The most severe fracture is a concave fracture at the L2 level. Less severe fractures are present from T8 through T12. Is also an old healed fracture of the left ischium and pubic bone. Patient has a left hip prosthesis. 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 No evidence of pneumonia or acute infection within the abdomen or pelvis. Hiatus hernia Severe fecal impaction in the rectum Contracted gallbladder which could be due to a physiologic response to the presence of material in the stomach or chronic cholecystitis. Severe atherosclerosis Numerous old compression fractures Possibly occluded Campoverde catheter Interpreted and Authenticated by: David Garcia 07/08/21
[2021-07-08] MEDS ORDERED: POLYETHYLENE GLYCOL 3350 17 GM PACKET PO ONE (10:00)
[2021-07-08] MEDS ORDERED: FLEETS ADULT ENEMA PR ONE (10:00)
[2021-07-08] MEDS: INSULIN LISPRO 1 UNIT/0.01 ML UNIT SQ SCH ×4 (10:35→22:26)
--- NOTE | 2021-07-08 10:46 | Discharge Summary ---
Discharge Provider Provider Patient information: Note initiated : 07/08/21 at 10:45 am Service Date, if different from initiated Date: [] Patient: Giuliana Moreno 86 y/o F admitted on 07/04/21 for UTI/dehydration. Chief Complaint: [] Date of admission: 07/04/21 19:48 Discharge date: 07/10/21 Primary care physician: Gee Werner DO Consults: 07/04/21 Consult to Physician [CONS] Stat Comment: Consulting Provider: Lucho Juarez Reason For Exam: Physician to Consult 07/04/21 15:16 Consult to Physician [CONS] Stat Comment: Consulting Provider: Lucho Juarez Reason For Exam: Physician to Consult Discharge Meds Discharge Medications Home Medications Advanced Gluc Meter Test Strip (blood sugar diagnostic) #100 each NS 01/13/17 [Rx Confirmed 07/04/21 Last Taken Unknown] blood-glucose meter #1 each NS 01/13/17 [Rx Confirmed 07/04/21 Last Taken Unknown] incontinence pants, reusable #28 each NS 01/13/17 [Rx Confirmed 07/04/21 Last Taken Unknown] melatonin 3 mg tablet 3 mg PO HS 01/29/17 [History Confirmed 07/04/21 Last Taken 01/02/21 20:00] Calcium w/vitamin d 600 mg PO DAILY 01/28/18 [History Confirmed 07/04/21 Last Taken 01/03/21 08:00] Sure-Fine Pen [place] 31 gauge x 3/16" (pen needle, diabetic) #100 each NS 11/15/18 [Rx Confirmed 07/04/21 Last Taken Unknown] pen needle, diabetic 31 gauge x 3/16" (TRUEplus Pen Needle) #100 each 11/29/19 [Rx Confirmed 07/04/21 Last Taken Unknown] polyethylene glycol 3350 17 gram oral powder packet 17 g PO DAILY PRN #30 packet NS 06/25/20 [Rx Confirmed 07/04/21 Last Taken 01/03/21 08:00] gabapentin 100 mg capsule 100 mg PO TID #270 cap 12/10/20 [Rx Confirmed 07/04/21 Last Taken 01/03/21 14:00] sennosides 8.6 mg-docusate sodium 50 mg capsule (Senna Plus) 1 cap PO QHS 01/03/21 [History Confirmed 07/04/21 Last Taken 01/02/21 20:00] acetaminophen 650 mg tablet,extended release (Tylenol Arthritis Pain) 650 mg PO Q8H PRN #30 tab 01/09/21 [Rx Confirmed 07/04/21 Last Taken Unknown] ibuprofen 600 mg tablet 600 mg PO QIDP PRN #30 tab 01/09/21 [Rx Confirmed 07/04 Last Taken Unknown] lidocaine 5 % topical patch 1 patch TOPICAL HS #15 ea 01/09/21 [Rx Confirmed 07/04/21 Last Taken Unknown] methocarbamol 500 mg tablet 500 mg PO QIDP PRN #30 tab 01/09/21 [Rx Confirmed 07/04/21 Last Taken Unknown] bisacodyl 10 mg rectal suppository (Dulcolax (bisacodyl)) 10 mg CA QDAY PRN 05/30/21 [History Confirmed 07/04/21 Last Taken Unknown] insulin glargine 100 unit/mL (3 mL) subcutaneous pen (Lantus Solostar U-100 Insulin) See Rx Instructions SUB-Q QDAY ml 05/30/21 [History Confirmed 07/04/21 Last Taken Unknown] propranolol 10 mg tablet 10 mg PO QDAY PRN tab 05/30/21 [History Confirmed 07/04/21 Last Taken Unknown] risperidone 0.5 mg tablet 0.5 mg PO BID 05/30/21 [History Confirmed 07/04/21 Last Taken Unknown] tamsulosin 0.4 mg capsule 0.4 mg PO QHS #30 cap 05/30/21 [Rx Confirmed 07/04/21 Last Taken Unknown] hydrocodone 5 mg-acetaminophen 325 mg tablet 1 tab PO Q12HP PRN #5 tab 07/10/21 [Rx Last Taken Unknown] sulfamethoxazole 800 mg-trimethoprim 160 mg tablet (Bactrim DS) 1 tab PO BID #3 tab 07/10/21 [Rx Last Taken Unknown] COURSE Hospital Course Hospital course: Principal diagnosis: UTI Interval history: Ms. Moreno is a 86 year old F history of dementia, T2DM, recurrently UTI, frequent falls, [facility] resident, p/w 3 day history of increasing lethargy and a ltered mental status, according to SNF staffs. Last prior similar episode was 4 months ago. Vital signs at ED presentation significant tachycardia with HR in the 120s bpm, with rest of the vital signs within normal limits. Labs significant for leukocytosis with WBC 18.2, serum sodium 155, BUN 72, serum Cr level 1.2 UA suggestive of presence of UTI. CT head w/o no signs of acute ischemia. 07/05: Afebrile overnight. Blood and urine cultures no growth to date. Serum sodium level 157. Still on D5W@70cc/hr as well as Rocephin. Lethargic and currently sleeping. 07/06: Afebrile overnight. WBC 18.8-->19.9. Urine culture: E coli and Aerococcus urinae; blood culture no growth to date. Serum sodium level 150. Still on D5W@70cc/hr. Will switch from Rocephin to Zosyn. Denies any pain or discomfort. Denies any fever, chills, or sweating. 07/07 Patient states she slept well. No new complaints. Her white blood cell count is increasing however up to 23.7 today. Hypoglycemic this morning. Cut basal insulin in half to 5 twice daily, hold this morning. CT chest abdomen pelvis rule out other source of infection, pending procalcitonin. 07/08 Patient seems to be feeling well. No overnight event or new complaints. Blood glucose better with decreased Lantus. Pending CT chest abdomen pelvis rule out other source of infection. Leukocytosis mildly improved from yesterday. Peripheral smear unrevealing. Lactic acidosis now resolved. 07/09 Awaiting follow-up CBC. No overnight event or new complaints. No changes. 07/10 No changes a fair night other than the labs, leukocytosis improving. 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7 Plt Count 208 MPV 11.3 H Neut % (Auto) 82.9 H Lymph % (Auto) 9.8 L [place] % (Auto) 6.2 Eos % (Auto) 0.9 Baso % (Auto) 0.2 Lymph # (Auto) 2.06 [place] # (Auto) 1.30 H Eos # (Auto) 0.18 Baso # (Auto) 0.04 Absolute Neutrophils 17.35 H Smear Path Review VBG Lactic Acid 1.0 Sodium 139 Potassium 4.0 Chloride 104 Carbon Dioxide 25 Anion Gap 10.0 BUN 14 Creatinine 0.5 L GFR Calculation 87 Glucose 147 H Calcium 8.0 L C-Reactive Protein 07/08/21 07/07/21 07/07/21 05:39 09:45 06:00 WBC RBC Hgb Hct MCV MCH MCHC RDW Plt Count MPV Neut % (Auto) Lymph % (Auto) [place] % (Auto) Eos % (Auto) Baso % (Auto) Lymph # (Auto) [place] # (Auto) Eos # (Auto) Baso # (Auto) Absolute Neutrophils Smear Path Review See comment VBG Lactic Acid 3.0 H Sodium Potassium Chloride Carbon Dioxide Anion Gap BUN Creatinine GFR Calculation Glucose Calcium C-Reactive Protein 11.70 H Preliminary micro results at discharge 07/04/21 16:55 Blood Culture - Preliminary Blood 07/04/21 16:48 Blood Culture - Preliminary Blood Discharge Plan Patient/Caregiver Discharge Instructions Activity: increase activity as tolerated Diet: Consistent Carbohydrate Activity Restrictions/Additional Instructions: Monitor blood glucose at least twice daily, had a low blood glucose in the hospital. Prescriptions: New sulfamethoxazole-trimethoprim [Bactrim DS] 800-160 mg tablet 1 tab PO BID Qty: 3 0RF Continued (DME) blood sugar diagnostic [Advanced Gluc Meter Test Strip] strip See Dose Instructions .ROUTE .MEDSUPPLY MDD 4 times daily Qty: 100 4RF Dose Instruction: As directed Rx Instructions: Check Blood sugars 4 times daily (DME) blood-glucose meter misc See Dose Instructions .ROUTE .MEDSUPPLY MDD 4 times daily Qty: 1 0RF Dose Instruction: As directed Rx Instructions: Use with test strips, test 4 times daily (DME) incontinence pants, reusable misc See Dose Instructions .ROUTE .MEDSUPPLY MDD 2 pants daily Qty: 28 6RF Dose Instruction: As directed Rx Instructions: As directed (DME) pen needle, diabetic [Sure-Fine Pen [place]] 31 gauge x 3/16" needle See Dose Instructions .ROUTE .MEDSUPPLY Qty: 100 7RF Dose Instruction: As directed Rx Instructions: Use up to 4 times daily (DME) pen needle, diabetic [TRUEplus Pen Needle] 31 gauge x 3/16" needle See Rx Instructions .ROUTE .MEDSUPPLY Qty: 100 6RF Rx Instructions: test blood glucose up to 4 times daily polyethylene glycol 3350 17 gram powder in packet 17 g PO DAILY PRN (Reason: constipation) Qty: 30 4RF gabapentin 100 mg capsule 100 mg PO TID Qty: 270 1RF Calcium w/vitamin d tablet 600 mg PO DAILY 0RF Label Comments: 600mg/800iu PO melatonin 3 mg tablet 3 mg PO HS 0RF Senna Plus 8.6-50 mg Capsule 1 cap PO QHS 0RF ibuprofen 600 mg Tablet 600 mg PO QIDP PRN (Reason: Pain/Fever > 101) Qty: 30 0RF lidocaine 5 % Adhesive Patch,Medicated 1 patch topical HS Qty: 15 1RF methocarbamol 500 mg Tablet 500 mg PO QIDP PRN (Reason: Muscle Spasm) Qty: 30 0RF acetaminophen [Tylenol Arthritis Pain] 650 mg tablet extended release 650 mg PO Q8H PRN (Reason: pain, mild) Qty: 30 0RF risperidone 0.5 mg tablet 0.5 mg PO BID 0RF Lantus Solostar U-100 Insulin 100 unit/mL (3 mL) insulin pen See Rx Instructions SUB-Q QDAY 0RF Dose Instruction: 5u in AM, 10u in PM SUB-Q QDAY; Rx Instructions: 10 units at 0800 and 10 units at 2000. propranolol 10 mg tablet 10 mg PO QDAY PRN (Reason: Tachyarrhythmias) 0RF bisacodyl [Dulcolax (bisacodyl)] 10 mg suppository 10 mg CA QDAY PRN (Reason: Constipation) 0RF tamsulosin 0.4 mg capsule 0.4 mg PO QHS Qty: 30 11RF Changed hydrocodone-acetaminophen 5-325 mg Tablet 1 tab PO Q12HP PRN (Reason: pain) Qty: 5 0RF Discontinued furosemide 20 mg tablet 20 mg PO QDAY 0RF Follow Up Plan Follow up with: Gee Werner DO [Primary Care Provider] - Patient Disposition: Xfer SNF Prognosis: Fair Rehab Potential: Fair I certify that the patient requires SNF services: Yes Overall status at discharge: patient is progressing back to baseline Discharge Orders: Discharge Order (Routine); Ordered 07/10/21 Ordered By: Josh Conroy
[2021-07-08] MEDS: 0.45 % SODIUM CHLORIDE 1,000 ML IV SCH (11:53)
--- NOTE | 2021-07-08 15:33 | Ultrasound Report ---
History: Right upper quadrant pain, possible cholecystitis with contracted gallbladder seen on preceding CT scan FINDINGS: The gallbladder is normal in caliber at this time. Adherent to the wall there is a nonmobile, noncalcified 2 x 3 x 4 mm nodule. This is probably a polyp. The gallbladder wall is 2.3 mm in thickness. No pericholecystic fluid collection is present. Several folds are seen in the wall of the gallbladder. The bile ducts are nondilated. The visualized segment of the common bile duct measures 2 mm. IMPRESSION: No evidence of cholecystitis or cholelithiasis. Small polyp in the gallbladder Interpreted and Authenticated by: David Garcia 07/08/21
[2021-07-08] MEDS ORDERED: LACTULOSE 20 GM/30 ML ORAL.SOL PO ONE (16:55)
[2021-07-08] MEDS ORDERED: SENNOSIDES 1 TABLET PO ONE (16:56)
[2021-07-08] MEDS: LIDOCAINE PATCH TOPICAL SCH (22:26)
[2021-07-08] MEDS: MELATONIN 3 MG TABLET PO SCH (22:27)
[2021-07-08] MEDS: PANTOPRAZOLE 40 MG TABLET PO SCH (22:27)
[2021-07-08] MEDS: TAMSULOSIN 0.4 MG CAPSULE PO SCH (22:29)
[2021-07-09] MEDS: 0.45 % SODIUM CHLORIDE 1,000 ML IV SCH (05:16)
[2021-07-09] MEDS: 0.9 % SODIUM CHLORIDE 10 ML SYRINGE IV SCH ×5 (05:18→21:59)
[2021-07-09] MEDS: PIPERACILLIN SODIUM/TAZOBACTAM 3.375 GM in DEXTROSE 5% IN WATER 50 ML IV SCH ×3 (05:18→21:58)
[2021-07-09 07:27] LABS: ALT/SGPT 11 U/L (<40); AST/SGOT 15 U/L (<32); Albumin 2.1 gm/dL (3.2-5.2); Albumin/Globulin Ratio 0.5 (1.0-2.3); Alkaline Phosphatase 154 U/L (39-117); Bilirubin,Direct < 0.2 mg/dL (0-0.3); Bilirubin,Total 0.5 mg/dL (0.1-1.0); Blood Urea Nitrogen 12 mg/dL (8-23); Calcium 8.4 mg/dL (8.6-10.4); Carbon Dioxide 23 mmol/L (22-30); Chloride 103 mmol/L (96-108); Globulin 3.9 gm/dL (2.2-3.7); Glomerular Filtration Rate 87; Glucose 148 mg/dL (70-105); Lactate Dehydrogenase 271 U/L (135-225); Phosphorous 2.6 mg/dL (2.5-4.5); Triglycerides 59 mg/dL (<150); Uric Acid 1.6 mg/dL (2.5-8.0)
--- NOTE | 2021-07-09 07:46 | Internal Med Progress Note ---
SUBJECTIVE Subjective Patient information: Note initiated : 07/09/21 at 7:42 am Service Date, if different from initiated Date: [] Patient: Giuliana Moreno a 86 y/o F admitted on 07/04/21 for UTI/dehydration. Chief Complaint: [] Principal diagnosis: UTI Interval history: Ms. Moreno is a 86 year old F history of dementia, T2DM, recurrently UTI, frequent falls, [facility], p/w 3 day history of increasing lethargy and a ltered mental status, according to SNF staffs. Last prior similar episode was 4 months ago. Vital signs at ED presentation significant tachycardia with HR in the 120s bpm, with rest of the vital signs within normal limits. Labs significant for leukocytosis with WBC 18.2, serum sodium 155, BUN 72, serum Cr level 1.2 UA suggestive of presence of UTI. CT head w/o no signs of acute ischemia. 07/05: Afebrile overnight. Blood and urine cultures no growth to date. Serum sodium level 157. Still on D5W@70cc/hr as well as Rocephin. Lethargic and currently sleeping. 07/06: Afebrile overnight. WBC 18.8-->19.9. Urine culture: E coli and Aerococcus urinae; blood culture no growth to date. Serum sodium level 150. Still on D5W@70cc/hr. Will switch from Rocephin to Zosyn. Denies any pain or discomfort. Denies any fever, chills, or sweating. 07/07 Patient states she slept well. No new complaints. Her white blood cell count is increasing however up to 23.7 today. Hypoglycemic this morning. Cut basal insulin in half to 5 twice daily, hold this morning. CT chest abdomen pelvis rule out other source of infection, pending procalcitonin. 07/08 Patient seems to be feeling well. No overnight event or new complaints. Blood glucose better with decreased Lantus. Pending CT chest abdomen pelvis rule out other source of infection. Leukocytosis mildly improved from yesterday. Peripheral smear unrevealing. Lactic acidosis now resolved. 07/09 Awaiting follow-up CBC. No overnight event or new complaints. No changes. Review of Systems: denies headache/fever/chills/nausea/vomiting/chest or abdominal pain/cough/dyspnea/diarrhea. Otherwise see above. Constitutional Vitals: Vital Signs Temp Pulse Resp BP Pulse Ox 97.2 F 91 H 20 110/57 97 07/09/21 03:58 07/09/21 03:58 07/09/21 03:58 07/09/21 03:58 07/09/21 03:58 Period Temp Pulse Resp BP Sys/Desouza Pulse Ox Last 24 Hr 97.2 F-98.5 F 79-109 18-24 97-112/52-68 96-98 Intake and Output 07/08/21 07/09/21 07/09/21 21:59 05:59 13:59 Intake Total 1140 375 Output Total 700 350 Balance 440 25 Weight 47.99 kg Intake & Output: Intake & Output 07/08/21 07/09/21 07/09/21 21:59 05:59 13:59 Intake Total 1140 375 Output Total 700 350 Balance 440 25 Weight 47.99 kg Intake: Nourishment/Supplement quantity 440 (ml) IV 50 50 Zosyn 3.375 gm In Dextrose 5% 50 50 in Water 50 ml @ 100 mls/hr IV Q8H [facility] Rx#:[id number] Oral 650 325 Output: Urine Catheter Amount 700 350 Other: Meal Nourishment/Supplement Percent of Meal Consumed 75% Feeding Ability Total Assistance Nourishment/Supplement name glucerna Urine Appearance Sediment Clear Uretheral (Malik) Clear Urine Color Dark Darcy Bright Yellow Uretheral (Malik) Bright Yellow Urine Odor Ammonia Stool Size Small Stool Color Brown Pale Stool Consistency Liquid Loose # of times incontinent of 6 Bowels Exam: General: Alert, Awake, No acute Distress Eyes/N/T: EOMI, Head/Neck: neck supple, CV: RRR, No murmurs, Pulm: Clear b/l, no wheezing/rhonchi/rales Abd: soft, nontender, +BS x4, Ext: no clubbing/cyanosis/edema Neuro: Alert, no focal deficits, moves all extremities, Skin: warm/dry OBJ DATA Labs CBC & Chem 7: 07/08/21 05:41 07/09/21 05:51 Labs: Abnormal Lab Results 07/09/21 07/08/21 07/08/21 05:51 05:41 05:40 WBC 20.9 H RBC 3.45 L Hgb 10.3 L Hct 33.1 L MCHC MPV 11.3 H Neut % (Auto) 82.9 H Lymph % (Auto) 9.8 L [place] # (Auto) 1.30 H Seg Neutrophils % Lymphocytes % Absolute Neutrophils 17.35 H RBC Morphology Hypochromasia VBG Lactic Acid Chloride BUN Creatinine 0.5 L 0.5 L Glucose 148 H 147 H Uric Acid 1.6 L Calcium 8.4 L 8.0 L Alkaline Phosphatase 154 H Lactate Dehydrogenase 271 H C-Reactive Protein Albumin 2.1 L Globulin 3.9 H Albumin/Globulin Ratio 0.5 L Procalcitonin 07/08/21 07/07/21 07/07/21 05:39 09:45 06:00 WBC RBC Hgb Hct MCHC MPV Neut % (Auto) Lymph % (Auto) [place] # (Auto) Seg Neutrophils % Lymphocytes % Absolute Neutrophils RBC Morphology Hypochromasia VBG Lactic Acid 3.0 H Chloride BUN Creatinine Glucose Uric Acid Calcium Alkaline Phosphatase Lactate Dehydrogenase C-Reactive Protein 11.70 H Albumin Globulin Albumin/Globulin Ratio Procalcitonin 0.10 H 07/07/21 07/07/21 07/07/21 06:00 06:00 06:00 WBC 23.7 H RBC 3.40 L Hgb 10.1 L Hct 34.0 L MCHC 29.7 L MPV 10.8 H Neut % (Auto) Lymph % (Auto) [place] # (Auto) Seg Neutrophils % 81 H Lymphocytes % 9 L Absolute Neutrophils RBC Morphology Abnormal A Hypochromasia 1+ A VBG Lactic Acid Chloride 110 H BUN Creatinine Glucose 36 L* Uric Acid Calcium 8.3 L Alkaline Phosphatase Lactate Dehydrogenase C-Reactive Protein 9.00 H Albumin 2.2 L Globulin Albumin/Globulin Ratio 0.6 L Procalcitonin 07/06/21 07/06/21 07/06/21 20:45 14:10 13:29 WBC RBC Hgb Hct MCHC MPV Neut % (Auto) Lymph % (Auto) [place] # (Auto) Seg Neutrophils % Lymphocytes % 11 L Absolute Neutrophils RBC Morphology Hypochromasia VBG Lactic Acid Chloride BUN 27 H 31 H Creatinine Glucose 193 H 178 H Uric Acid Calcium 8.2 L 8.3 L Alkaline Phosphatase Lactate Dehydrogenase C-Reactive Protein Albumin Globulin Albumin/Globulin Ratio Procalcitonin 07/06/21 07/06/21 10:30 10:30 WBC RBC Hgb Hct MCHC MPV Neut % (Auto) Lymph % (Auto) [place] # (Auto) Seg Neutrophils % Lymphocytes % Absolute Neutrophils RBC Morphology Hypochromasia VBG Lactic Acid Chloride 109 H BUN 35 H Creatinine Glucose 122 H Uric Acid Calcium Alkaline Phosphatase Lactate Dehydrogenase C-Reactive Protein Albumin Globulin Albumin/Globulin Ratio Procalcitonin 0.14 H Meds: Medications Acetaminophen (Acetaminophen 325 Mg Tablet) 650 mg PO Q8HP PRN PRN Reason: PAIN/FEVER > 101 Hydrocodone Bitart/Acetaminophen (Hydrocodone/Apap 5/325mg Tablet) 1 tab PO Q4HP PRN; Protocol PRN Reason: Per Pain Protocol Albuterol/Ipratropium (Ipratropium/Albuterol 3 Ml Ampul.Neb) 3 ml NEB Q4HRT PRN PRN Reason: Wheezing Bisacodyl (Bisacodyl 10 Mg Supp.Rect) 10 mg WA DAILYP PRN PRN Reason: Constipation Calcium/Vitamin D (Calcium W/Vit D3 500 Mg Tablet) 500 mg PO DAILY [facility] Last Admin: 07/08/21 10:32 Dose: Not Given Documented by: Chlorhexidine Gluconate (Chlorhexidine Gluconate 473 Ml Bottle) 60 ml TOPICAL UD BELINDA Dextrose (Dextrose 50% 50 Ml Vial) 0 ml IV UD PRN PRN Reason: Hypoglycemia Diagnostic Test (Pha) (Accu-Chek 1 Each Strip) 1 each FS ACHS [facility] Last Admin: 07/09/21 07:04 Dose: 1 each Documented by: Docusate Sodium (Docusate Sodium 100 Mg Capsule) 100 mg PO DAILY [facility] Last Admin: 07/08/21 08:44 Dose: 100 mg Documented by: Docusate Sodium (Docusate Sodium 100 Mg Capsule) 100 mg PO BID [facility] Last Admin: 07/08/21 22:29 Dose: 100 mg Documented by: Gabapentin (Gabapentin 100 Mg Capsule) 100 mg PO TID [facility] Last Admin: 07/08/21 22:27 Dose: 100 mg Documented by: Glucose (Dextrose 31 Gm Oral.Susp) 15 gm PO PRN PRN PRN Reason: Hypoglycemia Heparin Sodium (Porcine) (Heparin 5,000 Unit/Ml Vial) 5,000 unit SQ Q12 [facility] Last Admin: 07/08/21 22:28 Dose: 5,000 unit Documented by: Heparin Sodium (Porcine) (Heparin Flush 10 Units/Ml 5 Ml Syringe) 2 ml IV Q12 [facility] Last Admin: 07/08/21 21:07 Dose: Not Given Documented by: Piperacillin Sod/Tazobactam (Sod 3.375 gm/ Dextrose) 50 mls @ 100 mls/hr IV Q8H [facility]; Protocol Last Admin: 07/09/21 05:18 Dose: 100 mls/hr Documented by: Sodium Chloride (Sodium Chloride 0.45%) 1,000 mls @ 50 mls/hr IV .Q20H [facility] Last Admin: 07/09/21 05:16 Dose: Not Given Documented by: Ibuprofen (Ibuprofen 200 Mg Tablet) 200 mg PO QIDP PRN; Protocol PRN Reason: Pain/Fever > 101 Insulin Glargine (Insulin Glargine, Human 1 Unit/0.01 Ml) 5 unit SQ DAILY [facility] Last Admin: 07/08/21 10:31 Dose: 5 unit Documented by: Insulin Human Lispro (Insulin Lispro 1 Unit/0.01 Ml Unit) 0 unit SQ ACHS [facility]; Protocol Last Admin: 07/08/21 22:26 Dose: 8 unit Documented by: Lidocaine (Lidocaine Patch) 1 patch TOPICAL [facility] Last Admin: 07/08/21 22:26 Dose: 1 patch Documented by: Melatonin (Melatonin 3 Mg Tablet) 3 mg PO HS [facility] Last Admin: 07/08/21 22:27 Dose: 3 mg Documented by: Methocarbamol (Methocarbamol 500 Mg Tablet) 500 mg PO QIDP PRN PRN Reason: Muscle Spasm Last Admin: 07/08/21 22:28 Dose: 500 mg Documented by: Mupirocin (Mupirocin Oint 2% 22gm) 1 dose NARES BID [facility] Last Admin: 07/08/21 22:26 Dose: 1 dose Documented by: Ondansetron HCl (Ondansetron 4 Mg/2 Ml Vial) 4 mg IV Q6HP PRN PRN Reason: Nausea And Vomiting Pantoprazole Sodium (Pantoprazole 40 Mg Tablet) 40 mg PO HS [facility] Last Admin: 07/08/21 22:27 Dose: 40 mg Documented by: Polyethylene Glycol (Polyethylene Glycol 3350 17 Gm Packet) 17 gm PO DAILYP PRN PRN Reason: constipation Risperidone (Risperidone 0.25 Mg Tablet) 0.5 mg PO BID [facility] Last Admin: 07/08/21 22:27 Dose: 0.5 mg Documented by: Sodium Chloride (0.9 % Sodium Chloride 10 Ml Syringe) 10 ml IV Q8 [facility] Last Admin: 07/09/21 05:18 Dose: 10 ml Documented by: Sodium Chloride (0.9 % Sodium Chloride 10 Ml Syringe) 10 ml IV Q12 [facility] Last Admin: 07/08/21 22:30 Dose: 10 ml Documented by: Tamsulosin HCl (Tamsulosin 0.4 Mg Capsule) 0.4 mg PO QHS [facility] Last Admin: 07/08/21 22:29 Dose: 0.4 mg Documented by: A/P Narrative A/P Narrative: A: *UTI(E coli & Aerococcus urinae) w/Sepsis & Delirium: -Blood culture X2, no growth to date *SIRS: improving *Persistent Leukocytosis worsened but better today (20<23<<<18), no bandemia, afebrile, BC neg, pct low -peripheral smear unrevealing -lactic acidosis now resolved -CT c/a/p & GB u/s unrevealing *Hypernatremia with unknown chronicity: -resolved *T2DM: episodes of hypoglycemia on the lantus 10 bid -A1c 7.7 *MICHAEL: resolved *Dementia, likely vascular: Risperidone *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
[2021-07-09] MEDS: risperiDONE 0.25 MG TABLET PO SCH ×2 (09:23→20:27)
[2021-07-09] MEDS: DOCUSATE SODIUM 100 MG CAPSULE PO SCH ×2 (09:24→20:34)
[2021-07-09] MEDS: MUPIROCIN OINT 2% 22GM NARES SCH ×2 (09:24→20:29)
[2021-07-09] MEDS: GABAPENTIN 100 MG CAPSULE PO SCH ×3 (09:24→20:26)
[2021-07-09] MEDS: INSULIN LISPRO 1 UNIT/0.01 ML UNIT SQ SCH ×4 (09:24→20:33)
[2021-07-09] MEDS: CALCIUM W/VIT D3 500 MG TABLET PO SCH (09:25)
[2021-07-09] MEDS: INSULIN GLARGINE, HUMAN 1 UNIT/0.01 ML SQ SCH (09:26)
[2021-07-09] MEDS: HEPARIN 5,000 UNIT/ML VIAL SQ SCH ×2 (09:26→20:27)
[2021-07-09 09:48] LABS: Basophils # (Auto) 0.05 K/mcL (0.00-0.30); Basophils % (Auto) 0.2 % (0.0-2.0); Eosinophils # (Auto) 0.12 K/mcL (0.00-0.70); Eosinophils % (Auto) 0.5 % (0.0-7.0); Hematocrit 32.5 % (34.1-44.9); Hemoglobin 10.7 g/dL (11.2-15.7); Lymphocytes # (Auto) 1.71 K/mcL (1.50-4.80); Lymphocytes % (Auto) 7.5 % (15.5-49.0); Mean Cell Volume 93.1 fL (80.0-100.0); Mean Corpuscular HGB Conc 32.9 g/dL (31.0-36.0); Mean Platelet Volume 10.5 fL (7.4-10.4); Monocytes # (Auto) 1.47 K/mcL (0.10-0.90); Monocytes % (Auto) 6.4 % (1.0-12.0); Neutrophils % (Auto) 85.4 % (38.0-78.0); Platelet Count 271 K/mcL (140-440); RBC 3.49 M/mcL (3.59-5.38); Red Cell Distribution Width 12.7 % (11.5-14.5); WBC 22.8 K/mcL (4.5-11.0)
[2021-07-09] MEDS: TAMSULOSIN 0.4 MG CAPSULE PO SCH (20:26)
[2021-07-09] MEDS: PANTOPRAZOLE 40 MG TABLET PO SCH (20:26)
[2021-07-09] MEDS: MELATONIN 3 MG TABLET PO SCH (20:26)
[2021-07-09] MEDS: LIDOCAINE PATCH TOPICAL SCH (20:29)
[2021-07-10] MEDS: PIPERACILLIN SODIUM/TAZOBACTAM 3.375 GM in DEXTROSE 5% IN WATER 50 ML IV SCH ×3 (05:44→21:44)
[2021-07-10] MEDS: 0.9 % SODIUM CHLORIDE 10 ML SYRINGE IV SCH ×5 (05:47→21:04)
[2021-07-10] MEDS: INSULIN LISPRO 1 UNIT/0.01 ML UNIT SQ SCH ×4 (07:13→21:43)
[2021-07-10 08:03] LABS: Mean Corpuscular HGB Conc 32.1 g/dL (31.0-36.0); Mean Platelet Volume 10.5 fL (7.4-10.4); Platelet Count 298 K/mcL (140-440); RBC 2.98 M/mcL (3.59-5.38); Red Cell Distribution Width 12.8 % (11.5-14.5); WBC 17.6 K/mcL (4.5-11.0)
[2021-07-10 08:33] LABS: Band Neutrophils % 4 % (0-10); Eosinophils % (Manual) 1 % (0-7); Lymphocytes % 12 % (15-49); Monocytes % (Manual) 7 % (1-12); Platelet Estimate NORMAL (Normal); RBC Morphology NORMAL (Normal); Segmented Neutrophils % 76 % (38-78)
[2021-07-10] MEDS: DOCUSATE SODIUM 100 MG CAPSULE PO SCH ×2 (08:36→21:03)
[2021-07-10] MEDS: GABAPENTIN 100 MG CAPSULE PO SCH (08:36)
[2021-07-10] MEDS: CALCIUM W/VIT D3 500 MG TABLET PO SCH (08:36)
[2021-07-10] MEDS: risperiDONE 0.25 MG TABLET PO SCH ×2 (08:36→21:43)
[2021-07-10] MEDS: HEPARIN 5,000 UNIT/ML VIAL SQ SCH ×2 (08:37→21:43)
[2021-07-10] MEDS: INSULIN GLARGINE, HUMAN 1 UNIT/0.01 ML SQ SCH (08:37)
[2021-07-10] MEDS: MUPIROCIN OINT 2% 22GM NARES SCH ×2 (08:37→21:02)
[2021-07-10] MEDS: PANTOPRAZOLE 40 MG TABLET PO SCH (21:43)
[2021-07-10] MEDS: TAMSULOSIN 0.4 MG CAPSULE PO SCH (21:43)
[2021-07-10] MEDS: MELATONIN 3 MG TABLET PO SCH (21:43)
[2021-07-10] MEDS: LIDOCAINE PATCH TOPICAL SCH (21:44)
[2021-07-11] MEDS: 0.9 % SODIUM CHLORIDE 10 ML SYRINGE IV SCH ×2 (05:51→08:28)
[2021-07-11] MEDS: INSULIN LISPRO 1 UNIT/0.01 ML UNIT SQ SCH (07:59)
[2021-07-11] MEDS: HEPARIN 5,000 UNIT/ML VIAL SQ SCH (08:22)
[2021-07-11] MEDS: risperiDONE 0.25 MG TABLET PO SCH (08:24)
[2021-07-11] MEDS: CALCIUM W/VIT D3 500 MG TABLET PO SCH (08:24)
[2021-07-11] MEDS: DOCUSATE SODIUM 100 MG CAPSULE PO SCH (08:24)
[2021-07-11] MEDS: MUPIROCIN OINT 2% 22GM NARES SCH (08:27)
[2021-07-11] MEDS ORDERED: cefTRIAXone 1 GM VIAL IV SCH (09:00)
[2021-07-11] MEDS: INSULIN GLARGINE, HUMAN 1 UNIT/0.01 ML SQ SCH (10:51)
== END 2021-07-11 11:05 | DRG 872 ==
LOC: ED 10:56 → MEDSUR 19:48
PROVIDERS: ADMIT Internal Medicine; ATTEND Internal Medicine